=== PATIENT | male | born 1960 | race Caucasian/White ===

== ENCOUNTER 2019-10-23 07:10 | Inpatient (IN) | payer MEDICARE, MEDICAID, SELFPAY ==
[2019-10-23] VITALS (21 sets, daily range): BP systolic 83–129; BP diastolic 46–68; PULSE 69–86; RESP 13–24; TEMP 34.3–36.4; O2SAT 86–100
--- NOTE | 2019-10-23 07:12 | XR_ITS ---
WS: [id number] XR chest 1V portable [id number] REASON FOR EXAM: cp FINDINGS: Hyper aerated lungs are seen bilaterally. The heart mediastinum were normal. Arteriosclerotic changes are seen. The hilum and apices are normal. No osseous abnormalities. XR/XR chest 1V portable [id number] IMPRESSION: Chronic obstructive pulmonary disease Arteriosclerotic changes.
--- NOTE | 2019-10-23 07:13 | ECG_ITS ---
Measurements Intervals [place] Rate: 73 P: 70 RI: 163 QRS: -87 QRSD: 143 T: 68 QT: 421 QTc: 466 SINUS RHYTHM POSSIBLE LEFT ATRIAL ENLARGEMENT [-0.1mV P WAVE IN V1/V2] INTRAVENTRICULAR CONDUCTION DELAY [130+ ms QRS DURATION] Compared to ECG 02/10/2019 17:35:10 Intraventricular conduction delay now present Sinus bradycardia no longer present Left anterior fascicular block no longer present Electronically Signed On 10-23-2019 8:45:50 CDT by Caty Abbasi [id number]
--- NOTE | 2019-10-23 07:13 | W.ED.AMS ---
HPI - Altered Mental Status General: Chief Complaint: Altered Mental Status Stated Complaint: DKA Time Seen by Provider: 10/23/19 07:10 Source: patient and EMS Mode of arrival: EMS Limitations: altered mental status History of Present Illness: HPI narrative: 59-year-old male who is very well-known to the ER and has a long history of hyperglycemia and type I diabetic has been here multiple times in DKA. Patient brought in by EMS today for altered mental status and blood sugar in the 500s. Patient currently will not answer any questions. He is breathing fast and is tachycardic as well. Denies any recent fevers. MD complaint: altered mental status Onset (ago): hour(s) Review of Systems General: Reports: ROS unobtainable due to mental status PFSH ED PFSH: Social History Smoking and tobacco status: never smoked Physical Exam Const: COMMON NORMALS: negative for oriented x3 EXAM LIMITATIONS: altered mental status GENERAL APPEARANCE: disheveled HENMT: COMMON NORMALS: normocephalic and head/scalp atraumatic HEAD & SCALP: normocephalic and atraumatic Eye: COMMON NORMALS: PERRL and EOMs intact bilaterally PUPIL: Yes PERRL Neck/C-Spine: COMMON NORMALS: full ROM and supple Chest: COMMONS NORMALS: inspection of chest normal and palpation of chest normal Resp: COMMON NORMALS: normal respiratory effort, no retractions, no use of accessory muscles and clear to auscultation bilaterally EFFORT & INSPECTION: Yes tachypneic AUSCULTATION: clear to auscultation bilaterally Cardio: COMMON NORMALS: regular rhythm and no murmurs RATE: tachycardic RHYTHM: regular rhythm GI: COMMON NORMALS: normal to inspection, nondistended, normoactive bowel sounds, soft to palpation, non-tender and no masses PALPATION: Yes soft Extremity: COMMON NORMALS: normal to inspection and full ROM Neuro: COMMON NORMALS: moves all extremities and no focal motor deficits; negative for oriented x3 Psych: COMMON NORMALS: mental status grossly normal, thought process normal and cooperative THOUGHT PROCESS: normal thought process Skin: COMMON NORMALS: no rashes or lesions noted and no wounds GENERAL SKIN EXAM: no rashes or lesions noted Course Vital Signs: Vital signs: Vital Signs Pulse Rate 73 10/23/19 07:12 Respiratory Rate 16 10/23/19 07:12 Blood Pressure 83/46 10/23/19 07:12 Pulse Oximetry 91 10/23/19 07:12 MDM - Altered Mental Status MDM Narrative: Medical decision making narrative: Giancarlo presents here with altered mental status likely from DKA. Patient is hyperglycemic and acidotic. Patient started on insulin and given IV fluids here. Patient is also quite dehydrated with acute kidney injury and hypotension. Patient's blood pressure is improving here after IV fluids. I spoke to the hospitalist and will admit to the ICU at this time. Lab Data: Labs: Lab Results 10/23/19 10/23/19 10/23/19 Range/Units 07:13 07:15 07:43 WBC 19.3 H (4.0-10.0) 10^3/ uL RBC 4.23 (4.1-5.3) 10^6/u L Hgb 13.9 (11.7-16.6) g/dL Hct 47.2 (42.0-52.0) % MCV 111.6 H (80-94) fL MCH 32.9 (28.0-34.0) pg MCHC 29.4 L (30.0-36.0) g/dL RDW 13.1 (12.1-15.1) % Plt Count 282 (130-400) 10^3/c mm MPV 12.6 H (7.4-10.4) fL Neut % (Auto) 78.8 % Lymph % (Auto) 5.7 % [place] % (Auto) 13.2 % Eos % (Auto) 0.1 % Baso % (Auto) 0.2 % Neut # (Auto) 15.2 H (1.8-7.7) 10^3/u L Lymph # (Auto) 1.1 (0.8-4.8) 10^3/u L [place] # (Auto) 2.6 H (0.2-0.9) 10^3/u L Eos # (Auto) 0.0 (0.0-0.8) 10^3/u L Baso # (Auto) 0.0 (0.0-0.1) 10^3/u L Nucleated RBC % (a uto) 0 % Nucleated RBCs # 0.0 /100WBC Specimen Type Arterial Sample Site Radial, left ABG pH 7.01 L* (7.35-7.45) ABG pCO2 14.8 L* (35-45) mmHg ABG pO2 144.0 H (80.0-100.0) mmH g ABG HCO3 3.7 L (22-26) mmol/L ABG Base Excess -25.7 L (-2.0-2.0) mmol/ L Saleem Test Pos Hematocrit 43.3 (42-52) % O2 Delivery Device Room air FiO2 21.0 % Fork Assembler ID cak Sodium (136-145) mmol/L Potassium (3.5-5.1) mmol/L Chloride (98-107) mmol/L Carbon Dioxide (22-29) mmol/L Anion Gap (5-19) BUN (8-23) mg/dL Creatinine (0.7-1.2) mg/dL GFR Calculation (90-130) mL/min Glucose (65-115) mg/dL Calculated Osmolal ity (285-295) mOsm/k g Calcium (8.5-10.5) mg/dL Phosphorus (2.5-4.5) mg/dL Total Bilirubin (0.15-1.2) mg/dL AST (0-40) U/L ALT (0-41) U/L Alkaline Phosphata se (40-130) IU/L Total Protein (6.6-8.7) g/dL Albumin (3.5-5.2) g/dL Globulin (1.3-4.6) g/dL Serum Ketones Positive H (Negative) 10/23/19 Range/Units 07:43 WBC (4.0-10.0) 10^3/ uL RBC (4.1-5.3) 10^6/u L Hgb (11.7-16.6) g/dL Hct (42.0-52.0) % MCV (80-94) fL MCH (28.0-34.0) pg MCHC (30.0-36.0) g/dL RDW (12.1-15.1) % Plt Count (130-400) 10^3/c mm MPV (7.4-10.4) fL Neut % (Auto) % Lymph % (Auto) % [place] % (Auto) % Eos % (Auto) % Baso % (Auto) % Neut # (Auto) (1.8-7.7) 10^3/u L Lymph # (Auto) (0.8-4.8) 10^3/u L [place] # (Auto) (0.2-0.9) 10^3/u L Eos # (Auto) (0.0-0.8) 10^3/u L Baso # (Auto) (0.0-0.1) 10^3/u L Nucleated RBC % (a uto) % Nucleated RBCs # /100WBC Specimen Type Sample Site ABG pH (7.35-7.45) ABG pCO2 (35-45) mmHg ABG pO2 (80.0-100.0) mmH g ABG HCO3 (22-26) mmol/L ABG Base Excess (-2.0-2.0) mmol/ L Saleem Test Hematocrit (42-52) % O2 Delivery Device FiO2 % Fork Assembler ID Sodium 138 (136-145) mmol/L Potassium 5.8 H (3.5-5.1) mmol/L Chloride 85 L (98-107) mmol/L Carbon Dioxide 4 L* (22-29) mmol/L Anion Gap 54.8 H (5-19) BUN 86 H* (8-23) mg/dL Creatinine 3.5 H (0.7-1.2) mg/dL GFR Calculation 17.9 L (90-130) mL/min Glucose 1010 H* (65-115) mg/dL Calculated Osmolal ity 337 H (285-295) mOsm/k g Calcium 9.3 (8.5-10.5) mg/dL Phosphorus 11.8 H* (2.5-4.5) mg/dL Total Bilirubin 0.2 (0.15-1.2) mg/dL AST 21 (0-40) U/L ALT 20 (0-41) U/L Alkaline Phosphata se 80 (40-130) IU/L Total Protein 6.6 (6.6-8.7) g/dL Albumin 4.1 (3.5-5.2) g/dL Globulin 2.5 (1.3-4.6) g/dL Serum Ketones (Negative) Imaging Data^: CXR: Attestation: I personally reviewed and interpreted this imaging study as follows: Radiologist's impression: no acute abnormality EKG Data^: EKG 1: Attestation: I personally reviewed and interpreted this EKG as follows: EKG interpretation date: 10/23/19 EKG interpretation time: 08:02 Interpretation: nsr hr [address] or twave abnormalities qrs 143 qtc 447 Critical Care Time Critical Care Time: Critical Care Time: Yes Total Critical Care Time: 36 Attestation: This case had a high probability of a clinically significant, sudden, or life threatening deterioration of this patient's condition which required my full and direct attention, intervention and personal management. Discharge Plan Discharge Patient Disposition: Admitted As Inpatient Admit Provider: Veronica Patel Clinical Impression: Acute kidney injury Diabetic ketoacidosis Qualifiers: Diabetes mellitus type: type 1 Diabetes mellitus complication detail: with coma Qualified Code(s): E10.11 - Type 1 diabetes mellitus with ketoacidosis with coma Condition: Stable Coding Level of Care Code ED Water Chaser for Chg Fwd Exam Comprehensive
[2019-10-23 07:23] LABS: Basophils % 0.2 %; Eosinophils % 0.1 %; Hematocrit 47.2 % (42.0-52.0); Hemoglobin 13.9 g/dL (11.7-16.6); Lymphocytes # 1.1 10^3/uL (0.8-4.8); Lymphocytes % 5.7 %; Mean Corpuscular HGB Conc 29.4 g/dL (30.0-36.0); Mean Corpuscular Hemoglobin 32.9 pg (28.0-34.0); Mean Corpuscular Volume 111.6 fL (80-94); Mean Platelet Volume 12.6 fL (7.4-10.4); Monocytes # 2.6 10^3/uL (0.2-0.9); Monocytes % 13.2 %; Neutrophils # 15.2 10^3/uL (1.8-7.7); Neutrophils % 78.8 %; Nucleated Red Blood Cells % 0 %; Platelet Count 282 10^3/cmm (130-400); Red Blood Count 4.23 10^6/uL (4.1-5.3); Red Cell Distribution Width 13.1 % (12.1-15.1); White Blood Count 19.3 10^3/uL (4.0-10.0)
[2019-10-23 07:24] LABS: Arterial Blood Gas Hematocrit 43.3 % (42-52); Base Excess ABG -25.7 mmol/L (-2.0-2.0); Blood Gas Allen Test Pos; Blood Gas Sample Site Radial, left; Blood Gas Sample Type Arterial; HCO3 ABG 3.7 mmol/L (22-26); Oxygen Device ROOM AIR
[2019-10-23 07:25] LABS: ABG PCO2 14.8 mmHg (35-45); ABG PH Result 7.01 (7.35-7.45)
[2019-10-23 08:03] LABS: Ketone (Acetest) Serum Positive (Negative)
[2019-10-23 08:16] LABS: Alanine Aminotransferase 20 U/L (0-41); Albumin Level 4.1 g/dL (3.5-5.2); Alkaline Phosphatase 80 IU/L (40-130); Calcium 9.3 mg/dL (8.5-10.5); Chloride 85 mmol/L (98-107); Globulin 2.5 g/dL (1.3-4.6); Glomerular Filtration Rate 17.9 mL/min (90-130); Potassium 5.8 mmol/L (3.5-5.1); Sodium 138 mmol/L (136-145); Total Bilirubin 0.2 mg/dL (0.15-1.2); Total Protein 6.6 g/dL (6.6-8.7)
[2019-10-23 08:20] LABS: Osmolality Calculated 337 mOsm/kg (285-295)
[2019-10-23 08:22] LABS: Anion Gap 54.8 (5-19); Aspartate Amino Transferase 21 U/L (0-40); Blood Urea Nitrogen 86 mg/dL (8-23); Carbon Dioxide 4 mmol/L (22-29); Glucose 1010 mg/dL (65-115); Phosphorus 11.8 mg/dL (2.5-4.5)
[2019-10-23] MEDS: sodium chloride 0.9% 1,000 ML 999 ML IV ×2 (08:35→08:36)
[2019-10-23] MEDS: insulin regular-human 250 UNIT in sodium chloride 0.9% 250 ML 7 UNIT IV (09:50)
--- NOTE | 2019-10-23 10:10 | PM.HP ---
Providers/Chief Complaint Admitting Physician: Veronica Patel DO Chief Complaint: DKA History of Present Illness Giancarlo Levi is a 59 year old male that presented to the emergency department today due to concern for altered mental status. Reportedly patient had been evaluated by EMS yesterday noted to have hyperglycemia and denied medical treatment. Patient has had several admissions in the past for DKA due to noncompliance with medication. Patient is somewhat confused but awake in the emergency department and therefore unable to obtain HPI from him. Patient was seen and evaluated in the emergency department noted to be in DKA and started on insulin drip and aggressive IV fluids. Review of Systems General: Reports: ROS unobtainable due to medical condition Medications/Allergies Home Medications Medication Instructions Recorded Confirmed Last Taken Type acetaminophen 1,000 mg PO Q6H PRN 10/23/19 10/23/19 Unknown History diphenhydramine HCl [Allergy] 25 mg PO Q6H PRN 10/23/19 10/23/19 Unknown History divalproex [Depakote ER] 500 mg PO BID 10/23/19 10/23/19 Unknown History dulaglutide [Trulicity] 0.75 mg SUBCUT Q7D 10/23/19 10/23/19 Unknown History empagliflozin [Jardiance] 10 mg PO DAILY 10/23/19 10/23/19 Unknown History furosemide [Lasix] 20 mg PO DAILY 10/23/19 10/23/19 Unknown History insulin NPH isoph U-100 human 10 unit SUBCUT DAILY 10/23/19 10/23/19 Unknown History [Novolin N Flexpen] levothyroxine 75 mcg PO DAILY 10/23/19 10/23/19 Unknown History mirtazapine 15 mg PO DAILY 10/23/19 10/23/19 Unknown History multivitamin 1 tab PO DAILY 10/23/19 10/23/19 Unknown History potassium chloride 20 meq PO BID 10/23/19 10/23/19 Unknown History quetiapine 200 mg PO BID 10/23/19 10/23/19 Unknown History quetiapine [Seroquel] 300 mg PO DAILY 10/23/19 10/23/19 Unknown History sertraline 50 mg PO DAILY 10/23/19 10/23/19 Unknown History Allergies Allergy/AdvReac Type Severity Reaction Status Date / Time No Known Allergies Allergy Unverified 10/23/19 08:51 PFSH Acute PFSH: Medical History (Updated 10/23/19 @ 10:57 by Veronica Patel DO) Diabetes mellitus type 2, insulin dependent Hypothyroidism Polysubstance abuse Schizophrenia Family History (Updated 10/23/19 @ 10:58 by Veronica Patel DO) Mother Dementia Father Dementia Social History Smoking and tobacco status: never smoked Supplemental PFSH Information: Information above obtained from chart review, unable to obtain from patient due to his clinical condition Vitals/I&O/Wt Last Vital Signs Pulse 73 10/23/19 07:12 Resp 16 10/23/19 07:12 BP 83/46 10/23/19 07:12 Pulse Ox 91 10/23/19 07:12 Weight last 48 hrs Weight 26.762 kg Physical Exam Const: COMMON NORMALS: alert GENERAL APPEARANCE: cooperative NUTRITIONAL APPEARANCE: thin and underweight ORIENTATION/CONSCIOUSNESS: Yes awake and Yes confused HENMT: COMMON NORMALS: normocephalic and head/scalp atraumatic HEAD & SCALP: normocephalic and atraumatic Eye: COMMON NORMALS: PERRL PUPIL: Yes PERRL Neck/C-Spine: COMMON NORMALS: supple GENERAL: Yes normal visual inspection Resp: COMMON NORMALS: normal respiratory effort and clear to auscultation bilaterally EFFORT & INSPECTION: Yes able to speak in complete sentences AUSCULTATION: clear to auscultation bilaterally, no rhonchi and no wheezes Cardio: COMMON NORMALS: regular rate, regular rhythm and no murmurs RATE: regular rate RHYTHM: regular rhythm GI: COMMON NORMALS: soft to palpation and non-tender INSPECTION: No abdominal distension AUSCULTATION: Yes normoactive bowel sounds PALPATION: Yes soft Extremity: COMMON NORMALS: no clubbing, cyanosis or edema and no calf tenderness Neuro: COMMON NORMALS: oriented x3, CN's II-XII intact bilaterally, moves all extremities and no focal motor deficits SENSORIUM/ORIENTATION: Yes alert Psych: OTHER: Difficulty following, trying to get out of bed despite redirection Skin: COMMON NORMALS: no rashes or lesions noted GENERAL SKIN EXAM: no rashes or lesions noted Data : 10/23/19 07:15 10/23/19 07:43 A&P Assessment and plan (1) Diabetic ketoacidosis: Admit to ICU Serial BMP Aggressive IV fluids Insulin drip Patient with a history of noncompliance Status: Acute Qualifiers: Diabetes mellitus complication detail: with coma Diabetes mellitus type: type 1 Qualified Code(s): E10.11 - Type 1 diabetes mellitus with ketoacidosis with coma Code(s): E11.10 - Type 2 diabetes mellitus with ketoacidosis without coma (2) Acute kidney injury: Appears to be prerenal due to dehydration and DKA. Continue with aggressive IV fluids and serial BMPs. Continue to monitor urine output closely. Status: Acute Code(s): N17.9 - Acute kidney failure, unspecified (3) Diabetes mellitus type 2, insulin dependent: With a history of noncompliance Status: Acute Code(s): E11.9 - Type 2 diabetes mellitus without complications; Z79.4 - technician terminal and repeater (current) use of insulin (4) Schizophrenia: Patient has history of [facility] admissions in the past, unknown if he is still taking his home Seroquel, sertraline and Depakote Status: Acute Code(s): F20.9 - Schizophrenia, unspecified (5) Hypothyroidism: Check TSH Status: Acute Code(s): E03.9 - Hypothyroidism, unspecified Attestations Medical Necessity Statement*: Patient requires hospitalization due to diabetic ketoacidosis, acute kidney injury. Expected stay greater than 2 midnights Coding Level of Care Code Acute Email Production Consultant for Chg Fwd Exam Comprehensive Diagnoses Diabetic ketoacidosis E10.11 Diabetes mellitus complication detail: with coma Diabetes mellitus type: type 1 Acute kidney injury N17.9 Diabetes mellitus type 2, insulin dependent E11.9; Z79.4 Schizophrenia F20.9 Hypothyroidism E03.9
--- NOTE | 2019-10-23 10:20 | PC.NURSE ---
body temp 91.8 rectal bare hugger applied
--- NOTE | 2019-10-23 10:40 | PC.NURSE ---
1400 mls urine out
[2019-10-23 10:50] LABS: Add Urine Microscopic? NO
[2019-10-23 11:04] LABS: Urine Appearance Clear (CLEAR); Urine Color Straw (Yellow); pH Urine 5 (5-7)
[2019-10-23 11:05] LABS: Bilirubin Urine Neg (NEGATIVE); Blood Urine Neg (Negative); Glucose Urine UA 4+ (Normal); Ketones Urine 1+ (Negative); Leukocyte Esterase Urine Negative (Negative); Nitrate Urine Negative (Negative); Protein Urine Neg (Negative); Urobilinogen Urine Norm (Negative)
[2019-10-23 12:41] LABS: Glucose 680 mg/dL (65-115)
[2019-10-23] MEDS: enoxaparin 30 mg/0.3 mL Syringe SUBCUT (12:49)
[2019-10-23] MEDS: sodium chloride 0.9% 1,000 ML 150 ML IV (12:50)
[2019-10-23 13:07] LABS: Estmated Average Glucose 220; Hemoglobin A1C 9.3 % (4.0-6.0)
[2019-10-23 13:18] LABS: Anion Gap 47.8 (5-19); Calcium 8.6 mg/dL (8.5-10.5); Chloride 97 mmol/L (98-107); Glomerular Filtration Rate 22.2 mL/min (90-130); Osmolality Calculated 334 mOsm/kg (285-295); Potassium 4.8 mmol/L (3.5-5.1); Sodium 146 mmol/L (136-145); Thyroid Stimulating Hormone 1.87 uIU/mL (0.27-4.20)
[2019-10-23 13:22] LABS: Blood Urea Nitrogen 85 mg/dL (8-23); Carbon Dioxide 6 mmol/L (22-29)
[2019-10-23 13:23] LABS: Glucose 680 mg/dL (65-115)
[2019-10-23 13:31] LABS: Glucose Point of Care 450 mg/dL (70-110)
[2019-10-23 14:13] LABS: Glucose Point of Care 476 mg/dL (70-110)
[2019-10-23 15:20] LABS: Glucose Point of Care 295 mg/dL (70-110)
[2019-10-23] MEDS: sodium chlor 0.9% + KCl 20 mEq 20 MEQ/1,000 ML BAG 150 MEQ IV (15:24)
[2019-10-23 16:20] LABS: Glucose Point of Care 273 mg/dL (70-110)
[2019-10-23 17:12] LABS: Glucose Point of Care 224 mg/dL (70-110)
[2019-10-23] MEDS: dextrose 5%-ns + KCl 20 20 MEQ/1,000 ML BAG 125 MEQ IV (17:16)
[2019-10-23 17:59] LABS: Anion Gap 32.8 (5-19); Blood Urea Nitrogen 70 mg/dL (8-23); Calcium 8.6 mg/dL (8.5-10.5); Carbon Dioxide 12 mmol/L (22-29); Chloride 111 mmol/L (98-107); Glomerular Filtration Rate 30.6 mL/min (90-130); Glucose 233 mg/dL (65-115); Osmolality Calculated 321 mOsm/kg (285-295); Potassium 3.8 mmol/L (3.5-5.1); Sodium 152 mmol/L (136-145)
[2019-10-23 18:20] LABS: Glucose Point of Care 196 mg/dL (70-110)
[2019-10-23 19:05] LABS: Glucose Point of Care > 600 mg/dL (70-110)
[2019-10-23 19:09] LABS: Glucose Point of Care 115 mg/dL (70-110)
--- NOTE | 2019-10-23 21:32 | PC.NURSE ---
Pt has been restless since shift change. Pt has become increasingly able to open eyes on command as well as nod yes or shake his head no . Pt has been asked if he is in pain. He has responded 2 separate times in the last hour that he is in pain. He is unable to speak more than a mumble, so I'm not sure what hurts. He nodded yes to medicine. Pt is still NPO.
[2019-10-23] MEDS: morphine 4 mg/mL SDV 1 mL 2 MG IVP (21:37)
[2019-10-23] MEDS: dextrose 50% syringe 50 mL IVP (22:18)
[2019-10-23 23:58] LABS: Anion Gap 18.3 (5-19); Blood Urea Nitrogen 63 mg/dL (8-23); Calcium 8.9 mg/dL (8.5-10.5); Carbon Dioxide 24 mmol/L (22-29); Chloride 120 mmol/L (98-107); Creatinine Clr Calc Pharmacy 17.2729; Glomerular Filtration Rate 41.2 mL/min (90-130); Glucose 146 mg/dL (65-115); Osmolality Calculated 328 mOsm/kg (285-295); Potassium 4.3 mmol/L (3.5-5.1); Sodium 158 mmol/L (136-145)
[2019-10-24] VITALS (15 sets, daily range): BP systolic 77–135; BP diastolic 47–83; PULSE 49–88; RESP 12–26; TEMP 36.6–37.1; O2SAT 96–100; BMI 13.7
[2019-10-24] MEDS: dextrose 5%-ns + KCl 20 20 MEQ/1,000 ML BAG 125 MEQ IV (01:19)
[2019-10-24] MEDS: morphine 4 mg/mL SDV 1 mL 2 MG IVP ×2 (01:21→05:18)
[2019-10-24] MEDS: haloperidol inj 5 mg/mL INJ 1 mL IM ×3 (01:37→20:30)
--- NOTE | 2019-10-24 02:28 | PC.NURSE ---
Pt has become increasingly agitated over the past hour. A second dose of morphine was given with no change in pt's demeanor. Pt was trying to get out of bed, pull out catheter, and was pulling at IVs. Dr consulted and haldol was ordered and given. Haldol calmed the pt for about 5 minutes, then he began kicking at me and yelling. After repeated attempts to get him to stay in bed, was notified again and another dose of IM haldol ordered and given. Precidex was also ordered and started. Pt is now resting.
[2019-10-24] MEDS: dextrose 50% syringe 50 mL IVP (03:21)
[2019-10-24 04:34] LABS: Glucose Point of Care 100 mg/dL (70-110)
[2019-10-24 04:34] LABS: Glucose Point of Care 107 mg/dL (70-110)
[2019-10-24 04:34] LABS: Glucose Point of Care 130 mg/dL (70-110)
[2019-10-24 04:34] LABS: Glucose Point of Care 67 mg/dL (70-110)
[2019-10-24 04:34] LABS: Glucose Point of Care 145 mg/dL (70-110)
[2019-10-24 04:34] LABS: Glucose Point of Care 80 mg/dL (70-110)
[2019-10-24 04:34] LABS: Glucose Point of Care 133 mg/dL (70-110)
[2019-10-24 04:34] LABS: Glucose Point of Care 78 mg/dL (70-110)
[2019-10-24 04:34] LABS: Glucose Point of Care 59 mg/dL (70-110)
[2019-10-24 04:34] LABS: Glucose Point of Care 78 mg/dL (70-110)
[2019-10-24 05:18] LABS: Basophils % 0.1 %; Eosinophils % 0.1 %; Hematocrit 36.8 % (42.0-52.0); Hemoglobin 12.3 g/dL (11.7-16.6); Lymphocytes % 7.8 %; Mean Corpuscular HGB Conc 33.4 g/dL (30.0-36.0); Mean Corpuscular Hemoglobin 32.1 pg (28.0-34.0); Mean Corpuscular Volume 96.1 fL (80-94); Mean Platelet Volume 11.2 fL (7.4-10.4); Monocytes # 1.5 10^3/uL (0.2-0.9); Monocytes % 11.4 %; Neutrophils # 10.4 10^3/uL (1.8-7.7); Nucleated Red Blood Cells % 0 %; Platelet Count 193 10^3/cmm (130-400); Red Blood Count 3.83 10^6/uL (4.1-5.3); White Blood Count 13.1 10^3/uL (4.0-10.0)
--- NOTE | 2019-10-24 05:21 | PC.NURSE ---
Dr. Castano consulted. She was given a review of the evening and all of the changes in lab work as well as insulin administration. Insulin had been turned off d/t hypoglycemia. Pt blood glucose 130, then 120. verbally ordered insulin drip to be back on at 1 mL/hr. Dr also suggested precedex to be set at 0.2 mcg/kg/hr. Morphine can also be given PRN as long as BP, RR, and HR stay WNL.
[2019-10-24 05:26] LABS: Glucose Point of Care 122 mg/dL (70-110)
[2019-10-24 05:46] LABS: Phosphorus 2.9 mg/dL (2.5-4.5)
[2019-10-24 05:47] LABS: Anion Gap 10.2 (5-19); Blood Urea Nitrogen 56 mg/dL (8-23); Calcium 8.3 mg/dL (8.5-10.5); Carbon Dioxide 30 mmol/L (22-29); Chloride 123 mmol/L (98-107); Glomerular Filtration Rate 51.5 mL/min (90-130); Glucose 150 mg/dL (65-115); Osmolality Calculated 329 mOsm/kg (285-295); Potassium 4.2 mmol/L (3.5-5.1); Sodium 159 mmol/L (136-145)
[2019-10-24 05:52] LABS: Glucose Point of Care 156 mg/dL (70-110)
[2019-10-24 07:53] LABS: Glucose Point of Care 147 mg/dL (70-110)
--- NOTE | 2019-10-24 08:21 | PM.PN ---
Subjective Subjective: Interval history: He is asleep, but wakes up, when asked if he knows where he is reports [facility], but otherwise does not answer the year. Does follow some limited commands. Vitals/I&O/Wt Last Vital Signs Temp 97.5 F L 10/23/19 11:30 Pulse 52 L 10/24/19 04:00 Resp 13 10/24/19 04:00 BP 77/47 10/24/19 04:00 Pulse Ox 100 10/24/19 04:00 10/23/19 10/24/19 10/24/19 22:59 06:59 14:59 Intake Total 369.984 / 906.674 1505.634 / 4441.318 0.525 / 0.525 Output Total 1900 / 1900 300 / 2200 Balance -1530.016 / -5472.173 1498.634 / 2241.318 0.525 / 0.525 Weight last 48 hrs Weight 42.184 kg Weight 42.184 kg Weight 26.762 kg Physical Exam Const: COMMON NORMALS: no apparent distress; negative for oriented x3 HENMT: COMMON NORMALS: oropharynx normal Neck/C-Spine: COMMON NORMALS: no JVD Resp: COMMON NORMALS: normal respiratory effort and clear to auscultation bilaterally AUSCULTATION: clear to auscultation bilaterally Cardio: COMMON NORMALS: no JVD, regular rhythm, S1 normal heart sound, S2 normal heart sound and no murmurs RHYTHM: regular rhythm HEART SOUNDS: S1 normal and S2 normal GI: COMMON NORMALS: normal to inspection, nondistended, normoactive bowel sounds, soft to palpation and non-tender PALPATION: Yes soft Extremity: COMMON NORMALS: no joint enlargement and no pedal edema Neuro: COMMON NORMALS: moves all extremities; negative for oriented x3 Skin: COMMON NORMALS: no rashes or lesions noted GENERAL SKIN EXAM: no rashes or lesions noted Data : 10/24/19 05:06 10/24/19 05:06 A&P Assessment and plan (1) Diabetic ketoacidosis: Glucose improved. Anion gap closed. Bicarbonate up to 30. Possibly some contraction alkalosis. With hyponatremia. Switch IV fluid to D5. Recheck sodium. Switch to subcutaneous insulin. With hypoglycemia overnight. For now hold off Lantus. Add sliding scale insulin. Status: Acute Qualifiers: Diabetes mellitus complication detail: with coma Diabetes mellitus type: type 1 Qualified Code(s): E10.11 - Type 1 diabetes mellitus with ketoacidosis with coma Code(s): E11.10 - Type 2 diabetes mellitus with ketoacidosis without coma (2) Acute encephalopathy: Confused on presentation. Unable to provide history. Currently appears to be oriented to place, not year. Does follow some limited commands. Perhaps with some improvement in mental status, although baseline is not known. Reported previously resident of residential, however, lost residence. Suspected secondary to metabolic derangement, DKA, acute medical condition. Urine unremarkable. We will request urine drug screen, add to prior if possible. Hypernatremia likely contributing, will switch IV fluid to D5. Monitor sodium. At this time on Precedex. Attempt to wean as possible as he is borderline bradycardic, soft blood pressure. We will add Ativan pushes as needed for restlessness/agitation. Status: Acute Code(s): G93.40 - Encephalopathy, unspecified (3) Acute kidney injury: Improving. Continue to monitor renal function, urine output. Status: Acute Code(s): N17.9 - Acute kidney failure, unspecified (4) Diabetes mellitus type 2, insulin dependent: With a history of noncompliance Status: Acute Code(s): E11.9 - Type 2 diabetes mellitus without complications; Z79.4 - truck terminal manager (current) use of insulin (5) Schizophrenia: Patient has history of [facility] admissions in the past, unknown if he is still taking his home Seroquel, sertraline and Depakote Status: Acute Code(s): F20.9 - Schizophrenia, unspecified (6) Hypothyroidism: TSH normal. Status: Acute Code(s): E03.9 - Hypothyroidism, unspecified Attestations Medical Necessity Statement*: Continue admission for assessment of management of DKA, acute encephalopathy. Coding Level of Care Code Acute Elementary Supervisor for [facility] Diagnoses Diabetic ketoacidosis E10.11 Diabetes mellitus complication detail: with coma Diabetes mellitus type: type 1 Acute encephalopathy G93.40 Acute kidney injury N17.9 Diabetes mellitus type 2, insulin dependent E11.9; Z79.4 Schizophrenia F20.9 Hypothyroidism E03.9
[2019-10-24] MEDS: dextrose 5% 1,000 ML 100 ML IV ×2 (08:53→18:47)
[2019-10-24] MEDS: LORazepam 2 mg/mL INJ 1 mL 0.5 MG IVP ×3 (08:53→20:49)
[2019-10-24 10:07] LABS: Amphetamines Screen Urine Negative (Negative); Barbiturates Screen Urine Negative (Negative); Benzodiazepines Screen Urine Negative (Negative); Cocaine Screen Urine Negative (Negative); Opiate Screen Urine Positive (Negative); PCP Screen Urine Negative (Negative); THC Screen Urine Negative (Negative)
[2019-10-24 11:05] LABS: Sodium 161 mmol/L (136-145)
[2019-10-24 12:10] LABS: Glucose Point of Care 216 mg/dL (70-110)
[2019-10-24] MEDS: enoxaparin 30 mg/0.3 mL Syringe SUBCUT (12:10)
[2019-10-24 18:33] LABS: Glucose Point of Care 127 mg/dL (70-110)
[2019-10-24 19:39] LABS: Anion Gap 18.2 (5-19); Blood Urea Nitrogen 41 mg/dL (8-23); Calcium 8.5 mg/dL (8.5-10.5); Carbon Dioxide 23 mmol/L (22-29); Chloride 121 mmol/L (98-107); Glomerular Filtration Rate 68.1 mL/min (90-130); Glucose 229 mg/dL (65-115); Osmolality Calculated 331 mOsm/kg (285-295); Potassium 4.2 mmol/L (3.5-5.1); Sodium 158 mmol/L (136-145)
--- NOTE | 2019-10-24 21:20 | PC.NURSE ---
Pt anxious and fighting to get out of bed to go pee pee inspite of reassurance, haldol and precedex. Pulling at gaines cath. Dr notified and order received to removed gaines catheter. Labs reviewed and will repeat bmp to monitor anion gap which is reopening
[2019-10-24 22:28] LABS: Blood Urea Nitrogen 38 mg/dL (8-23); Calcium 8.3 mg/dL (8.5-10.5); Carbon Dioxide 22 mmol/L (22-29); Chloride 119 mmol/L (98-107); Glucose 316 mg/dL (65-115); Osmolality Calculated 334 mOsm/kg (285-295); Sodium 157 mmol/L (136-145)
--- NOTE | 2019-10-24 23:46 | PC.NURSE ---
Spoke with doctor about widening anion gap. Orders received to restart insulin gtt
[2019-10-25] VITALS (13 sets, daily range): BP systolic 80–156; BP diastolic 51–98; PULSE 48–82; RESP 7–20; TEMP 36.4–37.1; O2SAT 96–100; BMI 11.6
[2019-10-25] MEDS: insulin regular-human 250 UNIT in sodium chloride 0.9% 250 ML IV (00:06)
[2019-10-25 00:58] LABS: Anion Gap 10.7 (5-19); Blood Urea Nitrogen 36 mg/dL (8-23); Calcium 8.4 mg/dL (8.5-10.5); Carbon Dioxide 28 mmol/L (22-29); Chloride 120 mmol/L (98-107); Glomerular Filtration Rate 85.8 mL/min (90-130); Glucose 247 mg/dL (65-115); Osmolality Calculated 326 mOsm/kg (285-295); Potassium 3.7 mmol/L (3.5-5.1); Sodium 155 mmol/L (136-145)
[2019-10-25] MEDS: LORazepam 2 mg/mL INJ 1 mL 0.5 MG IVP ×4 (01:36→21:41)
[2019-10-25] MEDS: dextrose 5% 1,000 ML 100 ML IV ×3 (04:26→23:53)
[2019-10-25 05:07] LABS: Basophils % 0.3 %; Eosinophils % 0.1 %; Hematocrit 40.1 % (42.0-52.0); Hemoglobin 12.9 g/dL (11.7-16.6); Lymphocytes # 1.5 10^3/uL (0.8-4.8); Lymphocytes % 19.7 %; Mean Corpuscular HGB Conc 32.2 g/dL (30.0-36.0); Mean Corpuscular Hemoglobin 32.1 pg (28.0-34.0); Mean Corpuscular Volume 99.8 fL (80-94); Mean Platelet Volume 11.3 fL (7.4-10.4); Monocytes # 0.6 10^3/uL (0.2-0.9); Monocytes % 7.3 %; Neutrophils # 5.6 10^3/uL (1.8-7.7); Neutrophils % 72.3 %; Nucleated Red Blood Cells % 0 %; Platelet Count 168 10^3/cmm (130-400); Red Blood Count 4.02 10^6/uL (4.1-5.3); Red Cell Distribution Width 13.7 % (12.1-15.1); White Blood Count 7.7 10^3/uL (4.0-10.0)
[2019-10-25 05:38] LABS: Anion Gap 8.8 (5-19); Blood Urea Nitrogen 33 mg/dL (8-23); Calcium 8.5 mg/dL (8.5-10.5); Carbon Dioxide 32 mmol/L (22-29); Chloride 120 mmol/L (98-107); Glomerular Filtration Rate 85.8 mL/min (90-130); Glucose 100 mg/dL (65-115); Osmolality Calculated 321 mOsm/kg (285-295); Potassium 3.8 mmol/L (3.5-5.1); Sodium 157 mmol/L (136-145)
--- NOTE | 2019-10-25 08:29 | CTR_ITS ---
PROCEDURE INFORMATION: Exam: CT Head Without Contrast Exam date and time: 10/25/2019 11:42 AM Age: 59 years old Clinical indication: Altered mental status/memory loss; Additional info: AMS TECHNIQUE: Imaging protocol: Computed tomography of the head without contrast. Total DLP: 974.82 mGy-cm Radiation optimization: All CT scans at this facility use at least one of these dose optimization techniques: automated exposure control; mA and/or kV adjustment per patient size (includes targeted exams where dose is matched to clinical indication); or iterative reconstruction. COMPARISON: CT head wo con* [id number] 10/11/2018 8:06 PM FINDINGS: Brain: Symmetric prominence of the cortical sulci. Minimal small vessel ischemic change. No acute cortical infarct, mass effect, or intracranial hemorrhage. Basal ganglia calcification. Ventricles: Normal configuration of the ventricles Bones/joints: No acute calvarial pathology. Sinuses: No sinus fluid. Mastoid air cells: No mastoid effusion. Soft tissues: Unremarkable soft tissues. CT/CT head wo con* [id number] IMPRESSION: No acute intracranial pathology. Radiation Dose CTDIVOL = (mGy): DLP = 974.82 (mGy-cm)
--- NOTE | 2019-10-25 08:30 | P.PN_ITS ---
Subjective Subjective: Interval history: He was confused and restless overnight, received haldol and ativan, currently asleep. Not appearing in discomfort. Vitals/I&O/Wt Last Vital Signs Temp 98.3 F 10/25/19 04:00 Pulse 55 L 10/25/19 06:00 Resp 17 10/25/19 06:00 BP 86/52 10/25/19 06:00 Pulse Ox 99 10/25/19 06:00 10/24/19 10/25/19 10/25/19 22:59 06:59 14:59 Intake Total 996.533 / 1005.411 989.32 / 1994.731 0 / 0 Output Total 1200 / 1200 Balance -203.467 / -194.589 989.32 / 794.731 0 / 0 Weight last 48 hrs Weight 35.834 kg Weight 42.184 kg Weight 42.184 kg Physical Exam 2 Const: COMMON NORMALS: no apparent distress; negative for oriented x3 HENMT: COMMON NORMALS: oropharynx normal Neck/C-Spine: COMMON NORMALS: no JVD Resp: COMMON NORMALS: normal respiratory effort and clear to auscultation bilaterally AUSCULTATION: clear to auscultation bilaterally Cardio: COMMON NORMALS: no JVD, regular rhythm, S1 normal heart sound, S2 normal heart sound and no murmurs RHYTHM: regular rhythm HEART SOUNDS: S1 normal and S2 normal GI: COMMON NORMALS: normal to inspection, nondistended, normoactive bowel sounds, soft to palpation and non-tender PALPATION: Yes soft Extremity: COMMON NORMALS: no joint enlargement and no pedal edema Neuro: COMMON NORMALS: moves all extremities; negative for oriented x3 Skin: COMMON NORMALS: no rashes or lesions noted GENERAL SKIN EXAM: no rashes or lesions noted OTHER: tattoos Data : 10/25/19 04:38 10/25/19 04:38 A&P Assessment and plan (1) Diabetic ketoacidosis: Last night anion gap and bicarbonate worsened, and had to be restarted on insulin drip again. This morning weaned off around 5 AM after gap and bic arbonate improved again. Continue subcutaneous insulin sliding scale. With hypoglycemia last night. For now hold off Lantus. Status: Acute Qualifiers: Diabetes mellitus complication detail: with coma Diabetes mellitus type: type 1 Qualified Code(s): E10.11 - Type 1 diabetes mellitus with ketoacidosis with coma Code(s): E11.10 - Type 2 diabetes mellitus with ketoacidosis without coma (2) Acute encephalopathy: Suspected secondary to metabolic derangement, DKA, hypernatremia, versus possible substance withdrawal. He is afebrile, without leukocytosis, acute infection at this time is not suspected. Continue D5W. Monitor sodium. Will assess CT of the head. Continue attempts to wean off, currently on minimal Precedex. Confused on presentation. Unable to provide history. Currently appears to be oriented to place, not year. Does follow some limited commands. Perhaps with some improvement in mental status, although baseline is not known. Reported previously resident of [facility], however, lost residence. Suspected secondary to metabolic derangement, DKA, acute medical condition. Urine unremarkable. TSH was normal. Status: Acute Code(s): G93.40 - Encephalopathy, unspecified (3) Acute kidney injury: Resolved. Continue to monitor renal function, urine output. Status: Acute Code(s): N17.9 - Acute kidney failure, unspecified (4) Diabetes mellitus type 2, insulin dependent: With a history of noncompliance Status: Acute Code(s): E11.9 - Type 2 diabetes mellitus without complications; Z79.4 - oysterman (current) use of insulin (5) Schizophrenia: Patient has history of [facility] admissions in the past, unknown if he is still taking his home Seroquel, sertraline and Depakote Status: Acute Code(s): F20.9 - Schizophrenia, unspecified (6) Hypothyroidism: TSH normal. Status: Acute Code(s): E03.9 - Hypothyroidism, unspecified Attestations Medical Necessity Statement*: Continue admission for assessment and management of DKA, hypernatremia and acute encephalopathy. Coding Level of Care Code Acute Automation Engineering Manager for [facility] Diagnoses Diabetic ketoacidosis E10.11 Diabetes mellitus complication detail: with coma Diabetes mellitus type: type 1 Acute encephalopathy G93.40 Acute kidney injury N17.9 Diabetes mellitus type 2, insulin dependent E11.9; Z79.4 Schizophrenia F20.9 Hypothyroidism E03.9
[2019-10-25 09:27] LABS: Glucose Point of Care 88 mg/dL (70-110)
[2019-10-25 09:27] LABS: Glucose Point of Care 134 mg/dL (70-110)
[2019-10-25 09:27] LABS: Glucose Point of Care 187 mg/dL (70-110)
[2019-10-25 09:27] LABS: Glucose Point of Care 180 mg/dL (70-110)
[2019-10-25 09:27] LABS: Glucose Point of Care 290 mg/dL (70-110)
[2019-10-25 09:27] LABS: Glucose Point of Care 81 mg/dL (70-110)
[2019-10-25 09:27] LABS: Glucose Point of Care 118 mg/dL (70-110)
[2019-10-25 09:27] LABS: Glucose Point of Care 77 mg/dL (70-110)
[2019-10-25] MEDS: enoxaparin 30 mg/0.3 mL Syringe SUBCUT (12:41)
[2019-10-25] MEDS: haloperidol inj 5 mg/mL INJ 1 mL IM ×2 (14:15→21:14)
[2019-10-25 14:24] LABS: Sodium 153 mmol/L (136-145)
[2019-10-25 18:54] LABS: Glucose Point of Care 164 mg/dL (70-110)
[2019-10-25 18:54] LABS: Glucose Point of Care 225 mg/dL (70-110)
--- NOTE | 2019-10-25 21:21 | PC.NURSE ---
IM haldol given at this time for agitation and getting out of bed. Pt not following command, will not open eyes when asked, pt is uncooperative and being a danger to himself.
--- NOTE | 2019-10-25 21:45 | PC.NURSE ---
IV ativan administered at this time due to pt agitation and trying to get out of bed.
[2019-10-26] VITALS (16 sets, daily range): BP systolic 86–160; BP diastolic 48–120; PULSE 46–79; RESP 12–23; TEMP 36.6; O2SAT 87–100
[2019-10-26] MEDS: LORazepam 2 mg/mL INJ 1 mL 0.5 MG IVP ×2 (01:26→09:12)
[2019-10-26 05:40] LABS: Basophils % 0.3 %; Eosinophils % 0.3 %; Hematocrit 41.8 % (42.0-52.0); Lymphocytes # 1.4 10^3/uL (0.8-4.8); Lymphocytes % 19.7 %; Mean Corpuscular HGB Conc 31.1 g/dL (30.0-36.0); Mean Corpuscular Hemoglobin 31.9 pg (28.0-34.0); Mean Corpuscular Volume 102.5 fL (80-94); Mean Platelet Volume 11.4 fL (7.4-10.4); Monocytes # 0.4 10^3/uL (0.2-0.9); Monocytes % 5.9 %; Neutrophils # 5.1 10^3/uL (1.8-7.7); Neutrophils % 73.5 %; Nucleated Red Blood Cells % 0 %; Platelet Count 144 10^3/cmm (130-400); Red Blood Count 4.08 10^6/uL (4.1-5.3); Red Cell Distribution Width 13.1 % (12.1-15.1)
[2019-10-26 06:10] LABS: Alanine Aminotransferase 28 U/L (0-41); Albumin Level 3.7 g/dL (3.5-5.2); Alkaline Phosphatase 78 IU/L (40-130); Anion Gap 22.7 (5-19); Aspartate Amino Transferase 51 U/L (0-40); Blood Urea Nitrogen 19 mg/dL (8-23); Carbon Dioxide 23 mmol/L (22-29); Chloride 103 mmol/L (98-107); Globulin 2.3 g/dL (1.3-4.6); Glomerular Filtration Rate 98.3 mL/min (90-130); Glucose 370 mg/dL (65-115); Osmolality Calculated 310 mOsm/kg (285-295); Potassium 4.7 mmol/L (3.5-5.1); Sodium 144 mmol/L (136-145); Total Bilirubin 0.8 mg/dL (0.15-1.2)
[2019-10-26 06:17] LABS: Glucose Point of Care 166 mg/dL (70-110)
[2019-10-26 07:23] LABS: Glucose Point of Care 334 mg/dL (70-110)
[2019-10-26] MEDS: insulin glargine 100 units/1 mL 10 UNIT SUBCUT (09:30)
[2019-10-26] MEDS: dextrose 5% 1,000 ML 100 ML IV (10:47)
[2019-10-26] MEDS: enoxaparin 30 mg/0.3 mL Syringe SUBCUT (11:37)
[2019-10-26] MEDS: haloperidol inj 5 mg/mL INJ 1 mL IM ×2 (11:51→16:39)
--- NOTE | 2019-10-26 16:23 | PC.NURSE ---
Patient confused and trying to get out of bed. Continues to pull monitors off at this time.
[2019-10-26 17:28] LABS: Glucose Point of Care 148 mg/dL (70-110)
[2019-10-26 18:37] LABS: Glucose Point of Care 251 mg/dL (70-110)
--- NOTE | 2019-10-26 19:05 | PM.PN ---
Subjective Subjective: Interval history: This morning lethargic is again needed to receive a dose of Ativan, Haldol. He is still confused, intermittently trying to crawl out on all fours out of bed, trying to roll out. Not following commands. Not interacting. No seizure-like activity noted. Vitals/I&O/Wt Last Vital Signs Temp 97.8 F 10/26/19 12:55 Pulse 53 L 10/26/19 18:00 Resp 14 10/26/19 18:00 BP 147/93 10/26/19 18:00 Pulse Ox 97 10/26/19 14:55 10/26/19 10/26/19 10/26/19 06:59 14:59 22:59 Intake Total 858.333 / 0808.833 9521 / 1080 Balance 858.333 / 6783.300 8726 / 1080 Weight last 48 hrs Weight 39.417 kg Weight 35.834 kg Physical Exam Const: COMMON NORMALS: no apparent distress; negative for oriented x3 HENMT: COMMON NORMALS: oropharynx normal Neck/C-Spine: COMMON NORMALS: no JVD Resp: COMMON NORMALS: normal respiratory effort and clear to auscultation bilaterally AUSCULTATION: clear to auscultation bilaterally Cardio: COMMON NORMALS: no JVD, regular rhythm, S1 normal heart sound, S2 normal heart sound and no murmurs RHYTHM: regular rhythm HEART SOUNDS: S1 normal and S2 normal GI: COMMON NORMALS: normal to inspection, nondistended, normoactive bowel sounds, soft to palpation and non-tender PALPATION: Yes soft Extremity: COMMON NORMALS: no joint enlargement and no pedal edema Neuro: COMMON NORMALS: moves all extremities; negative for oriented x3 Skin: COMMON NORMALS: no rashes or lesions noted GENERAL SKIN EXAM: no rashes or lesions noted OTHER: tattoos Data : 10/26/19 05:05 10/26/19 05:05 A&P Assessment and plan (1) Acute encephalopathy: He continues with delirium, acute encephalopathy of unidentified etiology. His metabolic condition has improved, resolution of DKA, transition to subcutaneous insulin, with gradual improvement in sodium. We will hold off additional IV hydration. Recheck sodium level. Discussed with his sister. She stated that he lived for about 9 months in assisted living over the past several weeks has become more unruly, not wanting to stay there, and leaving the facility, then on Saturday insisted on being discharged, and was sent out with prescriptions, and stayed essentially homeless, until was brought to the hospital with severe hyperglycemia, DKA. She is not sure what he had been doing in the time preceding the admission. She is not sure whether or not he may have taken some drugs or drink alcohol. It does not appear that he was taking his medications given DKA. Reportedly he did stay some time with the mother of his children (they were previously , however, were also at the same time to different people), and she reportedly stated that he did not have good appetite at that time. Apart from encephalopathy, his exam is otherwise unremarkable, unable to elicit pain anywhere. His blood pressures have improved. He is somewhat bradycardic with heart rate of 50s. He is afebrile, without leukocytosis, saturating well on room air. Discussed with his sister it is not clear whether he may be withdrawing from something, versus having suffered some untoward event, anoxic or other brain injury prior to admission. Discussed we will resume his home medications, including antipsychotics starting at somewhat lower doses. Will recheck UA, chest x-ray, TSH. With macrocytosis we will check B12, folic acid. Start him on thiamine. Continue to monitor and continue supportive care for now. Status: Acute Code(s): G93.40 - Encephalopathy, unspecified (2) Diabetic ketoacidosis: Continue subcutaneous insulin sliding scale. Increase to medium dose. Added Lantus. Support with intermittent D5W until eating. At this time would not tolerate placement of NG tube. Status: Acute Qualifiers: Diabetes mellitus complication detail: with coma Diabetes mellitus type: type 1 Qualified Code(s): E10.11 - Type 1 diabetes mellitus with ketoacidosis with coma Code(s): E11.10 - Type 2 diabetes mellitus with ketoacidosis without coma (3) Acute kidney injury: Resolved. Continue to monitor renal function, urine output. Status: Acute Code(s): N17.9 - Acute kidney failure, unspecified (4) Diabetes mellitus type 2, insulin dependent: With a history of noncompliance Status: Acute Code(s): E11.9 - Type 2 diabetes mellitus without complications; Z79.4 - intermediate (current) use of insulin (5) Schizophrenia: Patient has history of [facility] admissions in the past, unknown if he is still taking his home Seroquel, sertraline and Depakote Status: Acute Code(s): F20.9 - Schizophrenia, unspecified (6) Hypothyroidism: TSH normal. Status: Acute Code(s): E03.9 - Hypothyroidism, unspecified Attestations Medical Necessity Statement*: Continue admission for supportive care, assessment of persistent acute encephalopathy of unidentified etiology. Coding Level of Care Code Acute Enrollment Management Director for [facility] Diagnoses Acute encephalopathy G93.40 Diabetic ketoacidosis E10.11 Diabetes mellitus complication detail: with coma Diabetes mellitus type: type 1 Acute kidney injury N17.9 Diabetes mellitus type 2, insulin dependent E11.9; Z79.4 Schizophrenia F20.9 Hypothyroidism E03.9
--- NOTE | 2019-10-26 19:12 | XRR_ITS ---
PROCEDURE INFORMATION: Exam: XR Chest, 1 View Exam date and time: 10/26/2019 8:10 PM Age: 59 years old Clinical indication: Other: Dka, AMS TECHNIQUE: Imaging protocol: XR of the chest Views: 1 view. COMPARISON: CR XR chest 1V portable [id number] 10/23/2019 7:40 AM FINDINGS: Lungs: Unremarkable. No consolidation. Pleural space: Unremarkable. No pleural effusion. No pneumothorax. Heart/Mediastinum: Unremarkable. No cardiomegaly. Bones/joints: Unremarkable. XR/XR chest 1V portable [id number] IMPRESSION: No acute findings.
[2019-10-26 20:58] LABS: Anion Gap 10.4 (5-19); Blood Urea Nitrogen 16 mg/dL (8-23); Calcium 8.9 mg/dL (8.5-10.5); Carbon Dioxide 31 mmol/L (22-29); Chloride 104 mmol/L (98-107); Glucose 76 mg/dL (65-115); Osmolality Calculated 289 mOsm/kg (285-295); Potassium 3.4 mmol/L (3.5-5.1); Sodium 142 mmol/L (136-145); Thyroid Stimulating Hormone 4.37 uIU/mL (0.27-4.20)
[2019-10-26 22:55] LABS: Folate Level 12.1 ng/mL (4.5-32.2); Vitamin B12 1394 pg/mL (232-1245)
[2019-10-27] VITALS (57 sets, daily range): BP systolic 79–162; BP diastolic 49–87; PULSE 48–103; RESP 12–96; TEMP 37–37.2; O2SAT 55–100
--- NOTE | 2019-10-27 00:36 | XR_ITS ---
WS: [id number] PORTABLE CHEST HISTORY: intubation COMPARISON: 10/26/2019 Nasogastric tube has been placed. Tip is within the stomach but the proximal port is at the GE juncti on. Endotracheal tube in good position ending 3 cm above the danae. Mild pulmonary hyperexpansion. No pneumothorax or pneumonia. No pleural effusion or pneumothorax. Cardiac size: Normal. Mediastinum/Aorta: Mild atherosclerosis aorta. No osseous abnormality seen. XR/XR chest 1V portable [id number] IMPRESSION: 1. Endotracheal tube in good position. 2. Recommend advancing nasogastric tube 10 cm for optimal positioning. 3. No pneumonia.
[2019-10-27] MEDS: dextrose 50% syringe 50 mL 25 ML IVP (00:48)
--- NOTE | 2019-10-27 00:56 | P.PNCC_ITS ---
Critical Care Event Note Critical Care Event The high probability of a clinically significant, sudden or life threatening deterioration of the patient's respiratory system(s) required my full and direct attention, intervention and personal management. The critical care time is as shown. This time is in addition to time spent performing any reported procedures but includes the following: [x] Data and vital sign review and interpretation [x] Patient assessment, examination and intervention [x] Documentation [x] Medication orders and management Called with patient being unresponsive and having some agonal breathing. Came immediately. His blood sugar at the time was 30. He received an amp of D50. He was monitored for a while without any clinical improvement. He remained unresponsive to painful stimuli. He was not as clammy as he had been when I first arrived. Repeat blood sugar was greater than 200. Pupils were equally reactive as were other reflexes. He had a bradycardic but regular rhythm. Breath sounds were equal and coarse with progressively worsening retractions and agonal pattern noted. Decision was made to go on and proceed with intubation emergently. During intubation, patient was noted to have significantly dry oral mucosa, visualization of the vocal cords revealed a significant amount of curdy yellow- white material exuding from the trachea. There was a foul odor as well. I have written an order for Diflucan IV and respiratory got a culture. Post procedure chest x-ray showed ET tube below the clavicles. I requested it be pushed down 1 to 2 cm. I also requested NG tube to be pushed in about an inch. Patient has been on Precedex previously. Will resume this and adjust sedation as needed. He had been bradycardic so will need to be careful. Blood pressure dropped during intubation so he got a fluid bolus. ABG ordered. Adjusted insulin. Critical Care Time Critical Care Time: Code activated: No Critical Care Time (min): 35 Procedures Intubation Time out performed: Yes Sedative: etomidate Mg given: 10 Paralytic: succinylcholine Mg given: 200 Laryngoscope: Chevy ET tube size: 8 Tube secured depth (cm): 24 Tube secured location: lips Tube placement confirmation: visualized tube passing through cords, equal breath sounds bilaterally and color change noted Patient tolerated procedure: well Intubation complications: none Additional comments: also got 2.5 of versed Coding Level of Care Code Acute Flat Breakdown Processor for [facility]
[2019-10-27] MEDS: lactated ringers 1,000 ML 999 ML IV (01:00)
[2019-10-27] MEDS: midazolam 1 mg/mL INJ 2 mL 6 MG (01:07)
[2019-10-27] MEDS: succinylcholine 20 mg/mL SDV 10mL 200 MG (01:10)
[2019-10-27] MEDS: etomidate 10 ML 10 MG (01:11)
--- NOTE | 2019-10-27 01:17 | ECG_ITS ---
Measurements Intervals [place] Rate: 69 P: TX: 0 QRS: -63 QRSD: 110 T: 67 QT: 409 QTc: 440 SINUS RHYTHM WITH HIGH GRADE AV BLOCK MARKED LEFT AXIS DEVIATION [QRS AXIS < -30] Compared to ECG 10/23/2019 07:31:11 Left-axis deviation now present Intraventricular conduction delay no longer present Electronically Signed On 10-27-2019 20:18:58 CDT by Mouna Abbasi M.D. [email or web address]
[2019-10-27 01:34] LABS: Urine Appearance Hazy (CLEAR); Urine Color Yellow (Yellow)
[2019-10-27] MEDS: fentaNYL 50 mcg/mL INJ 2mL 25 MCG IVP (01:34)
[2019-10-27] MEDS: famotidine 20 mg/2 mL INJ IVP ×2 (01:34→12:21)
[2019-10-27 01:35] LABS: Specific Gravity, Urine 1.015 (1.005-1.030); pH Urine 7 (5-7)
[2019-10-27 01:36] LABS: Add Urine Microscopic? YES; Bilirubin Urine Neg (NEGATIVE); Blood Urine 2+ (Negative); Glucose Urine UA 4+ (Normal); Ketones Urine 1+ (Negative); Leukocyte Esterase Urine Negative (Negative); Nitrate Urine Negative (Negative); Protein Urine Neg (Negative); Urobilinogen Urine 1 mg/dL (Negative)
[2019-10-27 01:38] LABS: Hyaline Casts Urine 55-80
[2019-10-27 01:39] LABS: Squamous Epithelial Cell Urine 0-4 (0-5)
[2019-10-27 01:40] LABS: Add Urine Culture? No; Bacteria Urine TRACE; Transitional Epi Cells Urine 0-4 /hpf
[2019-10-27 02:00] LABS: ABG PCO2 46.5 mmHg (35-45); ABG PH Result 7.39 (7.35-7.45); Arterial Blood Gas Hematocrit 40.3 % (42-52); Base Excess ABG 2.4 mmol/L (-2.0-2.0); Blood Gas Sample Site Brachial, right; Blood Gas Sample Type Arterial; Blood Gas Tidal Volume 0.45; Oxygen Device VENT
[2019-10-27] MEDS: sodium chloride 0.9% 1,000 ML 75 ML IV ×2 (02:14→17:04)
[2019-10-27] MEDS: fluconazole premix 200 MG/100 ML PREMIX 100 MG IV (02:15)
[2019-10-27 03:04] LABS: Troponin(5th) Baseline 12 ng/mL (0-15)
--- NOTE | 2019-10-27 03:38 | ECG_ITS ---
Measurements Intervals [place] Rate: 89 P: 74 MO: 135 QRS: -84 QRSD: 109 T: 72 QT: 401 QTc: 489 SINUS RHYTHM MARKED LEFT AXIS DEVIATION [QRS AXIS < -30] NONSPECIFIC ST ELEVATION [0.05+ mV ST ELEVATION] INTERPRETATION BASED ON A DEFAULT AGE OF 40 YEARS Compared to ECG 10/23/2019 07:31:11 Left-axis deviation now present ST (T wave) deviation now present Intraventricular conduction delay no longer present Electronically Signed On 10-27-2019 20:19:01 CDT by Mouna Abbasi M.D. [id number]
[2019-10-27 04:43] LABS: Basophils % 0.3 %; Eosinophils # 0.1 10^3/uL (0.0-0.8); Eosinophils % 0.8 %; Hematocrit 42.7 % (42.0-52.0); Hemoglobin 13.7 g/dL (11.7-16.6); Lymphocytes # 1.4 10^3/uL (0.8-4.8); Lymphocytes % 21.2 %; Mean Corpuscular HGB Conc 32.1 g/dL (30.0-36.0); Mean Corpuscular Hemoglobin 31.6 pg (28.0-34.0); Mean Corpuscular Volume 98.6 fL (80-94); Mean Platelet Volume 11.2 fL (7.4-10.4); Monocytes # 0.4 10^3/uL (0.2-0.9); Monocytes % 6.3 %; Neutrophils # 4.6 10^3/uL (1.8-7.7); Neutrophils % 71.1 %; Nucleated Red Blood Cells % 0 %; Platelet Count 132 10^3/cmm (130-400); Red Blood Count 4.33 10^6/uL (4.1-5.3); Red Cell Distribution Width 12.4 % (12.1-15.1); White Blood Count 6.5 10^3/uL (4.0-10.0)
[2019-10-27 04:59] LABS: Troponin 5 2HR 12.86 ng/mL (0-15); Troponin 5 2HR Delta 0.86 ABS# (0-10)
[2019-10-27 05:13] LABS: ABG PCO2 43.1 mmHg (35-45); ABG PH Result 7.41 (7.35-7.45); Arterial Blood Gas Hematocrit 41.5 % (42-52); Base Excess ABG 2.2 mmol/L (-2.0-2.0); Blood Gas Sample Site Radial, right; Blood Gas Sample Type Arterial; Blood Gas Tidal Volume 0.45; HCO3 ABG 27.3 mmol/L (22-26); Oxygen Device VENT; PO2 ABG 90.4 mmHg (80.0-100.0)
[2019-10-27 05:14] LABS: Alanine Aminotransferase 31 U/L (0-41); Albumin Level 3.4 g/dL (3.5-5.2); Alkaline Phosphatase 77 IU/L (40-130); Anion Gap 17.8 (5-19); Aspartate Amino Transferase 52 U/L (0-40); Blood Urea Nitrogen 18 mg/dL (8-23); Carbon Dioxide 23 mmol/L (22-29); Chloride 103 mmol/L (98-107); Globulin 2.3 g/dL (1.3-4.6); Glucose 133 mg/dL (65-115); Osmolality Calculated 288 mOsm/kg (285-295); Potassium 3.8 mmol/L (3.5-5.1); Sodium 140 mmol/L (136-145); Total Bilirubin 0.7 mg/dL (0.15-1.2); Total Protein 5.7 g/dL (6.6-8.7)
[2019-10-27 05:26] LABS: Magnesium 2.5 mg/dL (1.7-2.3); Phosphorus 2.8 mg/dL (2.5-4.5)
[2019-10-27 07:27] LABS: Glucose Point of Care 166 mg/dL (70-110)
[2019-10-27 07:36] LABS: Glucose Point of Care 32 mg/dL (70-110)
[2019-10-27 07:36] LABS: Glucose Point of Care 130 mg/dL (70-110)
[2019-10-27 08:18] LABS: Free T4 Free Thyroxine 1.21 ng/dL (0.82-1.77)
[2019-10-27 08:20] LABS: HIV 1 & 2 Antibody Non-Reactive (Non-Reactiv); HIV 1 & 2 Antigen Non-Reactive (Non-Reactiv)
[2019-10-27] MEDS: quetiapine 100 mg Tablet PO ×2 (08:37→17:04)
[2019-10-27] MEDS: levothyroxine 150 mcg Tablet 75 MCG PO (08:37)
[2019-10-27] MEDS: sertraline 50 mg Tablet 25 MG PO (08:37)
--- NOTE | 2019-10-27 08:38 | CTR_ITS ---
PROCEDURE INFORMATION: Exam: CT Chest Without Contrast Exam date and time: 10/27/2019 11:03 PM Age: 59 years old Clinical indication: Condition or disease; Abscess; Abscess location: Back; Other: AMS TECHNIQUE: Imaging protocol: Computed tomography of the chest without contrast. Total DLP: 1264.75 mGy-cm Radiation optimization: All CT scans at this facility use at least one of these dose optimization techniques: automated exposure control; mA and/or kV adjustment per patient size (includes targeted exams where dose is matched to clinical indication); or iterative reconstruction. Other contrast: Oral, ROLA 300, 25; COMPARISON: CT abdomen pelvis w con* [id number] 10/11/2018 8:15 PM FINDINGS: Tubes, catheters and devices: Tip of the ET tube about 2.4 cm above the danae. Tip of the enteric tube in the gastric antrum; interval appearance of this tube. Lungs: Patchy densities in the right lower lobe partially due to atelectasis; small focus of soft tissue density suggesting consolidation in the superior segment of this lobe. Extensive patchy airspace densities and some atelectasis in the left lower lobe, with a focus of probable consolidation in the left posterior sulcus. Posterior displacement of the left major fissure related to the left lower lobe volume loss. Interval appearance of the disease in both lung bases. Pleural space: Tiny pleural effusions. Heart: Mild displacement of the heart to the left since before. Still no cardiomegaly or pericardial effusion. Aorta: No aortic aneurysm. Lymph nodes: No suggestion of enlarged nodes. Bones/joints: Thoracic spine findings detailed in a separate report. No acute fracture in the other bones. Soft tissues: Unremarkable. IMPRESSION: 1. Bilateral lung disease suggesting pneumonia in addition to atelectasis. Tiny pleural effusions. Interval appearance of the bibasilar disease. 2. Life-supporting tubes in good position. Other findings detailed above. PROCEDURE INFORMATION: Exam: CT Abdomen And Pelvis Without Contrast Exam date and time: 10/27/2019 11:03 PM Age: 59 years old Clinical indication: Condition or disease; Abscess; Abscess location: Back; Other: AMS TECHNIQUE: Imaging protocol: Computed tomography of the abdomen and pelvis without contrast. Total DLP: 1264.75 mGy-cm Radiation optimization: All CT scans at this facility use at least one of these dose optimization techniques: automated exposure control; mA and/or kV adjustment per patient size (includes targeted exams where dose is matched to clinical indication); or iterative reconstruction. Other contrast: Oral, ROLA 300, 25; COMPARISON: CT abdomen pelvis w con* [id number] 10/11/2018 8:15 PM FINDINGS: Limitations: Streak artifacts. Liver: No suggestion of interval liver disease. Gallbladder and bile ducts: Interval gallbladder distension. Still no calcified gallstones or biliary ductal dilatation. Pancreas: No interval gross pancreatic disease. Spleen: Still no splenomegaly. Adrenals: Still no adrenal mass. Kidneys and ureters: Excreted contrast in the kidneys as before. No interval hydronephrosis. Stomach and bowel: Sigmoid diverticulosis still likely. Continued oblong focus of fatty density within the sigmoid colon measuring about 1.9 cm in greatest diameter possibly representing a polyp, especially considering the suggestion of a stalk associated with this mass on the prior study. Appendix: No suggestion of appendicitis. Intraperitoneal space: No free air. Vasculature: Still no aortic aneurysm. Lymph nodes: No suggestion of enlarged nodes. Bladder: Interval appearance of the Mustafa catheter and mild gas in the nondistended bladder. Reproductive: Prostatic enlargement again evident. Bones/joints: S1 transitional vertebra. No pars defect or acute fracture. Alignment intact. Soft tissues: Unremarkable. CT/CT chest abd pel wo con IMPRESSION: 1. No acute abdominal findings. 2. Fatty polyp in the sigmoid colon still conceivable. 3. Prostatic enlargement again evident. Interval appearance of the Mustafa catheter and mild gas in the bladder. Other findings detailed above. Radiation Dose CTDIVOL = (mGy): DLP = 1264.75~1264.75 (mGy-cm)
[2019-10-27 08:39] LABS: Glucose Point of Care 230 mg/dL (70-110)
[2019-10-27 08:39] LABS: Glucose Point of Care 115 mg/dL (70-110)
[2019-10-27 08:39] LABS: Glucose Point of Care 242 mg/dL (70-110)
[2019-10-27 08:39] LABS: Glucose Point of Care 128 mg/dL (70-110)
--- NOTE | 2019-10-27 08:50 | PM.PN ---
Subjective Subjective: Interval history: Patient was more confused overnight, obtunded, with weak breathing, required intubation. Appears comfortable this morning. Vitals/I&O/Wt Last Vital Signs Temp 97.8 F 10/26/19 12:55 Pulse 63 10/27/19 08:00 Resp 12 10/27/19 05:00 BP 105/67 10/27/19 08:00 Pulse Ox 99 10/27/19 08:00 10/26/19 10/27/19 10/27/19 22:59 06:59 14:59 Intake Total 0 / 1080 1111.25 / 2191.25 Output Total 450 / 450 Balance 0 / 1080 661.25 / 1741.25 Weight last 48 hrs Weight 40.687 kg Weight 39.417 kg Physical Exam Const: COMMON NORMALS: no apparent distress; negative for oriented x3 OTHER: Intubated, sedated. HENMT: COMMON NORMALS: oropharynx normal Neck/C-Spine: COMMON NORMALS: no JVD Resp: COMMON NORMALS: normal respiratory effort and clear to auscultation bilaterally AUSCULTATION: clear to auscultation bilaterally Cardio: COMMON NORMALS: no JVD, regular rhythm, S1 normal heart sound, S2 normal heart sound and no murmurs RHYTHM: regular rhythm HEART SOUNDS: S1 normal and S2 normal GI: COMMON NORMALS: normal to inspection, nondistended, normoactive bowel sounds, soft to palpation and non-tender PALPATION: Yes soft Extremity: COMMON NORMALS: no joint enlargement and no pedal edema OTHER: No rigidity. Neuro: COMMON NORMALS: moves all extremities; negative for oriented x3 Skin: COMMON NORMALS: no rashes or lesions noted GENERAL SKIN EXAM: no rashes or lesions noted Urinary Catheter Management^: Mustafa: Cath Placed During This Visit: yes Reason for Continuing Indwelling Catheter: Accurate Measurement of Urinary Output in Critically Ill Patients Urinary Catheter Date of Insertion: 10/27/19 Urinary Catheter Time of Insertion: 02:00 Data : 10/27/19 04:15 10/27/19 04:15 Micro: Microbiology 10/27/19 00:50 Gram Stain - Final Sputum - Endotracheal Tube Aspirate 10/26/19 20:02 Blood Culture - Preliminary Blood SPECIMEN COLLECTED 10/26/19 19:58 Blood Culture - Preliminary Blood SPECIMEN COLLECTED A&P Assessment and plan (1) Acute encephalopathy: Without improvement, worsening overnight. Still afebrile. No leukocytosis. Bradycardia overnight, concern for not protecting airway, inefficient/agonal breathing. Intubated. With currently white substance noted on vocal cords. Started on fluconazole. Follow sputum culture. Discussed with his sister. Sister reports that person he was staying with for some time before admission had a generator running indoors. We will try to see if we can track down full ABG from admission. With history of alcohol abuse, still concern for severe withdrawal. Continue supportive care for episodes of agitation. Will request for EEG. Additional work-up with CT chest, abdomen, pelvis. Consider CT paraspinal muscles. Will check HIV. Was negative when checked a year ago in October. Did not progress enough to be will tolerate oral intake. Hypoglycemic overnight. Lantus discontinued. Continue sliding scale insulin as needed. Will start on tube feeds now that has NGT. Yesterday restarted some of his psychiatric medications at lower doses. He continues with delirium, acute encephalopathy of unidentified etiology. Sodium level with gradual improvement. Appreciate any additional black off worker suggestions. Apart from encephalopathy, his exam is otherwise unremarkable, unable to elicit pain anywhere. His blood pressures have improved. He is somewhat bradycardic with heart rate of 50s. He is afebrile, without leukocytosis, saturating well on room air. Discussed with his sister it is not clear whether he may be withdrawing from something, versus having suffered some untoward event, anoxic or other brain injury prior to admission. Discussed we will resume his home medications, including antipsychotics starting at somewhat lower doses. Recheck UA not suggestive of UTI, chest x-ray unremarkable, TSH mildly elevated at 4.37, although free T4 is normal, and also if missed levothyroxine was only unlikely since Saturday last week when was discharged from assisted living, and so myxedema, would not be likely. Levothyroxine resumed. With macrocytosis, B12, folic acid normal. Started him on thiamine. Continue to monitor and continue supportive care for now. Status: Acute Code(s): G93.40 - Encephalopathy, unspecified (2) Diabetic ketoacidosis: Continue subcutaneous insulin sliding scale. Lantus discontinued. Started on tube feeds. Monitor glucose. Status: Acute Qualifiers: Diabetes mellitus complication detail: with coma Diabetes mellitus type: type 1 Qualified Code(s): E10.11 - Type 1 diabetes mellitus with ketoacidosis with coma Code(s): E11.10 - Type 2 diabetes mellitus with ketoacidosis without coma (3) Acute kidney injury: Resolved. Continue to monitor renal function, urine output. Status: Acute Code(s): N17.9 - Acute kidney failure, unspecified (4) Diabetes mellitus type 2, insulin dependent: With a history of noncompliance Status: Acute Code(s): E11.9 - Type 2 diabetes mellitus without complications; Z79.4 - FDC (current) use of insulin (5) Schizophrenia: Patient has history of [facility] admissions in the past, unknown if he is still taking his home Seroquel, sertraline and Depakote Status: Acute Code(s): F20.9 - Schizophrenia, unspecified (6) Hypothyroidism: As above Status: Acute Code(s): E03.9 - Hypothyroidism, unspecified Attestations Medical Necessity Statement*: Continue admission for management of acute encephalopathy with decline, requiring respiratory support. Coding Level of Care Code Acute Distribution A Class Lineman for [facility] Fwd Exam Comprehensive Diagnoses Acute encephalopathy G93.40 Diabetic ketoacidosis E10.11 Diabetes mellitus complication detail: with coma Diabetes mellitus type: type 1 Acute kidney injury N17.9 Diabetes mellitus type 2, insulin dependent E11.9; Z79.4 Schizophrenia F20.9 Hypothyroidism E03.9
[2019-10-27 09:23] LABS: Glucose Point of Care 207 mg/dL (70-110)
[2019-10-27 09:37] LABS: Troponin 5 6HR 12.23 ng/mL (0-15); Troponin 5 6HR Delta 0.23 ng/L (0-12)
--- NOTE | 2019-10-27 09:51 | CTR_ITS ---
PROCEDURE INFORMATION: Exam: CT Thoracic Spine With Contrast Exam date and time: 10/27/2019 11:03 PM Age: 59 years old Clinical indication: Other: Abscess; Patient HX: PT intubated; Additional info: Assess for abscess TECHNIQUE: Imaging protocol: Computed tomography images of the thoracic spine with intravenous contrast. Total DLP: 1300.34 mGy-cm Radiation optimization: All CT scans at this facility use at least one of these dose optimization techniques: automated exposure control; mA and/or kV adjustment per patient size (includes targeted exams where dose is matched to clinical indication); or iterative reconstruction. Contrast material: OMNI 300; Contrast volume: 75 ml; Contrast route: 20G; COMPARISON: No relevant prior studies available. FINDINGS: Tubes, catheters and devices: Tip of the ET tube about 2.4 cm above the danae. Tip of the enteric tube in the area of the gastric body on the frontal promotional model image. Vertebrae: Minimal or mild anterior wedging of T5 through T12. No acute fracture. Moderately increased kyphosis. No malalignment. Minimal right convex scoliosis. Discs/Spinal canal/Neural foramina: No apparent disc degeneration. No canal stenosis. Soft tissues: No paraspinal soft tissue prominence. Lungs: Bilateral lung disease detailed in the chest CT report. CT/CT thoracic spine w con [id number] IMPRESSION: 1. No acute fracture. Multiple old compression fractures and kyphoscoliosis detailed above. 2. No canal stenosis or apparent degenerative disc disease. 3. ET tube and enteric tube in adequate positions. Radiation Dose CTDIVOL = (mGy): DLP = 1300.34 (mGy-cm)
[2019-10-27 12:18] LABS: Glucose Point of Care 135 mg/dL (70-110)
[2019-10-27] MEDS: enoxaparin 40 mg/0.4 mL Syringe SUBCUT (12:21)
[2019-10-27 15:20] LABS: Glucose Point of Care 105 mg/dL (70-110)
[2019-10-27 16:57] LABS: Glucose Point of Care 142 mg/dL (70-110)
[2019-10-27 21:23] LABS: Glucose Point of Care 204 mg/dL (70-110)
[2019-10-27] MEDS: mirtazapine 15 mg Tablet 7.5 MG PO (21:24)
[2019-10-28] VITALS (31 sets, daily range): BP systolic 97–149; BP diastolic 53–91; PULSE 58–89; RESP 12–16; TEMP 37.1–38; O2SAT 90–100; BMI 13.2
[2019-10-28] MEDS: iohexol 300 mg/mL 100 mL Btl IV (00:50)
[2019-10-28] MEDS: iohexol 300 mg/mL 50 mL Btl IV (00:51)
[2019-10-28] MEDS: famotidine 20 mg/2 mL INJ IVP ×2 (01:29→12:31)
[2019-10-28] MEDS: fluconazole premix 200 MG/100 ML PREMIX 100 MG IV (01:30)
[2019-10-28 04:08] LABS: ABG PCO2 38.3 mmHg (35-45); ABG PH Result 7.42 (7.35-7.45); Base Excess ABG 0.6 mmol/L (-2.0-2.0); Blood Gas Sample Site Brachial, left; Blood Gas Sample Type Arterial; Blood Gas Tidal Volume 0.45; Oxygen Device VENT
[2019-10-28 04:46] LABS: Basophils % 0.3 %; Eosinophils # 0.1 10^3/uL (0.0-0.8); Eosinophils % 1.5 %; Hematocrit 36.4 % (42.0-52.0); Hemoglobin 11.8 g/dL (11.7-16.6); Lymphocytes # 1.3 10^3/uL (0.8-4.8); Lymphocytes % 13.4 %; Mean Corpuscular HGB Conc 32.4 g/dL (30.0-36.0); Mean Corpuscular Hemoglobin 31.4 pg (28.0-34.0); Mean Corpuscular Volume 96.8 fL (80-94); Mean Platelet Volume 11.6 fL (7.4-10.4); Monocytes # 0.6 10^3/uL (0.2-0.9); Neutrophils # 7.5 10^3/uL (1.8-7.7); Neutrophils % 77.9 %; Nucleated Red Blood Cells % 0 %; Platelet Count 104 10^3/cmm (130-400); Red Blood Count 3.76 10^6/uL (4.1-5.3); Red Cell Distribution Width 12.5 % (12.1-15.1); White Blood Count 9.6 10^3/uL (4.0-10.0)
[2019-10-28 05:15] LABS: Alanine Aminotransferase 24 U/L (0-41); Albumin Level 2.8 g/dL (3.5-5.2); Alkaline Phosphatase 87 IU/L (40-130); Anion Gap 15.4 (5-19); Aspartate Amino Transferase 36 U/L (0-40); Blood Urea Nitrogen 20 mg/dL (8-23); Calcium 8.2 mg/dL (8.5-10.5); Carbon Dioxide 23 mmol/L (22-29); Chloride 105 mmol/L (98-107); Globulin 2.2 g/dL (1.3-4.6); Glomerular Filtration Rate 114.6 mL/min (90-130); Glucose 175 mg/dL (65-115); Osmolality Calculated 291 mOsm/kg (285-295); Potassium 3.4 mmol/L (3.5-5.1); Sodium 140 mmol/L (136-145); Total Bilirubin 0.5 mg/dL (0.15-1.2)
--- NOTE | 2019-10-28 06:00 | XR_ITS ---
WS: [id number] Portable AP supine chest, 10/28/2019 Clinical Data: Hypoxia Comparison: Portable chest, 10/27/2019 Findings: The endotracheal tube and nasogastric tube remain in the same position. No nodules, masses or effusions are seen. The heart is normal. The pulmonary vascularity is not increased. No pneumonia or pneumothorax is seen. Monitor leads are on the chest wall XR/XR chest 1V portable [id number] Impression: Satisfactory position of endotracheal and nasogastric tubes.
--- NOTE | 2019-10-28 08:05 | PC.NURSE ---
staph aureus report given to phys.
[2019-10-28 08:24] LABS: Glucose Point of Care 257 mg/dL (70-110)
--- NOTE | 2019-10-28 08:38 | PC.NURSE ---
versed decreased to 1 mg. was decreased to 2mg at 0800
[2019-10-28] MEDS: sodium chloride 0.9% 1,000 ML 75 ML IV ×2 (08:45→19:30)
[2019-10-28] MEDS: levothyroxine 150 mcg Tablet 75 MCG PO (08:50)
--- NOTE | 2019-10-28 08:51 | P.PN_ITS ---
Subjective Subjective: Interval history: Intubated, sedated. Not in discomfort. Vitals/I&O/Wt Last Vital Signs Temp 98.7 F 10/28/19 05:00 Pulse 68 10/28/19 05:00 Resp 12 10/28/19 08:07 BP 132/78 10/28/19 05:00 Pulse Ox 93 10/28/19 05:00 10/27/19 10/28/19 10/28/19 22:59 06:59 14:59 Intake Total 1182.983 / 7166.046 4803 / 2182.983 Output Total 400 / 400 300 / 700 Balance 782.983 / 782.983 700 / 1482.983 Weight last 48 hrs Weight 40.687 kg Weight 40.687 kg Physical Exam Const: COMMON NORMALS: no apparent distress; negative for oriented x3 OTHER: Intubated, sedated. HENMT: COMMON NORMALS: oropharynx normal Neck/C-Spine: COMMON NORMALS: no JVD Resp: COMMON NORMALS: normal respiratory effort and clear to auscultation bilaterally AUSCULTATION: clear to auscultation bilaterally Cardio: COMMON NORMALS: no JVD, regular rhythm, S1 normal heart sound, S2 normal heart sound and no murmurs RHYTHM: regular rhythm HEART SOUNDS: S1 normal and S2 normal GI: COMMON NORMALS: normal to inspection, nondistended, normoactive bowel sounds, soft to palpation and non-tender PALPATION: Yes soft Extremity: COMMON NORMALS: no joint enlargement and no pedal edema OTHER: No rigidity. Neuro: COMMON NORMALS: moves all extremities; negative for oriented x3 Skin: COMMON NORMALS: no rashes or lesions noted GENERAL SKIN EXAM: no rashes or lesions noted OTHER: tattoos Urinary Catheter Management^: Mustafa: Cath Placed During This Visit: yes Reason for Continuing Indwelling Catheter: Accurate Measurement of Urinary Output in Critically Ill Patients Urinary Catheter Date of Insertion: 10/27/19 Urinary Catheter Time of Insertion: 02:00 Data : 10/28/19 04:16 10/28/19 04:16 Micro: Microbiology 10/27/19 00:50 Gram Stain - Final Sputum - Endotracheal Tube Aspirate Sputum Culture - Preliminary Staphylococcus aureus 10/26/19 19:58 Blood Culture - Preliminary Blood NEGATIVE TO DATE 10/26/19 20:02 Blood Culture - Preliminary Blood NEGATIVE TO DATE A&P Assessment and plan (1) Acute encephalopathy: Without improvement, required intubation 10/26. Still afebrile. No leukocytosis. Intubated. With currently white substance noted on vocal cords. Started on fluconazole. Follow sputum culture. So far with Staphylococcus aureus, few budding yeast. He has had no respiratory symptoms. CT of the chest was finally obtained last night, showing some bibasilar airspace disease. Atelectasis. He has been afebrile. Has no leukocytosis. These appear to have appeared after intubation, although are not entirely visible on chest x-ray. Will discuss with pulmonology. Consideration needs to be given whether this could be COVID, although suspicion would be low, with the nonspecific appearance we will go ahead and test him for the virus. Sister reports that person he was staying with for some time before admission had a generator running indoors, but COOX on admit was only 0.4%. We will try to see if we can track down full ABG from admission. With history of alcohol abuse, still concern for severe withdrawal. Continue supportive care for episodes of agitation. Awaiting EEG. HIV nonreactive. Tube feeds now that has NGT. Restarted some of his psychiatric medications at lower doses. He continues with delirium, acute encephalopathy of unidentified etiology. Sodium level with gradual improvement. Appreciate any additional side sawyer suggestions. Apart from encephalopathy, his exam is otherwise unremarkable, unable to elicit pain anywhere. CT AP with colonic polyp. His blood pressures have improved. He is somewhat bradycardic. Discussed with his sister it is not clear whether he may be withdrawing from something, versus having suffered some untoward event, anoxic or other brain injury prior to admission. Discussed we will resume his home medications, including antipsychotics starting at somewhat lower doses. Recheck UA not suggestive of UTI, chest x-ray unremarkable, TSH mildly elevated at 4.37, although free T4 is normal, and also if missed levothyroxine was only unlikely since Saturday last week when was discharged from assisted living, and so myxedema, would not be likely. Levothyroxine resumed. With macrocytosis, B12, folic acid normal. Started him on thiamine. Continue to monitor and continue supportive care for now. Status: Acute Code(s): G93.40 - Encephalopathy, unspecified (2) Diabetic ketoacidosis: Continue subcutaneous insulin sliding scale. Lantus discontinued. Started on tube feeds. Monitor glucose. Status: Acute Qualifiers: Diabetes mellitus complication detail: with coma Diabetes mellitus type: type 1 Qualified Code(s): E10.11 - Type 1 diabetes mellitus with ketoacidosis with coma Code(s): E11.10 - Type 2 diabetes mellitus with ketoacidosis without coma (3) Acute kidney injury: Resolved. Continue to monitor renal function, urine output. Status: Acute Code(s): N17.9 - Acute kidney failure, unspecified (4) Diabetes mellitus type 2, insulin dependent: With a history of noncompliance Status: Acute Code(s): E11.9 - Type 2 diabetes mellitus without complications; Z79.4 - reinforced steel placing supervisor (current) use of insulin (5) Schizophrenia: Patient has history of [facility] admissions in the past, unknown if he is still taking his home Seroquel, sertraline and Depakote Status: Acute Code(s): F20.9 - Schizophrenia, unspecified (6) Hypothyroidism: As above Status: Acute Code(s): E03.9 - Hypothyroidism, unspecified Attestations Medical Necessity Statement*: Continue admission for assessment and management of persistent encephalopathy, of unclear etiology, suspected withdrawal syndrome. Coding Level of Care Code Acute Computer Systems Consultant for [facility] Diagnoses Acute encephalopathy G93.40 Diabetic ketoacidosis E10.11 Diabetes mellitus complication detail: with coma Diabetes mellitus type: type 1 Acute kidney injury N17.9 Diabetes mellitus type 2, insulin dependent E11.9; Z79.4 Schizophrenia F20.9 Hypothyroidism E03.9
[2019-10-28] MEDS: sertraline 50 mg Tablet 25 MG PO (08:52)
[2019-10-28] MEDS: quetiapine 100 mg Tablet PO ×2 (08:52→18:29)
[2019-10-28] MEDS: divalproex Sprinkles 125 mg Capsule 250 MG PO (10:01)
[2019-10-28] MEDS: piperacillin-tazobactam 3.375 GM in sodium chloride 0.9% (plus) 50 ML IV ×2 (10:43→19:29)
[2019-10-28] MEDS: enoxaparin 40 mg/0.4 mL Syringe SUBCUT (10:57)
--- NOTE | 2019-10-28 16:38 | PC.NURSE ---
[address] Rodrigeuz, confirmed he wants patient tested for covid 19. Says order is in.
[2019-10-28 17:25] LABS: Ammonia 44 umol/L (16-60)
[2019-10-28 17:53] LABS: LAB Peripheral Smear Sent for Review
[2019-10-28] MEDS: midazolam 1 mg/mL INJ 2 mL 2 MG IVP (18:05)
--- NOTE | 2019-10-28 18:17 | XRR_ITS ---
PROCEDURE INFORMATION: Exam: XR Chest, 1 View Exam date and time: 10/28/2019 6:21 PM Age: 59 years old Clinical indication: Device placement; Other: Central line placement TECHNIQUE: Imaging protocol: XR of the chest Views: 1 view. COMPARISON: CR XR chest 1V portable [id number] 10/28/2019 4:20 AM FINDINGS: Tubes, catheters and devices: There is a left subclavian catheter whose tip is at the cavoatrial junction. There is a nasogastric tube whose tip is in the stomach. There is an endotracheal tube. Lungs: Unremarkable. No consolidation. Pleural space: Unremarkable. No pleural effusion. No pneumothorax. Heart/Mediastinum: Unremarkable. No cardiomegaly. Bones/joints: Unremarkable. XR/XR chest 1V portable [id number] IMPRESSION: There is a left subclavian catheter whose tip is at the cavoatrial junction.
--- NOTE | 2019-10-28 18:24 | PC.NURSE ---
[address] Dr[address] Dr Griggs to insert central line, in left subclavian. Dr. Mcleod ordered Versed 2mg given iv push, given. 181 Dr. Mcleod ordered Fentanyl 50mcg bolus, which I bolused on pump with present Fentanyl drip hanging. CXR ordered after procedure finished. Pt agustin well.
[2019-10-28] MEDS: midazolam 1 mg/mL INJ 2 mL 2 MG (18:29)
[2019-10-28] MEDS: mirtazapine 15 mg Tablet 7.5 MG PO (21:50)
--- NOTE | 2019-10-28 23:12 | PM.ACPR ---
Procedure/Consent Time out: Time Out Performed: Yes Consent: Consent for Procedure: Risks & Benefits reviewed Procedure Narrative: Name of the Procedure: Left subclavian Central venous catheter placement. Indication: Frequent blood work and possible need for vasopressor Anesthesiia: Lidocaine 1%, 5 ml Description of the procedure: The site was prepared using sterile technique. The skin and subcuteneous tissue was anesthetized using lidocaine. The introducer needle was advanced under the clavicle using landmark technique till flash back was noted. Dark, non pulsatile blood noted. Using seldinger technique the CVC was put in.Blood return was noted in all ports. Catheter was secured with suture and covered with transparent dressing. Complications: None X-ray: No pneumothorax, the tip of the catheter is at the junction of the superior vena cava and the right atrium. Acute Procedures Epistaxis Control: Time out performed: Yes
[2019-10-29] VITALS (29 sets, daily range): BP systolic 99–152; BP diastolic 58–82; PULSE 62–87; RESP 12–16; TEMP 36.6–38.6; O2SAT 74–100; BMI 13.4
[2019-10-29] MEDS: fluconazole premix 200 MG/100 ML PREMIX 100 MG IV (02:26)
[2019-10-29] MEDS: famotidine 20 mg/2 mL INJ IVP ×2 (02:26→12:17)
[2019-10-29] MEDS: LORazepam 2 mg/mL INJ 1 mL 0.5 MG IVP (02:33)
[2019-10-29] MEDS: piperacillin-tazobactam 3.375 GM in sodium chloride 0.9% (plus) 50 ML IV ×3 (02:34→18:38)
[2019-10-29 04:40] LABS: Basophils % 0.4 %; Eosinophils # 0.1 10^3/uL (0.0-0.8); Eosinophils % 1.1 %; Hematocrit 29.7 % (42.0-52.0); Hemoglobin 9.4 g/dL (11.7-16.6); Lymphocytes # 0.3 10^3/uL (0.8-4.8); Lymphocytes % 4.8 %; Mean Corpuscular HGB Conc 31.6 g/dL (30.0-36.0); Mean Corpuscular Hemoglobin 31.6 pg (28.0-34.0); Mean Platelet Volume 11.9 fL (7.4-10.4); Monocytes # 0.6 10^3/uL (0.2-0.9); Monocytes % 11.7 %; Neutrophils # 4.4 10^3/uL (1.8-7.7); Neutrophils % 81.3 %; Nucleated Red Blood Cells % 0 %; Platelet Count 96 10^3/cmm (130-400); Red Blood Count 2.97 10^6/uL (4.1-5.3); Red Cell Distribution Width 12.7 % (12.1-15.1); White Blood Count 5.5 10^3/uL (4.0-10.0)
[2019-10-29 05:13] LABS: Alanine Aminotransferase 19 U/L (0-41); Albumin Level 2.2 g/dL (3.5-5.2); Alkaline Phosphatase 77 IU/L (40-130); Anion Gap 16.5 (5-19); Aspartate Amino Transferase 30 U/L (0-40); Blood Urea Nitrogen 19 mg/dL (8-23); Calcium 7.5 mg/dL (8.5-10.5); Carbon Dioxide 22 mmol/L (22-29); Chloride 106 mmol/L (98-107); Globulin 2.2 g/dL (1.3-4.6); Glomerular Filtration Rate 98.3 mL/min (90-130); Glucose 256 mg/dL (65-115); Osmolality Calculated 297 mOsm/kg (285-295); Potassium 3.5 mmol/L (3.5-5.1); Sodium 141 mmol/L (136-145); Total Bilirubin 0.3 mg/dL (0.15-1.2); Total Protein 4.4 g/dL (6.6-8.7)
[2019-10-29 05:28] LABS: ABG PCO2 39.6 mmHg (35-45); ABG PH Result 7.35 (7.35-7.45); Arterial Blood Gas Hematocrit 34.1 % (42-52); Base Excess ABG -3.3 mmol/L (-2.0-2.0); Blood Gas Sample Site Brachial, left; Blood Gas Sample Type Arterial; Blood Gas Tidal Volume 0.45; Oxygen Device VENT
[2019-10-29 05:50] LABS: Slide Review Slide Review Perform
--- NOTE | 2019-10-29 06:00 | XR_ITS ---
WS: [id number] Portable AP supine chest, 10/29/2019 Clinical Data: Hypoxia Comparison: Portable chest, 10/28/2019 Findings: The endotracheal tube, nasogastric tube and left subclavian catheter remain in same positio n. No nodules, masses or effusions are seen. The heart is normal. The pulmonary vascularity is not in creased. Monitor leads are on the chest wall. No pneumonia or pneumothorax is seen. XR/XR chest 1V portable [id number] Impression: No change from yesterday's portable chest.
[2019-10-29 08:10] LABS: Glucose Point of Care 197 mg/dL (70-110)
[2019-10-29 08:10] LABS: Glucose Point of Care 185 mg/dL (70-110)
[2019-10-29 08:10] LABS: Glucose Point of Care 180 mg/dL (70-110)
[2019-10-29 08:10] LABS: Glucose Point of Care 152 mg/dL (70-110)
--- NOTE | 2019-10-29 08:21 | P.PN_ITS ---
Subjective Subjective: Interval history: Inutbated, sedated. Vitals/I&O/Wt Last Vital Signs Temp 99.4 F 10/28/19 16:00 Pulse 62 10/29/19 06:00 Resp 12 10/29/19 04:00 BP 140/79 10/29/19 06:00 Pulse Ox 100 10/29/19 06:00 10/28/19 10/29/19 10/29/19 22:59 06:59 14:59 Intake Total 934.00 / 1124.75 139.167 / 1263.917 Output Total 600 / 600 400 / 1000 Balance 334.00 / 524.75 -260.833 / 263.917 Weight last 48 hrs Weight 41.277 kg Weight 40.687 kg Physical Exam Const: COMMON NORMALS: no apparent distress OTHER: Intubated, sedated. HENMT: COMMON NORMALS: oropharynx normal Neck/C-Spine: COMMON NORMALS: no JVD Chest: OTHER: L subclavian CVC Resp: COMMON NORMALS: normal respiratory effort and clear to auscultation bilaterally AUSCULTATION: clear to auscultation bilaterally Cardio: COMMON NORMALS: no JVD, regular rhythm, S1 normal heart sound, S2 normal heart sound and no murmurs RHYTHM: regular rhythm HEART SOUNDS: S1 normal and S2 normal GI: COMMON NORMALS: normal to inspection, nondistended, normoactive bowel sounds, soft to palpation and non-tender PALPATION: Yes soft Extremity: COMMON NORMALS: no joint enlargement and no pedal edema OTHER: No rigidity. Neuro: COMMON NORMALS: moves all extremities OTHER: Appears to have perhaps some gaze preference to the right Skin: COMMON NORMALS: no rashes or lesions noted GENERAL SKIN EXAM: no rashes or lesions noted Urinary Catheter Management^: Mustafa: Cath Placed During This Visit: yes Reason for Continuing Indwelling Catheter: Accurate Measurement of Urinary Output in Critically Ill Patients Urinary Catheter Date of Insertion: 10/27/19 Urinary Catheter Time of Insertion: 02:00 Data : 10/29/19 04:00 10/29/19 04:00 Micro: Microbiology 10/28/19 10:54 Blood Culture - Preliminary Blood SPECIMEN COLLECTED 10/28/19 10:50 Blood Culture - Preliminary Blood SPECIMEN COLLECTED 10/27/19 00:50 Gram Stain - Final Sputum - Endotracheal Tube Aspirate Sputum Culture - Preliminary Staphylococcus aureus A&P Assessment and plan (1) Acute encephalopathy: Without improvement, required intubation 10/26. Still afebrile. No leukocytosis. Perhaps some right side gaze preference today. Will start aspirin. Will recheck head CT. Does have bilateral infiltrates with PNA currently, possibly staphylococcal, sensitivities pending. This is most likely related to intubation. No infiltrates were present on any of the prior x-rays, and rest of status was stable on room air, although cannot exclude some aspiration in the intervening time due to his encephalopathy. Intubated. With curdly white substance noted on vocal cords. On fluconazole. Few budding yeast noted on sputum culture, but so far without growth. Pending testing for COVID-19. Sister reports that person he was staying with for some time before admission had a generator running indoors, but COOX on admit was only 0.4%. Should be out of the window for alcohol withdrawal. Cannot exclude withdrawal from other substances, although was out from assisted living continue supportive care for episodes of agitation. EEG could not be performed due to being tested for COVID. I anticipate this should be back sometime today. Tube feeds. Restarted some of his psychiatric medications at lower doses. HIV nonreactive. Sodium gradually improved. CTAP with colonic polyp. His blood pressures have improved. He is somewhat bradycardic. Recheck UA not suggestive of UTI, chest x-ray unremarkable, TSH mildly elevated at 4.37, although free T4 is normal, and also if missed levothyroxine was only unlikely since Saturday last week when was discharged from assisted living, and so myxedema, would not be likely. Levothyroxine resumed. With macrocytosis, B12, folic acid normal. Started him on thiamine. Appreciate industrial maintenance repairer helper and neurology suggestions. Has been non-focal until perhaps this morning with some right side gaze preference, although is on sedation. Discussed with his sister it is not clear whether he may be withdrawing from something, versus having suffered some untoward event, anoxic or other brain injury prior to admission. Continue to monitor and continue supportive care for now. Status: Acute Code(s): G93.40 - Encephalopathy, unspecified (2) Diabetic ketoacidosis: Glucose values have been variable, but mostly below 200. Continue subcutaneous insulin sliding scale. Status: Acute Qualifiers: Diabetes mellitus complication detail: with coma Diabetes mellitus ty pe: type 1 Qualified Code(s): E10.11 - Type 1 diabetes mellitus with ketoacidosis with coma Code(s): E11.10 - Type 2 diabetes mellitus with ketoacidosis without coma (3) Acute kidney injury: Resolved. Continue to monitor renal function, urine output. Status: Acute Code(s): N17.9 - Acute kidney failure, unspecified (4) Diabetes mellitus type 2, insulin dependent: With a history of noncompliance Status: Acute Code(s): E11.9 - Type 2 diabetes mellitus without complications; Z79.4 - manager terminal (current) use of insulin (5) Schizophrenia: Patient has history of [facility] admissions in the past, unknown if he is still taking his home Seroquel, sertraline and Depakote Status: Acute Code(s): F20.9 - Schizophrenia, unspecified (6) Hypothyroidism: As above Status: Acute Code(s): E03.9 - Hypothyroidism, unspecified (7) Pneumonia: Suspected hospital-acquired pneumonia, likely sometime during his encephalopathy with possible aspiration, versus during intubation. Staphylococcus growing on culture. Pending sensitivities. Zosyn, vancomycin at this time. Status: Acute Code(s): J18.9 - Pneumonia, unspecified organism Attestations Medical Necessity Statement*: Continue admission for assessment and management of acute encephalopathy, PNA. Coding Level of Care Code Acute Amusement Or Recreation Card Checker for [facility] Diagnoses Acute encephalopathy G93.40 Diabetic ketoacidosis E10.11 Diabetes mellitus complication detail: with coma Diabetes mellitus type: type 1 Acute kidney injury N17.9 Diabetes mellitus type 2, insulin dependent E11.9; Z79.4 Schizophrenia F20.9 Hypothyroidism E03.9 Pneumonia J18.9
--- NOTE | 2019-10-29 08:58 | DCPLANNER ---
Pg 2 not discussed with pt as he is on the vent.
[2019-10-29] MEDS: sertraline 50 mg Tablet 25 MG PO (09:52)
[2019-10-29] MEDS: aspirin 325 mg Tablet NG-TUBE (09:52)
[2019-10-29] MEDS: sodium chloride 0.9% 1,000 ML 75 ML IV (09:52)
[2019-10-29] MEDS: quetiapine 100 mg Tablet PO ×2 (09:52→18:37)
[2019-10-29] MEDS: levothyroxine 150 mcg Tablet 75 MCG PO (09:53)
[2019-10-29] MEDS: enoxaparin 40 mg/0.4 mL Syringe SUBCUT (09:54)
[2019-10-29] MEDS: valproic acid 250 mg/5 mL UDC PO (11:05)
[2019-10-29] MEDS: vancomycin 750 MG in sodium chloride 0.9% 250 ML 250 MG IV (11:05)
[2019-10-29 16:13] LABS: Coronavirus Lab Test PTC NOT DETECTED
--- NOTE | 2019-10-29 16:37 | CTR_ITS ---
PROCEDURE INFORMATION: Exam: CT Head Without Contrast Exam date and time: 10/29/2019 4:46 PM Age: 59 years old Clinical indication: Altered mental status/memory loss; Additional info: AMS TECHNIQUE: Imaging protocol: Computed tomography of the head without contrast. Total DLP: 738.87 mGy-cm Radiation optimization: All CT scans at this facility use at least one of these dose optimization techniques: automated exposure control; mA and/or kV adjustment per patient size (includes targeted exams where dose is matched to clinical indication); or iterative reconstruction. COMPARISON: CT head wo con* [id number] 10/25/2019 11:55 AM FINDINGS: Brain: No hemorrhage. No edema, mass effect or midline shift. Periventricular and deep white matter hypodensities compatible with chronic microvascular ischemic changes. Umana-white matter differentiation is preserved. Ventricles: No ventriculomegaly. Bones/joints: No acute fracture. Sinuses: No acute sinusitis. Mastoid air cells: No mastoid effusion. Soft tissues: Unremarkable. CT/CT head wo con* [id number] IMPRESSION: No acute intracranial abnormality. Radiation Dose CTDIVOL = (mGy): DLP = 738.87 (mGy-cm)
[2019-10-29 18:01] LABS: Glucose Point of Care 279 mg/dL (70-110)
[2019-10-29 18:01] LABS: Glucose Point of Care 311 mg/dL (70-110)
[2019-10-29 18:01] LABS: Glucose Point of Care 207 mg/dL (70-110)
--- NOTE | 2019-10-29 18:14 | P.CONIM_ITS ---
Providers/Reason For Consult Consulting Physican/Specialty*: Dr. Sky Hill, hospitalist Reason for Consult*: Altered mental status Attending Physician: Duane Rodriguez History of Present Illness History of Present Illness Giancarlo Levi is a 59 year old male who is well-known to [facility] as he has had many hospitalizations here dating back more than 10 years. I reviewed the history and physical from 2009 in which the patient presented with altered mental status. He presented here on 10/22/2018 with lethargy alternating with agitation. He was severely acidotic with a pH of around 7.1 from diabetic ketoacidosis. He has been sedated and intubated and Dr. Rodriguez was concerned because he has not been able to get him extubated. Reportedly, he becomes extremely agitated anytime his sedatives are tapered. He is currently on fentanyl although I asked that it be stopped on my arrival. He has not had any benzodiazepines since yesterday. He is supposed to have a CAT scan this evening. An EEG was planned but his Covid19 test did not arrive until this evening. (-). He has a history of medical noncompliance. He is a type I diabetic, ketosis- prone. He suffers from schizophrenia and has required 96-hour hold is recently is March because he stopped taking his medication and was psychotic and unable to sleep. He was aggressive, violent and agitated at that time. Review of Systems Narrative: He has not been febrile. The nurse taking care of him today says that he has been somewhat agitated. He has spontaneously been crossing his legs. Dr. Rodriguez was concerned that he seemed to have a gaze preference earlier today. He has not had any seizure activity since he arrived. Meds/Allergies Home Medications and Allergies Home Medications Medication Instructions Recorded Confirmed Type acetaminophen 1,000 mg PO Q6H PRN 10/23/19 10/23/19 History diphenhydramine HCl [Allergy] 25 mg PO Q6H PRN 10/23/19 10/23/19 History divalproex [Depakote ER] 500 mg PO BID 10/23/19 10/23/19 History dulaglutide [Trulicity] 0.75 mg SUBCUT Q7D 10/23/19 10/23/19 History empagliflozin [Jardiance] 10 mg PO DAILY 10/23/19 10/23/19 History furosemide [Lasix] 20 mg PO DAILY 10/23/19 10/23/19 History insulin NPH isoph U-100 human 10 unit SUBCUT DAILY 10/23/19 10/23/19 History [Novolin N Flexpen] levothyroxine 75 mcg PO DAILY 10/23/19 10/23/19 History mirtazapine 15 mg PO DAILY 10/23/19 10/23/19 History multivitamin 1 tab PO DAILY 10/23/19 10/23/19 History potassium chloride 20 meq PO BID 10/23/19 10/23/19 History quetiapine 200 mg PO BID 10/23/19 10/23/19 History quetiapine [Seroquel] 300 mg PO DAILY 10/23/19 10/23/19 History sertraline 50 mg PO DAILY 10/23/19 10/23/19 History Allergies Allergy/AdvReac Type Severity Reaction Status Date / Time No Known Allergies Allergy Unverified 10/23/19 08:51 Current Medications Current Medications Generic Name Dose Route Start Last Admin Trade Name Freq PRN Reason Stop Dose Admin Aspirin 325 mg 10/29/19 09:05 10/29/19 09:52 Aspirin NG-TUBE 325 mg DAILY MELIA Administration Dextrose 25 ml 10/23/19 11:09 10/27/19 00:48 D50w IVP 25 ml ONCE PRN Administration hypoglycemia protocol Protocol Enoxaparin Sodium 40 mg 10/27/19 11:30 10/29/19 09:54 Lovenox SUBCUT 40 mg Q24H MELIA Administration Famotidine 20 mg 10/27/19 01:15 10/29/19 12:17 Pepcid Inj IVP 20 mg Q12H MELIA Administration Fentanyl 25 mcg 10/27/19 01:06 10/27/19 01:34 Sublimaze IVP 25 mcg Q2H PRN Administration SEVERE PAIN Haloperidol Lactate 0.5 mg 10/24/19 02:04 10/26/19 16:39 Haldol Inj IM 0.5 mg Q2H PRN Administration AGITATION Dexmedetomidine HCl 400 mcg/ 104 mls @ 0 mls/hr 10/24/19 02:15 10/25/19 06:00 Sodium Chloride IV 0.1 mcg/kg/hr .Q0M MELIA 0.7 mls/hr Titration Protocol Per Protocol Dextrose 1,000 mls @ 100 mls/hr 10/24/19 08:30 10/26/19 10:47 D5w IV 100 mls/hr .Q10H MELIA Administration Midazolam HCl 100 mg/ Sodium 100 mls @ 0 mls/hr 10/27/19 01:30 10/28/19 16:45 Chloride IV 0 mg/hr .Q0M MELIA 0 mls/hr Titration Protocol Per Protocol Fentanyl 1,000 mcg/ Sodium 100 mls @ 0 mls/hr 10/27/19 01:30 10/29/19 09:09 Chloride IV 75 mcg/hr .Q0M MELIA 7.5 mls/hr Administration Protocol Per Protocol Fluconazole 200 mg in 100 mls @ 100 mls/hr 10/27/19 02:00 10/29/19 02:26 Diflucan Premix IV 100 mls/hr Q24H MELIA Administration Sodium Chloride 1,000 mls @ 75 mls/hr 10/27/19 02:00 10/29/19 09:52 Sodium Chloride 0.9% IV 75 mls/hr .[id number] MELIA Administration Piperacillin Sod/Tazobactam 50 mls @ 12.5 mls/hr 10/28/19 11:00 10/29/19 10:06 Sod 3.375 gm/ Sodium Chloride IV 12.5 mls/hr Q8H MELIA Administration Protocol Vancomycin HCl 750 mg/ Sodium 250 mls @ 250 mls/hr 10/29/19 09:00 10/29/19 11:05 Chloride IV 250 mls/hr Q18H MELIA Administration Protocol Insulin Aspart 0 unit 10/27/19 08:00 10/29/19 12:18 Novolog SUBCUT 8 unit TIDWM MELIA Administration Protocol Insulin Aspart 0 unit 10/27/19 21:00 10/28/19 22:04 Novolog SUBCUT 2 unit BEDTIME MELIA Administration Protocol Levothyroxine Sodium 75 mcg 10/26/19 19:15 10/29/19 09:53 Synthroid PO 75 mcg DAILY MELIA Administration Lorazepam 0.5 mg 10/24/19 08:32 10/29/19 02:33 Ativan IVP 0.5 mg Q4H PRN Administration ANXIETY Mirtazapine 7.5 mg 10/26/19 21:00 10/28/19 21:50 Remeron PO 7.5 mg BEDTIME MELIA Administration Quetiapine Fumarate 100 mg 10/27/19 09:00 10/29/19 09:52 Seroquel PO 100 mg BID MELIA Administration Sertraline HCl 25 mg 10/27/19 09:00 10/29/19 09:52 Zoloft PO 25 mg DAILY MELIA Administration Thiamine HCl 100 mg 10/27/19 09:00 10/29/19 09:55 Vitamin B-1 IV 100 mg DAILY MELIA Administration Valproic Acid 250 mg 10/29/19 09:00 10/29/19 11:05 Depakene Oral Liq PO 250 mg DAILY MELIA Administration PFSH Acute PFSH: Medical History Diabetes mellitus type 2, insulin dependent Hypothyroidism Polysubstance abuse Schizophrenia Family History Mother Dementia Father Dementia Social History Smoking and tobacco status: never smoked Vitals/I&O/Wt Last Vital Signs Temp 98.7 F 10/29/19 17:00 Pulse 69 10/29/19 17:00 Resp 16 10/29/19 17:47 BP 120/69 10/29/19 17:00 Pulse Ox 94 10/29/19 17:00 10/29/19 10/29/19 10/29/19 06:59 14:59 22:59 Intake Total 189.167 / 0332.533 9914.833 / 1010.833 564 / 1574.833 Output Total 400 / 1000 850 / 850 Balance -210.833 / 255.243 4234.833 / 1010.833 -286 / 724.833 Weight last 48 hrs Weight 91 lb Weight 89 lb 11.2 oz Physical Exam Narrative: EXAM NARRATIVE: The patient was in the ICU under endotracheal intubation. He did not respond to voice. Mental status exam: He responded easily to pain. He closes eyes tightly and did not allow them to be opened. He pulled away easily in all 4 extremities from any stimulus. He was not aggressive. He did not follow commands. Cranial nerves: Facial grimace symmetric. Eyes midline and spontaneously moving to the left and right. PERRLA. Tongue midline in the mouth. Endotracheal tube in place. Motor/sensory: He responds to pain in all 4 extremities with brisk withdrawal. Deep tendon reflexes 1+ throughout. Plantar responses flexor on both sides. HEENT: He is foul-smelling and even though he has been washed, his hygiene is poor. He has multiple tattoos. Neck: Supple. Pressure chest: Clear to auscultation Cardiovascular: S1 and S2 are normal without murmur gallop Abdomen soft. Extremities: No rash. No edema. Urinary Catheter Management^: Mustafa: Cath Placed During This Visit: yes Reason for Continuing Indwelling Catheter: Accurate Measurement of Urinary Outp ut in Critically Ill Patients Urinary Catheter Date of Insertion: 10/27/19 Urinary Catheter Time of Insertion: 02:00 Data Micro: Micro: Microbiology 10/27/19 00:50 Gram Stain - Final Sputum - Endotrac heal Tube Aspirate Sputum Culture - P reliminary Staphylococcus aureus 10/28/19 10:54 Blood Culture - Pr eliminary Blood NEGATIVE TO SARAHI E 10/28/19 10:50 Blood Culture - Pr eliminary Blood NEGATIVE TO SARAHI E A&P Assessment and plan (1) Acute encephalopathy: 59-year-old man with chronic personality disorder, type 1 diabetes with DKA who presented with severe acidosis from DKA. He now has pneumonia. He was intubated and the problem is trying to keep him sedated enough that he can be intubated but each time sedation is lightened, he threatens to pull the endotracheal tube. He is a significant management problem. I am happy to say that he has no focal findings on exam and I do not think there is anything going on neurologically beyond his medical delirium from medications and his underlying schizophrenia. Zyprexa might allow better control over his behavior and could be administered as Zydis once he is extubated. Until then I would recommend Haldol IV and low doses. His Depakote could be resumed intravenously to help with his behavior as Depacon 500 mg twice daily. 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 Rodriguez on several occasions and came to the unit several times to see the patient before he was cleared from the virus
[2019-10-29 21:12] LABS: Glucose Point of Care 206 mg/dL (70-110)
[2019-10-29] MEDS: valproic acid inj 500 MG in sodium chloride 0.9% 50 ML 55 MG IV (21:17)
[2019-10-29] MEDS: mirtazapine 15 mg Tablet 7.5 MG PO (21:18)
[2019-10-29] MEDS: acetaminophen 325 mg Tablet 650 MG PO (22:58)
[2019-10-30] VITALS (21 sets, daily range): BP systolic 111–165; BP diastolic 56–80; PULSE 54–73; RESP 12–31; TEMP 37.2–37.7; O2SAT 89–98
[2019-10-30] MEDS: famotidine 20 mg/2 mL INJ IVP ×2 (01:47→12:24)
[2019-10-30] MEDS: vancomycin 750 MG in sodium chloride 0.9% 250 ML 250 MG IV ×2 (01:47→21:10)
[2019-10-30] MEDS: piperacillin-tazobactam 3.375 GM in sodium chloride 0.9% (plus) 50 ML IV ×3 (01:47→19:17)
[2019-10-30] MEDS: fluconazole premix 200 MG/100 ML PREMIX 100 MG IV (01:47)
[2019-10-30 05:21] LABS: Basophils % 0.5 %; Eosinophils # 0.2 10^3/uL (0.0-0.8); Eosinophils % 2.2 %; Hematocrit 29.8 % (42.0-52.0); Hemoglobin 9.5 g/dL (11.7-16.6); Lymphocytes # 0.7 10^3/uL (0.8-4.8); Lymphocytes % 9.6 %; Mean Corpuscular HGB Conc 31.9 g/dL (30.0-36.0); Mean Corpuscular Hemoglobin 31.9 pg (28.0-34.0); Monocytes # 0.9 10^3/uL (0.2-0.9); Neutrophils # 5.5 10^3/uL (1.8-7.7); Neutrophils % 75.4 %; Nucleated Red Blood Cells % 0 %; Platelet Count 159 10^3/cmm (130-400); Red Blood Count 2.98 10^6/uL (4.1-5.3); Red Cell Distribution Width 12.7 % (12.1-15.1); White Blood Count 7.3 10^3/uL (4.0-10.0)
[2019-10-30 05:39] LABS: Alanine Aminotransferase 41 U/L (0-41); Alkaline Phosphatase 182 IU/L (40-130); Anion Gap 16.9 (5-19); Aspartate Amino Transferase 91 U/L (0-40); Blood Urea Nitrogen 21 mg/dL (8-23); Calcium 7.9 mg/dL (8.5-10.5); Carbon Dioxide 22 mmol/L (22-29); Chloride 107 mmol/L (98-107); Globulin 2.9 g/dL (1.3-4.6); Glomerular Filtration Rate 114.6 mL/min (90-130); Glucose 215 mg/dL (65-115); Osmolality Calculated 297 mOsm/kg (285-295); Potassium 3.9 mmol/L (3.5-5.1); Sodium 142 mmol/L (136-145); Total Bilirubin 0.3 mg/dL (0.15-1.2); Total Protein 4.9 g/dL (6.6-8.7)
[2019-10-30 06:07] LABS: Slide Review Slide Review Perform
--- NOTE | 2019-10-30 06:28 | PC.NURSE ---
SHIFT SUMMARY PT REMAINS SEDATED. PT HAS LILLI TURNED PERIODICALLY.. PT HAS SHEER TO BOTTOM, OPTIFOAM HAS BEEN APPLIED. PT WAS GIVEN A BATH, ORAL CARE NEEDED. PT REMAINS ON FENTANYL. NO EVENTS HAVE OCCURED THUS FAR IN SHIFT. PT HAS HAD ADEQUATE URINE OUTPUT.
[2019-10-30 06:36] LABS: Glucose Point of Care 238 mg/dL (70-110)
--- NOTE | 2019-10-30 08:23 | P.PN_ITS ---
Subjective Subjective: Interval history: He is sedated with fentanyl, however, today he does wake up with stimulation, opens his eyes, after several requested us squeeze either hand. When asked if he has any pain, weekly shakes head no. Vitals/I&O/Wt Last Vital Signs Temp 99.7 F H 10/30/19 05:03 Pulse 56 L 10/30/19 07:26 Resp 12 10/30/19 08:12 BP 117/61 10/30/19 07:26 Pulse Ox 98 10/30/19 07:26 10/29/19 10/30/19 10/30/19 22:59 06:59 14:59 Intake Total 714 / 2024.833 Output Total 850 / 850 425 / 1275 Balance -136 / 1174.833 -425 / 749.833 Weight last 48 hrs Weight 35.788 kg Weight 41.277 kg Physical Exam Const: COMMON NORMALS: no apparent distress OTHER: Intubated, sedated. HENMT: COMMON NORMALS: oropharynx normal Neck/C-Spine: COMMON NORMALS: no JVD Chest: OTHER: L subclavian CVC Resp: COMMON NORMALS: normal respiratory effort and clear to auscultation bilaterally AUSCULTATION: clear to auscultation bilaterally Cardio: COMMON NORMALS: no JVD, regular rhythm, S1 normal heart sound, S2 normal heart sound and no murmurs RHYTHM: regular rhythm HEART SOUNDS: S1 normal and S2 normal GI: COMMON NORMALS: normal to inspection, nondistended, normoactive bowel sounds, soft to palpation and non-tender PALPATION: Yes soft Extremity: COMMON NORMALS: no joint enlargement and no pedal edema OTHER: No rigidity. Bilateral hand swelling Neuro: COMMON NORMALS: moves all extremities Skin: COMMON NORMALS: no rashes or lesions noted GENERAL SKIN EXAM: no rashes or lesions noted Urinary Catheter Management^: Mustafa: Cath Placed During This Visit: yes Reason for Continuing Indwelling Catheter: Accurate Measurement of Urinary Output in Critically Ill Patients Urinary Catheter Date of Insertion: 10/27/19 Urinary Catheter Time of Insertion: 02:00 Data : 10/30/19 04:23 10/30/19 04:23 Micro: Microbiology 10/27/19 00:50 Gram Stain - Final Sputum - Endotracheal Tube Aspirate Sputum Culture - Preliminary Staphylococcus aureus 10/28/19 10:54 Blood Culture - Preliminary Blood NEGATIVE TO DATE 10/28/19 10:50 Blood Culture - Preliminary Blood NEGATIVE TO DATE A&P Assessment and plan (1) Acute encephalopathy: This morning opens eyes when spoken to, weakly answers a few questions, squeezes either hand. No gaze preference. Repeat head CT without acute abnormality. Appreciate neurology recommendations. Without improvement, required intubation 10/26. Still afebrile. No leukocytosis. COVID-19 negative. Sodium gradually improved. CTAP with colonic polyp. His blood pressures have improved. He is somewhat bradycardic. Recheck UA not suggestive of UTI, chest x-ray unremarkable, TSH mildly elevated at 4.37, although free T4 is normal, and also if missed levothyroxine was only unlikely since Saturday last week when was discharged from assisted living, and so myxedema, would not be likely. Levothyroxine resumed. With macrocytosis, B12, folic acid normal. Thiamine. Appreciate radar operator and neurology suggestions. Continue attempts to wean off sedation and extubate. Status: Acute Code(s): G93.40 - Encephalopathy, unspecified (2) Diabetic ketoacidosis: Glucose values have been variable. Continue subcutaneous insulin sliding scale. For now hold off on Lantus due to prior low blood glucose episode, until establishes oral intake. Status: Acute Qualifiers: Diabetes mellitus complication detail: with coma Diabetes mellitus type: type 1 Qualified Code(s): E10.11 - Type 1 diabetes mellitus with ketoacidosis with coma Code(s): E11.10 - Type 2 diabetes mellitus with ketoacidosis without coma (3) Acute kidney injury: Resolved. Continue to monitor renal function, urine output. Status: Acute Code(s): N17.9 - Acute kidney failure, unspecified (4) Diabetes mellitus type 2, insulin dependent: With a history of noncompliance Status: Acute Code(s): E11.9 - Type 2 diabetes mellitus without complications; Z79.4 - jail (current) use of insulin (5) Schizophrenia: Patient has history of [facility] admissions in the past, unknown if he is still taking his home Seroquel, sertraline and Depakote Status: Acute Code(s): F20.9 - Schizophrenia, unspecified (6) Hypothyroidism: As above Status: Acute Code(s): E03.9 - Hypothyroidism, unspecified (7) Pneumonia: Suspected hospital-acquired pneumonia, likely sometime during his encephalopathy with possible aspiration, versus during intubation. Staphylococcus growing on culture. Continue Zosyn, vancomycin at this time. Per micro may not be SA. Pending additional ID. Status: Acute Code(s): J18.9 - Pneumonia, unspecified organism Attestations Medical Necessity Statement*: Continue admission for assessment of management of severe acute encephalopathy, PNA. 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
[2019-10-30] MEDS: aspirin 325 mg Tablet NG-TUBE (09:11)
[2019-10-30] MEDS: sertraline 50 mg Tablet 25 MG PO (09:11)
[2019-10-30] MEDS: quetiapine 100 mg Tablet PO ×2 (09:14→17:36)
[2019-10-30] MEDS: levothyroxine 150 mcg Tablet 75 MCG PO (09:15)
--- NOTE | 2019-10-30 10:29 | PC.NURSE ---
plan is to extubate
[2019-10-30] MEDS: sodium chloride 0.9% 1,000 ML 75 ML IV ×2 (11:01→21:10)
[2019-10-30] MEDS: enoxaparin 40 mg/0.4 mL Syringe SUBCUT (11:31)
[2019-10-30 11:45] LABS: Glucose Point of Care 156 mg/dL (70-110)
[2019-10-30] MEDS: haloperidol inj 5 mg/mL INJ 1 mL 1 MG IM (12:04)
--- NOTE | 2019-10-30 12:13 | PC.NURSE ---
attempting to wean vent to extubate, very restless.
[2019-10-30] MEDS: midazolam 1 mg/mL INJ 2 mL 2 MG IVP (12:48)
--- NOTE | 2019-10-30 12:50 | PC.NURSE ---
one time versed given d/t severe restlessness and thrashing around in bed, until haldol takes effect.
--- NOTE | 2019-10-30 14:27 | PC.NURSE ---
weaning fentanyl again.
[2019-10-30 17:33] LABS: Glucose Point of Care 161 mg/dL (70-110)
[2019-10-30] MEDS: valproic acid inj 500 MG in sodium chloride 0.9% 50 ML 55 MG IV (19:18)
[2019-10-30 19:27] LABS: Methylmalonic Acid 87 nmol/L (87-318)
[2019-10-30 20:40] LABS: Glucose Point of Care 112 mg/dL (70-110)
[2019-10-30] MEDS: mirtazapine 15 mg Tablet 7.5 MG PO (21:10)
[2019-10-31] VITALS (23 sets, daily range): BP systolic 94–160; BP diastolic 56–88; PULSE 43–76; RESP 10–24; TEMP 37.5–38.8; O2SAT 95–100
[2019-10-31] MEDS: famotidine 20 mg/2 mL INJ IVP ×2 (00:56→14:58)
[2019-10-31] MEDS: acetaminophen 325 mg Tablet 650 MG PO ×2 (02:20→10:10)
[2019-10-31] MEDS: fluconazole premix 200 MG/100 ML PREMIX 100 MG IV (02:21)
[2019-10-31] MEDS: piperacillin-tazobactam 3.375 GM in sodium chloride 0.9% (plus) 50 ML IV ×3 (03:49→19:07)
[2019-10-31 04:54] LABS: Basophils % 0.4 %; Eosinophils # 0.1 10^3/uL (0.0-0.8); Eosinophils % 1.6 %; Hematocrit 28.9 % (42.0-52.0); Hemoglobin 9.1 g/dL (11.7-16.6); Lymphocytes # 0.5 10^3/uL (0.8-4.8); Lymphocytes % 6.1 %; Mean Corpuscular HGB Conc 31.5 g/dL (30.0-36.0); Mean Corpuscular Hemoglobin 31.5 pg (28.0-34.0); Mean Platelet Volume 11.3 fL (7.4-10.4); Monocytes # 0.9 10^3/uL (0.2-0.9); Neutrophils # 6.9 10^3/uL (1.8-7.7); Neutrophils % 81.1 %; Nucleated Red Blood Cells % 0 %; Platelet Count 202 10^3/cmm (130-400); Red Blood Count 2.89 10^6/uL (4.1-5.3); Red Cell Distribution Width 12.6 % (12.1-15.1); White Blood Count 8.5 10^3/uL (4.0-10.0)
[2019-10-31 05:14] LABS: Alanine Aminotransferase 32 U/L (0-41); Albumin Level 1.7 g/dL (3.5-5.2); Alkaline Phosphatase 173 IU/L (40-130); Anion Gap 19.5 (5-19); Aspartate Amino Transferase 44 U/L (0-40); Blood Urea Nitrogen 18 mg/dL (8-23); Calcium 7.8 mg/dL (8.5-10.5); Carbon Dioxide 19 mmol/L (22-29); Chloride 107 mmol/L (98-107); Glomerular Filtration Rate 85.8 mL/min (90-130); Glucose 291 mg/dL (65-115); Osmolality Calculated 301 mOsm/kg (285-295); Potassium 3.5 mmol/L (3.5-5.1); Sodium 142 mmol/L (136-145); Total Bilirubin 0.2 mg/dL (0.15-1.2); Total Protein 4.7 g/dL (6.6-8.7)
[2019-10-31 09:06] LABS: Glucose Point of Care 288 mg/dL (70-110)
--- NOTE | 2019-10-31 09:34 | CTR_ITS ---
PROCEDURE INFORMATION: Exam: CT Chest Without Contrast Exam date and time: 10/31/2019 9:51 AM Age: 59 years old Clinical indication: Condition or disease; Lung condition and disease; Other: ? ; Patient HX: Pneumonia et/og and central line in place; Additional info: Copd/pna TECHNIQUE: Imaging protocol: Computed tomography of the chest without contrast. Total DLP: 376.65 mGy-cm Radiation optimization: All CT scans at this facility use at least one of these dose optimization techniques: automated exposure control; mA and/or kV adjustment per patient size (includes targeted exams where dose is matched to clinical indication); or iterative reconstruction. COMPARISON: CR XR chest 1V portable [id number] 10/29/2019 4:43 AM FINDINGS: Tubes, catheters and devices: There is a left subclavian port present with the catheter tip at/near the cavoatrial junction. An enteric tube extends down into the stomach. There is an endotracheal tube present with the tip between the clavicles and the danae. Lungs: There is bilateral dependent airspace disease, primarily in the lower lobes. This could be due to pneumonia or aspiration pneumonitis, though atelectasis is probably also contributing to this. There is bilateral central bronchial wall thickening which can be due to inflammation or edema. Pleural space: There is a small left pleural effusion, and a trace right pleural effusion. No pneumothorax. Heart: The heart is not enlarged. No pericardial effusion. Aorta: No aortic aneurysm. Lymph nodes: No pathologically enlarged lymph nodes. Bones/joints: There is mild multilevel disc degeneration. No acute fracture or dislocation. Soft tissues: No acute soft tissue abnormality. CT/CT chest [facility] [id number] IMPRESSION: 1. Bilateral, primarily dependent airspace disease. Considerations include pneumonia, aspiration pneumonitis, as well as atelectasis. 2. Asymmetric pleural effusions. Radiation Dose CTDIVOL = (mGy): DLP = 376.65 (mGy-cm)
--- NOTE | 2019-10-31 09:35 | USR_ITS ---
PROCEDURE INFORMATION: Exam: US Duplex Lower Extremity Veins Exam date and time: 10/31/2019 9:38 AM Age: 59 years old Clinical indication: Other: Difficulty breathing (intubated); Additional info: R/O dvt TECHNIQUE: Imaging protocol: Real-time duplex ultrasound of the Lower Extremities with 2-D huynh scale, color Doppler flow and spectral waveform analysis with image documentation. Complete exam focused on the bilateral lower extremity veins. COMPARISON: No relevant prior studies available. FINDINGS: Right deep veins: Unremarkable. The common femoral, femoral, proximal profunda femoral and popliteal veins are patent without thrombus. Normal Doppler waveforms. Normal compressibility and/or augmentation response. Right superficial veins: Saphenofemoral junction is patent without thrombus. Left deep veins: Unremarkable. The common femoral, femoral, proximal profunda femoral and popliteal veins are patent without thrombus. Normal Doppler waveforms. Normal compressibility and/or augmentation response. Left superficial veins: Saphenofemoral junction is patent without thrombus. Soft tissues: Unremarkable. US/CV venous duplex [facility] [id number] IMPRESSION: No acute findings. No evidence of deep vein thrombosis bilaterally.
[2019-10-31] MEDS: sertraline 50 mg Tablet 25 MG PO (09:55)
[2019-10-31] MEDS: levothyroxine 150 mcg Tablet 75 MCG PO (09:56)
[2019-10-31] MEDS: aspirin 325 mg Tablet NG-TUBE (09:56)
[2019-10-31] MEDS: valproic acid inj 500 MG in sodium chloride 0.9% 50 ML 55 MG IV ×2 (09:56→18:30)
[2019-10-31] MEDS: enoxaparin 40 mg/0.4 mL Syringe SUBCUT (10:07)
[2019-10-31 10:37] LABS: Procalcitonin 1.69 ng/mL (0-0.5)
[2019-10-31 12:32] LABS: Creatine Phosphokinase 936 U/L (39-308)
[2019-10-31] MEDS: sodium chloride 0.9% 1,000 ML 75 ML IV (14:48)
[2019-10-31] MEDS: quetiapine 100 mg Tablet 200 MG PO ×2 (14:58→20:17)
[2019-10-31 15:02] LABS: Glucose Point of Care 257 mg/dL (70-110)
[2019-10-31] MEDS: vancomycin 750 MG in sodium chloride 0.9% 250 ML 250 MG IV (15:12)
[2019-10-31] MEDS: haloperidol inj 5 mg/mL INJ 1 mL 1 MG IVP (17:20)
[2019-10-31 18:27] LABS: Glucose Point of Care 209 mg/dL (70-110)
[2019-10-31] MEDS: propofol 1,000 MG/100 ML INJ 1.4 MG IV (18:31)
--- NOTE | 2019-10-31 18:47 | PC.NURSE ---
1645- PT FULLY AWAKE & KICKING LEGS AROUND, SITTING UP IN BED, ATTEMPTING TO GET AHOLD OF ET TUBE WHILE RESTRAINED. UNABLE TO FOLLOW SIMPLE COMMANDS. NEW ORDER TO RESTART FENTANYL DRIP. MED RESTARTED. NO CHANGE IN BEHAVIOR/TITRATED UP TO 100MCG. DR MAHMOOD NOTIFIED, HALDOL ORDER RECEIVED 1MG GIVEN IV. WILL REST FOR A FEW MINUTES THEN WAKE UP PULLING AT RESTRAINTS WITH A WILD LOOK IN HIS EYES. NOT FOLLOWING COMMANDS. PROPOFOL ORDERED/STARTED PER PROTOCOL. SPOKE WITH DR MAHMOOD REGARDING BRADYCARDIA & PT STATUS. USE PROPOFOL/FENTANYL FOR SEDATION. AVOID HALDOL. CAN USE MIDAZOLAM 1MG X1 IF NEEDED.
--- NOTE | 2019-10-31 19:24 | PC.NURSE ---
GLUCERNA TUBE FEEDING UP TO 30ML/HR WITH 200ML H20 FLUSH
--- NOTE | 2019-10-31 19:36 | PM.PN ---
Subjective Subjective: Interval history: No acute events overnight. Patient continues to remain sedated with fentanyl though is arousable on slight touch and winces. Yesterday patient got agitated during sedation vacation. Patient having fevers overnight. T-max overnight 101 Fahrenheit. As per the nurse patient having thick ET tube secretions. Labs, vital signs noted. Vitals/I&O/Wt Last Vital Signs Temp 100.3 F H 10/31/19 14:00 Pulse 43 L 10/31/19 19:00 Resp 11 L 10/31/19 16:58 BP 114/75 10/31/19 19:00 Pulse Ox 99 10/31/19 19:00 10/31/19 10/31/19 10/31/19 06:59 14:59 22:59 Intake Total 519.255 / 7167.499 7393.758 / 1621.758 300 / 1921.758 Output Total 350 / 750 800 / 800 Balance 169.255 / 1140.505 821.758 / 821.758 300 / 1121.758 Weight last 48 hrs Weight 45.813 kg Weight 38.3 kg Weight 35.788 kg Physical Exam Narrative: EXAM NARRATIVE: General: Sedated but arousable, not following simple commands. HEENT: PERRLA, pupils bilaterally equal and reactive Chest: Normal vesicular breath sounds, bilateral lower zone coarse crackles, good air entry. CVS: S1-S2 regular, no murmurs, no tachycardia, no gallops, no rubs Abdomen: Soft, nontender, no organomegaly, bowel sounds present Neuro: Bilateral upper limb rigidity present, pupils bilaterally equal and reactive, sedated but arousable. Urinary Catheter Management^: Mustafa: Cath Placed During This Visit: yes Reason for Continuing Indwelling Catheter: Accurate Measurement of Urinary Output in Critically Ill Patients Urinary Catheter Date of Insertion: 10/27/19 Urinary Catheter Time of Insertion: 02:00 Data : 10/31/19 04:18 10/31/19 04:18 Micro: Microbiology 10/31/19 13:02 Gram Stain - Final Sputum - Endotracheal Tube Aspirate 10/31/19 10:35 Blood Culture - Preliminary Blood SPECIMEN COLLECTED 10/31/19 10:30 Blood Culture - Preliminary Blood SPECIMEN COLLECTED A&P Assessment and plan (1) Acute encephalopathy: Status: Acute Code(s): G93.40 - Encephalopathy, unspecified (2) Diabetic ketoacidosis: Glucose values have been variable. Continue subcutaneous insulin sliding scale. For now hold off on Lantus due to prior low blood glucose episode, until establishes oral intake. Status: Acute Qualifiers: Diabetes mellitus complication detail: with coma Diabetes mellitus type: type 1 Qualified Code(s): E10.11 - Type 1 diabetes mellitus with ketoacidosis with coma Code(s): E11.10 - Type 2 diabetes mellitus with ketoacidosis without coma (3) Acute kidney injury: Resolved. Continue to monitor renal function, urine output. Status: Acute Code(s): N17.9 - Acute kidney failure, unspecified (4) Diabetes mellitus type 2, insulin dependent: With a history of noncompliance Status: Acute Code(s): E11.9 - Type 2 diabetes mellitus without complications; Z79.4 - [facility] (current) use of insulin (5) Schizophrenia: Patient has history of [facility] admissions in the past, unknown if he is still taking his home Seroquel, sertraline and Depakote Status: Acute Code(s): F20.9 - Schizophrenia, unspecified (6) Hypothyroidism: As above Status: Acute Code(s): E03.9 - Hypothyroidism, unspecified (7) Pneumonia: Suspected hospital-acquired pneumonia, likely sometime during his encephalopathy with possible aspiration, versus during intubation. Staphylococcus growing on culture. Continue Zosyn, vancomycin at this time. Per micro may not be SA. Pending additional ID. Status: Acute Code(s): J18.9 - Pneumonia, unspecified organism Additional A&P Information Acute encephalopathy: Requiring intubation on October 26. Patient had remained afebrile till yesterday afternoon. Hypernatremia has resolved. CT head was checked. Recheck UA not suggestive of UTI, chest x-ray unremarkable, TSH mildly elevated at 4.37, although free T4 is normal, and also if missed levothyroxine was only unlikely since Saturday last week when was discharged from assisted living, and so myxedema, would not be likely. Levothyroxine resumed. With macrocytosis, B12, folic acid normal. On review of his home medication patient is on very high doses of Seroquel needing 200 mg twice daily, 300 mg nightly which was started to him by psychiatry in March 2019 along with Depakote and mirtazapine. Till now patient has been getting Seroquel 100 mg twice daily. We will increase the Seroquel again to 200 mg 3 times daily along with Depakote and mirtazapine. Appreciate neurology recommendations. Appreciate quality specialist appreciate recommendations. Continue with fentanyl. We will try on Precedex for better sedation while monitoring heart rate. Thiamine. Continue attempts to wean off sedation and extubate. Pneumonia: Ventilator associated pneumonia: Sputum culture growing staph but not aureus. Continue with vancomycin, day 3 of treatment today. Continue with Zosyn, day 4 of treatment today. Stop fluconazole as he did not growing any fungus. COVID 19 negative. Due to continuous fever since yesterday we will check blood culture, CT chest. We will also rule out other causes of fever with lower limb Dopplers to rule out DVT. Fevers per patient started after he got a dose of Haldol yesterday given mild rigidity, agitation, fevers cannot rule out neuroleptic malignant syndrome. Stop Haldol given possible NMS due to interactions with Seroquel. DKA: Resolved. Patient started on tube feeds but still running at 20 cc/h. We will try to increase 10 cc every 4 hours with goal rate of 50 cc with 120 cc fluids/every 6 hours. Insulin protocol every 6 hours as patient is on tube feeds. Hypernatremia: Resolved. Continue with normal saline at 75 cc/h. Hypothyroidism: Continue with home dose of levothyroxine. TSH at start of admission was normal but then was elevated though T4 is normal most likely euthyroid Attestations Medical Necessity Statement*: VAP, altered mental status, agitation Critical Care Time: Critical Care Time (min): 80 Coding Level of Care Code Acute Nursing Manager for [facility] Fwd Diagnoses Acute encephalopathy G93.40 Diabetic ketoacidosis E10.11 Diabetes mellitus complication detail: with coma Diabetes mellitus type: type 1 Acute kidney injury N17.9 Diabetes mellitus type 2, insulin dependent E11.9; Z79.4 Schizophrenia F20.9 Hypothyroidism E03.9 Pneumonia J18.9
[2019-10-31] MEDS: mirtazapine 15 mg Tablet PO (20:17)
[2019-10-31 21:48] LABS: Glucose Point of Care 113 mg/dL (70-110)
[2019-11-01] VITALS (34 sets, daily range): BP systolic 97–139; BP diastolic 54–94; PULSE 45–93; RESP 10–50; TEMP 36.7–37.2; O2SAT 76–99; BMI 15.9
[2019-11-01] MEDS: vancomycin 750 MG in sodium chloride 0.9% 250 ML 250 MG IV (01:59)
[2019-11-01] MEDS: famotidine 20 mg/2 mL INJ IVP ×2 (01:59→14:09)
[2019-11-01 03:39] LABS: ABG PCO2 34.1 mmHg (35-45); ABG PH Result 7.49 (7.35-7.45); Alveolar-Arterial Oxygen Gradi 93.5 mmHg (5-10); Arterial Blood Gas Hematocrit 28.2 % (42-52); Base Excess ABG 2.4 mmol/L (-2.0-2.0); Blood Gas Allen Test Pos; Blood Gas Sample Site Radial, right; Blood Gas Sample Type Arterial; Carboxyhemoglobin 0.1 %THgb (0.4-20.1); HCO3 ABG 25.8 mmol/L (22-26); Ionized Calcium Level - ABG 1.1 mmol/L (1.1-1.4); Methemoglobin 1.3 % (0.4-1.5); Oxygen Device VENT; Oxygen Saturation ABG 99.4; Potassium Level - ABG 3.1 mmol/L (3.5-5.0); Total Hemoglobin 9.2 g/dL (14-18)
[2019-11-01 04:57] LABS: Basophils % 0.1 %; Eosinophils # 0.3 10^3/uL (0.0-0.8); Eosinophils % 3.3 %; Hematocrit 30.5 % (42.0-52.0); Hemoglobin 9.9 g/dL (11.7-16.6); Lymphocytes # 0.6 10^3/uL (0.8-4.8); Lymphocytes % 8.1 %; Mean Corpuscular HGB Conc 32.5 g/dL (30.0-36.0); Mean Corpuscular Volume 98.7 fL (80-94); Mean Platelet Volume 10.8 fL (7.4-10.4); Monocytes # 0.7 10^3/uL (0.2-0.9); Monocytes % 8.5 %; Neutrophils # 6.2 10^3/uL (1.8-7.7); Neutrophils % 79.2 %; Nucleated Red Blood Cells % 0 %; Platelet Count 241 10^3/cmm (130-400); Red Blood Count 3.09 10^6/uL (4.1-5.3); Red Cell Distribution Width 12.8 % (12.1-15.1); White Blood Count 7.9 10^3/uL (4.0-10.0)
[2019-11-01 05:08] LABS: Alanine Aminotransferase 39 U/L (0-41); Alkaline Phosphatase 141 IU/L (40-130); Anion Gap 14.5 (5-19); Aspartate Amino Transferase 57 U/L (0-40); Blood Urea Nitrogen 21 mg/dL (8-23); Calcium 8.5 mg/dL (8.5-10.5); Carbon Dioxide 25 mmol/L (22-29); Chloride 112 mmol/L (98-107); Globulin 3.1 g/dL (1.3-4.6); Glucose 181 mg/dL (65-115); Osmolality Calculated 307 mOsm/kg (285-295); Potassium 3.5 mmol/L (3.5-5.1); Sodium 148 mmol/L (136-145); Total Bilirubin 0.2 mg/dL (0.15-1.2); Total Protein 5.1 g/dL (6.6-8.7)
[2019-11-01] MEDS: sodium chloride 0.9% 1,000 ML 75 ML IV ×2 (05:45→21:04)
[2019-11-01] MEDS: piperacillin-tazobactam 3.375 GM in sodium chloride 0.9% (plus) 50 ML IV ×3 (05:46→20:57)
[2019-11-01] MEDS: midazolam 1 mg/mL INJ 2 mL IVP (06:02)
[2019-11-01] MEDS: quetiapine 100 mg Tablet 200 MG PO ×3 (06:19→20:58)
--- NOTE | 2019-11-01 06:46 | PC.SOCIAL ---
IM follow up not given. Patient is not near close to being discharged will continue to follow and give when closer to time.
--- NOTE | 2019-11-01 07:50 | USR_ITS ---
PROCEDURE INFORMATION: Exam: US Duplex Upper Extremity Veins Exam date and time: 11/01/2019 8:00 AM Age: 59 years old Clinical indication: Edema, localized; Upper extremity, bilateral; Patient HX: PT on vent with fever and resp failure. Bilateral arm swelling; Additional info: Swelling, fever, resp failure TECHNIQUE: Imaging protocol: Real-time Duplex ultrasound of the Upper Extremities with 2-D huynh scale, color Doppler flow and spectral waveform analysis with image documentation. Complete exam focused on the bilateral upper extremity veins. COMPARISON: No relevant prior studies available. FINDINGS: Right deep veins: Axillary and brachial veins are patent throughout without thrombus. Normal Doppler waveforms. Normal compressibility and/or augmentation response. Visualized internal jugular and subclavian veins are patent. Right superficial veins: Visualized cephalic and basilic veins are patent without thrombus. Left deep veins: The axillary vein is mostly filled with echogenic material, is noncompressible, and demonstrates only mild eccentric blood flow on Doppler evaluation. Similarly, one of the paired brachial veins contains echogenic material, is noncompressible, and demonstrates no flow on Doppler evaluation. The other of the paired brachial veins is patent. Visualized internal jugular and subclavian veins are patent. Left superficial veins: Visualized cephalic and basilic veins are patent without thrombus. There is a superficial vein which is filled with echogenic material, is noncompressible, and demonstrates no flow on Doppler evaluation. Soft tissues: There is subcutaneous edema. US/[place] [id number] IMPRESSION: 1. Acute left arm deep and superficial thrombophlebitis. 2. No right arm deep venous thrombosis.
--- NOTE | 2019-11-01 07:51 | PM.PN ---
Subjective Subjective: Interval history: The patient has continued to have thick secretions from the ET tube. The patient has been having periods of rapid respiration with 60/min followed by periods of riding the vent. The patient is currently requiring 40% FiO2 on the ventilator. He has seemed agitated. Labs shows staph aureus growing from the ET tube. Vitals/I&O/Wt Last Vital Signs Temp 99.0 F 11/01/19 02:00 Pulse 93 11/01/19 06:00 Resp 10 L 11/01/19 04:51 BP 125/74 11/01/19 06:00 Pulse Ox 76 L 11/01/19 06:00 10/31/19 11/01/19 11/01/19 22:59 06:59 14:59 Intake Total 355 / 2241.359 9977 / 4069.758 Output Total 650 / 1450 Balance 355 / 1454.202 6282 / 2619.758 Weight last 48 hrs Weight 108 lb Weight 101 lb Weight 84 lb 7 oz Physical Exam Narrative: EXAM NARRATIVE: General: Sedated on ventilator with periods of agitation. Eyes: Pupils are pinpoint but reactive to light and accommodation. Mouth: Swelling of the mucosa noted. No obvious thrush. White discharge noted. Cardiac: Regular rate and rhythm without murmurs Lungs: Rhonchi present bilaterally without wheezes. Abdomen: Soft, nontender without hepatosplenomegaly Extremities: Bilateral lower extremities without edema. Right upper extremity with swelling noted. Urinary Catheter Management^: Mustafa: Cath Placed During This Visit: yes Reason for Continuing Indwelling Catheter: Accurate Measurement of Urinary Output in Critically Ill Patients Urinary Catheter Date of Insertion: 10/27/19 Urinary Catheter Time of Insertion: 02:00 Data : 11/01/19 04:16 11/01/19 04:16 Micro: Microbiology 10/26/19 19:58 Blood Culture - Final Blood NO GROWTH AFTER 5 DAYS 10/26/19 20:02 Blood Culture - Final Blood NO GROWTH AFTER 5 DAYS 10/31/19 13:02 Gram Stain - Final Sputum - Endotracheal Tube Aspirate 10/31/19 10:35 Blood Culture - Preliminary Blood SPECIMEN COLLECTED 10/31/19 10:30 Blood Culture - Preliminary Blood SPECIMEN COLLECTED A&P Additional A&P Information 1. DKA -this is resolved at this time. Continue with management of diabetes with sliding scale and Accu-Cheks. 2. Encephalopathy -the patient's not been responding appropriately and an EEG is scheduled. I would like to wait for this prior to planning for extubation. The underlying causes in question right now as it could be secondary to schizophrenia, versus another underlying medical issue. Continue to treat pneumonia and we will see if this improves. 3. Pneumonia with respiratory failure -staph aureus is growing on the patient's sputum culture. Vancomycin was added yesterday and the patient is currently afebrile. As long as he stays afebrile, we will continue with Zosyn and vancomycin. If he becomes febrile again, we will consider adding another medication like imipenem in case of resistance to Zosyn. Continue with ventilation and wait for extubation until his vent settings are improving and his EEG has been done. 4. Hypothyroidism -continue with levothyroxine. 5. Swelling in the right upper extremity -the patient does not have any DVT in the bilateral lower extremities. I will get an ultrasound of the bilateral upper extremities as his right upper extremity is quite swollen. 6. Anemia -stable at this point. 7. Nutritional support -continue with tube feedings at current rate. 8. Prophylaxis -continue with Lovenox. Attestations Medical Necessity Statement*: The patient continues to need inpatient care in the ICU secondary to respiratory failure. His stay will cross 2 midnights. Time Spent in Patient Care: Greater than 35 minutes Coding Level of Care Code Acute Law Office Assistant for [facility] Oneil
[2019-11-01 08:52] LABS: Glucose Point of Care 268 mg/dL (70-110)
[2019-11-01] MEDS: levothyroxine 150 mcg Tablet 75 MCG PO (09:08)
[2019-11-01] MEDS: aspirin 325 mg Tablet NG-TUBE (09:08)
[2019-11-01] MEDS: valproic acid inj 500 MG in sodium chloride 0.9% 50 ML 55 MG IV ×2 (09:08→17:19)
[2019-11-01] MEDS: enoxaparin 60 mg/0.6 mL Syringe 50 MG SUBCUT ×2 (10:21→17:19)
[2019-11-01 11:00] LABS: Glucose Point of Care 117 mg/dL (70-110)
[2019-11-01 11:00] LABS: Glucose Point of Care 163 mg/dL (70-110)
[2019-11-01] MEDS: propofol 1,000 MG/100 ML INJ 4.1 MG IV (11:20)
[2019-11-01 13:47] LABS: Glucose Point of Care 220 mg/dL (70-110)
[2019-11-01 14:09] LABS: Vancomycin Trough 7.5 ug/mL (10-15)
[2019-11-01] MEDS: vancomycin 1,000 MG in sodium chloride 0.9% 250 ML 250 MG IV (15:09)
[2019-11-01 16:58] LABS: Glucose Point of Care 188 mg/dL (70-110)
--- NOTE | 2019-11-01 17:21 | CTR_ITS ---
PROCEDURE INFORMATION: Exam: CT Angiography Chest With Contrast Exam date and time: 11/01/2019 5:36 PM Age: 59 years old Clinical indication: Patient HX: Hypoxia w lue dvt, central line, et and og in place; Additional info: Hypoxia, lue dvt TECHNIQUE: Imaging protocol: Computed tomographic angiography of the chest with intravenous contrast. 3D rendering: MIP and/or 3D reconstructed images were created by the technologist. Total DLP: 486.34 mGy-cm Radiation optimization: All CT scans at this facility use at least one of these dose optimization techniques: automated exposure control; mA and/or kV adjustment per patient size (includes targeted exams where dose is matched to clinical indication); or iterative reconstruction. Contrast material: OMNI 350; Contrast volume: 95 ml; Contrast route: 20G; COMPARISON: CT chest wo con [id number] 10/31/2019 1:42 PM FINDINGS: Tubes, catheters and devices: A nasogastric tube is present with its tip in the stomach. An ETT is present terminating above the danae. Pulmonary arteries: Pulmonary emboli are seen in the inferior segment of the lingula and left lower lobe lobar artery the left lower lobe lobar artery pulmonary embolus extends into the anterior medial and lateral basilar segmental pulmonary artery branches. Aorta: Unremarkable. No aortic aneurysm. No aortic dissection. Lungs: Small patchy airspace opacities are seen in the lingula, right middle lobe and both lower lobes. Atelectasis is also present in the lower lobes. Pleural space: Small bilateral pleural effusions are appreciated. Heart: The heart is normal in size. No CT evidence of right heart strain. Intraperitoneal space: A small amount of ascites is present. Lymph nodes: Unremarkable. No enlarged lymph nodes. Bones/joints: Unremarkable. No acute fracture. Soft tissues: Mild anasarca is appreciated. CT/CT angio chest PE protcl [id number] IMPRESSION: 1. Pulmonary emboli in the lingula and left lower lobe. 2. Right middle lobe, lingula and bilateral lower lobe opacities may represent pneumonia or possibly edema changes. Bibasilar atelectasis is also noted. 3. Small bilateral pleural effusions and small volume ascites. Radiation Dose CTDIVOL = (mGy): DLP = 486.34 (mGy-cm)
[2019-11-01] MEDS: mirtazapine 15 mg Tablet PO (20:58)
[2019-11-01] MEDS: iohexol 350 mg/mL 100 mL Btl IV (23:14)
--- NOTE | 2019-11-01 23:26 | PC.NURSE ---
[id number] with respiratory at bedside
[2019-11-02] VITALS (21 sets, daily range): BP systolic 97–140; BP diastolic 61–90; PULSE 51–74; RESP 10–37; TEMP 37.3; O2SAT 91–99; BMI 18.6
[2019-11-02] MEDS: famotidine 20 mg/2 mL INJ IVP ×2 (00:25→13:18)
[2019-11-02] MEDS: propofol 1,000 MG/100 ML INJ 4.1 MG IV (01:25)
[2019-11-02] MEDS: vancomycin 1,000 MG in sodium chloride 0.9% 250 ML 250 MG IV ×2 (03:01→14:33)
[2019-11-02 05:25] LABS: Basophils % 0.1 %; Eosinophils # 0.5 10^3/uL (0.0-0.8); Eosinophils % 7.4 %; Hematocrit 27.9 % (42.0-52.0); Hemoglobin 8.9 g/dL (11.7-16.6); Lymphocytes # 0.5 10^3/uL (0.8-4.8); Lymphocytes % 6.9 %; Mean Corpuscular HGB Conc 31.9 g/dL (30.0-36.0); Mean Corpuscular Hemoglobin 32.2 pg (28.0-34.0); Mean Corpuscular Volume 101.1 fL (80-94); Mean Platelet Volume 10.5 fL (7.4-10.4); Monocytes # 0.5 10^3/uL (0.2-0.9); Monocytes % 7.7 %; Neutrophils # 5.2 10^3/uL (1.8-7.7); Neutrophils % 77.2 %; Nucleated Red Blood Cells % 0 %; Platelet Count 246 10^3/cmm (130-400); Red Blood Count 2.76 10^6/uL (4.1-5.3); Red Cell Distribution Width 13.2 % (12.1-15.1); White Blood Count 6.8 10^3/uL (4.0-10.0)
[2019-11-02 05:56] LABS: Alanine Aminotransferase 33 U/L (0-41); Albumin Level 1.8 g/dL (3.5-5.2); Alkaline Phosphatase 174 IU/L (40-130); Anion Gap 11.4 (5-19); Aspartate Amino Transferase 46 U/L (0-40); Blood Urea Nitrogen 16 mg/dL (8-23); Calcium 8.1 mg/dL (8.5-10.5); Carbon Dioxide 28 mmol/L (22-29); Chloride 111 mmol/L (98-107); Globulin 2.6 g/dL (1.3-4.6); Glucose 152 mg/dL (65-115); Osmolality Calculated 303 mOsm/kg (285-295); Potassium 3.4 mmol/L (3.5-5.1); Sodium 147 mmol/L (136-145); Total Bilirubin 0.2 mg/dL (0.15-1.2); Total Protein 4.4 g/dL (6.6-8.7)
[2019-11-02 05:57] LABS: Magnesium 2.3 mg/dL (1.7-2.3); Phosphorus 2.8 mg/dL (2.5-4.5)
[2019-11-02] MEDS: quetiapine 100 mg Tablet 200 MG PO ×2 (05:57→11:14)
[2019-11-02] MEDS: piperacillin-tazobactam 3.375 GM in sodium chloride 0.9% (plus) 50 ML IV (06:01)
[2019-11-02 07:06] LABS: Glucose Point of Care 169 mg/dL (70-110)
[2019-11-02 07:06] LABS: Glucose Point of Care 149 mg/dL (70-110)
[2019-11-02 07:06] LABS: Glucose Point of Care 130 mg/dL (70-110)
[2019-11-02 07:38] LABS: Glucose Point of Care 185 mg/dL (70-110)
[2019-11-02] MEDS: enoxaparin 60 mg/0.6 mL Syringe 50 MG SUBCUT (08:30)
[2019-11-02] MEDS: aspirin 325 mg Tablet NG-TUBE (08:30)
[2019-11-02] MEDS: levothyroxine 150 mcg Tablet 75 MCG PO (08:30)
[2019-11-02] MEDS: valproic acid inj 500 MG in sodium chloride 0.9% 50 ML 55 MG IV (08:31)
[2019-11-02] MEDS: sodium chloride 0.9% 1,000 ML 75 ML IV (11:14)
--- NOTE | 2019-11-02 13:11 | PM.TDS ---
Transfer Summary Providers Date of Admission: 10/23/19 08:26 Date of Discharge: 11/02/19 Attending Provider at Admission: Veronica Patel DO Attending Provider at Transfer: Yanick Stone MD Consults: Neurology: Dr. Francisco Language Therapist: Dr. Mcleod Anticipated Date of Transfer: Anticipated date of transfer: 11/02/19 Receiving Facility & Provider: Receiving Provider: [] Receiving facility: [facility] Diagnoses at Discharge Discharge Diagnosis (1) Acute encephalopathy: Status: Acute (2) Diabetic ketoacidosis: Status: Acute Qualifiers: Diabetes mellitus complication detail: with coma Diabetes mellitus type: type 1 Qualified Code(s): E10.11 - Type 1 diabetes mellitus with ketoacidosis with coma (3) Acute kidney injury: Status: Acute (4) Diabetes mellitus type 2, insulin dependent: Status: Acute (5) Schizophrenia: Status: Acute (6) Hypothyroidism: Status: Acute (7) Pneumonia: Status: Acute Reason for Visit Reason for Visit: Reason For Visit: DKA Hospital Course Discharge Summary: Giancarlo Levi is a 59 year old male with past medical history of type 2 diabetes mellitus, hypothyroidism, polysubstance abuse, schizophrenia who presented to the hospital on October 30 noted mental status and was found to be in DKA. Patient was admitted to the hospital in the ICU and was started on insulin drip as per the DKA protocol. Patient was also in severe metabolic acidosis and severe hypernatremia which were treated with IV fluids and insulin and responded appropriately. During hospitalization patient continued to remain confused, agitated in between which at first were thought to be because of metabolic disturbances but even after correction of metabolic disturbances patient continued to remain agitated was not able to protect his airway so was intubated on October 26. He was put back on his high dose of schizophrenic medications with Seroquel of 200 mg twice daily with 300 mg nightly, mirtazapine 15 mg along with Depakote. As patient continued to threaten extubation whenever the sedation would lighten up because he would get agitated and was threatening to pull out the ET tube neurology consult was done to rule out CVA. Despite multiple attempts on sedation vacation patient could not tolerate it well that is why would probably need slow gradual sedation vacation needing to extubation. Further care was discussed with the family and he is been discharged in hemodynamically stable condition to LTAC. During hospitalization patient developed fever on October 27 which was thought to be because of neuroleptic malignant syndrome because of interaction between his schizophrenic medications and Haldol which was given to sedation. Other symptoms which went for an MS was agitation, deranged liver functions, mild leukocytosis and upper limb rigidity. Once Haldol was stopped patient remained afebrile and rigidity improved gradually. Sputum cultures are growing staph which was not aureus so he was started on vancomycin. Patient is due to finish his Zosyn treatment today and vancomycin next 3 days to finish a 4-hour 7-day course. He is being discharged to LTAC for further management of ventilation for gradual slow extubation in hemodynamically stable condition. Physical Exam Narrative: EXAM NARRATIVE: General: Sedated but arousable, not following simple commands. HEENT: PERRLA, pupils bilaterally equal and reactive Chest: Normal vesicular breath sounds, bilateral lower zone coarse crackles, good air entry. CVS: S1-S2 regular, no murmurs, no tachycardia, no gallops, no rubs Abdomen: Soft, nontender, no organomegaly, bowel sounds present Neuro: Bilateral upper limb rigidity present, pupils bilaterally equal and reactive, sedated but arousable. Urinary Catheter Management^: Mustafa: Cath Placed During This Visit: yes Reason for Continuing Indwelling Catheter: Accurate Measurement of Urinary Output in Critically Ill Patients Urinary Catheter Date of Insertion: 10/27/19 Urinary Catheter Time of Insertion: 02:00 TS Data Data Completed and Pending: Completed Studies During Hospitalization Category Date Time Status CT angio chest PE protcl [id number] Rout ine Cat Scan 11/01/19 17:[address] chest abd pel wo con Routine Cat Scan 10/27/19 08:[address] chest wo con 7 1250 Urgent Cat Scan 10/31/19 09:[address] head wo con* 7 0450 Routine Cat Scan 10/25/19 08:[address] head wo con* 7 0450 Stat Cat Scan 10/29/19 16:[address] thoracic spine w con [id number] Routi ne Cat Scan 10/27/19 09:51 Completed CXRP [XR chest 1V portable [id number]] S tat Exams 10/28/19 18:17 Completed XR chest 1V anne marie ble [id number] Routine Exams 10/26/19 19:12 Completed XR chest 1V anne marie ble [id number] Routine Exams 10/28/19 06:00 Completed XR chest 1V anne marie ble [id number] Routine Exams 10/29/19 06:00 Completed XR chest 1V anne marie ble [id number] Stat Exams 10/27/19 00:36 Completed XR chest 1V anne marie ble [id number] Urgent Exams 10/23/19 07:12 [place] [id number] Urgent Ultrasound 10/31/19 09:35 [place] [id number] Routin e Ultrasound 11/01/19 07:50 Completed Pending at discharge Category Date Time Status EEG electroenceph alogram Routine Exams 10/27/19 09:12 Ordered Blood Culture Sta t Lab 10/31/19 10:35 Results Complete Blood Co unt w/Auto AM LABS Lab 11/03/19 04:00 Ordered Comprehensive Met abolic Panel AM LA BS Lab 11/03/19 04:00 Ordered Vancomycin Trough Routine Lab 11/02/19 14:00 Ordered Labs from last 24 hours 11/02/19 11/02/19 11/02/19 07:29 05:49 04:35 WBC RBC Hgb Hct MCV MCH MCHC RDW Plt Count MPV Neut % (Auto) Lymph % (Auto) Labette % (Auto) Eos % (Auto) Baso % (Auto) Neut # (Auto) Lymph # (Auto) [place] # (Auto) Eos # (Auto) Baso # (Auto) Nucleated RBC % (a uto) Nucleated RBCs # Sodium Potassium Chloride Carbon Dioxide Anion Gap BUN Creatinine GFR Calculation Glucose POC Glucose 185 130 Calculated Osmolal ity Calcium Phosphorus 2.8 Magnesium 2.3 Total Bilirubin AST ALT Alkaline Phosphata se C-React Prot High Sens > 31.930 H Total Protein Albumin Globulin Vancomycin Trough 11/02/19 11/02/19 11/02/19 04:35 04:35 00:29 WBC 6.8 RBC 2.76 L Hgb 8.9 L Hct 27.9 L MCV 101.1 H MCH 32.2 MCHC 31.9 RDW 13.2 Plt Count 246 MPV 10.5 H Neut % (Auto) 77.2 Lymph % (Auto) 6.9 Labette % (Auto) 7.7 Eos % (Auto) 7.4 Baso % (Auto) 0.1 Neut # (Auto) 5.2 Lymph # (Auto) 0.5 L Lab[place] # (Auto) 0.5 Eos # (Auto) 0.5 Baso # (Auto) 0.0 Nucleated RBC % (a uto) 0 Nucleated RBCs # 0.0 Sodium 147 H Potassium 3.4 L Chloride 111 H Carbon Dioxide 28 Anion Gap 11.4 BUN 16 Creatinine 0.5 L GFR Calculation 169.0 H Glucose 152 H POC Glucose 169 Calculated Osmolal ity 303 H Calcium 8.1 L Phosphorus Magnesium Total Bilirubin 0.2 AST 46 H ALT 33 Alkaline Phosphata se 174 H C-React Prot High Sens Total Protein 4.4 L Albumin 1.8 L Globulin 2.6 Vancomycin Trough 11/01/19 11/01/19 11/01/19 20:47 16:51 13:45 WBC RBC Hgb Hct MCV MCH MCHC RDW Plt Count MPV Neut % (Auto) Lymph % (Auto) [place] % (Auto) Eos % (Auto) Baso % (Auto) Neut # (Auto) Lymph # (Auto) Labette # (Auto) Eos # (Auto) Baso # (Auto) Nucleated RBC % (a uto) Nucleated RBCs # Sodium Potassium Chloride Carbon Dioxide Anion Gap BUN Creatinine GFR Calculation Glucose POC Glucose 149 188 Calculated Osmolal ity Calcium Phosphorus Magnesium Total Bilirubin AST ALT Alkaline Phosphata se C-React Prot High Sens Total Protein Albumin Globulin Vancomycin Trough 7.5 L 11/01/19 13:43 WBC RBC Hgb Hct MCV MCH MCHC RDW Plt Count MPV Neut % (Auto) Lymph % (Auto) [place] % (Auto) Eos % (Auto) Baso % (Auto) Neut # (Auto) Lymph # (Auto) Labette # (Auto) Eos # (Auto) Baso # (Auto) Nucleated RBC % (a uto) Nucleated RBCs # Sodium Potassium Chloride Carbon Dioxide Anion Gap BUN Creatinine GFR Calculation Glucose POC Glucose 220 Calculated Osmolal ity Calcium Phosphorus Magnesium Total Bilirubin AST ALT Alkaline Phosphata se C-React Prot High Sens Total Protein Albumin Globulin Vancomycin Trough Vitals: Last Vital Signs Temp 99.2 F 11/02/19 01:00 Pulse 54 L 11/02/19 12:00 Resp 12 11/02/19 12:12 BP 97/62 11/02/19 12:00 Pulse Ox 98 11/02/19 12:00 TS Medications Medications Home Medications acetaminophen 1,000 mg PO Q6H PRN 10/23/19 [History Confirmed 10/23/19] diphenhydramine HCl [Allergy] 25 mg PO Q6H PRN 10/23/19 [History Confirmed 10/23/19] divalproex [Depakote ER] 500 mg PO BID 10/23/19 [History Confirmed 10/23/19] dulaglutide [Trulicity] 0.75 mg SUBCUT Q7D 10/23/19 [History Confirmed 10/23/19] empagliflozin [Jardiance] 10 mg PO DAILY 10/23/19 [History Confirmed 10/23/19] furosemide [Lasix] 20 mg PO DAILY 10/23/19 [History Confirmed 10/23/19] insulin NPH isoph U-100 human [Novolin N Flexpen] 10 unit SUBCUT DAILY 10/23/19 [History Confirmed 10/23/19] levothyroxine 75 mcg PO DAILY 10/23/19 [History Confirmed 10/23/19] mirtazapine 15 mg PO DAILY 10/23/19 [History Confirmed 10/23/19] multivitamin 1 tab PO DAILY 10/23/19 [History Confirmed 10/23/19] potassium chloride 20 meq PO BID 10/23/19 [History Confirmed 10/23/19] quetiapine 200 mg PO BID 10/23/19 [History Confirmed 10/23/19] quetiapine [Seroquel] 300 mg PO DAILY 10/23/19 [History Confirmed 10/23/19] sertraline 50 mg PO DAILY 10/23/19 [History Confirmed 10/23/19] Active Medications Acetaminophen (Tylenol) 650 mg PO Q6H PRN PRN Reason: Mild/Mod Pain Or Temp >/= 101 Last Admin: 10/31/19 10:10 Dose: 650 mg Documented by: Aspirin (Aspirin) 325 mg NG-TUBE DAILY [facility] Last Admin: 11/02/19 08:30 Dose: 325 mg Documented by: Bisacodyl (Dulcolax) 10 mg PO DAILY PRN PRN Reason: CONSTIPATION Dextrose (D50w) 25 ml IVP ONCE PRN; Protocol PRN Reason: hypoglycemia protocol Last Admin: 10/27/19 00:48 Dose: 25 ml Documented by: Enoxaparin Sodium (Lovenox) 50 mg SUBCUT BID [facility] Last Admin: 11/02/19 08:30 Dose: 50 mg Documented by: Famotidine (Pepcid Inj) 20 mg IVP Q12H [facility] Last Admin: 11/02/19 00:25 Dose: 20 mg Documented by: Glucagon (Glucagen) 1 mg IM ONCE PRN; Protocol PRN Reason: Adult Acute Hypoglycemia Prot Haloperidol Lactate (Haldol Inj) 1 mg IM Q4H PRN PRN Reason: AGITATION Last Admin: 10/30/19 12:04 Dose: 1 mg Documented by: Dextrose (D5w) 1,000 mls @ 100 mls/hr IV .Q10H MELIA Last Admin: 10/26/19 10:47 Dose: 100 mls/hr Documented by: Dextrose (D5w) 500 mls @ 100 mls/hr IV ONCE PRN; Protocol PRN Reason: Adult Acute Hypoglycemia Prot Fentanyl 1,000 mcg/ Sodium (Chloride) 100 mls @ 0 mls/hr IV .Q0M MELIA; Protocol Last Admin: 11/02/19 08:30 Dose: 50 mcg/hr, 5 mls/hr Documented by: Piperacillin Sod/Tazobactam (Sod 3.375 gm/ Sodium Chloride) 50 mls @ 12.5 mls/hr IV Q8H MELIA; Protocol Last Admin: 11/02/19 06:01 Dose: 12.5 mls/hr Documented by: Valproic Acid 500 mg/ Sodium (Chloride) 55 mls @ 55 mls/hr IV BID MELIA Last Admin: 11/02/19 08:31 Dose: 55 mls/hr Documented by: Propofol (Diprivan) 1,000 mg in 100 mls @ 0 mls/hr IV .Q0M MELIA; Protocol Last Admin: 11/02/19 01:25 Dose: 15 mcg/kg/min, 4.1 mls/hr Documented by: Vancomycin HCl 1,000 mg/ (Sodium Chloride) 250 mls @ 250 mls/hr IV Q12H MELIA; Protocol Last Admin: 11/02/19 03:01 Dose: 250 mls/hr Documented by: Sodium Chloride (Sodium Chloride 0.9%) 1,000 mls @ 75 mls/hr IV .[id number] MELIA Last Admin: 11/02/19 11:14 Dose: 75 mls/hr Documented by: Insulin Aspart (Novolog) 0 unit SUBCUT Q4H MELIA; Protocol Last Admin: 11/02/19 08:32 Dose: 4 unit Documented by: Levothyroxine Sodium (Synthroid) 75 mcg PO DAILY MELIA Last Admin: 11/02/19 08:30 Dose: 75 mcg Documented by: Midazolam HCl (Versed) 1 mg IVP ONCE PRN PRN Reason: BEHAVIOR Last Admin: 11/01/19 06:02 Dose: 1 mg Documented by: Mirtazapine (Remeron) 15 mg PO BEDTIME [facility] Last Admin: 11/01/19 20:58 Dose: 15 mg Documented by: Naloxone HCl (Narcan) 0.1 mg IVP Q2M PRN PRN Reason: OPIATERV Ondansetron HCl (Zofran) 4 mg IVP Q8H PRN PRN Reason: vomiting, or N/V if npo Quetiapine Fumarate (Seroquel) 200 mg PO 0600,1200,2100 [facility] Last Admin: 11/02/19 11:14 Dose: 200 mg Documented by: Thiamine HCl (Vitamin B-1) 100 mg IV DAILY [facility] Last Admin: 11/02/19 08:30 Dose: 100 mg Documented by: Discharge Plan Discharge Patient Disposition: Home, Self-Care Condition: Stable Prescriptions: No Action multivitamin Tablet 1 tab PO DAILY RF: 0 Seroquel 300 mg Tablet 300 mg PO DAILY RF: 0 quetiapine 200 mg Tablet 200 mg PO BID RF: 0 acetaminophen 500 mg Tablet 1,000 mg PO Q6H PRN (Reason: Pain) RF: 0 levothyroxine 75 mcg Tablet 75 mcg PO DAILY RF: 0 Allergy 25 mg Tablet 25 mg PO Q6H PRN (Reason: Allergy Symptoms) RF: 0 Lasix 20 mg Tablet 20 mg PO DAILY RF: 0 mirtazapine 15 mg Tablet 15 mg PO DAILY RF: 0 Novolin N Flexpen 100 unit/mL (3 mL) Insulin Pen 10 unit SUBCUT DAILY RF: 0 potassium chloride 20 mEq Tablet Extended Release 20 meq PO BID RF: 0 Jardiance 10 mg Tablet 10 mg PO DAILY RF: 0 Depakote ER 500 mg Tablet Extended Release 24 Hr 500 mg PO BID RF: 0 sertraline 50 mg Tablet 50 mg PO DAILY RF: 0 Trulicity 0.75 mg/0.5 mL Pen Injector 0.75 mg SUBCUT Q7D RF: 0 Transfer Attestations Time Spent in Transfer Care*: greater than 30 min Specific Discharge Activities: Specific discharge activities: educating and/or supporting family/caregiver, discussing with geriatric case manager/social workers/dc planners, documenting/other paperwork and evaluating patient/reviewing data Status at Transfer: Cognitive status at transfer: severely impaired cognition, Behavioral status at transfer: other, Functional status at transfer: bed bound Overall status at transfer: other Quality Metrics Clinical Quality Measures: During this hospital stay, did patient experience: None Coding Level of Care Code Acute 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
[2019-11-02] MEDS: propofol 1,000 MG/100 ML INJ 5.5 MG IV (14:56)
--- NOTE | 2019-11-02 15:47 | PC.NURSE ---
TRANSFER OUT OF FACILITY Patient transferred via EMS to [facility] in [place], [place]. Family members notified. Report called to VIRGILIO Banuelos. All belongings sent with patient.
[2019-11-02 20:49] LABS: Glucose Point of Care 193 mg/dL (70-110)
== END 2019-11-02 17:00 | disposition other institution, planned readmission (95) | DRG 637 ==
LOC: ER 08:39 → ICU 08:51
PROVIDERS: Family Medicine; Hospitalist; Internal Medicine; Admitting Provider Family Medicine; Emergency Provider Emergency Medicine; Visit Provider Student in an Organized Health Care Education/Training Program
DX: E11.11 Type 2 diabetes mellitus with ketoacidosis with coma (principal); G93.41 Metabolic encephalopathy; J18.9 Pneumonia, unspecified organism; E87.0 Hyperosmolality and hypernatremia; N17.9 Acute kidney failure, unspecified; E87.2 Acidosis; F20.9 Schizophrenia, unspecified; E03.9 Hypothyroidism, unspecified; B95.62 Methicillin resistant Staphylococcus aureus infection as the cause of diseases classified elsewhere; E86.0 Dehydration; I95.9 Hypotension, unspecified
CPT/HCPCS: 12345; 36415; 36416; 36592; 36600; 51702; 70450; 71045; 71250; 71275; 72129; 74176; 80048; 80051; 80053; 80202; 80306; 80500; 81001; 81003; 82009; 82140; 82550; 82607; 82746; 82803; 82810; 82947; 82962; 83036; 83735; 83921; 83986; 84100; 84145; 84295; 84439; 84443; 84484; 85025; 86141; 87040; 87070; 87077; 87186; 87205; 87635; 87806; 93005; 93010; 93970; 94002; 94003; 94664; 94799; 96372; 96375; 99283; A4570; A9270; J0330; J1450; J1630; J1650; J1815; J2060; J2250; J2270; J2543; J2704; J3010; J3370; J3411; J3480; J3490; J7030; J7050; Q9967

== ENCOUNTER 2019-12-02 14:36 | Inpatient (IN) | payer MEDICARE, MEDICAID, SELFPAY ==
[2019-12-02] VITALS (38 sets, daily range): BP systolic 86–123; BP diastolic 54–72; PULSE 78–104; RESP 14–28; TEMP 36.2–36.7; O2SAT 88–100; BMI 20.3
--- NOTE | 2019-12-02 14:47 | ECG_ITS ---
Measurements Intervals Rayle Rate: 83 P: 58 ND: 191 QRS: -76 QRSD: 118 T: 66 QT: 375 QTc: 441 SINUS RHYTHM WITH MARKED SINUS ARRHYTHMIA LEFT ATRIAL ENLARGEMENT [-0.15mV P WAVE IN V1/V2] LEFT ANTERIOR FASCICULAR BLOCK [QRS AXIS <= -45, QR IN I, RS IN II] Compared to ECG 10/27/2019 05:58:31 Atrial abnormality now present Left anterior fascicular block now present Left-axis deviation no longer present ST (T wave) deviation no longer present Electronically Signed On 12-02-2019 19:28:14 CDT by Bhakti Phillips M.D. [email or web address]
--- NOTE | 2019-12-02 14:49 | ED_ITS ---
HPI - Altered Mental Status General: Chief Complaint: General Medical Stated Complaint: AMS/HYPERGLYCEMIA Time Seen by Provider: 12/02/19 14:37 History of Present Illness: HPI narrative: 59-year-old male is a known diabetic with extremely poor compliance. He was in a intermediate up until about 3 days ago he escaped from [place] and noticed after a few hours they did realize he was gone he was found that same day by his family at his home. He is not had any of his medications since then called for a health and welfare check EMS found him in his home amidst a pile of candy and partially eaten cupcakes. He was poorly responsive they could get him to realize where he was at but not really answer any other questions or have any other complaints. On arrival here he has Kussmaul breathing is an altered mental status and is not answering any questions whatsoever. He will not even follow simple commands such as to close his mouth around the thermometer so that we can take his temperature. He has had DKA multiple times in the past. He is extremely noncompliant diabetic. MD complaint: altered mental status Onset (ago): unknown Severity: severe Consistency of symptoms: Getting Worse Context: history of similar presentation and diabetes Associated symptoms: Reports no associated symptoms Treatments prior to arrival: IV fluid Review of Systems General: Reports: ROS unobtainable due to mental status [facility] ED PFSH: Medical History (Updated 12/03/19 @ 07:53 by Keegan Quiles DO) Acute encephalopathy Diabetes mellitus type 2, insulin dependent Hypothyroidism Polysubstance abuse Pulmonary embolism Schizophrenia Family History Mother Dementia Father Dementia Social History Smoking and tobacco status: never smoked Physical Exam Const: GENERAL APPEARANCE: disheveled, lethargic, ill appearing and frail appearing NUTRITIONAL APPEARANCE: cachectic ORIENTATION/CONSCIOUSNESS: Yes lethargic HENMT: COMMON NORMALS: normocephalic, head/scalp atraumatic and hearing grossly normal bilaterally HEAD & SCALP: normocephalic and atraumatic Eye: COMMON NORMALS: PERRL, EOMs intact bilaterally, conjunctivae normal and no scleral icterus CONJUNCTIVA: Yes conjunctivae normal PUPIL: Yes PERRL Neck/C-Spine: COMMON NORMALS: full ROM, no lymphadenopathy, supple and no JVD Lymph: LYMPHATIC: no lymphadenopathy noted and no lymphedema noted Resp: COMMON NORMALS: normal respiratory effort, no retractions, no use of accessory muscles and clear to auscultation bilaterally AUSCULTATION: clear to auscultation bilaterally Cardio: COMMON NORMALS: no JVD, regular rate, regular rhythm and no murmurs RATE: regular rate RHYTHM: regular rhythm GI: COMMON NORMALS: soft to palpation and no hepatosplenomegaly AUSCULTATION: Yes normoactive bowel sounds PALPATION: Yes soft, No tender, No guarding and Yes no hepatosplenomegaly Extremity: COMMON NORMALS: normal to inspection, normal capillary refill, no clubbing, cyanosis or edema, no calf tenderness and no pedal edema Neuro: SENSORIUM/ORIENTATION: Yes lethargic Skin: COMMON NORMALS: no rashes or lesions noted GENERAL SKIN EXAM: no rashes or lesions noted Course Vital Signs: Vital signs: Vital Signs Temperature 97.6 F 12/03/19 06:00 Pulse Rate 79 12/03/19 07:26 Respiratory Rate 20 H 12/03/19 06:00 Blood Pressure 97/64 12/03/19 06:00 Pulse Oximetry 97 12/03/19 07:26 MDM - Altered Mental Status MDM Narrative: Medical decision making narrative: Patient in acute DKA. Initially resuscitation was started in the emergency room patient was given fluids insulin and sodium bicarb care turned over to Dr. Giordano. Lab Data: Labs: Lab Results 12/02/19 12/02/19 12/02/19 Range/Units 04:32 14:47 14:51 WBC (4.0-10.0) 10^3/ uL RBC (4.1-5.3) 10^6/u L Hgb (11.7-16.6) g/dL Hct (42.0-52.0) % MCV (80-94) fL MCH (28.0-34.0) pg MCHC (30.0-36.0) g/dL RDW (12.1-15.1) % Plt Count (130-400) 10^3/c mm MPV (7.4-10.4) fL Neut % (Auto) % Lymph % (Auto) % Harmon % (Auto) % Eos % (Auto) % Baso % (Auto) % Neut # (Auto) (1.8-7.7) 10^3/u L Lymph # (Auto) (0.8-4.8) 10^3/u L Harmon # (Auto) (0.2-0.9) 10^3/u L Eos # (Auto) (0.0-0.8) 10^3/u L Baso # (Auto) (0.0-0.1) 10^3/u L Nucleated RBC % (a uto) % Nucleated RBCs # /100WBC Specimen Type Arterial Sample Site Radial, left ABG pH 6.91 L* (7.35-7.45) ABG pCO2 10.6 L* (35-45) mmHg ABG pO2 132.0 H (80.0-100.0) mmH g ABG HCO3 2.1 L (22-26) mmol/L ABG O2 Saturation 97.2 ABG Base Excess -29.1 L (-2.0-2.0) mmol/ L Saleem Test Pos Hematocrit 38.9 L (42-52) % Hgb O2 Saturation 94.9 L (95-100) % Carboxyhemoglobin 0.8 (0.4-20.1) %THgb Methemoglobin 1.5 (0.4-1.5) % Total Hemoglobin 12.7 L (14-18) g/dL Sodium 130.0 L (131-143) mmol/L Potassium 5.9 H (3.5-5.0) mmol/L Glucose 989.0 H (70-115) mg/dL Ionized Calcium 1.3 (1.1-1.4) mmol/L O2 Delivery Device Room air FiO2 21.0 % Label Printer ID cak Chloride (98-107) mmol/L Carbon Dioxide (22-29) mmol/L Anion Gap (5-19) BUN (8-23) mg/dL Creatinine (0.7-1.2) mg/dL GFR Calculation (90-130) mL/min POC Glucose > 600 (70-110) mg/dL Calculated Osmolal ity (285-295) mOsm/k g Calcium (8.5-10.5) mg/dL Magnesium (1.7-2.3) mg/dL Total Bilirubin (0.15-1.2) mg/dL AST (0-40) U/L ALT (0-41) U/L Alkaline Phosphata se (40-130) IU/L Total Protein (6.6-8.7) g/dL Albumin (3.5-5.2) g/dL Globulin (1.3-4.6) g/dL Lipase (13-60) U/L Vitamin B12 1732 H (232-1245) pg/mL TSH 2.12 (0.27-4.20) uIU/ mL Urine Color (Yellow) Urine Appearance (CLEAR) Urine pH (5-7) Ur Specific Gravit y (1.005-1.030) Urine Protein (Negative) Urine Glucose (UA) (Normal) Urine Ketones (Negative) Urine Blood (Negative) Urine Nitrate (Negative) Urine Bilirubin (NEGATIVE) Urine Urobilinogen (Negative) mg/dL Ur Leukocyte Vee ase (Negative) Salicylates (3-10) mg/dL Urine Opiates Scre en (Negative) ng/mL Acetaminophen (10-30) ug/mL Ur Barbiturates Sc reen (Negative) ng/mL Ur Phencyclidine S crn (Negative) ng/mL Ur Amphetamines Sc reen (Negative) ng/mL U Benzodiazepines Scrn (Negative) ng/mL Urine Cocaine Scre en (Negative) ng/mL U Marijuana (THC) Screen (Negative) ng/mL Ethyl Alcohol (0-10) mg/dL Serum Ketones (Negative) 12/02/19 12/02/19 12/02/19 Range/Units 15:30 15:30 15:30 WBC 17.3 H (4.0-10.0) 10^3/ uL RBC 3.62 L (4.1-5.3) 10^6/u L Hgb 12.0 (11.7-16.6) g/dL Hct 42.6 (42.0-52.0) % MCV 117.7 H (80-94) fL MCH 33.1 (28.0-34.0) pg MCHC 28.2 L (30.0-36.0) g/dL RDW 13.6 (12.1-15.1) % Plt Count 244 (130-400) 10^3/c mm MPV 12.2 H (7.4-10.4) fL Neut % (Auto) 78.6 % Lymph % (Auto) 8.9 % Harmon % (Auto) 11.0 % Eos % (Auto) 0.1 % Baso % (Auto) 0.2 % Neut # (Auto) 13.6 H (1.8-7.7) 10^3/u L Lymph # (Auto) 1.5 (0.8-4.8) 10^3/u L Harmon # (Auto) 1.9 H (0.2-0.9) 10^3/u L Eos # (Auto) 0.0 (0.0-0.8) 10^3/u L Baso # (Auto) 0.0 (0.0-0.1) 10^3/u L Nucleated RBC % (a uto) 0 % Nucleated RBCs # 0.0 /100WBC Specimen Type Sample Site ABG pH (7.35-7.45) ABG pCO2 (35-45) mmHg ABG pO2 (80.0-100.0) mmH g ABG HCO3 (22-26) mmol/L ABG O2 Saturation ABG Base Excess (-2.0-2.0) mmol/ L Saleem Test Hematocrit (42-52) % Hgb O2 Saturation (95-100) % Carboxyhemoglobin (0.4-20.1) %THgb Methemoglobin (0.4-1.5) % Total Hemoglobin (14-18) g/dL Sodium 130 L (131-143) mmol/L Potassium 6.8 H* (3.5-5.0) mmol/L Glucose 1120 H* (70-115) mg/dL Ionized Calcium (1.1-1.4) mmol/L O2 Delivery Device FiO2 % Label Printer ID Chloride 79 L (98-107) mmol/L Carbon Dioxide 5 L* (22-29) mmol/L Anion Gap 52.8 H (5-19) BUN 47 H (8-23) mg/dL Creatinine 2.1 H (0.7-1.2) mg/dL GFR Calculation 32.3 L (90-130) mL/min POC Glucose (70-110) mg/dL Calculated Osmolal ity 325 H (285-295) mOsm/k g Calcium 9.6 (8.5-10.5) mg/dL Magnesium (1.7-2.3) mg/dL Total Bilirubin 0.2 (0.15-1.2) mg/dL AST 20 (0-40) U/L ALT 18 (0-41) U/L Alkaline Phosphata se 129 (40-130) IU/L Total Protein 6.1 L (6.6-8.7) g/dL Albumin 3.8 (3.5-5.2) g/dL Globulin 2.3 (1.3-4.6) g/dL Lipase 32 (13-60) U/L Vitamin B12 (232-1245) pg/mL TSH (0.27-4.20) uIU/ mL Urine Color (Yellow) Urine Appearance (CLEAR) Urine pH (5-7) Ur Specific Gravit y (1.005-1.030) Urine Protein (Negative) Urine Glucose (UA) (Normal) Urine Ketones (Negative) Urine Blood (Negative) Urine Nitrate (Negative) Urine Bilirubin (NEGATIVE) Urine Urobilinogen (Negative) mg/dL Ur Leukocyte Vee ase (Negative) Salicylates < 0.3 L (3-10) mg/dL Urine Opiates Scre en (Negative) ng/mL Acetaminophen < 5.0 L (10-30) ug/mL Ur Barbiturates Sc reen (Negative) ng/mL Ur Phencyclidine S crn (Negative) ng/mL Ur Amphetamines Sc reen (Negative) ng/mL U Benzodiazepines Scrn (Negative) ng/mL Urine Cocaine Scre en (Negative) ng/mL U Marijuana (THC) Screen (Negative) ng/mL Ethyl Alcohol < 10 (0-10) mg/dL Serum Ketones Positive H (Negative) 12/02/19 12/02/19 12/02/19 Range/Units 15:50 15:50 16:56 WBC (4.0-10.0) 10^3/ uL RBC (4.1-5.3) 10^6/u L Hgb (11.7-16.6) g/dL Hct (42.0-52.0) % MCV (80-94) fL MCH (28.0-34.0) pg MCHC (30.0-36.0) g/dL RDW (12.1-15.1) % Plt Count (130-400) 10^3/c mm MPV (7.4-10.4) fL Neut % (Auto) % Lymph % (Auto) % Harmon % (Auto) % Eos % (Auto) % Baso % (Auto) % Neut # (Auto) (1.8-7.7) 10^3/u L Lymph # (Auto) (0.8-4.8) 10^3/u L Harmon # (Auto) (0.2-0.9) 10^3/u L Eos # (Auto) (0.0-0.8) 10^3/u L Baso # (Auto) (0.0-0.1) 10^3/u L Nucleated RBC % (a uto) % Nucleated RBCs # /100WBC Specimen Type Sample Site ABG pH (7.35-7.45) ABG pCO2 (35-45) mmHg ABG pO2 (80.0-100.0) mmH g ABG HCO3 (22-26) mmol/L ABG O2 Saturation ABG Base Excess (-2.0-2.0) mmol/ L Saleem Test Hematocrit (42-52) % Hgb O2 Saturation (95-100) % Carboxyhemoglobin (0.4-20.1) %THgb Methemoglobin (0.4-1.5) % Total Hemoglobin (14-18) g/dL Sodium 135 L (131-143) mmol/L Potassium 5.1 (3.5-5.0) mmol/L Glucose 905 H* (70-115) mg/dL Ionized Calcium (1.1-1.4) mmol/L O2 Delivery Device FiO2 % Label Printer ID Chloride 90 L (98-107) mmol/L Carbon Dioxide 5 L* (22-29) mmol/L Anion Gap 45.1 H (5-19) BUN 43 H (8-23) mg/dL Creatinine 2.0 H (0.7-1.2) mg/dL GFR Calculation 34.1 L (90-130) mL/min POC Glucose (70-110) mg/dL Calculated Osmolal ity 323 H (285-295) mOsm/k g Calcium 8.1 L (8.5-10.5) mg/dL Magnesium (1.7-2.3) mg/dL Total Bilirubin (0.15-1.2) mg/dL AST (0-40) U/L ALT (0-41) U/L Alkaline Phosphata se (40-130) IU/L Total Protein (6.6-8.7) g/dL Albumin (3.5-5.2) g/dL Globulin (1.3-4.6) g/dL Lipase (13-60) U/L Vitamin B12 (232-1245) pg/mL TSH (0.27-4.20) uIU/ mL Urine Color Yellow (Yellow) Urine Appearance Clear (CLEAR) Urine pH 5 (5-7) Ur Specific Gravit y 1.020 (1.005-1.030) Urine Protein Neg (Negative) Urine Glucose (UA) 4+ H (Normal) Urine Ketones 2+ H (Negative) Urine Blood Neg (Negative) Urine Nitrate Negative (Negative) Urine Bilirubin Neg (NEGATIVE) Urine Urobilinogen Norm (Negative) mg/dL Ur Leukocyte Vee ase Negative (Negative) Salicylates (3-10) mg/dL Urine Opiates Scre en Negative (Negative) ng/mL Acetaminophen (10-30) ug/mL Ur Barbiturates Sc reen Negative (Negative) ng/mL Ur Phencyclidine S crn Negative (Negative) ng/mL Ur Amphetamines Sc reen Negative (Negative) ng/mL U Benzodiazepines Scrn Negative (Negative) ng/mL Urine Cocaine Scre en Negative (Negative) ng/mL U Marijuana (THC) Screen Negative (Negative) ng/mL Ethyl Alcohol (0-10) mg/dL Serum Ketones (Negative) 12/02/19 12/02/19 Range/Units 16:56 17:00 WBC (4.0-10.0) 10^3/ uL RBC (4.1-5.3) 10^6/u L Hgb (11.7-16.6) g/dL Hct (42.0-52.0) % MCV (80-94) fL MCH (28.0-34.0) pg MCHC (30.0-36.0) g/dL RDW (12.1-15.1) % Plt Count (130-400) 10^3/c mm MPV (7.4-10.4) fL Neut % (Auto) % Lymph % (Auto) % Harmon % (Auto) % Eos % (Auto) % Baso % (Auto) % Neut # (Auto) (1.8-7.7) 10^3/u L Lymph # (Auto) (0.8-4.8) 10^3/u L Harmon # (Auto) (0.2-0.9) 10^3/u L Eos # (Auto) (0.0-0.8) 10^3/u L Baso # (Auto) (0.0-0.1) 10^3/u L Nucleated RBC % (a uto) % Nucleated RBCs # /100WBC Specimen Type Sample Site ABG pH (7.35-7.45) ABG pCO2 (35-45) mmHg ABG pO2 (80.0-100.0) mmH g ABG HCO3 (22-26) mmol/L ABG O2 Saturation ABG Base Excess (-2.0-2.0) mmol/ L Saleem Test Hematocrit (42-52) % Hgb O2 Saturation (95-100) % Carboxyhemoglobin (0.4-20.1) %THgb Methemoglobin (0.4-1.5) % Total Hemoglobin (14-18) g/dL Sodium (131-143) mmol/L Potassium (3.5-5.0) mmol/L Glucose (70-115) mg/dL Ionized Calcium (1.1-1.4) mmol/L O2 Delivery Device FiO2 % Label Printer ID Chloride (98-107) mmol/L Carbon Dioxide (22-29) mmol/L Anion Gap (5-19) BUN (8-23) mg/dL Creatinine (0.7-1.2) mg/dL GFR Calculation (90-130) mL/min POC Glucose > 600 (70-110) mg/dL Calculated Osmolal ity (285-295) mOsm/k g Calcium (8.5-10.5) mg/dL Magnesium 2.6 H (1.7-2.3) mg/dL Total Bilirubin (0.15-1.2) mg/dL AST (0-40) U/L ALT (0-41) U/L Alkaline Phosphata se (40-130) IU/L Total Protein (6.6-8.7) g/dL Albumin (3.5-5.2) g/dL Globulin (1.3-4.6) g/dL Lipase (13-60) U/L Vitamin B12 (232-1245) pg/mL TSH (0.27-4.20) uIU/ mL Urine Color (Yellow) Urine Appearance (CLEAR) Urine pH (5-7) Ur Specific Gravit y (1.005-1.030) Urine Protein (Negative) Urine Glucose (UA) (Normal) Urine Ketones (Negative) Urine Blood (Negative) Urine Nitrate (Negative) Urine Bilirubin (NEGATIVE) Urine Urobilinogen (Negative) mg/dL Ur Leukocyte Vee ase (Negative) Salicylates (3-10) mg/dL Urine Opiates Scre en (Negative) ng/mL Acetaminophen (10-30) ug/mL Ur Barbiturates Sc reen (Negative) ng/mL Ur Phencyclidine S crn (Negative) ng/mL Ur Amphetamines Sc reen (Negative) ng/mL U Benzodiazepines Scrn (Negative) ng/mL Urine Cocaine Scre en (Negative) ng/mL U Marijuana (THC) Screen (Negative) ng/mL Ethyl Alcohol (0-10) mg/dL Serum Ketones (Negative) Critical Care Time Critical Care Time: Critical Care Time: Yes Total Critical Care Time: 60 Attestation: This case had a high probability of a clinically significant, sudden, or life threatening deterioration of this patient's condition which required my full and direct attention, intervention and personal management. Discharge Plan Discharge Patient Disposition: Admitted As Inpatient Admit Provider: Phillip Giordano Clinical Impression: Diabetic ketoacidosis, Diabetes mellitus type 2, insulin dependent, Schizophrenia, Polysubstance abuse Condition: Stable Interventions: ED Discharge Assessment Last Done: 12/02/19 17:59 ED Charges Last Done: 12/02/19 18:01 Discharge Date/Time: 12/02/19 19:37 Coding Level of Care Code ED Account General Manager for Chg Fwd Exam Comprehensive
[2019-12-02 14:55] LABS: Glucose Point of Care > 600 mg/dL (70-110)
[2019-12-02 14:58] LABS: Arterial Blood Gas Hematocrit 38.9 % (42-52); Base Excess ABG -29.1 mmol/L (-2.0-2.0); Blood Gas Allen Test Pos; Blood Gas Sample Site Radial, left; Blood Gas Sample Type Arterial; Carboxyhemoglobin 0.8 %THgb (0.4-20.1); HCO3 ABG 2.1 mmol/L (22-26); HGB O2 Sat 94.9 % (95-100); Ionized Calcium Level - ABG 1.3 mmol/L (1.1-1.4); Methemoglobin 1.5 % (0.4-1.5); Oxygen Device ROOM AIR; Oxygen Saturation ABG 97.2; Potassium Level - ABG 5.9 mmol/L (3.5-5.0); Total Hemoglobin 12.7 g/dL (14-18)
[2019-12-02 14:59] LABS: ABG PCO2 10.6 mmHg (35-45); ABG PH Result 6.91 (7.35-7.45)
[2019-12-02 15:43] LABS: Basophils % 0.2 %; Eosinophils % 0.1 %; Hematocrit 42.6 % (42.0-52.0); Lymphocytes # 1.5 10^3/uL (0.8-4.8); Lymphocytes % 8.9 %; Mean Corpuscular HGB Conc 28.2 g/dL (30.0-36.0); Mean Corpuscular Hemoglobin 33.1 pg (28.0-34.0); Mean Corpuscular Volume 117.7 fL (80-94); Mean Platelet Volume 12.2 fL (7.4-10.4); Monocytes # 1.9 10^3/uL (0.2-0.9); Neutrophils # 13.6 10^3/uL (1.8-7.7); Neutrophils % 78.6 %; Nucleated Red Blood Cells % 0 %; Platelet Count 244 10^3/cmm (130-400); Red Blood Count 3.62 10^6/uL (4.1-5.3); Red Cell Distribution Width 13.6 % (12.1-15.1); White Blood Count 17.3 10^3/uL (4.0-10.0)
[2019-12-02 16:10] LABS: Alanine Aminotransferase 18 U/L (0-41); Albumin Level 3.8 g/dL (3.5-5.2); Alkaline Phosphatase 129 IU/L (40-130); Blood Urea Nitrogen 47 mg/dL (8-23); Calcium 9.6 mg/dL (8.5-10.5); Chloride 79 mmol/L (98-107); Globulin 2.3 g/dL (1.3-4.6); Glomerular Filtration Rate 32.3 mL/min (90-130); Lipase 32 U/L (13-60); Sodium 130 mmol/L (136-145); Total Bilirubin 0.2 mg/dL (0.15-1.2); Total Protein 6.1 g/dL (6.6-8.7)
[2019-12-02] MEDS: sodium chloride 0.9% 1,000 ML 999 ML IV (16:15)
[2019-12-02] MEDS: insulin regular-human 100 units/1 mL 10 UNIT IVP (16:16)
[2019-12-02] MEDS: LORazepam 2 mg/mL INJ 1 mL 0.5 MG IVP (16:17)
[2019-12-02 16:18] LABS: Osmolality Calculated 325 mOsm/kg (285-295)
[2019-12-02] MEDS: insulin regular-human 250 UNIT in sodium chloride 0.9% 250 ML IV (16:19)
[2019-12-02 16:24] LABS: Add Urine Microscopic? NO
[2019-12-02 16:28] LABS: Acetaminophen < 5.0 ug/mL (10-30); Alcohol Level < 10 mg/dL (0-10); Anion Gap 52.8 (5-19); Salicylate < 0.3 mg/dL (3-10)
[2019-12-02 16:30] LABS: Aspartate Amino Transferase 20 U/L (0-40)
[2019-12-02 16:33] LABS: Carbon Dioxide 5 mmol/L (22-29)
[2019-12-02 16:34] LABS: Glucose 1120 mg/dL (65-115)
[2019-12-02 16:35] LABS: Ketone (Acetest) Serum Positive (Negative); Potassium 6.8 mmol/L (3.5-5.1)
[2019-12-02 16:36] LABS: Bilirubin Urine Neg (NEGATIVE); Blood Urine Neg (Negative); Glucose Urine UA 4+ (Normal); Ketones Urine 2+ (Negative); Leukocyte Esterase Urine Negative (Negative); Nitrate Urine Negative (Negative); Protein Urine Neg (Negative); Urine Appearance Clear (CLEAR); Urine Color Yellow (Yellow); Urobilinogen Urine Norm (Negative); pH Urine 5 (5-7)
[2019-12-02 16:45] LABS: Amphetamines Screen Urine Negative (Negative); Barbiturates Screen Urine Negative (Negative); Benzodiazepines Screen Urine Negative (Negative); Cocaine Screen Urine Negative (Negative); Opiate Screen Urine Negative (Negative); PCP Screen Urine Negative (Negative); THC Screen Urine Negative (Negative)
--- NOTE | 2019-12-02 16:57 | XR_ITS ---
WS: [id number] PORTABLE CHEST HISTORY: dyspnea/cough COMPARISON: 10/29/2019 Hyperinflated lungs. Significant increase in the coarsened interstitial reticulations since the prior study. Greatest increase in the interstitial thickening in the RIGHT lung. No areas of very dense co nsolidation or lobar collapse. No pleural effusion or pneumothorax. Cardiac size: Normal. Mediastinum/Aorta: Normal mediastinum. No osseous abnormality seen. XR/XR chest 1V portable [id number] IMPRESSION: 1. Significant increase in interstitial thickening since the prior study. Find ings are most consistent with increasing pulmonary edema or diffuse pneumonitis . 2. Mild atherosclerosis aorta.
[2019-12-02 17:20] LABS: ABG PCO2 19.9 mmHg (35-45); Alveolar-Arterial Oxygen Gradi 19.7 mmHg (5-10); Arterial Blood Gas Hematocrit 35.8 % (42-52); Base Excess ABG -25.1 mmol/L (-2.0-2.0); Blood Gas Allen Test Pos; Blood Gas Sample Site Brachial, left; Blood Gas Sample Type Arterial; Carboxyhemoglobin 0.8 %THgb (0.4-20.1); HCO3 ABG 4.8 mmol/L (22-26); HGB O2 Sat 94.4 % (95-100); Ionized Calcium Level - ABG 1.2 mmol/L (1.1-1.4); Methemoglobin 1.3 % (0.4-1.5); Oxygen Device ROOM AIR; Oxygen Saturation ABG 96.4; Potassium Level - ABG 4.9 mmol/L (3.5-5.0); Total Hemoglobin 11.7 g/dL (14-18)
[2019-12-02 17:24] LABS: ABG PH Result 6.99 (7.35-7.45)
[2019-12-02 17:26] LABS: Anion Gap 45.1 (5-19); Blood Urea Nitrogen 43 mg/dL (8-23); Calcium 8.1 mg/dL (8.5-10.5); Chloride 90 mmol/L (98-107); Glomerular Filtration Rate 34.1 mL/min (90-130); Potassium 5.1 mmol/L (3.5-5.1); Sodium 135 mmol/L (136-145)
[2019-12-02 17:37] LABS: Osmolality Calculated 323 mOsm/kg (285-295)
--- NOTE | 2019-12-02 17:41 | PM.HP ---
Providers/Chief Complaint Admitting Physician: Phillip Giordano MD Chief Complaint: AMS/HYPERGLYCEMIA History of Present Illness Giancarlo Levi is a 59 year old male that presented to the emergency department confused, with markedly elevated blood sugar. He is not able to give a history and physical. By talking to his sister, the emergency department physician, and skilled nursing personnel I have come together with these historical items. Last admission, when Giancarlo was at the hospital with DKA he was ultimately transferred to long-term care at [facility] on November 01. He stayed there until he was discharged to assisted facility where he stayed at most 3 days, leaving AGAINST MEDICAL ADVICE on November 28. At that time his family was not aware where he was living. They found him today in a house where he used to occupy. He was confused, licking ice enough cupcakes. Family comments that his memory is not been very good since his last admission. There is no particular history of fever, cough, etc. Last admission he was tested for Covid 19 and it was negative. Review of Systems General: Reports: ROS unobtainable due to mental status Medications/Allergies Home Medications Medication Instructions Recorded Confirmed Last Taken Type acetaminophen 1,000 mg PO Q6H PRN 10/23/19 12/02/19 Unknown History diphenhydramine HCl [Allergy] 25 mg PO Q6H PRN 10/23/19 12/02/19 Unknown History divalproex [Depakote ER] 500 mg PO BID 10/23/19 12/02/19 Unknown History dulaglutide [Trulicity] 0.75 mg SUBCUT Q7D 10/23/19 12/02/19 Unknown History empagliflozin [Jardiance] 10 mg PO DAILY 10/23/19 12/02/19 Unknown History furosemide [Lasix] 20 mg PO DAILY 10/23/19 12/02/19 Unknown History insulin NPH isoph U-100 human 10 unit SUBCUT DAILY 10/23/19 12/02/19 Unknown History [Novolin N Flexpen] levothyroxine 75 mcg PO DAILY 10/23/19 12/02/19 Unknown History mirtazapine 15 mg PO DAILY 10/23/19 12/02/19 Unknown History multivitamin 1 tab PO DAILY 10/23/19 12/02/19 Unknown History potassium chloride 20 meq PO BID 10/23/19 12/02/19 Unknown History quetiapine 200 mg PO BID 10/23/19 12/02/19 Unknown History quetiapine [Seroquel] 300 mg PO DAILY 10/23/19 12/02/19 Unknown History sertraline 50 mg PO DAILY 10/23/19 12/02/19 Unknown History insulin detemir U-100 [Levemir 100 unit SUBCUT DAILY 12/02/19 12/02/19 Unknown History U-100 Insulin] Allergies Allergy/AdvReac Type Severity Reaction Status Date / Time No Known Allergies Allergy Unverified 10/23/19 08:51 PFSH Acute PFSH: Medical History (Updated 12/02/19 @ 17:53 by Phillip Giordano MD) Acute encephalopathy Diabetes mellitus type 2, insulin dependent Hypothyroidism Polysubstance abuse Pulmonary embolism Schizophrenia Family History Mother Dementia Father Dementia Social History Smoking and tobacco status: never smoked Vitals/I&O/Wt Last Vital Signs Pulse 102 H 12/02/19 14:38 Resp 24 H 12/02/19 14:38 BP 104/66 12/02/19 14:38 Pulse Ox 88 L 12/02/19 14:38 Weight last 48 hrs Weight 58.967 kg Physical Exam Narrative: EXAM NARRATIVE: General exam is a white male, lethargic, who will come awake and report no complaints when he is stimulated greatly. HEENT: Pupils equally round. Oropharynx dry. Neck is supple no lymphadenopathy or thyromegaly Cardiovascular tachycardic, no murmur Lungs clear bilaterally. No wheezing or crackles Abdomen is soft, positive bowel sounds, no obvious organomegaly was deferred Extremities no cyanosis clubbing or edema Neuro no obvious focal deficits but lethargic and exam difficult. Data : 12/02/19 15:30 12/02/19 16:56 Micro: Microbiology 12/02/19 16:07 Blood Culture - Preliminary Blood SPECIMEN COLLECTED 12/02/19 15:30 Blood Culture - Preliminary Blood SPECIMEN COLLECTED Other data: Chest x-ray demonstrates right lung infiltrate. This was noted on CTA before and could represent aspiration. White blood cell count elevated at 17.3, MCV 117, platelet count 244 pH 6.99, PCO2 19.9, PO2 102 Liver function tests normal. Salicylate, acetaminophen level not detectable. Urine drug screen negative. Serum ketones positive. Urinalysis with no evidence of obvious infection. A&P Assessment and plan (1) Diabetic ketoacidosis: Received bicarb in the ER. Has received 4 L, starting 5 L of fluid. Insulin drip has been started. Hyperkalemia noted has resolved. Blood sugar slowly improving. Continue insulin drip, saline. When blood sugar less than 170, initiate D5. Serial BMP, magnesium, phosphorus Status: Acute (2) Acute kidney injury: Hydration, close follow-up. Status: Acute (3) Leukocytosis: May be secondary to stress, versus aspiration Status: Acute (4) Aspiration pneumonitis: Initiate Zosyn. N.p.o. for now Status: Acute (5) Macrocytosis: Check B12, TSH. Restart thyroid hormone when able to take p.o. Status: Acute (6) Pulmonary embolism: Lovenox full dose secondary to recent history of pulmonary malaise and diagnosed last month Status: Acute Additional A&P Information Lethargy, likely secondary to DKA. However, as history not obtainable and patient with confusion check CT head noncontrast as he will be fully anticoagulated History of schizophrenia, impairing his judgment and healthcare. Will consult psychiatry. May need inpatient psychiatric care as well. Ativan as needed for now if agitated. History of hypothyroidism, check TSH History of polysubstance abuse. Urine drug screen negative this encounter. Attestations Medical Necessity Statement*: Will need greater than 2 midnight stay for evaluation and treatment of DKA Critical Care Time: 44 minutes spent in critical care time reviewing this patient with severe acidosis secondary to DKA requiring insulin drip. Coding Level of Care Code Acute Admitting Office Escort for [facility] Fwd Diagnoses Diabetic ketoacidosis E11.10 Acute kidney injury N17.9 Leukocytosis D72.829 Aspiration pneumonitis J69.0 Macrocytosis D75.89 Pulmonary embolism I26.99
[2019-12-02 17:49] LABS: Carbon Dioxide 5 mmol/L (22-29); Glucose 905 mg/dL (65-115)
--- NOTE | 2019-12-02 17:50 | PC.NURSE ---
Glucose 905 and CO2 5
[2019-12-02 18:06] LABS: Magnesium 2.6 mg/dL (1.7-2.3)
[2019-12-02] MEDS: sodium chlor 0.9% + KCl 20 mEq 20 MEQ/1,000 ML BAG 175 MEQ IV (18:07)
--- NOTE | 2019-12-02 18:08 | CTR_ITS ---
PROCEDURE INFORMATION: Exam: CT Head Without Contrast Exam date and time: 12/02/2019 6:27 PM Age: 59 years old Clinical indication: Altered mental status/memory loss; Additional info: Confusion TECHNIQUE: Imaging protocol: Computed tomography of the head without contrast. Radiation optimization: All CT scans at this facility use at least one of these dose optimization techniques: automated exposure control; mA and/or kV adjustment per patient size (includes targeted exams where dose is matched to clinical indication); or iterative reconstruction. COMPARISON: CT head wo con* [id number] 10/29/2019 6:27 PM RADIATION DOSE METRICS: Total DLP: 1997.2 mGy-cm FINDINGS: Brain: There is mild cortical atrophy. No hemorrhage. Unremarkable white matter. No mass effect. Ventricles: Normal. No ventriculomegaly. Bones/joints: Unremarkable. No acute fracture. Sinuses: Visualized sinuses are unremarkable. No fluid levels. Mastoid air cells: Visualized mastoid air cells are well aerated. Soft tissues: Unremarkable. CT/CT head wo con* [id number] IMPRESSION: No acute intracranial abnormality. Findings not significantly changed from 10/29/2019 Radiation Dose CTDIVOL = (mGy): DLP = 1997.2 (mGy-cm)
[2019-12-02 18:20] LABS: Glucose Point of Care > 600 mg/dL (70-110)
[2019-12-02] MEDS: sodium bicarbonate 8.4% 1 mEq/mL 50mL Syr 100 MEQ IVP (19:56)
[2019-12-02] MEDS: sodium chloride 0.9% 1,000 ML 175 ML IV (20:10)
[2019-12-02] MEDS: famotidine 20 mg/2 mL INJ IVP (20:11)
[2019-12-02] MEDS: piperacillin-tazobactam 3.375 GM in sodium chloride 0.9% (plus) 50 ML IV (20:11)
[2019-12-02] MEDS: enoxaparin 60 mg/0.6 mL Syringe SUBCUT (20:22)
--- NOTE | 2019-12-02 21:27 | PC.NURSE ---
Addendum entered by Mara Schultz RN 12/02/19 22:12: Right AC IV dislodged, R hand difficult to flush. R hand remains in place after dressing change and repositioning of J-loop, flushes without difficulty. Original Note: Upon arrival from ER, patient has Right AC 20 g, R hand 20g, and L wrist 22 g. Both R extermity IVs are dislodged and unable to flush. No blood return. IVs removed and new IV placed by IV ultrasound in Right AC
--- NOTE | 2019-12-02 22:39 | PC.NURSE ---
Physician updated on condition, orders received to start D5 1/2NS with 20 mEq potassium phosphate at 150 ml/hour and stop NS infusion
[2019-12-02 23:04] LABS: Anion Gap 34.3 (5-19); Blood Urea Nitrogen 39 mg/dL (8-23); Calcium 8.4 mg/dL (8.5-10.5); Carbon Dioxide 12 mmol/L (22-29); Chloride 100 mmol/L (98-107); Glomerular Filtration Rate 44.2 mL/min (90-130); Glucose 411 mg/dL (65-115); Magnesium 2.3 mg/dL (1.7-2.3); Osmolality Calculated 309 mOsm/kg (285-295); Phosphorus 3.8 mg/dL (2.5-4.5); Potassium 4.3 mmol/L (3.5-5.1); Sodium 142 mmol/L (136-145)
[2019-12-03] VITALS (125 sets, daily range): BP systolic 87–125; BP diastolic 55–85; PULSE 55–88; RESP 8–28; TEMP 36.3–37.3; O2SAT 90–100
[2019-12-03] MEDS: LORazepam 2 mg/mL INJ 1 mL 0.5 MG IVP ×3 (00:59→21:05)
--- NOTE | 2019-12-03 01:34 | PC.NURSE ---
Physician updated on urinary urgency, burning, and blood-tinged urine. Physician to enter new orders electronically.
--- NOTE | 2019-12-03 02:03 | PC.NURSE ---
Physician aware of blood-tinged urine and burning. Urine leaking around catheter occasionally, physician aware.
[2019-12-03] MEDS: piperacillin-tazobactam 3.375 GM in sodium chloride 0.9% (plus) 50 ML IV ×3 (02:51→16:56)
--- NOTE | 2019-12-03 03:00 | PC.NURSE ---
Physician updated on patient's continued complaints of need to void. Patient is becoming restless and attempting to get out of bed. Physician to enter new orders electronically.
[2019-12-03] MEDS: OLANZapine 10 mg VIAL IM (03:20)
[2019-12-03 04:44] LABS: Basophils % 0.2 %; Eosinophils % 0.2 %; Hematocrit 34.3 % (42.0-52.0); Hemoglobin 11.3 g/dL (11.7-16.6); Lymphocytes # 0.7 10^3/uL (0.8-4.8); Lymphocytes % 10.2 %; Mean Corpuscular HGB Conc 32.9 g/dL (30.0-36.0); Mean Corpuscular Hemoglobin 32.2 pg (28.0-34.0); Mean Corpuscular Volume 97.7 fL (80-94); Mean Platelet Volume 11.2 fL (7.4-10.4); Monocytes # 0.7 10^3/uL (0.2-0.9); Monocytes % 10.4 %; Neutrophils # 5.2 10^3/uL (1.8-7.7); Neutrophils % 78.4 %; Nucleated Red Blood Cells % 0 %; Platelet Count 163 10^3/cmm (130-400); Red Blood Count 3.51 10^6/uL (4.1-5.3); White Blood Count 6.7 10^3/uL (4.0-10.0)
[2019-12-03 05:03] LABS: Alanine Aminotransferase 14 U/L (0-41); Albumin Level 3.4 g/dL (3.5-5.2); Alkaline Phosphatase 89 IU/L (40-130); Anion Gap 15.7 (5-19); Aspartate Amino Transferase 16 U/L (0-40); Blood Urea Nitrogen 34 mg/dL (8-23); Carbon Dioxide 25 mmol/L (22-29); Chloride 111 mmol/L (98-107); Globulin 1.8 g/dL (1.3-4.6); Glomerular Filtration Rate 61.6 mL/min (90-130); Glucose 67 mg/dL (65-115); Osmolality Calculated 302 mOsm/kg (285-295); Phosphorus 3.4 mg/dL (2.5-4.5); Potassium 3.7 mmol/L (3.5-5.1); Sodium 148 mmol/L (136-145); Total Bilirubin 0.2 mg/dL (0.15-1.2); Total Protein 5.2 g/dL (6.6-8.7)
[2019-12-03] MEDS: dextrose 50% syringe 50 mL 25 ML IVP ×2 (05:04→11:51)
[2019-12-03 05:22] LABS: Thyroid Stimulating Hormone 2.12 uIU/mL (0.27-4.20); Vitamin B12 1732 pg/mL (232-1245)
[2019-12-03 05:55] LABS: Glucose Point of Care 259 mg/dL (70-110)
[2019-12-03 05:55] LABS: Glucose Point of Care 419 mg/dL (70-110)
[2019-12-03 05:55] LABS: Glucose Point of Care 197 mg/dL (70-110)
[2019-12-03 05:55] LABS: Glucose Point of Care 68 mg/dL (70-110)
[2019-12-03 05:55] LABS: Glucose Point of Care 71 mg/dL (70-110)
[2019-12-03 05:55] LABS: Glucose Point of Care 202 mg/dL (70-110)
[2019-12-03 05:55] LABS: Glucose Point of Care 122 mg/dL (70-110)
[2019-12-03 05:55] LABS: Glucose Point of Care 117 mg/dL (70-110)
[2019-12-03 05:55] LABS: Glucose Point of Care 584 mg/dL (70-110)
[2019-12-03 05:55] LABS: Glucose Point of Care 94 mg/dL (70-110)
[2019-12-03 05:55] LABS: Glucose Point of Care 536 mg/dL (70-110)
[2019-12-03 05:55] LABS: Glucose Point of Care 127 mg/dL (70-110)
[2019-12-03 05:55] LABS: Glucose Point of Care 116 mg/dL (70-110)
--- NOTE | 2019-12-03 06:01 | PC.NURSE ---
Dr Yin paged with lab results, physician to enter new orders electronically. Patient okay to advance diet as tolerated per physician.
[2019-12-03] MEDS: insulin glargine 100 units/1 mL 70 UNIT SUBCUT (06:25)
[2019-12-03] MEDS: famotidine 20 mg/2 mL INJ IVP (06:25)
--- NOTE | 2019-12-03 06:34 | PC.NURSE ---
Lantus given per physician order. Physician states that IV insulin drip should be discontinued 2 hours after giving Lantus and IV fluids should be stopped when patient is taking adequate PO intake.
[2019-12-03] MEDS: apixaban 5 mg Tablet 2.5 MG PO ×2 (08:32→16:41)
[2019-12-03] MEDS: thiamine 100 mg Tablet PO (08:32)
[2019-12-03] MEDS: tamsulosin 0.4 mg Capsule PO (08:32)
[2019-12-03] MEDS: famotidine 20 mg Tablet PO ×2 (08:32→16:41)
[2019-12-03] MEDS: phenazopyridine 100 mg Tablet PO ×2 (08:32→16:40)
[2019-12-03] MEDS: sertraline 50 mg Tablet PO (08:32)
[2019-12-03] MEDS: quetiapine 100 mg Tablet 200 MG PO ×2 (08:32→16:42)
[2019-12-03] MEDS: sodium chloride 0.9% 1,000 ML 75 ML IV (08:41)
[2019-12-03 08:47] LABS: Glucose Point of Care 115 mg/dL (70-110)
[2019-12-03 08:47] LABS: Glucose Point of Care 84 mg/dL (70-110)
[2019-12-03 09:22] LABS: Glucose Point of Care 100 mg/dL (70-110)
[2019-12-03] MEDS: sodium chlor 0.45% +KCl 20 mEq 20 MEQ/1,000 ML BAG 75 MEQ IV ×2 (10:01→23:34)
--- NOTE | 2019-12-03 11:31 | PM.PN ---
Subjective Subjective: Interval history: Giancarlo reports he is doing okay. He was sleepy but able to talk with me. He seemed irritated at having the catheter in his bladder. Medications: Reviewed: Yes Vitals/I&O/Wt Last Vital Signs Temp 97.6 F 12/03/19 06:00 Pulse 85 12/03/19 10:22 Resp 20 H 12/03/19 06:00 BP 97/64 12/03/19 06:00 Pulse Ox 95 12/03/19 10:22 12/02/19 12/03/19 12/03/19 22:59 06:59 14:59 Intake Total 933.059 / 630.050 6462.159 / 2021.218 52.918 / 52.918 Output Total 900 / 900 225 / 1125 Balance 33.059 / 33.059 863.159 / 896.218 52.918 / 52.918 Weight last 48 hrs Weight 52.435 kg Weight 58.967 kg Physical Exam Narrative: EXAM NARRATIVE: General exam no apparent distress Cardiovascular regular rate and rhythm without murmur Lungs clear Abdomen is soft with positive bowel sounds Extremities no cyanosis clubbing or edema Data : 12/03/19 04:32 12/03/19 04:32 Micro: Microbiology 12/02/19 16:07 Blood Culture - Preliminary Blood SPECIMEN COLLECTED 12/02/19 15:30 Blood Culture - Preliminary Blood SPECIMEN COLLECTED A&P Assessment and plan (1) Diabetic ketoacidosis: Received bicarb in the ER. He received adequate hydration He received insulin drip overnight and serial electrolytes. Anion gap is closed This morning Lantus was initiated, sliding scale, and diet Status: Acute (2) Acute kidney injury: Hydration performed Resolved Status: Acute (3) Leukocytosis: May be secondary to stress, versus aspiration White blood cell count vastly improved Status: Acute (4) Aspiration pneumonitis: Continue Zosyn Diet initiated and no evidence currently of aspiration symptoms. Likely occurred during multiple episodes of vomiting with decreased mental status and DKA Status: Acute (5) Macrocytosis: B12, TSH levels normal Status: Acute (6) Pulmonary embolism: Lovenox discontinued. Initiate Eliquis 2.5 mg twice daily secondary to some hematuria. If hematuria resolves discontinue Mustafa catheter, and will increase Eliquis to 5 mg twice daily. Note that he had a pulmonary embolism approximately 1 month ago. Status: Acute Additional A&P Information Lethargy, likely secondary to DKA. CT head no acute findings History of schizophrenia, impairing his judgment and healthcare. Await psychiatry evaluation. May need inpatient psychiatric care as well. Ativan as needed for now if agitated. History of hypothyroidism, TSH normal History of polysubstance abuse. Urine drug screen negative this encounter. Attestations Medical Necessity Statement*: Needs continued hospital stay for continued close follow-up of recent DKA, schizophrenia, and concern of his ability to manage his affairs. 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
[2019-12-03] MEDS: levothyroxine 150 mcg Tablet 75 MCG PO (11:53)
[2019-12-03] MEDS: dextrose 50% syringe 50 mL IVP ×3 (15:01→23:26)
[2019-12-03 15:07] LABS: Glucose Point of Care 55 mg/dL (70-110)
[2019-12-03 15:07] LABS: Glucose Point of Care 62 mg/dL (70-110)
--- NOTE | 2019-12-03 15:16 | PM.MISC ---
Miscellaneous Note Purpose of Documentation: Record of attempt to see for psychiatric consult. Note: This is a note to identify that I did go by the ICU and attempt to interact with the patient. However he was fairly obtunded and my attempts to arouse the patient along with the assistance of his ICU nurse Gale were without impact. I will come by and see him tomorrow.
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
[2019-12-03 18:24] LABS: Glucose Point of Care 132 mg/dL (70-110)
[2019-12-03 20:12] LABS: Glucose Point of Care 93 mg/dL (70-110)
--- NOTE | 2019-12-03 23:04 | PC.NURSE ---
Patient asleep, awakens to verbal stimuli.
[2019-12-03 23:30] LABS: Glucose Point of Care 53 mg/dL (70-110)
--- NOTE | 2019-12-03 23:32 | PC.NURSE ---
Dr Yin updated on BG readings, orders received to treat hypoglycemia per protocol with D50. states that no infusion of D5W should be started right now.
[2019-12-04] VITALS (64 sets, daily range): BP systolic 96–153; BP diastolic 63–104; PULSE 56–82; RESP 10–26; TEMP 36.3–36.8; O2SAT 89–99
[2019-12-04 00:03] LABS: Glucose Point of Care 161 mg/dL (70-110)
[2019-12-04 00:13] LABS: Glucose Point of Care 144 mg/dL (70-110)
[2019-12-04 01:26] LABS: Glucose Point of Care 81 mg/dL (70-110)
[2019-12-04] MEDS: dextrose 50% syringe 50 mL IVP (01:42)
[2019-12-04] MEDS: piperacillin-tazobactam 3.375 GM in sodium chloride 0.9% (plus) 50 ML IV ×2 (02:13→15:27)
[2019-12-04 02:17] LABS: Glucose Point of Care 68 mg/dL (70-110)
[2019-12-04 02:17] LABS: Glucose Point of Care 172 mg/dL (70-110)
[2019-12-04] MEDS: dextrose 5%-sod chloride 0.45% 1,000 ML 75 ML IV (02:21)
--- NOTE | 2019-12-04 02:22 | PC.NURSE ---
Dr Yin updated on BG readings, orders received to switch IV fluids to D5 1/2NS at 75 ml/hour
[2019-12-04 03:30] LABS: Glucose Point of Care 121 mg/dL (70-110)
[2019-12-04 05:05] LABS: Basophils % 0.2 %; Eosinophils # 0.1 10^3/uL (0.0-0.8); Eosinophils % 1.9 %; Hematocrit 30.6 % (42.0-52.0); Hemoglobin 9.7 g/dL (11.7-16.6); Lymphocytes # 1.1 10^3/uL (0.8-4.8); Lymphocytes % 20.2 %; Mean Corpuscular HGB Conc 31.7 g/dL (30.0-36.0); Mean Corpuscular Hemoglobin 31.9 pg (28.0-34.0); Mean Corpuscular Volume 100.7 fL (80-94); Mean Platelet Volume 11.7 fL (7.4-10.4); Monocytes # 0.3 10^3/uL (0.2-0.9); Monocytes % 5.9 %; Neutrophils # 3.8 10^3/uL (1.8-7.7); Neutrophils % 71.6 %; Nucleated Red Blood Cells % 0 %; Platelet Count 124 10^3/cmm (130-400); Red Blood Count 3.04 10^6/uL (4.1-5.3); Red Cell Distribution Width 15.2 % (12.1-15.1); White Blood Count 5.2 10^3/uL (4.0-10.0)
[2019-12-04 05:20] LABS: Anion Gap 13.4 (5-19); Blood Urea Nitrogen 22 mg/dL (8-23); Calcium 7.7 mg/dL (8.5-10.5); Carbon Dioxide 26 mmol/L (22-29); Chloride 107 mmol/L (98-107); Glomerular Filtration Rate 114.6 mL/min (90-130); Glucose 91 mg/dL (65-115); Osmolality Calculated 292 mOsm/kg (285-295); Potassium 3.4 mmol/L (3.5-5.1); Sodium 143 mmol/L (136-145)
[2019-12-04 06:06] LABS: Glucose Point of Care 74 mg/dL (70-110)
[2019-12-04 06:06] LABS: Glucose Point of Care 74 mg/dL (70-110)
[2019-12-04 06:07] LABS: Glucose Point of Care 69 mg/dL (70-110)
[2019-12-04 07:54] LABS: Glucose Point of Care 149 mg/dL (70-110)
--- NOTE | 2019-12-04 09:01 | XR_ITS ---
WS: [id number] PORTABLE CHEST HISTORY: Follow-up pneumonia COMPARISON: 12/02/2019 Increasing consolidation in the RIGHT lower lung field and in the lingula since the prior study. Less pulmonary venous congestion and interstitial thickening. Small LEFT pleural effusion has increased. Cardiac size: Normal. Mediastinum/Aorta: Normal mediastinum. No osseous abnormality seen. XR/XR chest 1V portable [id number] IMPRESSION: 1. Increasing consolidation consistent with pneumonia at the RIGHT lung base. 2. Pneumonitis at the lingula. 3. Small LEFT pleural effusion. 4. Improved interstitial edema.
[2019-12-04] MEDS: thiamine 100 mg Tablet PO (09:44)
[2019-12-04] MEDS: tamsulosin 0.4 mg Capsule PO (09:44)
[2019-12-04] MEDS: famotidine 20 mg Tablet PO ×2 (09:44→19:25)
[2019-12-04] MEDS: sertraline 50 mg Tablet PO (09:44)
[2019-12-04] MEDS: levothyroxine 150 mcg Tablet 75 MCG PO (09:44)
--- NOTE | 2019-12-04 10:10 | PC.NURSE ---
Pt very lethargic this am. Dificult to rouse and to keep awake to eat or to take medications
[2019-12-04 11:27] LABS: Glucose Point of Care 118 mg/dL (70-110)
--- NOTE | 2019-12-04 13:00 | PM.PN ---
Subjective Subjective: Interval history: Giancarlo is more alert today. He is eaten 2 meals. He is conversant, and talking about God. No particular complaints. Wants to visit his family. Medications: Reviewed: Yes Vitals/I&O/Wt Last Vital Signs Temp 97.9 F 12/04/19 06:00 Pulse 73 12/04/19 08:00 Resp 18 12/04/19 08:00 BP 137/98 12/04/19 08:00 Pulse Ox 96 12/04/19 06:00 12/03/19 12/04/19 12/04/19 22:59 06:59 14:59 Intake Total 350 / 1192.318 7007 / 2573.143 520 / 520 Output Total 100 / 600 Balance 250 / 258.347 5452 / 1973.143 520 / 520 Weight last 48 hrs Weight 54.25 kg Weight 52.435 kg Weight 58.967 kg Physical Exam Narrative: EXAM NARRATIVE: General exam no apparent distress. Much more conversant Cardiovascular regular rate and rhythm without murmur Lungs clear Abdomen is soft with positive bowel sounds Extremities no cyanosis clubbing or edema Urinary Catheter Management^: Mustafa: Cath Placed During This Visit: yes, but has since been removed by the nurse Reason for Continuing Indwelling Catheter: Accurate Measurement of Urinary Output in Critically Ill Patients Urinary Catheter Date of Insertion: 12/02/19 Urinary Catheter Time of Insertion: 17:00 Date Urinary Catheter Removed: 12/03/19 Time Urinary Catheter Discontinued: 12:40 Data : 12/04/19 04:07 12/04/19 04:07 Micro: Microbiology 12/02/19 16:07 Blood Culture - Preliminary Blood NEGATIVE TO DATE 12/02/19 15:30 Blood Culture - Preliminary Blood NEGATIVE TO DATE A&P Assessment and plan (1) Diabetic ketoacidosis: Anion gap is closed Insulin dose he received yesterday caused some hypoglycemia and had to be started on D5. Lantus dose will be 10 units tonight, continue subcutaneous sliding scale. Status: Acute (2) Acute kidney injury: Resolved Status: Acute (3) Leukocytosis: Resolved Status: Acute (4) Aspiration pneumonitis: No fever, no hypoxia. Continue Zosyn currently. If transfers down to psychiatry, can transition to Levaquin plus Flagyl by mouth Diet initiated and no evidence currently of aspiration symptoms. Likely occurred during multiple episodes of vomiting with decreased mental status and DKA Status: Acute (5) Macrocytosis: B12, TSH levels normal Status: Acute (6) Pulmonary embolism: Lovenox discontinued. Eliquis 5 mg twice daily with no bleeding complications. Status: Acute Additional A&P Information Hypokalemia, supplement lethargy, likely secondary to DKA. CT head no acute findings. Resolving. Seroquel dose decreased. Ativan discontinued History of schizophrenia, impairing his judgment and healthcare. Await psychiatry evaluation. May need inpatient psychiatric care as well. History of hypothyroidism, TSH normal History of polysubstance abuse. Urine drug screen negative this encounter. Attestations Medical Necessity Statement*: Needs continued hospital stay for close monitoring secondary to DKA, schizophrenia, aspiration pneumonitis Coding Level of Care Code Acute Cell Operator for [facility] Diagnoses Diabetic ketoacidosis E11.10 Acute kidney injury N17.9 Leukocytosis D72.829 Aspiration pneumonitis J69.0 Macrocytosis D75.89 Pulmonary embolism I26.99
--- NOTE | 2019-12-04 14:03 | PM.MISC ---
Miscellaneous Note Purpose of Documentation: Note of attempt to interview patient Note: Will return tomorrow and see if Giancarlo is alert enough to be evaluated.
--- NOTE | 2019-12-04 15:16 | PC.NURSE ---
Pt up and ambulated in victor 200 ft. tolerated well.
[2019-12-04 16:45] LABS: Glucose Point of Care 46 mg/dL (70-110)
[2019-12-04 17:12] LABS: Glucose Point of Care 86 mg/dL (70-110)
[2019-12-04 19:17] LABS: Glucose Point of Care 217 mg/dL (70-110)
[2019-12-04] MEDS: quetiapine 25 mg Tablet 50 MG PO (19:26)
[2019-12-04] MEDS: apixaban 5 mg Tablet PO (19:26)
--- NOTE | 2019-12-04 20:00 | PC.NURSE ---
Dr Giordano at bedside, updated on condition. Orders received to decrease IV fluids by 25 ml/hour throughout night as long as blood glucose remains greater than 70.
[2019-12-04] MEDS: dextrose 5%-sod chloride 0.45% 1,000 ML 50 ML IV (20:50)
[2019-12-05] VITALS (10 sets, daily range): BP systolic 120–142; BP diastolic 84–96; PULSE 51–60; RESP 13–22; TEMP 36.5–37; O2SAT 93–99; BMI 20.7
[2019-12-05 01:07] LABS: Glucose Point of Care 148 mg/dL (70-110)
[2019-12-05 03:15] LABS: Glucose Point of Care 82 mg/dL (70-110)
[2019-12-05] MEDS: piperacillin-tazobactam 3.375 GM in sodium chloride 0.9% (plus) 50 ML IV (04:15)
[2019-12-05 04:58] LABS: Anion Gap 11.9 (5-19); Blood Urea Nitrogen 12 mg/dL (8-23); Calcium 8.5 mg/dL (8.5-10.5); Carbon Dioxide 26 mmol/L (22-29); Chloride 104 mmol/L (98-107); Glucose 65 mg/dL (65-115); Osmolality Calculated 280 mOsm/kg (285-295); Potassium 3.9 mmol/L (3.5-5.1); Sodium 138 mmol/L (136-145)
[2019-12-05] MEDS: ondansetron 2 mg/ML SDV 2 mL 4 MG IVP (05:13)
[2019-12-05 06:25] LABS: Glucose Point of Care 48 mg/dL (70-110)
[2019-12-05 06:25] LABS: Glucose Point of Care 79 mg/dL (70-110)
--- NOTE | 2019-12-05 06:39 | PC.NURSE ---
BG at 0541 reads 48, patient alert and oriented. Given 8 oz apple juice, recheck BG 79. Given ensure to drink as patient continues to complain of hunger and thirst.
[2019-12-05 07:26] LABS: Glucose Point of Care 96 mg/dL (70-110)
[2019-12-05 07:47] LABS: Glucose Point of Care 198 mg/dL (70-110)
--- NOTE | 2019-12-05 07:56 | PM.PN ---
Subjective Subjective: Interval history: Giancarlo reports he is feeling okay. I discussed the plan for him to go to the psychiatric unit if possible when his sugar is stabilized. He is agreeable at this point. We reviewed his hospital course. He again had hypoglycemia last night but had 4 units prior to bed of insulin. Medications: Reviewed: Yes Vitals/I&O/Wt Last Vital Signs Temp 97.9 F 12/05/19 04:00 Pulse 57 L 12/05/19 06:00 Resp 22 H 12/05/19 06:00 BP 141/90 12/05/19 06:00 Pulse Ox 96 12/05/19 06:00 12/04/19 12/05/19 12/05/19 22:59 06:59 14:59 Intake Total 1970 / 2610 534.167 / 534.167 Output Total 450 / 450 400 / 850 Balance 1520 / 2160 -400 / 1760 534.167 / 534.167 Weight last 48 hrs Weight 60.146 kg Weight 54.25 kg Physical Exam Narrative: EXAM NARRATIVE: General exam no apparent distress Cardiovascular regular rate and rhythm without murmur Lungs clear Abdomen is soft with positive bowel sounds Extremities no cyanosis clubbing or edema Urinary Catheter Management^: Mustafa: Cath Placed During This Visit: yes, but has since been removed by the nurse Reason for Continuing Indwelling Catheter: Accurate Measurement of Urinary Output in Critically Ill Patients Urinary Catheter Date of Insertion: 12/02/19 Urinary Catheter Time of Insertion: 17:00 Date Urinary Catheter Removed: 12/03/19 Time Urinary Catheter Discontinued: 12:40 Data : 12/04/19 04:07 12/05/19 04:27 Micro: Microbiology 12/04/19 18:30 C.difficile Toxin B Gene (PCR) - Final Stool A&P Assessment and plan (1) Diabetic ketoacidosis: Anion gap is closed Lantus was discontinued secondary to hypoglycemia associated with this approximately 48 hours ago. He is received only minimal sliding scale with no worsening of his anion gap. He did have persistent hypoglycemia last night. I suspect the high doses of Seroquel he was on increased his need for multiple diabetic medications as well as Lantus of which she was on 100 units prior to coming in. Certainly with the reduction in Seroquel I think you will require much less insulin. Reviewing previous insulin dosing over a year ago it looks like he was on about 20 units a day. Records at that time indicated type 2 diabetes. At this point I am discontinuing his bedtime insulin. Continue mild sliding scale insulin. If no hypoglycemia possible transfer to neuropsychiatric unit today Status: Acute (2) Acute kidney injury: Resolved Status: Acute (3) Leukocytosis: Resolved Status: Acute (4) Aspiration pneumonitis: No fever, no hypoxia. Discontinue Zosyn. Changed to Levaquin and Flagyl Diet initiated and no evidence currently of aspiration symptoms. Likely occurred during multiple episodes of vomiting with decreased mental status and DKA Status: Acute (5) Macrocytosis: B12, TSH levels normal Status: Acute (6) Pulmonary embolism: Lovenox discontinued. Eliquis 5 mg twice daily with no bleeding complications. Status: Acute Additional A&P Information Hypokalemia, resolved lethargy, likely secondary to DKA. CT head no acute findings. Resolving. Seroquel dose decreased. Ativan discontinued History of schizophrenia, impairing his judgment and healthcare. Await psychiatry evaluation. May need inpatient psychiatric care as well. History of hypothyroidism, TSH normal History of polysubstance abuse. Urine drug screen negative this encounter. 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
[2019-12-05] MEDS: famotidine 20 mg Tablet PO ×2 (08:11→17:49)
[2019-12-05] MEDS: tamsulosin 0.4 mg Capsule PO (08:11)
[2019-12-05] MEDS: levothyroxine 150 mcg Tablet 75 MCG PO (08:11)
[2019-12-05] MEDS: thiamine 100 mg Tablet PO (08:12)
[2019-12-05] MEDS: quetiapine 25 mg Tablet 50 MG PO ×2 (08:12→17:49)
[2019-12-05] MEDS: metroNIDAZOLE 500 MG Tablet PO ×3 (08:12→21:03)
[2019-12-05] MEDS: apixaban 5 mg Tablet PO ×2 (08:12→17:49)
[2019-12-05] MEDS: sertraline 50 mg Tablet PO (08:12)
--- NOTE | 2019-12-05 10:53 | PC.SOCIAL ---
Pg 2 IMM Explained to pt's sister, Tonia Pg 2 IMM. She verbally understands. No questions voiced. A copy was provided & left on pt's bedside table. Signed, dated, & timed a copy & placed in pt's chart.
[2019-12-05 11:11] LABS: Glucose Point of Care 210 mg/dL (70-110)
[2019-12-05 11:28] LABS: Glucose Point of Care 200 mg/dL (70-110)
[2019-12-05] MEDS: acetaminophen 325 mg Tablet 650 MG PO (13:44)
--- NOTE | 2019-12-05 13:49 | PC.NURSE ---
Pt sitting up in chair. Called [facility] to givd report, they will call us back.
--- NOTE | 2019-12-05 16:04 | PM.PSYCN ---
Providers/Reason for Consult Consulting Physican/Specialty*: Jamaal Borjas MD. Psychiatry. 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 He presents today awake, alert, conversant and had been in conversation with Dr. Giordano to consider coming to the neuro-psych unit so that we can figure out where things are with his medication, make sure that he is of sound mind to be able to confront the challenges that have been difficult for him. Per their report, he had gone to a senior living, but only stayed for a week before he left without notice and was found in a building where he used to live which is abandoned and he was there licking cupcakes. His blood sugars were uncontrolled and there is some belief that the difficulty that they had with managing his blood sugars had to do with the Seroquel he was taking possibly, because he was needing very high units, maybe like 70 to maintain himself while he was on the medication, and recently doses as low as 15 were sending his blood sugars too low, so there is significant concerns about how he is going to manage his blood sugars when he leaves and where he will go to, and whether or not he will stay. Additionally, there are concerns about him taking or not taking his psychiatric medications, which him not doing that has been made to known to cause significant issues for him. He was in the [facility] twice in a couple of months in 2019. He really could not answer the specific questions I had and did not have a plan for how he was going to make sure that what just happened, did not occur again or worse. We discussed the risks, benefits and alternatives of him being admitted to the neuro-psych unit and us diligently looking at how to manage his mental health issues, as well as the logistical issues of where he goes next and he understood and agreed to proceed with the plan as identified. We discussed his psychosocial circumstances which outside of the fact that he had been in the senior living and left that are without substantive change he reports. Information from that past history was included to assist with his limited interest in providing some of his psychosocial background information. Per his last [facility] eval: History of Present Illness Date of Service: Mar 20, 2019 Chief Complaint: I know I was wrong with my sister. HPI: Giancarlo presented [place] [facility] [place] with the following presentation on 02/11/2019: History of Present Illness Date of Service: Feb 11, 2019 Chief Complaint: I need to start taking my meds every day HPI: Patient presented today reporting that his sister had wanted him to come into the hospital. He reports that he has been on medication for some time and that he needs to get them going again. He Alluding to the fact that the reason why he had stopped taking his medication was that he cannot read. And that now he has been practicing reading and so this will not happen again. He reported that he knows he needs to take his medication daily but that is reading deficiency made and so that he could not read the bottle and know what he was supposed to do so instead he did not take the medication at all. He was unable to articulate what medications he is on or has been on. We discussed the fact that his reluctance to take the medication or difficulty in taking the medication secondary to C indicates that he might benefit from a long-acting injectable. He was unclear whether the current symptoms look like he has historical presentation when he is off of medication or whether there were concerns for delirium or dementia. He denied any significant symptoms at this time but again endorses an openness to get back on medication so that he can be discharged hopefully to his previous living arrangement. Per ED eval: HISTORY OF PRESENT ILLNESS Chief Complaint: BEHAVIOR CHANGE. This started today. (58 yo male presents with 96 hr hold. Pt was sent here from [facility] [place]. Family states that pt has come off of his psychiatric medications. Family states that pt has been starving himself. Pt has been causing issues at [facility]. Pt tried to poke out his room mates eyes.). The patient has exhibited a behavior change. Has exhibited unusual behavior but been eating or sleeping or not been depressed. No anxiety, anger, paranoia, delusions or suicidal thoughts. No self-injury inflicted or hallucinations. The symptoms are described as moderate. No injury is present. Similar symptoms previously. None. Recent medical care: The patient was seen recently by a health care provider. Interim history: Giancarlo presented to the hospital this time after a significant outbursts according to the staff that his living facility. He reports that there was a troublesome interaction that was related to the fact that he tried to lie and get his check directly instead of paying the facility first. He reports that he knows that it was wrong but at the time he wanted to fix his vehicle so that he had transportation. He reports that he was upset at the time but that he's had some time to reflect a knows that the choice was wrong. He reports he feels his current medications are working and that he just had a lapse in self-control. There are some concerns that have been reported for Giancarlo having many of his dysfunctional mom as being related to issues surrounding his sister. But he denies that that is the issue from a larger scale. He reports that he will be cooperative and open to trying anything that we decide. He reports a desire to return to the facility. HISTORY OF PRESENT ILLNESS Chief Complaint: ANXIOUS and DEPRESSED and AGITATED, ANGRY, AGGRESSIVE and VIOLENT BEHAVIOR. This started yesterday. (58 yo male presents with being agitated. pt states this started yesterday. per staff and family the pt has been confused, calling a lot , having violent outbursts and stealing stuff that does not belong to him. pt denies SI or HI and denies everything they are saying. pt states he wants to stay here and not be sent away and he will not act out or talk about god any more if they leave him here. pt has been recently seen in the ED for blood sugar problems. pt denies any other symptoms. per pt sister she wants him sent away to a lock down unit and medications changed. per sister the pt is having hallucinations like before.). The patient has experienced situational problems but not exhibited a behavior change and was not found wandering and is compliant with medication. No recent drug use or alcohol consumption. Has been depressed and angry but eating or sleeping. He has had anxiety. No unusual behavior, paranoia, delusions or self-injury inflicted. The symptoms are described as moderate. No injury is present. Similar symptoms previously. Recent medical care: The patient was seen recently by a health care provider. Meds Current Medications: Current Medications Generic Name Dose Route Start Last Admin Trade Name Freq PRN Reason Stop Dose Admin Acetaminophen 650 mg 12/02/19 18:08 12/05/19 13:44 Tylenol PO 650 mg Q6H PRN Administration MILD PAIN Apixaban 5 mg 12/04/19 18:00 12/05/19 08:12 Eliquis PO 5 mg BID MELIA Administration Famotidine 20 mg 12/03/19 09:00 12/05/19 08:11 Pepcid Tab PO 20 mg BID MELIA Administration Insulin Aspart 0 unit 12/04/19 18:00 12/05/19 11:33 Novolog SUBCUT 4 unit TIDWM MELIA Administration Protocol Levothyroxine Sodi um 75 mcg 12/03/19 11:45 12/05/19 08:11 Synthroid PO 75 mcg DAILY MELIA Administration Metronidazole 500 mg 12/05/19 09:00 12/05/19 15:58 Flagyl Tab PO 500 mg TID MELIA Administration Quetiapine Fumarat e 50 mg 12/04/19 18:00 12/05/19 08:12 Seroquel PO 50 mg BID MELIA Administration Sertraline HCl 50 mg 12/03/19 09:00 12/05/19 08:12 Zoloft PO 50 mg DAILY MELIA Administration Tamsulosin HCl 0.4 mg 12/03/19 09:00 12/05/19 08:11 Flomax PO 0.4 mg DAILY MELIA Administration Thiamine Mononitra te 100 mg 12/03/19 09:00 12/05/19 08:12 Vitamin B-1 PO 100 mg DAILY MELIA Administration PFSH NPU PFSH: Medical History (Updated 12/03/19 @ 07:53 by Keegan Quiles DO) Acute encephalopathy Diabetes mellitus type 2, insulin dependent Hypothyroidism Polysubstance abuse Pulmonary embolism Schizophrenia Family History Mother Dementia Father Dementia Social History Smoking and tobacco status: never smoked Mental Status Exam MSE Comments: This is an underweight, older, white male, in a hospital gown with limited grooming and improved eye contact. No abnormal movements except for psychomotor retardation. Semi-cooperative with exam in no acute distress. Speech was decreased rate and volume. Mood described as okay; affect congruent. Thought process, more organized today. Thought content: patient denied any suicidal or homicidal ideation, there were no delusions reported or noted, patient denied any auditory or visual hallucinations. Attention and concentration were improving, and memory was unreliable, but none were formally tested. He is alert and oriented times three. Insight and judgment are limited. Vitals/I&O/Wt Last Vital Signs Temp 98.0 F 12/05/19 14:17 Pulse 58 L 12/05/19 14:17 Resp 18 12/05/19 14:17 BP 142/94 12/05/19 14:17 Pulse Ox 99 12/05/19 14:17 12/05/19 12/05/19 12/05/19 06:59 14:59 22:59 Intake Total 774.167 / 774.167 Output Total 400 / 850 Balance -400 / 1760 774.167 / 774.167 Weight last 48 hrs Weight 60.146 kg Weight 60.146 kg Weight 54.25 kg Physical Exam Urinary Catheter Management^: Mustafa: Cath Placed During This Visit: yes, but has since been removed by the nurse Reason for Continuing Indwelling Catheter: Accurate Measurement of Urinary Output in Critically Ill Patients Urinary Catheter Date of Insertion: 12/02/19 Urinary Catheter Time of Insertion: 17:00 Date Urinary Catheter Removed: 12/03/19 Time Urinary Catheter Discontinued: 12:40 Data NPU Micro: Micro: Microbiology 12/04/19 18:30 C.difficile Toxin B Gene (PCR) - Fin al Stool Microbiology 12/04/19 18:30 Stool C.difficile Toxin B Gene (PCR) - Final A&P Assessment and plan (1) Schizophrenia: This is a 59 year old, white male, with a long history of diabetes and mental health challenges including psychosis, bipolar versus schizophrenia/schizoaffective disorder, who presents after an ICU stay after leaving a senior living and being gone and not having medication, not eating appropriately, is making overall poor choices, who presents reporting an openness to come to the neuro-psychiatric unit for definitive care. Continue current medications. Will try to get a sense of what he is taking historically and what we might be able to give him to create improvement, but not create difficulty with his blood sugars. Encourage individual, group, and milieu therapy. Continue q 15-minute checks for safety. On Saturday we will work with the treatment team to figure out what resources are available for him and begin to explore his capacity for making safe decisions for himself. Primary reason for admission is that it does not appear secondary to his mental illness to take appropriate care for himself and if he were not admitted the likelihood of significant morbidity and possible mortality would exist. However, he is not specifically on a 96-hour hold yet, but the criteria for such appears to be present. Status: Acute (2) Diabetic ketoacidosis: Status: Acute (3) Polysubstance abuse: Status: Acute (4) Acute encephalopathy: Status: Acute Involuntary Hold Information 96 Hour Hold: 96 Hour Involuntary Admission: No Attestations [facility] Medical Necessity Statement*: Inpatient hospitalization is medically necessary and the clinically appropriate intervention at this time. We will monitor medications and make adjustments as indicated. He will be inpatient for over two midnights. Likely length of stay three to five days. Coding Level of Care Code Acute Card Runner for Fernando Oneil Diagnoses Schizophrenia F20.9 Diabetic ketoacidosis E11.10 Polysubstance abuse F19.10 Acute encephalopathy G93.40
[2019-12-05 16:39] LABS: Glucose Point of Care 173 mg/dL (70-110)
[2019-12-05 20:59] LABS: Glucose Point of Care 271 mg/dL (70-110)
[2019-12-05] MEDS: insulin glargine 100 units/1 mL 5 UNIT SUBCUT (21:01)
[2019-12-06 01:52] LABS: Glucose Point of Care 314 mg/dL (70-110)
[2019-12-06] MEDS: OLANZapine ODT 5 MG TABLET PO (05:06)
[2019-12-06] MEDS: ondansetron 4 MG Tablet PO ×2 (05:06→09:04)
--- NOTE | 2019-12-06 05:09 | PC.NURSE ---
Pt c/o nausea, racing thoughts, Zofran and Zydis given PRN
[2019-12-06 06:00] VITALS: BP 135/86; PULSE 58; RESP 17; TEMP 36.7; O2SAT 97
[2019-12-06 06:48] LABS: Glucose Point of Care 269 mg/dL (70-110)
[2019-12-06] MEDS: levoFLOXacin 750 mg Tablet PO (07:37)
[2019-12-06] MEDS: acetaminophen 325 mg Tablet 650 MG PO ×2 (07:38→14:27)
--- NOTE | 2019-12-06 09:15 | PM.NHP ---
Providers/Chief Complaint Admitting Physician: Phillip Giordano MD Chief Complaint: AMS/HYPERGLYCEMIA HPI NPU History of Present Illness Giancarlo Levi is a 59 year old male who presented today very focused on the possibility of discharge tomorrow. He was being triggered by another patient and so spent some part of his conversation focused on black people. He endorsed, as he has previously to this scientific writer, that he dated a ?colored girl? for some time in his life. He focused on being connected to them and having genetic connections to them, during our conversation. We discussed, to some degree, his medication and wanting to get some history on what anti-psychotics he has been on, because Dr. Swanson had some concerns that some of his difficulties were related to him having significant issues with insulin resistance when on higher doses of Seroquel. He said he was open to considering some changes. Although, currently, he was endorsing doing well, he could not give a coherent story about what really happened and what got him off track. The last time we had seen him his sister had provided some sensibilities about how he could be managed and to talk sense into him, so it is not really clear how he ended up leaving the [facility] and getting in the situation he was in. We agreed to work with the treatment team, when they return tomorrow, to look at what resources exist. He, of course, would like a chance to go home, but it is not really clear what home is and what pitfalls that would have. We reviewed his recent visits here, for psycho-social verification, and he denies any significant change; his excerpts have been included below. Per last [facility] [place] [place]: History of Present Illness Date of Service: Mar 20, 2019 Chief Complaint: I know I was wrong with my sister. HPI: Giancarlo presented to the [facility] with the following presentation on 02/11/2019: History of Present Illness Date of Service: Feb 11, 2019 Chief Complaint: I need to start taking my meds every day HPI: Patient presented today reporting that his sister had wanted him to come into the hospital. He reports that he has been on medication for some time and that he needs to get them going again. He Alluding to the fact that the reason why he had stopped taking his medication was that he cannot read. And that now he has been practicing reading and so this will not happen again. He reported that he knows he needs to take his medication daily but that is reading deficiency made and so that he could not read the bottle and know what he was supposed to do so instead he did not take the medication at all. He was unable to articulate what medications he is on or has been on. We discussed the fact that his reluctance to take the medication or difficulty in taking the medication secondary to C indicates that he might benefit from a long-acting injectable. He was unclear whether the current symptoms look like he has historical presentation when he is off of medication or whether there were concerns for delirium or dementia. He denied any significant symptoms at this time but again endorses an openness to get back on medication so that he can be discharged hopefully to his previous living arrangement. Per ED eval: HISTORY OF PRESENT ILLNESS Chief Complaint: BEHAVIOR CHANGE. This started today. (58 yo male presents with 96 hr hold. Pt was sent here from [facility]. Family states that pt has come off of his psychiatric medications. Family states that pt has been starving himself. Pt has been causing issues at [facility]. Pt tried to poke out his room mates eyes.). The patient has exhibited a behavior change. Has exhibited unusual behavior but been eating or sleeping or not been depressed. No anxiety, anger, paranoia, delusions or suicidal thoughts. No self-injury inflicted or hallucinations. The symptoms are described as moderate. No injury is present. Similar symptoms previously. None. Recent medical care: The patient was seen recently by a health care provider. Interim history: Giancarlo presented to the hospital this time after a significant outbursts according to the staff that his living facility. He reports that there was a troublesome interaction that was related to the fact that he tried to lie and get his check directly instead of paying the facility first. He reports that he knows that it was wrong but at the time he wanted to fix his vehicle so that he had transportation. He reports that he was upset at the time but that he's had some time to reflect a knows that the choice was wrong. He reports he feels his current medications are working and that he just had a lapse in self-control. There are some concerns that have been reported for Giancarlo having many of his dysfunctional mom as being related to issues surrounding his sister. But he denies that that is the issue from a larger scale. He reports that he will be cooperative and open to trying anything that we decide. He reports a desire to return to the facility. HISTORY OF PRESENT ILLNESS Chief Complaint: ANXIOUS and DEPRESSED and AGITATED, ANGRY, AGGRESSIVE and VIOLENT BEHAVIOR. This started yesterday. (58 yo male presents with being agitated. pt states this started yesterday. per staff and family the pt has been confused, calling a lot , having violent outbursts and stealing stuff that does not belong to him. pt denies SI or HI and denies everything they are saying. pt states he wants to stay here and not be sent away and he will not act out or talk about god any more if they leave him here. pt has been recently seen in the ED for blood sugar problems. pt denies any other symptoms. per pt sister she wants him sent away to a lock down unit and medications changed. per sister the pt is having hallucinations like before.). The patient has experienced situational problems but not exhibited a behavior change and was not found wandering and is compliant with medication. No recent drug use or alcohol consumption. Has been depressed and angry but eating or sleeping. He has had anxiety. No unusual behavior, paranoia, delusions or self-injury inflicted. The symptoms are described as moderate. No injury is present. Similar symptoms previously. Recent medical care: The patient was seen recently by a health care provider. Allergies: Coded Allergies: No Known Allergies (Verified Allergy, Unknown, 10/03/18) Active Meds: Current Hospital Medications: Medications (Trade) Dose Ordered Sig/Apollo Route PRN Reason Start Time Stop Time Status Last Admin Dose Admin Lorazepam (Ativan Tab) 0.5 mg Q4H PRN PO FOR MILD ANXIETY 03/19/19 13:00 Lorazepam (Ativan Tab) 1 mg Q4H PRN PO FOR MODERATE ANXIETY 03/19/19 13:00 Lorazepam (Ativan Tab) 2 mg Q4H PRN PO FOR SEVERE ANXIETY 03/19/19 13:00 Lorazepam (Ativan Inj) 2 mg Q4H PRN IM For Severe Aggression 03/19/19 13:00 Haloperidol Lactate (Haldol Inj) 5 mg Q4H PRN IM Severe Aggression 03/19/19 13:00 Diphenhydramine HCl (Benadryl Inj) 50 mg ONCE PRN IV Severe Extrapyramidal Symptoms 03/19/19 13:00 Benztropine Mesylate (Cogentin Tab) 1 mg BID PRN PO Mild Extrapyramidal symptoms 03/19/19 13:00 Benztropine Mesylate (Cogentin Inj) 1 mg ONCE PRN IM Severe Extrapyramidal Symptom 03/19/19 13:00 Acetaminophen (Tylenol Tab) 650 mg Q4H PRN PO FOR MILD PAIN 03/19/19 13:00 Trazodone HCl (Trazodone) 50 mg BEDTIME PRN PO FOR SLEEP 03/19/19 13:00 Nicotine (Nicoderm Patch) 21 mg DAILY PRN TD FOR WITHDRAWAL 03/19/19 13:00 Nicotine Polacrilex (Nicotine Gum) 2 mg Q2H PRN PO Withdrawal 03/19/19 13:00 Haloperidol (Haldol Tab) 5 mg Q4H PRN PO For agitation 03/19/19 13:00 Lorazepam (Ativan Tab) 2 mg Q4H PRN PO FOR AGITATION 03/19/19 13:00 Divalproex Sodium (Depakote Tab) 250 mg BID PO 03/19/19 22:00 03/20/19 10:05 Furosemide (Lasix Tab) 20 mg DAILY PO 03/20/19 10:00 03/20/19 10:06 Mirtazapine (Remeron) 15 mg HS PO 03/19/19 22:00 03/19/19 21:18 Quetiapine Fumarate (Seroquel) 200 mg 0700,1200 PO 03/20/19 07:00 03/20/19 12:20 Quetiapine Fumarate (Seroquel) 300 mg HS PO 03/19/19 22:00 03/19/19 21:19 Non-Formulary Medication (Empagliflozin (Jardiance)) 10 mg DAILY PO 03/20/19 10:00 Levothyroxine Sodium (Synthroid Tab) 75 mcg DAILY PO 03/20/19 10:00 03/20/19 10:06 Multivitamins Therapeutic (Therapeutic Multivitamin) 1 ea DAILY PO 03/20/19 10:00 03/20/19 10:05 Non-Formulary Medication ([Allergy Relief Eye] ) 1 drop PRN PRN EACH EYE FOR ALLERGIES 03/19/19 16:15 Non-Formulary Medication ([Gold German Diabetic] ) 1 applic DIRECTED PRN TOP DRY SKIN 03/19/19 16:15 Insulin Human NPH 10 unit/N/A 0.1 ml @ 0 mls/hr DAILY@0700 SUBCUT 03/20/19 07:00 03/20/19 08:02 Insulin Human NPH 8 unit/N/A 0.08 ml @ 0 mls/hr DAILY@2000 SUBCUT 03/19/19 20:00 03/19/19 21:20 Insulin Aspart (Novolog) AGGRESSIVE SLIDING SCALE [facility] SUBCUT 03/20/19 08:00 03/20/19 18:32 Past Medical History Past Medical History: PAST HISTORY ( PCP-Paulette). Hypertension. Diabetes mellitus. Hyperglycemia. Hypoglycemia. Hypokalemia. Hyponatremia. Anxiety. Depression. Schizophrenia. (Tetanus Status, Suicidal Ideation). ( Immunizations). ( Leukocytosis). ( Acidosis). ( Medication Refill). ( Sinus bradycardia). Other Past Social History: Developmental history he denies any issues or abnormalities with his mom's . He does endorse some developmental delay. He reports being in special education classes during his school years. Psychosocial history. He reports that his mother and father were together when he was born and that there are 6 girls and 1 boy. Between his parents he later on said that he might have some other half siblings from conversations that he understands. He reports that he got through ninth grade in high school. But he denies graduating. He endorses being heterosexual with his longest relationship between 24 years. Legal history reports countless incarcerations. But the longest likely is about 90 days. He denies any significant medical issues at this time. Review of Systems Review of Systems: REVIEW OF SYSTEMS No headache, dizziness, weakness, chest pain or palpitations. No abdominal pain, vomiting, diarrhea, numbness or fever. No sore throat, cough, difficulty breathing, urinary frequency or skin rash. No enlarged lymph nodes, joint pain, weight loss or laceration. All other systems reviewed and are negative. Other Review of Systems: He reports having about 4 hospitalizations at least. He has been to one rehabilitation [facility] NPU Home Medications Medication Instructions Recorded Confirmed Last Taken Type acetaminophen 1,000 mg PO Q6H PRN 10/23/19 12/02/19 Unknown History diphenhydramine HCl [Allergy] 25 mg PO Q6H PRN 10/23/19 12/02/19 Unknown History divalproex [Depakote ER] 500 mg PO BID 10/23/19 12/02/19 Unknown History dulaglutide [Trulicity] 0.75 mg SUBCUT Q7D 10/23/19 12/02/19 Unknown History empagliflozin [Jardiance] 10 mg PO DAILY 10/23/19 12/02/19 Unknown History furosemide [Lasix] 20 mg PO DAILY 10/23/19 12/02/19 Unknown History insulin NPH isoph U-100 human 10 unit SUBCUT DAILY 10/23/19 12/02/19 Unknown History [Novolin N Flexpen] levothyroxine 75 mcg PO DAILY 10/23/19 12/02/19 Unknown History mirtazapine 15 mg PO DAILY 10/23/19 12/02/19 Unknown History multivitamin 1 tab PO DAILY 10/23/19 12/02/19 Unknown History potassium chloride 20 meq PO BID 10/23/19 12/02/19 Unknown History quetiapine 200 mg PO BID 10/23/19 12/02/19 Unknown History quetiapine [Seroquel] 300 mg PO DAILY 10/23/19 12/02/19 Unknown History sertraline 50 mg PO DAILY 10/23/19 12/02/19 Unknown History insulin detemir U-100 [Levemir 100 unit SUBCUT DAILY 12/02/19 12/02/19 Unknown History U-100 Insulin] Allergies Allergy/AdvReac Type Severity Reaction Status Date / Time No Known Allergies Allergy Unverified 10/23/19 08:51 PFSH NPU PFSH: Medical History (Updated 12/03/19 @ 07:53 by Keegan Quiles DO) Acute encephalopathy Diabetes mellitus type 2, insulin dependent Hypothyroidism Polysubstance abuse Pulmonary embolism Schizophrenia Family History Mother Dementia Father Dementia Social History Smoking and tobacco status: never smoked Mental Status Exam MSE Comments: This is an underweight, white male, with adequate dress, grooming, and eye contact. No abnormal movements, except for psychomotor retardation. Cooperative with exam in no acute distress. Speech was decreased rate and volume, with a very slow southern drawl. Mood described as okay; affect congruent. Thought process, mostly organized. Thought content: patient denied any suicidal or homicidal ideation, there were no delusions reported or noted, he denied any auditory or visual hallucinations. Attention and concentration were distractible, and memory was unreliable, but none were formally tested. He is alert and oriented to person and place. Insight and judgment are impaired. Vitals/I&O/Wt Last Vital Signs Temp 97.9 F 12/06/19 20:40 Pulse 74 12/06/19 20:40 Resp 21 H 12/06/19 20:40 BP 105/75 12/06/19 20:40 Pulse Ox 98 12/06/19 20:40 Weight last 48 hrs Weight 52.163 kg Weight 60.146 kg Weight 60.146 kg Physical Exam Urinary Catheter Management^: Mustafa: Cath Placed During This Visit: yes, but has since been removed by the nurse Reason for Continuing Indwelling Catheter: Accurate Measurement of Urinary Output in Critically Ill Patients Urinary Catheter Date of Insertion: 12/02/19 Urinary Catheter Time of Insertion: 17:00 Date Urinary Catheter Removed: 12/03/19 Time Urinary Catheter Discontinued: 12:40 Data NPU : 12/04/19 04:07 12/05/19 04:27 A&P Assessment and plan (1) Polysubstance abuse: This is a 59 year old, white male, with a long history of schizophrenia with recent decompensation, leaving a mcc, being off of his medication, and currently significant concerns that if he were to discharge he would pose a great risk to his ongoing health, given his inability to care for himself in relation to managing his medications, both psychiatrically and otherwise. Continue current medication. Will try to get some collateral history to allow us to make a decision about the anti-psychotic direction we want to go in. Likely considering Invega or Abilify for the long acting injectable component. Encourage individual, group, and milieu therapy. Continue q-15 minute checks for safety. Will work with social work team to find a suitable discharge location from a standpoint of a place that might give him assistance such that he might have success in managing medications and in his overall functioning. Status: Acute (2) Schizophrenia: Status: Acute Involuntary Hold Information 96 Hour Hold: 96 Hour Involuntary Admission: No Attestations NPU Medical Necessity Statement*: Inpatient hospitalization is medically necessary and the clinically appropriate intervention at this time. We will monitor medications and make changes as indicated. He will be in the hospital for over two midnights. Likely length of stay is two to four days. Coding Level of Care Code Acute Services Mgr for [facility] Diagnoses Polysubstance abuse F19.10 Schizophrenia F20.9
--- NOTE | 2019-12-06 09:48 | P.PN_ITS ---
Subjective Subjective: Interval history: Giancarlo reports he would like to go home today. No other specific complaints. Medications: Reviewed: Yes Vitals/I&O/Wt Last Vital Signs Temp 98.1 F 12/06/19 06:00 Pulse 58 L 12/06/19 06:00 Resp 17 12/06/19 06:00 BP 135/86 12/06/19 06:00 Pulse Ox 97 12/06/19 06:00 Weight last 48 hrs Weight 52.163 kg Weight 60.146 kg Weight 60.146 kg Physical Exam Narrative: EXAM NARRATIVE: General exam no apparent distress. Conversant. Slightly tangential today. Cardiovascular regular rate and rhythm without murmur Lungs clear Abdomen is soft with positive bowel sounds Extremities no cyanosis clubbing or edema Urinary Catheter Management^: Mustafa: Cath Placed During This Visit: yes, but has since been removed by the nurse Reason for Continuing Indwelling Catheter: Accurate Measurement of Urinary Output in Critically Ill Patients Urinary Catheter Date of Insertion: 12/02/19 Urinary Catheter Time of Insertion: 17:00 Date Urinary Catheter Removed: 12/03/19 Time Urinary Catheter Discontinued: 12:40 Data : 12/04/19 04:07 12/05/19 04:27 A&P Assessment and plan (1) Diabetic ketoacidosis: Anion gap is closed on lab work yesterday. Hypoglycemia occurred during this hospital stay. I suspect the high doses of Seroquel he was on increased his need for multiple diabetic medications as well as Lantus of which she was on 100 units prior to coming in. Certainly with the reduction in Seroquel I think you will require much less insulin. Blood sugar is creeping up. Increase Lantus to 10 units twice daily. Continue sliding scale Status: Acute (2) Acute kidney injury: Resolved Status: Acute (3) Leukocytosis: Resolved Status: Acute (4) Aspiration pneumonitis: No fever, no hypoxia. Oral Levaquin and Flagyl currently. Diet initiated and no evidence currently of aspiration symptoms. Likely occurred during multiple episodes of vomiting with decreased mental status and DKA Status: Acute (5) Macrocytosis: B12, TSH levels normal Status: Acute (6) Pulmonary embolism: Lovenox discontinued. Eliquis 5 mg twice daily with no bleeding complications. Status: Acute Additional A&P Information Hypokalemia, resolved lethargy, likely secondary to DKA. CT head no acute findings. Resolving. Seroquel dose decreased. Ativan discontinued History of schizophrenia, impairing his judgment and healthcare. Await psychiatry evaluation. May need inpatient psychiatric care as well. History of hypothyroidism, TSH normal History of polysubstance abuse. Urine drug screen negative this encounter. Attestations Medical Necessity Statement*: As per psychiatry. Medical condition has stabilized but mental health issues have led to frequent hospitalizations, life- threatening DKA. Coding Level of Care Code Acute Rfp Writer for [facility] Diagnoses Diabetic ketoacidosis E11.10 Acute kidney injury N17.9 Leukocytosis D72.829 Aspiration pneumonitis J69.0 Macrocytosis D75.89 Pulmonary embolism I26.99
[2019-12-06] MEDS: insulin glargine 100 units/1 mL 10 UNIT SUBCUT ×2 (09:52→16:34)
[2019-12-06] MEDS: quetiapine 25 mg Tablet 50 MG PO ×2 (09:54→17:22)
[2019-12-06 10:53] LABS: Glucose Point of Care 191 mg/dL (70-110)
[2019-12-06 14:00] VITALS: BP 117/77; PULSE 17; TEMP 36.4
[2019-12-06] MEDS: metroNIDAZOLE 500 MG Tablet PO ×2 (14:28→20:40)
[2019-12-06 14:40] LABS: Glucose Point of Care 140 mg/dL (70-110)
[2019-12-06 17:11] LABS: Glucose Point of Care 233 mg/dL (70-110)
[2019-12-06] MEDS: famotidine 20 mg Tablet PO (17:22)
[2019-12-06] MEDS: apixaban 5 mg Tablet PO (17:22)
[2019-12-06 19:45] LABS: Glucose Point of Care 108 mg/dL (70-110)
[2019-12-06 20:40] VITALS: BP 105/75; PULSE 74; RESP 21; TEMP 36.6; O2SAT 98
[2019-12-06] MEDS: trazodone 50 mg Tablet PO (20:40)
[2019-12-07] MEDS: levoFLOXacin 750 mg Tablet PO (05:24)
[2019-12-07 06:00] VITALS: BP 138/94; PULSE 72; RESP 22; TEMP 36.8; O2SAT 94
[2019-12-07 06:21] LABS: Glucose Point of Care 219 mg/dL (70-110)
[2019-12-07] MEDS: metroNIDAZOLE 500 MG Tablet PO ×3 (10:05→21:12)
[2019-12-07] MEDS: famotidine 20 mg Tablet PO ×2 (10:05→17:18)
[2019-12-07] MEDS: levothyroxine 150 mcg Tablet 75 MCG PO (10:05)
[2019-12-07] MEDS: thiamine 100 mg Tablet PO (10:06)
[2019-12-07] MEDS: sertraline 50 mg Tablet PO (10:06)
[2019-12-07] MEDS: apixaban 5 mg Tablet PO ×2 (10:06→17:18)
[2019-12-07] MEDS: tamsulosin 0.4 mg Capsule PO (10:06)
[2019-12-07] MEDS: quetiapine 25 mg Tablet 50 MG PO ×2 (10:06→17:18)
[2019-12-07] MEDS: insulin glargine 100 units/1 mL 10 UNIT SUBCUT ×2 (10:07→17:18)
--- NOTE | 2019-12-07 10:17 | PM.NPN ---
Subjective NPU Subjective: Interval history: Giancarlo presents today continuing to be frustrated that he is not being discharged, but really has nowhere to go that makes sense. He continues to speak to just going home, like there is a home that he can go to that has the essentials needed for him to manage his diabetes as well as his other issues. We discussed the treatment team working diligently with his family, the people that have been in decision making capacity with him, in the past, to make sure that wherever he goes that it makes sense. He is fairly frustrated with the situation, feeling that he is fine and not having issues. He is currently not reporting any significant issues and reports that he is eating and sleeping fine. Mental Status Exam MSE Comments: This is an underweight, older, white male, with adequate dress, grooming, and eye contact. No abnormal movements. Cooperative with exam in no acute distress. Speech was increased rate and normal volume but pressured, once he begins to speak it just keeps coming and he does not generally deviate enough for someone else to have the normal give and take of conversation. Mood described as good; affect slightly subdued. Thought process, mostly organized. Thought content: patient denied any suicidal or homicidal ideation, there were no delusions reported but paranoia and guarded thinking persist, he denied any auditory or visual hallucinations. Attention and concentration were mostly intact, and memory was unreliable, but none were formally tested. He is alert and oriented to person and place. Insight and judgment are impaired. Vitals/I&O/Wt Last Vital Signs Temp 98.4 F 12/07/19 22:00 Pulse 72 12/07/19 22:00 Resp 15 12/07/19 22:00 BP 132/61 12/07/19 22:00 Pulse Ox 95 12/07/19 22:00 12/07/19 12/07/19 12/08/19 14:59 22:59 06:59 Intake Total 240 / 240 Output Total 400 / 400 Balance -160 / -160 Weight last 48 hrs Weight 52.163 kg Physical Exam Urinary Catheter Management^: Mustafa: Cath Placed During This Visit: yes, but has since been removed by the nurse Reason for Continuing Indwelling Catheter: Accurate Measurement of Urinary Output in Critically Ill Patients Urinary Catheter Date of Insertion: 12/02/19 Urinary Catheter Time of Insertion: 17:00 Date Urinary Catheter Removed: 12/03/19 Time Urinary Catheter Discontinued: 12:40 Data NPU : 12/04/19 04:07 12/05/19 04:27 Micro: Microbiology 12/02/19 16:07 Blood Culture - Final Blood NO GROWTH AFTER 5 DAYS 12/02/19 15:30 Blood Culture - Final Blood NO GROWTH AFTER 5 DAYS Microbiology 12/02/19 16:07 Blood Blood Culture - Final NO GROWTH AFTER 5 DAYS 12/02/19 15:30 Blood Blood Culture - Final NO GROWTH AFTER 5 DAYS A&P Additional A&P Information (1) Polysubstance abuse: This is a 59 year old, white male, with a long history of schizophrenia with recent decompensation, leaving a correction, being off of his medication, and currently significant concerns that if he were to discharge he would pose a great risk to his ongoing health, given his inability to care for himself in relation to managing his medications, both psychiatrically and otherwise. Continue current medication. Will try to get some collateral history to allow us to make a decision about the anti-psychotic direction we want to go in. Encourage individual, group, and milieu therapy. Continue q-15 minute checks for safety. Will work with social work team to find a suitable discharge location from a standpoint of a place that might give him assistance such that he might have success in managing medications and in his overall functioning. (2) Schizophrenia: Involuntary Hold Information 96 Hour Hold: 96 Hour Involuntary Admission: No Attestations NPU Medical Necessity Statement*: Inpatient hospitalization is medically necessary and the clinically appropriate intervention at this time. We will monitor medications and make changes as indicated. Likely length of stay is two to four days. Coding Level of Care Code Acute Factory Superintendent for [facility]
[2019-12-07 10:26] LABS: Glucose Point of Care 154 mg/dL (70-110)
[2019-12-07] MEDS: acetaminophen 325 mg Tablet 650 MG PO ×3 (11:09→23:42)
[2019-12-07 13:06] LABS: Glucose Point of Care 358 mg/dL (70-110)
[2019-12-07 14:00] VITALS: BP 126/77; PULSE 84; RESP 18; TEMP 36.6; O2SAT 99
[2019-12-07] MEDS: ondansetron 4 MG Tablet PO (14:55)
[2019-12-07 17:18] LABS: Glucose Point of Care 261 mg/dL (70-110)
[2019-12-07 20:27] LABS: Glucose Point of Care 29 mg/dL (70-110)
[2019-12-07 20:44] LABS: Glucose Point of Care 135 mg/dL (70-110)
[2019-12-07 20:51] VITALS: BP 132/61; PULSE 72; RESP 15; TEMP 36.6; O2SAT 95
--- NOTE | 2019-12-07 21:05 | PC.NURSE ---
AT 2014 PAT WAS GETTING VS TAKEN PER AIDE AND RN ASSESSING FOR Q 15 MIN ROUNDS, PATIENT HAD PALE SKIN, COOL TO TOUCH, TWITCHING UNCONTROLLABLY, WOULD RESPOND VERBALLY OCC. VS TAKEN98,HR 72, RESP 16,02 SAT 95% RA, AND 132/61 BP. BLOOD SUGAR 29 TIMES 2. RAPID RESPONSE CALLED. WAS GIVEN ONE AMP D 50 IV AND PATIENT DRANK 2 CARTONS OF ORANJE JUICE. DOING BETTER, BLOOD SUGAR 135. TALKING AND APPOLIGIZING FOR EVERYTHING. REASSURED THAT STAFF WOULD CHECK BLOOD SUGAR AND CHECK ON HIM OFTEN. ATE 1/2 SANDWICH AND DRANK SOME MILK. AT 2114 WAS TAKING PO MEDS FOR HS MEDS.
[2019-12-07] MEDS: hyDROXYzine 25 mg Capsule 50 MG PO (21:11)
[2019-12-07] MEDS: trazodone 50 mg Tablet PO (21:12)
--- NOTE | 2019-12-07 21:36 | PM.EVENT ---
Event Note Event Note: Rapid response was called for altered mental status. Patient was experiencing coarse tremors, immediate blood glucose was checked which was 35. IV access was obtained, 1 amp of D50 was given which improved his coarse tremors and improved his blood sugar 135, patient was alert oriented x3, he was very conversive throughout this event. His sandwich was found at the bedside, he probably did not eat his sandwich and received Lantus and sliding scale which dropped his blood sugar. Since we cannot have IV access in NPU, advised nurses to check blood sugar every hour and if blood sugar is low we will try intramuscular glucagon. His blood sugar has been very labile since his admission. I am not sure if he had any diagnosis of hemoglobinopathy. Currently he is awake alert oriented x3, GCS 15 no neurological deficit, no need of ICU.
[2019-12-07 22:00] VITALS: BP 132/61; PULSE 72; RESP 15; TEMP 36.9; O2SAT 95
[2019-12-07 22:03] LABS: Glucose Point of Care 294 mg/dL (70-110)
[2019-12-07 22:03] LABS: Glucose Point of Care 275 mg/dL (70-110)
[2019-12-07] MEDS: dextrose 50% syringe 50 mL IVP (22:40)
--- NOTE | 2019-12-07 22:47 | PC.NURSE ---
12/07/19 at 2052 found patient unresponsive to verbal or touch ,tonic/clonic movements of bilateral upper and lower extremities noted, urinated on self, and when aroused the patient was confused and lethargic. Notified the RN Rachelle Marquez who initiated emergency rapid response team. Blood glucose registered at 29 first check and second check 28. 12/07/19 rechecked glucose, now 254. Patient is out of bed, requested a shower, mood is good and is in the dayroom.
[2019-12-07] MEDS: OLANZapine ODT 5 MG TABLET PO (23:43)
[2019-12-08 06:00] VITALS: BP 144/82; PULSE 62; RESP 16; TEMP 37.2; O2SAT 92
[2019-12-08] MEDS: levoFLOXacin 750 mg Tablet PO (06:19)
[2019-12-08 06:30] LABS: Glucose Point of Care 239 mg/dL (70-110)
[2019-12-08] MEDS: ondansetron 4 MG Tablet PO (06:40)
[2019-12-08] MEDS: acetaminophen 325 mg Tablet 650 MG PO ×2 (06:41→09:40)
[2019-12-08 07:32] LABS: Glucose Point of Care 286 mg/dL (70-110)
[2019-12-08] MEDS: tamsulosin 0.4 mg Capsule PO (08:10)
[2019-12-08] MEDS: sertraline 50 mg Tablet PO (08:10)
[2019-12-08] MEDS: quetiapine 25 mg Tablet 50 MG PO ×2 (08:10→16:31)
[2019-12-08] MEDS: famotidine 20 mg Tablet PO ×2 (08:10→16:30)
[2019-12-08] MEDS: apixaban 5 mg Tablet PO ×2 (08:10→16:31)
[2019-12-08] MEDS: levothyroxine 150 mcg Tablet 75 MCG PO (08:11)
[2019-12-08] MEDS: thiamine 100 mg Tablet PO (08:11)
[2019-12-08] MEDS: metroNIDAZOLE 500 MG Tablet PO ×3 (08:12→20:40)
--- NOTE | 2019-12-08 10:31 | P.PN_ITS ---
Subjective NPU Subjective: Interval history: Sharri presents today continuing to in essence downplay the events leading up to her hospitalization and even somewhat resists the idea that she knows what happened, when it appears, she does know what happened. We again discussed the possibility of initiating a medication given that she is off of her medication. She again refused however she did agree that once her CPK count was down and she was medically cleared, that she would come down to the neuro-psych unit so that we could explore things further. Once again, I reached out to her mother and left a message on my personal phone, and I am awaiting a response because there are some things that mother wants to share with this consumer loan underwriter. Mental Status Exam MSE Comments: This is an obese, white female, with adequate dress, grooming, and eye contact. No abnormal movements except for psychomotor retardation. Semi- cooperative with exam in no acute distress. Speech was decreased rate and volume. Mood described as okay; affect subdued. Thought process, linear. Thought content: patient denied any suicidal or homicidal ideation, there were no delusions reported or noted, patient denied any auditory or visual hallucinations. Attention and concentration limited, and memory unreliable, but none were formally tested. Alert and oriented times person and place. Insight and judgment are limited. Vitals/I&O/Wt Last Vital Signs Temperature 98.9, pulse 62, respirations 16, pulse ox 92%, blood pressure 144/8 2. Physical Exam Urinary Catheter Management^: Mustafa: Cath Placed During This Visit: yes, but has since been removed by the nurse Reason for Continuing Indwelling Catheter: Accurate Measurement of Urinary Output in Critically Ill Patients Urinary Catheter Date of Insertion: 12/02/19 Urinary Catheter Time of Insertion: 17:00 Date Urinary Catheter Removed: 12/03/19 Time Urinary Catheter Discontinued: 12:40 Data NPU : 12/04/19 04:07 12/05/19 04:27 A&P Additional A&P Information (1) Polysubstance abuse: This is a 59 year old, white male, with a long history of schizophrenia with recent decompensation, leaving a fpc, being off of his medication, and currently significant concerns that if he were to discharge he would pose a great risk to his ongoing health, given his inability to care for himself in relation to managing his medications, both psychiatrically and otherwise. Continue current medication. Encourage individual, group, and milieu therapy. Continue q-15 minute checks for safety. Will work with social work team to find a suitable discharge location from a standpoint of a place that might give him assistance such that he might have success in managing medications and in his overall functioning. (2) Schizophrenia: Involuntary Hold Information 96 Hour Hold: 96 Hour Involuntary Admission: No Attestations NPU Medical Necessity Statement*: Inpatient hospitalization is medically necessary and the clinically appropriate intervention at this time. We will monitor m edications and make changes as indicated. Likely length of stay is two to four days. Coding Level of Care Code Acute Padding Machine Operator for Fernando Oneil
[2019-12-08 11:20] LABS: Glucose Point of Care 314 mg/dL (70-110)
--- NOTE | 2019-12-08 13:35 | P.PN_ITS ---
Subjective NPU Subjective: Interval history: Giancarlo presents today reporting that he is feeling somewhat unhappy about not being able to leave, but says he understands what we are trying to do. He had a precipitous drop in his blood sugar and needed some assistance last night. We will look to the medical cross cover for direction on how to manage that and discussed with him how that is part of our concern, that he is not in a place where there is some oversight, that a situation like that could lead to a very bad outcome. Mental Status Exam MSE Comments: This is an underweight, older, white male, with adequate dress, grooming, and eye contact. No abnormal movements except for mild psychomotor retardation. Cooperative with exam in no acute distress. Speech was decreased rate and volume with a slow southern drawl. Mood described as fine; affect slightly subdued. Thought process, linear and mostly organized. Thought content: patient denied any suicidal or homicidal ideation, there were no delusions reported or noted, patient denied any auditory or visual hallucinations. Attention and concentration appeared limited, and memory is unreliable, but none were formally tested. Alert and oriented times three. Insight and judgment are limited. Vitals/I&O/Wt Last Vital Signs Temperature 98.9, pulse 62, respirations 16, pulse ox 92%, blood pressure 144/82. Physical Exam Urinary Catheter Management^: Mustafa: Cath Placed During This Visit: yes, but has since been removed by the nurse Reason for Continuing Indwelling Catheter: Accurate Measurement of Urinary Outp ut in Critically Ill Patients Urinary Catheter Date of Insertion: 12/02/19 Urinary Catheter Time of Insertion: 17:00 Date Urinary Catheter Removed: 12/03/19 Time Urinary Catheter Discontinued: 12:40 Data NPU : 12/04/19 04:07 12/10/19 16:25 A&P Additional A&P Information (1) Polysubstance abuse: This is a 59 year old, white male, with a long history of schizophrenia with recent decompensation, leaving a mcc, being off of his medication, and currently significant concerns that if he were to discharge he would pose a great risk to his ongoing health, given his inability to care for himself in relation to managing his medications, both psychiatrically and otherwise. Continue current medication. Encourage individual, group, and milieu therapy. Continue q-15 minute checks for safety. Will work with social work team to find a suitable discharge location from a standpoint of a place that might give him assistance such that he might have success in managing medications and in his overall functioning. (2) Schizophrenia: Involuntary Hold Information 96 Hour Hold: 96 Hour Involuntary Admission: No Attestations NPU Medical Necessity Statement*: Inpatient hospitalization is medically necessary and the clinically appropriate intervention at this time. We will monitor medications and make changes as indicated. Likely length of stay is two to four days. Coding Level of Care Code Acute Machine Precision Engraver for Fernando Oneil
[2019-12-08 14:00] VITALS: BP 113/73; PULSE 77; RESP 20; TEMP 36.8; O2SAT 99
[2019-12-08 15:38] LABS: Glucose Point of Care 178 mg/dL (70-110)
[2019-12-08 16:22] LABS: Glucose Point of Care 151 mg/dL (70-110)
[2019-12-08] MEDS: insulin glargine 100 units/1 mL 5 UNIT SUBCUT (20:44)
[2019-12-08 21:58] LABS: Glucose Point of Care 351 mg/dL (70-110)
[2019-12-08 22:00] VITALS: BP 187/111; PULSE 76; RESP 18; TEMP 36.9; O2SAT 96
[2019-12-08] MEDS: OLANZapine ODT 5 MG TABLET PO (22:25)
--- NOTE | 2019-12-08 23:42 | PC.NURSE ---
Patient ate peanut butter and had 2 cartons of milk. The glucose test was delayed for a more accurate reading.
[2019-12-09 01:02] LABS: Glucose Point of Care 42 mg/dL (70-110)
[2019-12-09 01:15] LABS: Glucose Point of Care 115 mg/dL (70-110)
[2019-12-09 02:31] LABS: Glucose Point of Care 243 mg/dL (70-110)
--- NOTE | 2019-12-09 04:22 | PC.NURSE ---
Patient given 12 units of insulin at 2220 after accucheck of 351. Patient given insulin in the left upper arm.
[2019-12-09 05:57] LABS: Glucose Point of Care 130 mg/dL (70-110)
[2019-12-09 06:00] VITALS: BP 129/71; PULSE 64; RESP 16; TEMP 36.9; O2SAT 97
[2019-12-09] MEDS: sertraline 50 mg Tablet PO (07:59)
[2019-12-09] MEDS: thiamine 100 mg Tablet PO (07:59)
[2019-12-09] MEDS: famotidine 20 mg Tablet PO ×2 (07:59→17:04)
[2019-12-09] MEDS: levoFLOXacin 750 mg Tablet PO (07:59)
[2019-12-09] MEDS: metroNIDAZOLE 500 MG Tablet PO ×3 (07:59→21:04)
[2019-12-09] MEDS: tamsulosin 0.4 mg Capsule PO (07:59)
[2019-12-09] MEDS: quetiapine 25 mg Tablet 50 MG PO ×2 (08:00→17:05)
[2019-12-09] MEDS: apixaban 5 mg Tablet PO ×2 (08:00→17:04)
[2019-12-09] MEDS: levothyroxine 150 mcg Tablet 75 MCG PO (08:00)
[2019-12-09] MEDS: acetaminophen 325 mg Tablet 650 MG PO (10:54)
[2019-12-09 11:26] LABS: Glucose Point of Care 423 mg/dL (70-110)
[2019-12-09 13:03] VITALS: BP 112/69; PULSE 80; RESP 18; TEMP 36.9; O2SAT 100
--- NOTE | 2019-12-09 15:18 | P.PN_ITS ---
Subjective NPU Subjective: Interval history: Giancarlo presents today continuing with his general mantra of wanting to be able to leave, and finding an appropriate place, but there not being a lot of footing for a safe place to go, his second night of a precipitous drop in his blood sugar making things fairly unsafe at this point. We will continue to follow advice of med management team from a standpoint of what to do with his insulin to avoid these drops. Otherwise he reports he is eating and sleeping okay. Mental Status Exam MSE Comments: This is an underweight, older, white male, with adequate dress, grooming, and eye contact. No abnormal movements except for mild psychomotor retardation. Cooperative with exam in no acute distress. Speech was decreased rate and volume with significant southern drawl. Mood described as pretty good; affect subdued. Thought process, more organized. Thought content: patient denied any suicidal or homicidal ideation, there were no delusions reported or noted, patient denied any auditory or visual hallucinations. Memory unreliable. Alert and oriented to person and place. Insight and judgment are limited. Vitals/I&O/Wt Last Vital Signs Temp 98.4 F 12/09/19 06:00 Pulse 64 12/09/19 06:00 Resp 16 12/09/19 06:00 BP 129/71 12/09/19 06:00 Pulse Ox 97 12/09/19 06:00 Physical Exam Urinary Catheter Management^: Mustafa: Cath Placed During This Visit: yes, but has since been removed by the nurse Reason for Continuing Indwelling Catheter: Accurate Measurement of Urinary Output in Critically Ill Patients Urinary Catheter Date of Insertion: 12/02/19 Urinary Catheter Time of Insertion: 17:00 Date Urinary Catheter Removed: 12/03/19 Time Urinary Catheter Discontinued: 12:40 Data NPU : 12/04/19 04:07 12/10/19 16:25 A&P Additional A&P Information (1) Polysubstance abuse: This is a 59 year old, white male, with a long history of schizophrenia with recent decompensation, leaving a long-term, being off of his medication, and currently significant concerns that if he were to discharge he would pose a great risk to his ongoing health, given his inability to care for himself in relation to managing his medications, both psychiatrically and otherwise. Continue current medication. Encourage individual, group, and milieu therapy. Continue q-15 minute checks for safety. Will work with social work team to find a suitable discharge location from a [place] of a place that might give him assistance such that he might have success in managing medications and in his overall functioning. Giancarlo presents a clear dilemma because his inability to truly grasp his situation and is near delusional belief system about this man in the home that he continues to return to identifying and has his own place this presents a significant challenge in making sure that he is safe and not a great risk for danger within weeks or less if he were discharged without some oversight. (2) Schizophrenia: Involuntary Hold Information 96 Hour Hold: 96 Hour Involuntary Admission: No Attestations NPU Medical Necessity Statement*: Inpatient hospitalization is medically necessary and the clinically appropriate intervention at this time. We will monitor medications and make changes as indicated. Likely length of stay is two to four days.The COVID 19 virus pandemic continues to make it very difficult to find placement for people like Giancarlo. But discharging home without any oversight would prove quite dangerous for him. Coding Level of Care Code Acute Financial Retirement Plan Specialist for Fernando Oneil
[2019-12-09 16:25] LABS: Glucose Point of Care 174 mg/dL (70-110)
--- NOTE | 2019-12-09 16:47 | PC.NURSE ---
PT NOTE: INFORMED PHYSICIAN VIA TELEPHONE OF PATIENT FLUCTUATING BLOOD GLUCOSE RESULTS.
[2019-12-09 20:39] LABS: Glucose Point of Care 372 mg/dL (70-110)
[2019-12-09] MEDS: insulin glargine 100 units/1 mL 5 UNIT SUBCUT (21:18)
[2019-12-09 22:00] VITALS: BP 118/71; PULSE 80; RESP 18; TEMP 37.3; O2SAT 99
[2019-12-10] MEDS: acetaminophen 325 mg Tablet 650 MG PO ×2 (03:07→07:29)
[2019-12-10 06:00] VITALS: BP 151/84; PULSE 59; RESP 18; TEMP 36.7; O2SAT 99
[2019-12-10] MEDS: levoFLOXacin 750 mg Tablet PO (06:28)
[2019-12-10 07:04] LABS: Glucose Point of Care 161 mg/dL (70-110)
[2019-12-10] MEDS: levothyroxine 150 mcg Tablet 75 MCG PO (07:27)
[2019-12-10] MEDS: famotidine 20 mg Tablet PO ×2 (07:27→17:21)
[2019-12-10] MEDS: metroNIDAZOLE 500 MG Tablet PO ×3 (07:27→20:49)
[2019-12-10] MEDS: quetiapine 25 mg Tablet 50 MG PO ×2 (07:27→17:21)
[2019-12-10] MEDS: tamsulosin 0.4 mg Capsule PO (07:27)
[2019-12-10] MEDS: apixaban 5 mg Tablet PO ×2 (07:28→17:21)
[2019-12-10] MEDS: thiamine 100 mg Tablet PO (07:28)
[2019-12-10] MEDS: sertraline 50 mg Tablet PO (07:28)
[2019-12-10 11:48] LABS: Glucose Point of Care 514 mg/dL (70-110)
[2019-12-10 11:48] LABS: Glucose Point of Care 575 mg/dL (70-110)
[2019-12-10 14:00] VITALS: BP 133/83; PULSE 68; RESP 18; TEMP 36.8; O2SAT 98
--- NOTE | 2019-12-10 15:14 | P.PN_ITS ---
Subjective Subjective: Interval history: called this afternoon to report blood sugar increasing to 575 and then 514 on repeat testing. patient received 14 units of aspart after the last result. recenly his insulin has been adjusted, with sliding scale removed at bedtime and lantus reduced from 10mg BID to 5mg HS for episodes of hypoglycemia. Medications: Reviewed: Yes Vitals/I&O/Wt Last Vital Signs Temp 98.2 F 12/10/19 14:00 Pulse 68 12/10/19 14:00 Resp 18 12/10/19 14:00 BP 133/83 12/10/19 14:00 Pulse Ox 98 12/10/19 14:00 Physical Exam Urinary Catheter Management^: Mustafa: Cath Placed During This Visit: yes, but has since been removed by the nurse Reason for Continuing Indwelling Catheter: Accurate Measurement of Urinary Output in Critically Ill Patients Urinary Catheter Date of Insertion: 12/02/19 Urinary Catheter Time of Insertion: 17:00 Date Urinary Catheter Removed: 12/03/19 Time Urinary Catheter Discontinued: 12:40 Data : 12/04/19 04:07 12/05/19 04:27 A&P Assessment and plan (1) Diabetes mellitus type 2, insulin dependent: review of patient chart shows he is a brittle diabetic and has had an ext ended course of admission here for DKA with hard to control blood sugars. His insulin doses have recently been reduced due to episodic hypoglycemia. today patient's blood sugar ranges in the 500s. Obtain CMP and serum ketones stat to look at anion gap and evidence of DKA. Resume 10 U of morning lantus. Continue to hold sliding scale at night. night lantus to continue to 5 u for now, will reassess with fingerstick trend Status: Acute Attestations Medical Necessity Statement*: evalutaion for hyperglycemia Coding Level of Care Code Acute Retail Administrative Assistant for [facility] Diagnoses Diabetes mellitus type 2, insulin dependent E11.9; Z79.4
[2019-12-10 16:43] LABS: Glucose Point of Care 192 mg/dL (70-110)
[2019-12-10 17:10] LABS: Ketone (Acetest) Serum Negative (Negative)
--- NOTE | 2019-12-10 17:18 | PM.NPN ---
Subjective NPU Subjective: Interval history: Giancarlo presented today essentially unchanged and continuing to be quite cooperative given his voluntary status. However his ability to care for himself continues to be demonstrated by the broad swings and is blood sugars. We discussed our concerns that absent some clear oversight his blood sugar would easily decompensate in ways that could be fatal. He continues to request to be able to just go for a few hours and come back. Mental Status Exam MSE Comments: This is an underweight, older, white male, with adequate dress, grooming, and eye contact. No abnormal movements except for mild psychomotor retardation. Cooperative with exam in no acute distress. Speech was decreased rate and volume with significant southern drawl. Mood described as fine; affect subdued. Thought process, more organized. Thought content: patient denied any suicidal or homicidal ideation, there were no delusions reported or noted, patient denied any auditory or visual hallucinations. Memory unreliable. Alert and oriented to person and place. Insight and judgment are limited. Vitals/I&O/Wt Last Vital Signs Temp 98.6 F 12/10/19 22:00 Pulse 75 12/10/19 22:00 Resp 18 12/10/19 22:00 BP 123/83 12/10/19 22:00 Pulse Ox 98 12/10/19 22:00 Physical Exam Urinary Catheter Management^: Mustafa: Cath Placed During This Visit: yes, but has since been removed by the nurse Reason for Continuing Indwelling Catheter: Accurate Measurement of Urinary Output in Critically Ill Patients Urinary Catheter Date of Insertion: 12/02/19 Urinary Catheter Time of Insertion: 17:00 Date Urinary Catheter Removed: 12/03/19 Time Urinary Catheter Discontinued: 12:40 Data NPU : 12/04/19 04:07 12/10/19 16:25 A&P Additional A&P Information (1) Polysubstance abuse: This is a 59 year old, white male, with a long history of schizophrenia with recent decompensation, leaving a half-way, being off of his medication, and currently significant concerns that if he were to discharge he would pose a great risk to his ongoing health, given his inability to care for himself in relation to managing his medications, both psychiatrically and otherwise. Continue current medication. Encourage individual, group, and milieu therapy. Continue q-15 minute checks for safety. Will work with social work team to find a suitable discharge location from a standpoint of a place that might give him assistance such that he might have success in managing medications and in his overall functioning. Giancarlo presents a clear dilemma because his inability to truly grasp his situation and is near delusional belief system about this man in the home that he continues to return to identifying and has his own place this presents a significant challenge in making sure that he is safe and not a great risk for danger within weeks or less if he were discharged without some oversight. (2) Schizophrenia: Involuntary Hold Information 96 Hour Hold: 96 Hour Involuntary Admission: No Attestations NPU Medical Necessity Statement*: Inpatient hospitalization is medically necessary and the clinically appropriate intervention at this time. We will monitor medications and make changes as indicated. Likely length of stay is 3-5 days.The COVID 19 virus pandemic continues to make it very difficult to find placement for people like Giancarlo. But discharging home without any oversight would prove quite dangerous for him. Coding Level of Care Code Acute Neuroradiologist for Fernando Oneil
[2019-12-10 17:51] LABS: Alanine Aminotransferase 20 U/L (0-41); Albumin Level 3.9 g/dL (3.5-5.2); Alkaline Phosphatase 93 IU/L (40-130); Anion Gap 17.2 (5-19); Aspartate Amino Transferase 21 U/L (0-40); Blood Urea Nitrogen 24 mg/dL (8-23); Carbon Dioxide 23 mmol/L (22-29); Chloride 97 mmol/L (98-107); Globulin 3.2 g/dL (1.3-4.6); Glomerular Filtration Rate 114.6 mL/min (90-130); Glucose 230 mg/dL (65-115); Osmolality Calculated 280 mOsm/kg (285-295); Potassium 4.2 mmol/L (3.5-5.1); Sodium 133 mmol/L (136-145); Total Bilirubin 0.2 mg/dL (0.15-1.2); Total Protein 7.1 g/dL (6.6-8.7)
[2019-12-10 20:15] LABS: Glucose Point of Care 122 mg/dL (70-110)
[2019-12-10] MEDS: insulin glargine 100 units/1 mL 5 UNIT SUBCUT (20:50)
[2019-12-10 22:00] VITALS: BP 123/83; PULSE 75; RESP 18; TEMP 37; O2SAT 98
[2019-12-11 03:59] LABS: Glucose Point of Care 190 mg/dL (70-110)
[2019-12-11] MEDS: acetaminophen 325 mg Tablet 650 MG PO (04:06)
[2019-12-11 06:00] VITALS: BP 153/90; PULSE 64; RESP 17; TEMP 36.6; O2SAT 97
[2019-12-11 06:29] LABS: Glucose Point of Care 276 mg/dL (70-110)
[2019-12-11] MEDS: insulin glargine 100 units/1 mL 10 UNIT SUBCUT ×2 (06:54→21:26)
[2019-12-11] MEDS: thiamine 100 mg Tablet PO (08:52)
[2019-12-11] MEDS: famotidine 20 mg Tablet PO ×2 (08:52→17:44)
[2019-12-11] MEDS: apixaban 5 mg Tablet PO ×2 (08:52→17:44)
[2019-12-11] MEDS: quetiapine 25 mg Tablet 50 MG PO ×2 (08:52→17:44)
[2019-12-11] MEDS: sertraline 50 mg Tablet PO (08:52)
[2019-12-11] MEDS: tamsulosin 0.4 mg Capsule PO (08:52)
[2019-12-11] MEDS: levothyroxine 150 mcg Tablet 75 MCG PO (08:52)
[2019-12-11 11:37] LABS: Glucose Point of Care 145 mg/dL (70-110)
[2019-12-11 14:00] VITALS: BP 77/52; PULSE 72; RESP 18; TEMP 36.4; O2SAT 97
--- NOTE | 2019-12-11 15:42 | PC.SOCIAL ---
Important Medicare Message Updated copy of page 2 Important Medicare Message given today. Copy was also given on 12/07/19 at 14:37
[2019-12-11 16:44] LABS: Glucose Point of Care 130 mg/dL (70-110)
--- NOTE | 2019-12-11 17:34 | P.PN_ITS ---
Subjective NPU Subjective: Interval history: Giancarlo presents today reporting that things are going okay. He continues to be focused on eating. Today he asked that he can go to a AA meeting and then he would come back. This continues a regular pattern of asking to leave briefly and promising to return. We continue to review to him and with him what our plans are and why were doing it. He con tinues to not quite grasp his circumstance. Mental Status Exam MSE Comments: This is an underweight, older, white male, with adequate dress, grooming, and eye contact. No abnormal movements except for mild psychomotor retardation. Cooperative with exam in no acute distress. Speech was decreased rate and volume with significant southern drawl. Mood described as OK; affect subdued. Thought process, more organized. Thought content: patient denied any suicidal or homicidal ideation, there were no delusions reported or noted, patient denied any auditory or visual hallucinations. Memory unreliable. Alert and oriented to person and place. Insight and judgment are limited.intellectual ability appears limited. Vitals/I&O/Wt Last Vital Signs Temp 98.1 F 12/11/19 06:00 Pulse 59 L 12/11/19 06:00 Resp 18 12/11/19 06:00 BP 151/84 12/11/19 06:00 Pulse Ox 99 12/11/19 06:00 Physical Exam Urinary Catheter Management^: Mustafa: Cath Placed During This Visit: yes, but has since been removed by the nurse Reason for Continuing Indwelling Catheter: Accurate Measurement of Urinary Outpu t in Critically Ill Patients Urinary Catheter Date of Insertion: 12/02/19 Urinary Catheter Time of Insertion: 17:00 Date Urinary Catheter Removed: 12/03/19 Time Urinary Catheter Discontinued: 12:40 Data NPU : 12/04/19 04:07 12/10/19 16:25 A&P Additional A&P Information (1) Polysubstance abuse: This is a 59 year old, white male, with a long history of schizophrenia with recent decompensation, leaving a senior living, being off of his medication, and currently significant concerns that if he were to discharge he would pose a great risk to his ongoing health, given his inability to care for himself in relation to managing his medications, both psychiatrically and otherwise. Continue current medication. Encourage individual, group, and milieu therapy. Continue q-15 minute checks for safety. Continue to work with hospitalist on his blood sugar regulation. Will work with social work team to find a suitable discharge location from a standpoint of a place that might give him assistance such that he might have success in managing medications and in his overall functioning. Giancarlo presents a clear dilemma because his inability to truly grasp his situation and is near delusional belief system about this man in the home that he continues to return to identifying and has his own place this presents a significant challenge in making sure that he is safe and not a great risk for danger within weeks or less if he were discharged without some oversight. (2) Schizophrenia: Involuntary Hold Information 96 Hour Hold: 96 Hour Involuntary Admission: No Attestations NPU Medical Necessity Statement*: Inpatient hospitalization is medically necessary and the clinically appropriate intervention at this time. We will monitor medications and make changes as indicated. Likely length of stay is 3-5 days.The COVID 19 virus pandemic continues to make it very difficult to find placement for people like Giancarlo. But discharging home without any oversight would prove quite dangerous for him. Coding Level of Care Code Acute Day Haul Or Farm Charter Bus Driver for Fernando Oneil
[2019-12-11 21:00] LABS: Glucose Point of Care 408 mg/dL (70-110)
[2019-12-11 22:00] VITALS: BP 114/62; PULSE 63; RESP 17; TEMP 36.5; O2SAT 99
[2019-12-12 01:12] LABS: Glucose Point of Care 37 mg/dL (70-110)
[2019-12-12 02:11] LABS: Glucose Point of Care 291 mg/dL (70-110)
[2019-12-12 03:25] LABS: Glucose Point of Care 352 mg/dL (70-110)
[2019-12-12 04:38] LABS: Glucose Point of Care 241 mg/dL (70-110)
[2019-12-12 06:00] VITALS: BP 125/75; PULSE 65; RESP 17; TEMP 36.7; O2SAT 98
[2019-12-12] MEDS: insulin glargine 100 units/1 mL 10 UNIT SUBCUT ×2 (06:35→21:19)
[2019-12-12 06:36] LABS: Glucose Point of Care 219 mg/dL (70-110)
[2019-12-12 07:36] LABS: Glucose Point of Care 219 mg/dL (70-110)
[2019-12-12] MEDS: quetiapine 25 mg Tablet 50 MG PO ×2 (08:54→18:12)
[2019-12-12] MEDS: tamsulosin 0.4 mg Capsule PO (08:55)
[2019-12-12] MEDS: levothyroxine 150 mcg Tablet 75 MCG PO (08:55)
[2019-12-12] MEDS: famotidine 20 mg Tablet PO ×2 (08:55→18:11)
[2019-12-12] MEDS: apixaban 5 mg Tablet PO ×2 (08:55→18:12)
[2019-12-12] MEDS: sertraline 50 mg Tablet PO (08:55)
[2019-12-12] MEDS: thiamine 100 mg Tablet PO (08:55)
[2019-12-12 11:17] LABS: Glucose Point of Care 314 mg/dL (70-110)
[2019-12-12] MEDS: acetaminophen 325 mg Tablet 650 MG PO (13:41)
[2019-12-12 14:00] VITALS: BP 105/67; PULSE 75; RESP 17; TEMP 36.9; O2SAT 94
--- NOTE | 2019-12-12 15:49 | P.PN_ITS ---
Subjective NPU Subjective: Interval history: Giancarlo presents today reporting that he still not really understanding why he cannot leave but he is trusting the treatment team to help him make the best decision for his circumstance. He continues to take his medication and be without incident in that regard and be follow-up by the hospitalist will continue to correct his blood sugar to keep it in a reasonable range. As he has had some spikes up into the 500s recently. He reports that he is eating and sleeping fine. Mental Status Exam MSE Comments: This is an underweight, older, white male, with adequate dress, grooming, and eye contact. No abnormal movements except for mild psychomotor retardation. Cooperative with exam in no acute distress. Speech was decreased rate and volume with significant southern drawl. Mood described as i'm pretty good; affect subdued. Thought process, more organized. Thought content: patient denied any suicidal or homicidal ideation, there were no delusions reported or noted, patient denied any auditory or visual hallucinations. Memory unreliable. Alert and oriented to person and place. Insight and judgment are limited.intellectual ability appears limited. Vitals/I&O/Wt Last Vital Signs Temp 98.0 F 12/12/19 06:00 Pulse 65 12/12/19 06:00 Resp 17 12/12/19 06:00 BP 125/75 12/12/19 06:00 Pulse Ox 98 12/12/19 06:00 Weight last 48 hrs Weight 52.163 kg Physical Exam Urinary Catheter Management^: Mustafa: Cath Placed During This Visit: yes, but has since been removed by the nurse Reason for Continuing Indwelling Catheter: Accurate Measurement of Urinary Output in Critically Ill Patients Urinary Catheter Date of Insertion: 12/02/19 Urinary Catheter Time of Insertion: 17:00 Date Urinary Catheter Removed: 12/03/19 Time Urinary Catheter Discontinued: 12:40 Data NPU : 12/04/19 04:07 12/10/19 16:25 A&P Additional A&P Information (1) Polysubstance abuse: This is a 59 year old, white male, with a long history of schizophrenia with recent decompensation, leaving a fpc, being off of his medication, and currently significant concerns that if he were to discharge he would pose a great risk to his ongoing health, given his inability to care for himself in relation to managing his medications, both psychiatrically and otherwise. Continue current medication. Encourage individual, group, and milieu therapy. Continue q-15 minute checks for safety. Continue to work with hospitalist on his blood sugar regulation. Will work with social work team to find a suitable discharge location from a standpoint of a place that might give him assistance such that he might have success in managing medications and in his overall functioning. Giancarlo presents a clear dilemma because his inability to truly grasp his situation and is near delusional belief system about this man in the home that he continues to return to identifying and has his own place this presents a significant challenge in making sure that he is safe and not a great risk for danger within weeks or less if he were discharged without some oversight. (2) Schizophrenia: Involuntary Hold Information 96 Hour Hold: 96 Hour Involuntary Admission: No Attestations NPU Medical Necessity Statement*: Inpatient hospitalization is medically necessary and the clinically appropriate intervention at this time. We will monitor medications and make changes as indicated. Likely length of stay is 3-5 days.The COVID 19 virus pandemic continues to make it very difficult to find placement for people like Giancarlo. But discharging home without any oversight would prove quite dangerous for him. Coding Level of Care Code Acute Ethylene Compressor Operator for Fernando Oneil
[2019-12-12 16:35] LABS: Glucose Point of Care 105 mg/dL (70-110)
[2019-12-12 20:33] LABS: Glucose Point of Care 304 mg/dL (70-110)
[2019-12-12 22:00] VITALS: BP 102/62; PULSE 65; RESP 17; TEMP 36.8; O2SAT 98
[2019-12-13 00:37] LABS: Glucose Point of Care 128 mg/dL (70-110)
[2019-12-13 06:00] VITALS: BP 124/69; PULSE 83; RESP 17; TEMP 36.6; O2SAT 97
[2019-12-13 06:25] LABS: Glucose Point of Care 45 mg/dL (70-110)
--- NOTE | 2019-12-13 06:31 | PC.NURSE ---
LANTUS PER VERBAL ORDER FROM DR. MORRISON, DO NOT GIVE MORNING DOSE OF LANTUS DUE TO BS 45.
[2019-12-13 07:28] LABS: Glucose Point of Care 106 mg/dL (70-110)
[2019-12-13] MEDS: quetiapine 25 mg Tablet 50 MG PO ×2 (08:24→16:35)
[2019-12-13] MEDS: famotidine 20 mg Tablet PO ×2 (08:24→16:35)
[2019-12-13] MEDS: tamsulosin 0.4 mg Capsule PO (08:24)
[2019-12-13] MEDS: acetaminophen 325 mg Tablet 650 MG PO ×3 (08:41→21:03)
[2019-12-13] MEDS: levothyroxine 150 mcg Tablet 75 MCG PO (09:20)
[2019-12-13] MEDS: apixaban 5 mg Tablet PO ×2 (09:20→16:35)
[2019-12-13] MEDS: thiamine 100 mg Tablet PO (09:20)
[2019-12-13] MEDS: sertraline 50 mg Tablet PO (09:20)
[2019-12-13 11:45] LABS: Glucose Point of Care 553 mg/dL (70-110)
--- NOTE | 2019-12-13 13:57 | P.PN_ITS ---
Subjective NPU Subjective: Interval history: Giancarlo presented today reporting that things are going okay. He continues to be focused on discharge. We continue to explain him that we are wanting him to be discharged but we just need to make sure that there is a safe place for him to go. He continued on his long diatribes about how he would be okay to leave and come back in promising that he would come back. We continue to explain that we do not let people come and go that when he discharges it will be for good. He is eating fine and sleeping okay. Mental Status Exam MSE Comments: This is an underweight, older, white male, with adequate dress, grooming, and eye contact. No abnormal movements except for mild psychomotor retardation. Cooperative with exam in no acute distress. Speech was decreased rate and volume with significant southern drawl. Mood described as i'm alright; affect subdued. Thought process, more organized. Thought content: patient denied any suicidal or homicidal ideation, there were no delusions reported or noted, patient denied any auditory or visual hallucinations. Memory unreliable. Alert and oriented to person and place. Insight and judgment are limited.intellectual ability appears limited. Vitals/I&O/Wt Last Vital Signs Temp 98.3 F 12/13/19 22:00 Pulse 76 12/13/19 22:00 Resp 17 12/13/19 22:00 BP 91/62 12/13/19 22:00 Pulse Ox 97 12/13/19 22:00 Weight last 48 hrs Weight 56.472 kg Physical Exam Urinary Catheter Management^: Mustafa: Cath Placed During This Visit: yes, but has since been removed by the nurse Reason for Continuing Indwelling Catheter: Accurate Measurement of Urinary Output in Critically Ill Patients Urinary Catheter Date of Insertion: 12/02/19 Urinary Catheter Time of Insertion: 17:00 Date Urinary Catheter Removed: 12/03/19 Time Urinary Catheter Discontinued: 12:40 Data NPU : 12/04/19 04:07 12/10/19 16:25 A&P Additional A&P Information (1) Polysubstance abuse: This is a 59 year old, white male, with a long history of schizophrenia with recent decompensation, leaving a care home, being off of his medication, and currently significant concerns that if he were to discharge he would pose a great risk to his ongoing health, given his inability to care for himself in relation to managing his medications, both psychiatrically and otherwise. Continue current medication. Considering Invega or Abilify for the long acting injectable component. Encourage individual, group, and milieu therapy. Continue q-15 minute checks for safety. Will work with social work team to find a suitable discharge location from a standpoint of a place that might give him assistance such that he might have success in managing medications and in his overall functioning. (2) Schizophrenia: Involuntary Hold Information 96 Hour Hold: 96 Hour Involuntary Admission: No Attestations NPU Medical Necessity Statement*: Inpatient hospitalization is medically necessary and the clinically appropriate intervention at this time. We will monitor medications and make changes as indicated. Likely length of stay is 3-5 days.The COVID 19 virus pandemic continues to make it very difficult to find placement for people like Giancarlo. But discharging home without any oversight would prove quite dangerous for him. 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
[2019-12-13 14:00] VITALS: BP 107/69; PULSE 77; RESP 17
[2019-12-13 16:32] LABS: Glucose Point of Care 159 mg/dL (70-110)
[2019-12-13 19:56] LABS: Glucose Point of Care 234 mg/dL (70-110)
[2019-12-13] MEDS: hyDROXYzine 25 mg Capsule 50 MG PO (20:58)
[2019-12-13] MEDS: insulin glargine 100 units/1 mL 5 UNIT SUBCUT (20:59)
--- NOTE | 2019-12-13 21:45 | PC.NURSE ---
pt given scheduled lantus 5 units for accu check of 234. pt also given tylenol for leg aches and hydralazine for anixety.
[2019-12-13 22:00] VITALS: BP 91/62; PULSE 76; RESP 17; TEMP 36.8; O2SAT 97
[2019-12-14 01:01] LABS: Glucose Point of Care 500 mg/dL (70-110)
--- NOTE | 2019-12-14 01:09 | PC.NURSE ---
At 0046, random check of pt's accu check resulted in result of 500. Dr Yin notified. Orders obtained to give 15 units novolog now and recheck accu check in 1 hour. Will closely monitor pt and recheck accu check every 2-3 hours after 1 hour check the rest of this shift.
[2019-12-14 01:55] LABS: Glucose Point of Care 471 mg/dL (70-110)
[2019-12-14 04:04] LABS: Glucose Point of Care 199 mg/dL (70-110)
[2019-12-14] MEDS: acetaminophen 325 mg Tablet 650 MG PO ×3 (05:13→20:31)
[2019-12-14 06:00] VITALS: BP 103/65; PULSE 73; RESP 17; TEMP 36.7; O2SAT 97
[2019-12-14 07:00] LABS: Glucose Point of Care 356 mg/dL (70-110)
[2019-12-14 09:24] LABS: Glucose Point of Care 287 mg/dL (70-110)
[2019-12-14] MEDS: apixaban 5 mg Tablet PO ×2 (09:34→16:54)
[2019-12-14] MEDS: famotidine 20 mg Tablet PO ×2 (09:34→16:53)
[2019-12-14] MEDS: quetiapine 25 mg Tablet 50 MG PO ×2 (09:34→16:53)
[2019-12-14] MEDS: sertraline 50 mg Tablet PO (09:56)
[2019-12-14] MEDS: levothyroxine 150 mcg Tablet 75 MCG PO (09:56)
[2019-12-14] MEDS: thiamine 100 mg Tablet PO (09:57)
[2019-12-14] MEDS: tamsulosin 0.4 mg Capsule PO (09:57)
--- NOTE | 2019-12-14 10:17 | PM.PN ---
Subjective Subjective: Interval history: Patient was examined this morning, in his bedroom, has no significant complaints, states he is taking his medications, denies lightheadedness, dizziness, diaphoresis, Vitals/I&O/Wt Last Vital Signs Temp 98.1 F 12/14/19 06:00 Pulse 73 12/14/19 06:00 Resp 17 12/14/19 06:00 BP 103/65 12/14/19 06:00 Pulse Ox 97 12/14/19 06:00 Weight last 48 hrs Weight 56.472 kg Physical Exam Const: COMMON NORMALS: no apparent distress HENMT: COMMON NORMALS: normocephalic HEAD & SCALP: normocephalic Neck/C-Spine: COMMON NORMALS: no JVD Resp: COMMON NORMALS: normal respiratory effort, no retractions, no use of accessory muscles and clear to auscultation bilaterally AUSCULTATION: clear to auscultation bilaterally Cardio: COMMON NORMALS: no JVD, regular rate, regular rhythm, S1 normal heart sound and S2 normal heart sound RATE: regular rate RHYTHM: regular rhythm HEART SOUNDS: S1 normal and S2 normal GI: COMMON NORMALS: normal to inspection, nondistended, normoactive bowel sounds, soft to palpation, non-tender, no hepatosplenomegaly, no masses and no bruits PALPATION: Yes soft and Yes no hepatosplenomegaly Psych: COMMON NORMALS: mental status grossly normal Urinary Catheter Management^: Mustafa: Cath Placed During This Visit: yes, but has since been removed by the nurse Reason for Continuing Indwelling Catheter: Accurate Measurement of Urinary Output in Critically Ill Patients Urinary Catheter Date of Insertion: 12/02/19 Urinary Catheter Time of Insertion: 17:00 Date Urinary Catheter Removed: 12/03/19 Time Urinary Catheter Discontinued: 12:40 Data : 12/04/19 04:07 12/10/19 16:25 A&P Assessment and plan (1) Diabetes mellitus type 2, insulin dependent: -Patient's blood sugars have fluctuated between 100-500 Plan: -Start Levemir 10 units twice daily -Moderate dose sliding scale, nurses will call me with the next few blood sugars to titrate as needed Status: Acute Attestations Medical Necessity Statement*: She requires continued hospitalization for polysubstance abuse, placement, monitoring blood sugars Coding Level of Care 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
[2019-12-14 11:38] LABS: Glucose Point of Care 177 mg/dL (70-110)
[2019-12-14 14:00] VITALS: BP 93/62; PULSE 76; RESP 20; TEMP 37.2; O2SAT 97
--- NOTE | 2019-12-14 16:00 | PM.NPN ---
Subjective NPU Subjective: Interval history: Patient was examined this morning, in his bedroom. He complains that he believes his sister is receiving money that should be his and is keeping it herself. He is looking forward to being discharged but trusts staff to find a good place for him. He states he is taking his medications, denies lightheadedness, dizziness, diaphoresis, Mental Status Exam MSE Comments: This is an underweight, older, white male, with adequate dress, grooming, and eye contact. No abnormal movements except for mild psychomotor retardation. Cooperative with exam in no acute distress. Speech was decreased rate and volume with significant southern drawl. Mood described as i'm pretty good; affect subdued. Thought process, more organized. Thought content: patient denied any suicidal or homicidal ideation, there were no delusions reported or noted, patient denied any auditory or visual hallucinations. Memory unreliable. Alert and oriented to person and place. Insight and judgment are limited.intellectual ability appears limited. Cognition: Patient Appearance: Disheveled/Poor Hygiene Level of Consciousness: Obtunded Patient Cognition Impaired: Yes Ability to Follow Directions: Poor Patient Orientation (long list): Person, Place, Name, Age and Birthday Comprehension Ability: Unable to Comprehend Hallucination Type: None Delusion Description: Not Present Thought Process: Appropriate Affect: Affect Description: Appropriate and Calm Behavior: Patient Behavior: Appropriate and Cooperative Speech Pattern: Appropriate and Clear Vitals/I&O/Wt Last Vital Signs Temp 98.9 F 12/14/19 14:00 Pulse 76 12/14/19 14:00 Resp 20 H 12/14/19 14:00 BP 93/62 12/14/19 14:00 Pulse Ox 97 12/14/19 14:00 Weight last 48 hrs Weight 56.472 kg Physical Exam Urinary Catheter Management^: Mustafa: Cath Placed During This Visit: yes, but has since been removed by the nurse Reason for Continuing Indwelling Catheter: Accurate Measurement of Urinary Output in Critically Ill Patients Urinary Catheter Date of Insertion: 12/02/19 Urinary Catheter Time of Insertion: 17:00 Date Urinary Catheter Removed: 12/03/19 Time Urinary Catheter Discontinued: 12:40 Data NPU : 12/04/19 04:07 12/10/19 16:25 A&P Assessment and plan (1) Polysubstance abuse: This is a 59 year old, white male, with a long history of schizophrenia with recent decompensation, leaving a senior living, being off of his medication, and currently significant concerns that if he were to discharge he would pose a great risk to his ongoing health, given his inability to care for himself in relation to managing his medications, both psychiatrically and otherwise. Continue current medication. Will try to get some collateral history to allow us to make a decision about the anti-psychotic direction we want to go in. Likely considering Invega or Abilify for the long acting injectable component. Encourage individual, group, and milieu therapy. Continue q-15 minute checks for safety. Will work with social work team to find a suitable discharge location from a standpoint of a place that might give him assistance such that he might have success in managing medications and in his overall functioning. Status: Acute (2) Schizophrenia: Status: Acute Additional A&P Information (1) Polysubstance abuse: This is a 59 year old, white male, with a long history of schizophrenia with recent decompensation, leaving a senior living, being off of his medication, and currently significant concerns that if he were to discharge he would pose a great risk to his ongoing health, given his inability to care for himself in relation to managing his medications, both psychiatrically and otherwise. Continue current medication. Encourage individual, group, and milieu therapy. Continue q-15 minute checks for safety. Continue to work with hospitalist on his blood sugar regulation. Will work with social work team to find a suitable discharge location from a standpoint of a place that might give him assistance such that he might have success in managing medications and in his overall functioning. Giancarlo presents a clear dilemma because his inability to truly grasp his situation and is near delusional belief system about this man in the home that he continues to return to identifying and has his own place this presents a significant challenge in making sure that he is safe and not a great risk for danger within weeks or less if he were discharged without some oversight. (2) Schizophrenia: Involuntary Hold Information 96 Hour Hold: 96 Hour Involuntary Admission: No Attestations NPU Medical Necessity Statement*: Patient will remain in the hospital another 1-2 nights until placement can be found. Coding Level of Care Code Acute Registered Midwife for Fernando Oneil Diagnoses Polysubstance abuse F19.10 Schizophrenia F20.9
[2019-12-14 16:46] LABS: Glucose Point of Care 195 mg/dL (70-110)
[2019-12-14 20:16] LABS: Glucose Point of Care 148 mg/dL (70-110)
[2019-12-14] MEDS: hyDROXYzine 25 mg Capsule 50 MG PO (20:31)
--- NOTE | 2019-12-14 20:54 | PC.NURSE ---
pt given tylenol for bilateral leg ache and visteril for anixety per pt request.
[2019-12-14 21:59] VITALS: BP 133/84; PULSE 81; RESP 16; TEMP 36.7; O2SAT 95
[2019-12-14 22:59] LABS: Glucose Point of Care 132 mg/dL (70-110)
[2019-12-15 00:43] LABS: Glucose Point of Care 172 mg/dL (70-110)
[2019-12-15 05:26] LABS: Glucose Point of Care 274 mg/dL (70-110)
[2019-12-15 06:00] VITALS: BP 138/87; PULSE 63; RESP 17; TEMP 36.8; O2SAT 95
[2019-12-15] MEDS: levothyroxine 150 mcg Tablet 75 MCG PO (08:46)
[2019-12-15] MEDS: sertraline 50 mg Tablet PO (08:46)
[2019-12-15] MEDS: quetiapine 25 mg Tablet 50 MG PO ×2 (08:46→17:25)
[2019-12-15] MEDS: apixaban 5 mg Tablet PO ×2 (08:46→17:25)
[2019-12-15] MEDS: thiamine 100 mg Tablet PO (08:46)
[2019-12-15] MEDS: tamsulosin 0.4 mg Capsule PO (08:47)
[2019-12-15] MEDS: famotidine 20 mg Tablet PO ×2 (08:49→17:25)
[2019-12-15 11:15] LABS: Glucose Point of Care 179 mg/dL (70-110)
--- NOTE | 2019-12-15 13:30 | PM.NPN ---
Subjective NPU Subjective: Interval history: Giancarlo presented today reporting that things are going quite well with his medications. He is naturally fixated on finding a place to go and live. He has several options but is frustrated that the process is out of his control. Mental Status Exam MSE Comments: This is an underweight, older, white male, with adequate dress, grooming, and eye contact. No abnormal movements except for mild psychomotor retardation. Cooperative with exam in no acute distress. Speech was decreased rate and volume with significant southern drawl. Mood described as i'm alright; affect subdued. Thought process, more organized. Thought content: patient denied any suicidal or homicidal ideation, there were no delusions reported or noted, patient denied any auditory or visual hallucinations. Memory unreliable. Alert and oriented to person and place. Insight and judgment are limited.intellectual ability appears limited. Cognition: Patient Appearance: Appears Older than Age Level of Consciousness: Obtunded Patient Cognition Impaired: Yes Ability to Follow Directions: Poor Patient Orientation (long list): Person, Place, Name, Age and Birthday Comprehension Ability: Unable to Comprehend Hallucination Type: None Delusion Description: Not Present Thought Process: Confused and Indecisive Affect: Affect Description: Calm Behavior: Patient Behavior: Appropriate and Cooperative Speech Pattern: Appropriate and Clear Vitals/I&O/Wt Last Vital Signs Temp 98.2 F 12/15/19 06:00 Pulse 63 12/15/19 06:00 Resp 17 12/15/19 06:00 BP 138/87 12/15/19 06:00 Pulse Ox 95 12/15/19 06:00 Physical Exam Urinary Catheter Management^: Mustafa: Cath Placed During This Visit: yes, but has since been removed by the nurse Reason for Continuing Indwelling Catheter: Accurate Measurement of Urinary Output in Critically Ill Patients Urinary Catheter Date of Insertion: 12/02/19 Urinary Catheter Time of Insertion: 17:00 Date Urinary Catheter Removed: 12/03/19 Time Urinary Catheter Discontinued: 12:40 Data NPU : 12/04/19 04:07 12/10/19 16:25 A&P Assessment and plan (1) Polysubstance abuse: This is a 59 year old, white male, with a long history of schizophrenia with recent decompensation, leaving a longterm, being off of his medication, and currently significant concerns that if he were to discharge he would pose a great risk to his ongoing health, given his inability to care for himself in relation to managing his medications, both psychiatrically and otherwise. Continue current medication. Will try to get some collateral history to allow us to make a decision about the anti-psychotic direction we want to go in. Likely considering Invega or Abilify for the long acting injectable component. Encourage individual, group, and milieu therapy. Continue q-15 minute checks for safety. Will work with social work team to find a suitable discharge location from a standpoint of a place that might give him assistance such that he might have success in managing medications and in his overall functioning. Status: Acute (2) Schizophrenia: Status: Acute Additional A&P Information (1) Polysubstance abuse: This is a 59 year old, white male, with a long history of schizophrenia with recent decompensation, leaving a longterm, being off of his medication, and currently significant concerns that if he were to discharge he would pose a great risk to his ongoing health, given his inability to care for himself in relation to managing his medications, both psychiatrically and otherwise. Continue current medication. Considering Invega or Abilify for the long acting injectable component. Encourage individual, group, and milieu therapy. Continue q-15 minute checks for safety. Will work with social work team to find a suitable discharge location from a standpoint of a place that might give him assistance such that he might have success in managing medications and in his overall functioning. (2) Schizophrenia: Involuntary Hold Information 96 Hour Hold: 96 Hour Involuntary Admission: No Attestations NPU Medical Necessity Statement*: Patient will remain in the hospital another 2-4 nights for assessment of medication efficacy and tolerability. Coding Level of Care Code Acute Load Out Supervisor for Fernando Oneil Diagnoses Polysubstance abuse F19.10 Schizophrenia F20.9
[2019-12-15 14:00] VITALS: BP 120/79; PULSE 73; RESP 18; TEMP 36.7; O2SAT 96
[2019-12-15 15:17] LABS: Glucose Point of Care 61 mg/dL (70-110)
[2019-12-15 16:54] LABS: Glucose Point of Care 184 mg/dL (70-110)
[2019-12-15] MEDS: hyDROXYzine 25 mg Capsule 50 MG PO (21:15)
[2019-12-15] MEDS: acetaminophen 325 mg Tablet 650 MG PO (21:15)
[2019-12-15 21:50] VITALS: BP 139/87; PULSE 73; RESP 16; TEMP 36.6; O2SAT 98
[2019-12-16 04:06] LABS: Glucose Point of Care 77 mg/dL (70-110)
[2019-12-16 05:53] LABS: Glucose Point of Care 184 mg/dL (70-110)
[2019-12-16 05:54] VITALS: BP 146/82; PULSE 67; RESP 16; TEMP 36.6; O2SAT 99
[2019-12-16] MEDS: famotidine 20 mg Tablet PO ×2 (08:40→16:38)
[2019-12-16] MEDS: thiamine 100 mg Tablet PO (08:40)
[2019-12-16] MEDS: tamsulosin 0.4 mg Capsule PO (08:40)
[2019-12-16] MEDS: sertraline 50 mg Tablet PO (08:40)
[2019-12-16] MEDS: apixaban 5 mg Tablet PO ×2 (08:40→16:38)
[2019-12-16] MEDS: levothyroxine 150 mcg Tablet 75 MCG PO (08:41)
[2019-12-16] MEDS: quetiapine 25 mg Tablet 50 MG PO ×2 (08:41→16:38)
--- NOTE | 2019-12-16 10:23 | P.PN_ITS ---
Subjective NPU Subjective: Interval history: Patient continues to be anxious and awaiting placement so that he can leave the hospital. Mental Status Exam MSE Comments: This is an underweight, older, white male, with adequate dress, grooming, and eye contact. No abnormal movements except for mild psychomotor retardation. Cooperative with exam in no acute distress. Speech was decreased rate and volume with significant southern drawl. Mood described as i'm alright; affect subdued. Thought process, more organized. Thought content: patient denied any suicidal or homicidal ideation, there were no delusions reported or noted, patient denied any auditory or visual hallucinations. Memory unreliable. Alert and oriented to person and place. Insight and judgment are limited.intellectual ability appears limited. Cognition: Patient Appearance: Appears Older than Age Level of Consciousness: Obtunded Patient Cognition Impaired: Yes Ability to Follow Directions: Poor Patient Orientation (long list): Person, Place, Name, Age and Birthday Comprehension Ability: Unable to Comprehend Hallucination Type: None Delusion Description: Not Present Thought Process: Confused and Indecisive Affect: Affect Description: Flat and Guarded Behavior: Patient Behavior: Irritable Speech Pattern: Clear Vitals/I&O/Wt Last Vital Signs Temp 97.8 F 12/16/19 05:54 Pulse 67 12/16/19 05:54 Resp 16 12/16/19 05:54 BP 146/82 12/16/19 05:54 Pulse Ox 99 12/16/19 05:54 Physical Exam Urinary Catheter Management^: Mustafa: Cath Placed During This Visit: yes, but has since been removed by the nurse Reason for Continuing Indwelling Catheter: Accurate Measurement of Urinary Output in Critically Ill Patients Urinary Catheter Date of Insertion: 12/02/19 Urinary Catheter Time of Insertion: 17:00 Date Urinary Catheter Removed: 12/03/19 Time Urinary Catheter Discontinued: 12:40 Data NPU : 12/04/19 04:07 12/10/19 16:25 A&P Assessment and plan (1) Polysubstance abuse: This is a 59 year old, white male, with a long history of schizophrenia with recent decompensation, leaving a retirement, being off of his medication, and currently significant concerns that if he were to discharge he would pose a great risk to his ongoing health, given his inability to care for himself in relation to managing his medications, both psychiatrically and otherwise. Continue current medication. Will try to get some collateral history to allow us to make a decision about the anti-psychotic direction we want to go in. Likely considering Invega or Abilify for the long acting injectable component. Encourage individual, group, and milieu therapy. Continue q-15 minute checks for safety. Will work with social work team to find a suitable discharge location from a standpoint of a place that might give him assistance such that he might have success in managing medications and in his overall functioning. Status: Acute (2) Schizophrenia: Status: Acute Additional A&P Information (1) Polysubstance abuse: This is a 59 year old, white male, with a long history of schizophrenia with recent decompensation, leaving a retirement, being off of his medication, and currently significant concerns that if he were to discharge he would pose a great risk to his ongoing health, given his inability to care for himself in relation to managing his medications, both psychiatrically and otherwise. Continue current medication. Considering Invega or Abilify for the long acting injectable component. Encourage individual, group, and milieu therapy. Continue q-15 minute checks for safety. Will work with social work team to find a suitable discharge location from a s [place] of a place that might give him assistance such that he might have success in managing medications and in his overall functioning. (2) Schizophrenia: Involuntary Hold Information 96 Hour Hold: 96 Hour Involuntary Admission: No Attestations NPU Medical Necessity Statement*: Patient will remain in the hospital another 2-4 nights for assessment of medication efficacy and tolerability. 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
[2019-12-16 11:16] LABS: Glucose Point of Care 298 mg/dL (70-110)
[2019-12-16] MEDS: acetaminophen 325 mg Tablet 650 MG PO (11:18)
[2019-12-16 14:00] VITALS: BP 122/76; PULSE 73; RESP 20; TEMP 36.8; O2SAT 99
[2019-12-16 14:11] LABS: Glucose Point of Care 56 mg/dL (70-110)
[2019-12-16 16:25] LABS: Glucose Point of Care 218 mg/dL (70-110)
[2019-12-16 20:31] LABS: Glucose Point of Care 200 mg/dL (70-110)
[2019-12-16 21:53] LABS: Glucose Point of Care 167 mg/dL (70-110)
[2019-12-16 22:00] VITALS: BP 138/86; PULSE 71; RESP 18; TEMP 37.1; O2SAT 96
[2019-12-16] MEDS: hyDROXYzine 25 mg Capsule 50 MG PO (22:04)
--- NOTE | 2019-12-16 22:40 | PC.NURSE ---
VISTARIL VISTARIL 50 MG ADMINISTERED FOR PT C/O OF ANXIETY. WILL MONITOR FOR MEDICATION EFFECTIVENESS.
[2019-12-17 03:41] LABS: Glucose Point of Care 47 mg/dL (70-110)
[2019-12-17 04:24] LABS: Glucose Point of Care 110 mg/dL (70-110)
[2019-12-17 06:00] VITALS: BP 139/81; PULSE 71; RESP 18; TEMP 36.6; O2SAT 96
[2019-12-17 07:18] LABS: Glucose Point of Care 312 mg/dL (70-110)
[2019-12-17] MEDS: quetiapine 25 mg Tablet 50 MG PO ×2 (07:55→16:55)
[2019-12-17] MEDS: sertraline 50 mg Tablet PO (07:56)
[2019-12-17] MEDS: apixaban 5 mg Tablet PO ×2 (07:56→16:55)
[2019-12-17] MEDS: levothyroxine 150 mcg Tablet 75 MCG PO (07:56)
[2019-12-17] MEDS: thiamine 100 mg Tablet PO (07:56)
[2019-12-17] MEDS: famotidine 20 mg Tablet PO ×2 (07:56→16:55)
[2019-12-17] MEDS: tamsulosin 0.4 mg Capsule PO (07:56)
--- NOTE | 2019-12-17 10:03 | P.PN_ITS ---
Subjective NPU Subjective: Interval history: Patient continues to be anxious and awaiting placement so that he can leave the hospital. Laboratory Tests 12/15/19 12/16/19 12/17/19 16:51 21:49 07:04 POC Glucose 184 167 312 Mental Status Exam MSE Comments: This is an underweight, older, white male, with adequate dress, grooming, and eye contact. No abnormal movements except for mild psychomotor retardation. Cooperative with exam in no acute distress. Speech was normal rate and volume . Mood described euthymic; affect subdued. Thought process organized. Thought content: patient denied any suicidal or homicidal ideation, pt continues to insist that his sister is stealing his money but this is a fixed prison delusion, patient denied any auditory or visual hallucinations. Memory unreliable. Alert and oriented to person and place. Insight and judgment are li mited.intellectual ability appears limited. Vitals/I&O/Wt Last Vital Signs Temp 97.8 F 12/17/19 06:00 Pulse 71 12/17/19 06:00 Resp 18 12/17/19 06:00 BP 139/81 12/17/19 06:00 Pulse Ox 96 12/17/19 06:00 Physical Exam Urinary Catheter Management^: Mustafa: Cath Placed During This Visit: yes, but has since been removed by the nurse Reason for Continuing Indwelling Catheter: Accurate Measurement of Urinary Output in Critically Ill Patients Urinary Catheter Date of Insertion: 12/02/19 Urinary Catheter Time of Insertion: 17:00 Date Urinary Catheter Removed: 12/03/19 Time Urinary Catheter Discontinued: 12:40 Data NPU : 12/04/19 04:07 12/10/19 16:25 A&P Assessment and plan (1) Polysubstance abuse: This is a 59 year old, white male, with a long history of schizophrenia with recent decompensation, leaving a long-term, being off of his medication, and currently significant concerns that if he were to discharge he would pose a great risk to his ongoing health, given his inability to care for himself in relation to managing his medications, both psychiatrically and otherwise. Continue current medication. Elevated POC BG noted today and will continue to monitor to assess; his usual am glucoses run high but not that high Will try to get some collateral history to allow us to make a decision about the anti-psychotic direction we want to go in. Likely considering Invega or Abilify for the long acting injectable component. Encourage individual, group, and milieu therapy. Continue q-15 minute checks for safety. Will work with social work team to find a suitable discharge location from a standpoint of a place that might give him assistance such that he might have success in managing medications and in his overall functioning. Status: Acute (2) Schizophrenia: Status: Acute Additional A&P Information (1) Polysubstance abuse: This is a 59 year old, white male, with a long history of schizophrenia with recent decompensation, leaving a long-term, being off of his medication, and currently significant concerns that if he were to discharge he would pose a great risk to his ongoing health, given his inability to care for himself in relation to managing his medications, both psychiatrically and otherwise. Continue current medication. Elevated POC BG noted today and will continue to monitor to assess; his usual am glucoses run high but not that high Encourage individual, group, and milieu therapy. Continue q-15 minute checks for safety. Will work with social work team to find a suitable discharge location from a standpoint of a place that might give him assistance such that he might have success in managing medications and in his overall functioning. (2) Schizophrenia: Involuntary Hold Information 96 Hour Hold: 96 Hour Involuntary Admission: No Attestations NPU Medical Necessity Statement*: Patient will remain in the hospital another 4-5 nights until placement can be found. Coding Level of Care Code Acute Racebook Writer for Fernando Oneil Diagnoses Polysubstance abuse F19.10 Schizophrenia F20.9
[2019-12-17 11:16] LABS: Glucose Point of Care 181 mg/dL (70-110)
[2019-12-17] MEDS: acetaminophen 325 mg Tablet 650 MG PO ×2 (13:07→20:21)
[2019-12-17 13:10] VITALS: BP 105/65; PULSE 77; RESP 18; TEMP 36.8; O2SAT 98
[2019-12-17 16:41] LABS: Glucose Point of Care 127 mg/dL (70-110)
[2019-12-17 19:30] LABS: Glucose Point of Care 237 mg/dL (70-110)
[2019-12-17 20:13] VITALS: BP 115/71; PULSE 65; RESP 16; TEMP 36.8; O2SAT 98
[2019-12-17] MEDS: hyDROXYzine 25 mg Capsule 50 MG PO (20:21)
--- NOTE | 2019-12-17 20:25 | PC.NURSE ---
VISTARIL VISTARIL 50 MG ADMINISTERED FOR PT C/O OF ANXIETY. WILL MONITOR FOR MEDICATION EFFECTIVENESS.
[2019-12-18 03:39] LABS: Glucose Point of Care 121 mg/dL (70-110)
[2019-12-18 06:00] VITALS: BP 144/81; PULSE 55; RESP 18; TEMP 36.8; O2SAT 94
[2019-12-18 06:55] LABS: Glucose Point of Care 279 mg/dL (70-110)
[2019-12-18] MEDS: tamsulosin 0.4 mg Capsule PO (08:16)
[2019-12-18] MEDS: apixaban 5 mg Tablet PO ×2 (08:16→17:23)
[2019-12-18] MEDS: quetiapine 25 mg Tablet 50 MG PO ×2 (08:17→17:23)
[2019-12-18] MEDS: levothyroxine 150 mcg Tablet 75 MCG PO (08:17)
[2019-12-18] MEDS: thiamine 100 mg Tablet PO (08:17)
[2019-12-18] MEDS: famotidine 20 mg Tablet PO ×2 (08:17→17:23)
[2019-12-18] MEDS: sertraline 50 mg Tablet PO (08:17)
--- NOTE | 2019-12-18 09:41 | P.PN_ITS ---
Subjective NPU Subjective: Interval history: Patient is pleased that he has been doing well since about hospital day #3. He is looking forward to leaving severe back and start attending AA. Mental Status Exam MSE Comments: This is an underweight, older, white male, with adequate dress, grooming, and eye contact. No abnormal movements except for mild psychomotor retardation. Cooperative with exam in no acute distress. Speech was normal rate and volume . Mood described euthymic; affect subdued. Thought process organized. Thought content: patient denied any suicidal or homicidal ideation, pt continues to insist that his sister is stealing his money but this is a fixed fdc delusion, patient denied any auditory or visual hallucinations. Memory unreliable. Alert and oriented to person and place. Insight and judgment are limited.intellectual ability appears limited. Vitals/I&O/Wt Last Vital Signs Temp 98.3 F 12/18/19 06:00 Pulse 55 L 12/18/19 06:00 Resp 18 12/18/19 06:00 BP 144/81 12/18/19 06:00 Pulse Ox 94 12/18/19 06:00 Physical Exam Urinary Catheter Management^: Mustafa: Cath Placed During This Visit: yes, but has since been removed by the nurse Reason for Continuing Indwelling Catheter: Accurate Measurement of Urinary Output in Critically Ill Patients Urinary Catheter Date of Insertion: 12/02/19 Urinary Catheter Time of Insertion: 17:00 Date Urinary Catheter Removed: 12/03/19 Time Urinary Catheter Discontinued: 12:40 Data NPU : 12/04/19 04:07 12/10/19 16:25 A&P Assessment and plan (1) Polysubstance abuse: This is a 59 year old, white male, with a long history of schizophrenia with recent decompensation, leaving a skilled nursing, being off of his medication, and currently significant concerns that if he were to discharge he would pose a great risk to his ongoing health, given his inability to care for himself in relation to managing his medications, both psychiatrically and otherwise. Continue current medication. Encourage individual, group, and milieu therapy. Continue q-15 minute checks for safety. Will work with social work team to find a suitable discharge location from a standpoint of a place that might give him assistance such that he might have success in managing medications and in his overall functioning. Status: Acute (2) Schizophrenia: Status: Acute Additional A&P Information (1) Polysubstance abuse: This is a 59 year old, white male, with a long history of schizophrenia with recent decompensation, leaving a skilled nursing, being off of his medication, and currently significant concerns that if he were to discharge he would pose a great risk to his ongoing health, given his inability to care for himself in relation to managing his medications, both psychiatrically and otherwise. Continue current medication. Elevated POC BG noted today and will continue to monitor to assess; his usual am glucoses run high but not that high Encourage individual, group, and milieu therapy. Continue q-15 minute checks for safety. Will work with social work team to find a suitable discharge location from a standpoint of a place that might give him assistance such that he might have success in managing medications and in his overall functioning. (2) Schizophrenia: Involuntary Hold Information 96 Hour Hold: 96 Hour Involuntary Admission: No Attestations NPU Medical Necessity Statement*: Patient will remain in the hospital another 3 to 4 days until placement can be found. Coding Level of Care Code Acute Construction Helper for Fernando Oneil Diagnoses Polysubstance abuse F19.10 Schizophrenia F20.9
[2019-12-18] MEDS: acetaminophen 325 mg Tablet 650 MG PO ×2 (10:53→20:08)
[2019-12-18 11:56] LABS: Glucose Point of Care 265 mg/dL (70-110)
[2019-12-18 13:07] VITALS: BP 119/74; PULSE 86; RESP 17; TEMP 36.7; O2SAT 97
[2019-12-18 16:26] LABS: Glucose Point of Care 79 mg/dL (70-110)
[2019-12-18 19:26] LABS: Glucose Point of Care 304 mg/dL (70-110)
[2019-12-18 19:34] VITALS: BP 129/83; PULSE 58; RESP 21; TEMP 36.8; O2SAT 98
[2019-12-18] MEDS: hyDROXYzine 25 mg Capsule 50 MG PO (20:08)
[2019-12-19 06:00] VITALS: BP 125/78; PULSE 57; RESP 21; TEMP 36.8; O2SAT 97
[2019-12-19 06:56] LABS: Glucose Point of Care 164 mg/dL (70-110)
[2019-12-19] MEDS: apixaban 5 mg Tablet PO ×2 (08:12→17:21)
[2019-12-19] MEDS: famotidine 20 mg Tablet PO ×2 (08:12→17:21)
[2019-12-19] MEDS: levothyroxine 150 mcg Tablet 75 MCG PO (08:12)
[2019-12-19] MEDS: tamsulosin 0.4 mg Capsule PO (08:12)
[2019-12-19] MEDS: sertraline 50 mg Tablet PO (08:12)
[2019-12-19] MEDS: quetiapine 25 mg Tablet 50 MG PO ×2 (08:13→17:21)
[2019-12-19] MEDS: thiamine 100 mg Tablet PO (08:13)
--- NOTE | 2019-12-19 09:49 | P.PN_ITS ---
Subjective NPU Subjective: Interval history: Patient is pleased that he has been doing well. HE has no requests. Laboratory Tests 12/19/19 06:53 POC Glucose 164 Mental Status Exam MSE Comments: This is an underweight, older, white male, with adequate dress, grooming, and eye contact. No abnormal movements except for mild psychomotor retardation. Cooperative with exam in no acute distress. Speech was normal rate and volume . Mood described euthymic; affect subdued. Thought process organized. Thought content: patient denied any suicidal or homicidal ideation, pt continues to insist that his sister is stealing his money but this is a fixed prison delusion, patient denied any auditory or visual hallucinations. Memory unreliable. Alert and oriented to person and place. Insight and judgment are limited.intellectual ability appears limited. Vitals/I&O/Wt Last Vital Signs Temp 98.2 F 12/19/19 06:00 Pulse 57 L 12/19/19 06:00 Resp 21 H 12/19/19 06:00 BP 125/78 12/19/19 06:00 Pulse Ox 97 12/19/19 06:00 12/18/19 12/19/19 12/19/19 22:59 06:59 14:59 Intake Total 240 / 240 Output Total 400 / 400 Balance -160 / -160 Physical Exam Urinary Catheter Management^: Mustafa: Cath Placed During This Visit: yes, but has since been removed by the nurse Reason for Continuing Indwelling Catheter: Accurate Measurement of Urinary Output in Critically Ill Patients Urinary Catheter Date of Insertion: 12/02/19 Urinary Catheter Time of Insertion: 17:00 Date Urinary Catheter Removed: 12/03/19 Time Urinary Catheter Discontinued: 12:40 Data NPU : 12/04/19 04:07 12/10/19 16:25 A&P Assessment and plan (1) Polysubstance abuse: This is a 59 year old, white male, with a long history of schizophrenia with recent decompensation, leaving a longterm, being off of his medication, and currently significant concerns that if he were to discharge he would pose a great risk to his ongoing health, given his inability to care for himself in relation to managing his medications, both psychiatrically and otherwise. Continue current medication. Encourage individual, group, and milieu therapy. Continue q-15 minute checks for safety. Will work with social work team to find a suitable discharge location from a standpoint of a place that might give him assistance such that he might have success in managing medications and in his overall functioning. Status: Acute (2) Schizophrenia: Status: Acute Additional A&P Information (1) Polysubstance abuse: This is a 59 year old, white male, with a long history of schizophrenia with recent decompensation, leaving a longterm, being off of his medication, and currently significant concerns that if he were to discharge he would pose a great risk to his ongoing health, given his inability to care for himself in relation to managing his medications, both psychiatrically and otherwise. Continue current medication. Elevated POC BG noted today and will continue to monitor to assess; his usual am glucoses run high but not that high Encourage individual, group, and milieu therapy. Continue q-15 minute checks for safety. Will work with social work team to find a suitable discharge location from a standpoint of a place that might give him assistance such that he might have success in managing medications and in his overall functioning. (2) Schizophrenia: Involuntary Hold Information 96 Hour Hold: 96 Hour Involuntary Admission: No Attestations NPU Medical Necessity Statement*: Patient to remain in the hospital 2-3 more nights until placement can be found and guardianship established. Coding Level of Care Code Acute Dependency Counselor for Fernando Oneil Diagnoses Polysubstance abuse F19.10 Schizophrenia F20.9
[2019-12-19 11:05] LABS: Glucose Point of Care 213 mg/dL (70-110)
[2019-12-19 14:00] VITALS: BP 113/77; PULSE 69; RESP 18; TEMP 36.8
[2019-12-19 16:24] LABS: Glucose Point of Care 240 mg/dL (70-110)
[2019-12-19 17:11] LABS: Glucose Point of Care 276 mg/dL (70-110)
[2019-12-19 19:39] LABS: Glucose Point of Care 189 mg/dL (70-110)
[2019-12-19] MEDS: hyDROXYzine 25 mg Capsule 50 MG PO (20:44)
[2019-12-19 21:42] VITALS: BP 113/76; PULSE 62; RESP 20; TEMP 36.6; O2SAT 98
[2019-12-20 06:00] VITALS: BP 130/88; PULSE 64; RESP 20; TEMP 36.7; O2SAT 96
[2019-12-20 06:20] LABS: Glucose Point of Care 245 mg/dL (70-110)
[2019-12-20] MEDS: acetaminophen 325 mg Tablet 650 MG PO ×2 (06:21→14:57)
--- NOTE | 2019-12-20 06:24 | PC.NURSE ---
C/O ACHEY ALL OVER D/T RAINY WEATHER, TYLENOL 650 MG PO GIVEN FOR PAIN.
--- NOTE | 2019-12-20 06:48 | PC.NURSE ---
SAYS FEELING BETTER, RESTING QUIETLY.
[2019-12-20] MEDS: thiamine 100 mg Tablet PO (08:15)
[2019-12-20] MEDS: tamsulosin 0.4 mg Capsule PO (08:15)
[2019-12-20] MEDS: famotidine 20 mg Tablet PO ×2 (08:15→16:56)
[2019-12-20] MEDS: quetiapine 25 mg Tablet 50 MG PO ×2 (08:16→17:00)
[2019-12-20] MEDS: levothyroxine 150 mcg Tablet 75 MCG PO (08:16)
[2019-12-20] MEDS: sertraline 50 mg Tablet PO (08:16)
[2019-12-20] MEDS: apixaban 5 mg Tablet PO ×2 (08:16→16:57)
[2019-12-20 11:01] LABS: Glucose Point of Care 189 mg/dL (70-110)
--- NOTE | 2019-12-20 12:55 | P.PN_ITS ---
Subjective NPU Subjective: Interval history: The patient today is in reasonably good spirits. He has not had any falls. However his memory is persistently unreliable. Mood is good and he recognizes the need to go to a home. He does not trust his sister, whom he accuses of taking his money. He would like to have an independent payee answerable to a court. This is thought to be a fixed de lusion. I will review his issues with a senior program planner. He would also like to be in home which would facilitate his attendance at AA and NA meetings, from which he anh a lot of support. Medications: Reviewed: Yes Medication Review Details: Current Medications Acetaminophen (Tylenol) 650 mg PO Q6H PRN PRN Reason: MILD PAIN Last Admin: 12/20/19 06:21 Dose: 650 mg Documented by: Apixaban (Eliquis) 5 mg PO BID [facility] Last Admin: 12/20/19 08:16 Dose: 5 mg Documented by: Benztropine Mesylate (Cogentin) 1 mg PO BID PRN PRN Reason: Mild Extrapyramidal symptoms Camphor/Menthol/Phenol (Blistex) 1 applic TOPICAL Q1H PRN PRN Reason: DRYNESS Dextrose (D50w) 25 ml IVP ONCE PRN; Protocol PRN Reason: hypoglycemia protocol Dextrose (D50w) 50 ml IVP PRN PRN; Protocol PRN Reason: hypoglycemia protocol Dextrose (D50w) 25 ml IVP ONCE PRN; Protocol PRN Reason: hypoglycemia protocol Dextrose (D50w) 50 ml IVP PRN PRN; Protocol PRN Reason: hypoglycemia protocol Dextrose (D50w) 25 ml IVP ONCE PRN; Protocol PRN Reason: hypoglycemia protocol Dextrose (D50w) 50 ml IVP PRN PRN; Protocol PRN Reason: hypoglycemia protocol Diphenhydramine HCl (Benadryl) 50 mg IM ONCE PRN PRN Reason: Severe Extrapyramidal Symptoms Diphenhydramine HCl (Benadryl) 50 mg IM Q4H PRN PRN Reason: Severe Aggression Famotidine (Pepcid Tab) 20 mg PO BID [facility] Last Admin: 12/20/19 08:15 Dose: 20 mg Documented by: Glucagon (Glucagen) 1 mg IM ONCE PRN; Protocol PRN Reason: Adult Acute Hypoglycemia Prot. Glucagon (Glucagen) 1 mg IM ONCE PRN; Protocol PRN Reason: Adult Acute Hypoglycemia Prot. Glucagon (Glucagen) 1 mg IM ONCE PRN; Protocol PRN Reason: Adult Acute Hypoglycemia Prot. Haloperidol (Haldol) 5 mg PO Q4H PRN PRN Reason: AGITATION Haloperidol Lactate (Haldol Inj) 5 mg IM Q4H PRN PRN Reason: Severe Aggression Hydroxyzine Pamoate (Vistaril) 50 mg PO Q6H PRN PRN Reason: ANXIETY Last Admin: 12/19/19 20:44 Dose: 50 mg Documented by: Dextrose (D5w) 500 mls @ 100 mls/hr IV ONCE PRN; Protocol PRN Reason: Adult Acute Hypoglycemia Prot Dextrose (D5w) 500 mls @ 100 mls/hr IV ONCE PRN; Protocol PRN Reason: Adult Acute Hypoglycemia Prot Dextrose (D5w) 500 mls @ 100 mls/hr IV ONCE PRN; Protocol PRN Reason: Adult Acute Hypoglycemia Prot Insulin Aspart (Novolog) 0 unit SUBCUT WM&BEDTIME [facility]; Protocol Last Admin: 12/20/19 11:25 Dose: 1 unit Documented by: Insulin Detemir (Levemir) 10 unit SUBCUT BID [facility] Last Admin: 12/20/19 08:16 Dose: 10 unit Documented by: Levothyroxine Sodium (Synthroid) 75 mcg PO DAILY [facility] Last Admin: 12/20/19 08:16 Dose: 75 mcg Documented by: Loperamide HCl (Imodium Capsule) 2 mg PO Q6H PRN PRN Reason: DIARRHEA Lorazepam (Ativan) 2 mg IM Q4H PRN PRN Reason: Severe Aggression Nicotine (Nicoderm 21 Mg Patch) 1 patch TRANSDERMA DAILY PRN PRN Reason: NICOTINE WITHDRAWAL Nicotine Polacrilex (Nicorette) 2 mg BUCCAL Q2H PRN PRN Reason: NICOTINE WITHDRAWAL Olanzapine (Zyprexa Zydis) 5 mg PO Q4H PRN PRN Reason: Agitation/Psychosis Last Admin: 12/08/19 22:25 Dose: 5 mg Documented by: Ondansetron HCl (Zofran) 4 mg PO Q6H PRN PRN Reason: NAUSEA AND VOMITING Last Admin: 12/08/19 06:40 Dose: 4 mg Documented by: Quetiapine Fumarate (Seroquel) 50 mg PO BID [facility] Last Admin: 12/20/19 08:16 Dose: 50 mg Documented by: Sertraline HCl (Zoloft) 50 mg PO DAILY [facility] Last Admin: 12/20/19 08:16 Dose: 50 mg Documented by: Tamsulosin HCl (Flomax) 0.4 mg PO DAILY [facility] Last Admin: 12/20/19 08:15 Dose: 0.4 mg Documented by: Thiamine Mononitrate (Vitamin B-1) 100 mg PO DAILY [facility] Last Admin: 12/20/19 08:15 Dose: 100 mg Documented by: Mental Status Exam MSE Comments: This is an underweight, older, white male, with adequate dress, grooming, and eye contact. No abnormal movements . Cooperative with exam, and in no acute distress. Speech was normal rate and volume. Mood described euthymic; affect appropriate and variegated. Thought process organized. Thought content: patient denied any suicidal or homicidal ideation, pt continues to insist that his sister is stealing his money but this is a fixed cart driver delusion, patient denied any auditory or visual hallucinations. Memory unreliable. (Could not remember my name for 3 minutes) Alert and oriented to person and place. He now since the but cannot remember what month. Insight and judgment are limited. intellectual ability appears limited. Vitals/I&O/Wt Last Vital Signs Temp 98.1 F 12/20/19 06:00 Pulse 64 12/20/19 06:00 Resp 20 H 12/20/19 06:00 BP 130/88 12/20/19 06:00 Pulse Ox 96 12/20/19 06:00 Weight last 48 hrs Weight 123 lb 6.4 oz Physical Exam 2 Urinary Catheter Management^: Mustafa: Cath Placed During This Visit: yes, but has since been removed by the nurse Reason for Continuing Indwelling Catheter: Accurate Measurement of Urinary Output in Critically Ill Patients Urinary Catheter Date of Insertion: 12/02/19 Urinary Catheter Time of Insertion: 17:00 Date Urinary Catheter Removed: 12/03/19 Time Urinary Catheter Discontinued: 12:40 Data NPU : 12/04/19 04:07 12/10/19 16:25 A&P Assessment and plan (1) Polysubstance abuse: Patient presently detoxed. He wants to attend his recovery groups, which may help him to extend his time to relapse. Status: Acute (2) Schizophrenia: The patient indicates that the medicines are well adjusted and he feels much better now that he is actually taking them. Status: Acute (3) Hypothyroidism: Patient is stable for the moment. Status: Acute (4) Diabetes mellitus type 2, insulin dependent: Ongoing monitoring and management. Status: Acute Involuntary Hold Information 96 Hour Hold: 96 Hour Involuntary Admission: No Attestations NPU Medical Necessity Statement*: Patient to remain in the hospital 2-3 more nights until placement can be found and guardianship established. Time Spent in Patient Care: Greater than 35 minutes (Review of prior notes in the chart, laboratory data, pharmacotherapy, protracted interview with patient, who has unreliable memory.) (>than 50% of time spent in counselling and/or direct pt care on unit) (Protracted discussion regarding guardianship.) . Coding Level of Care Code Acute Java Developer for Fernando Navad Diagnoses Polysubstance abuse F19.10 Schizophrenia F20.9 Hypothyroidism E03.9 Diabetes mellitus type 2, insulin dependent E11.9; Z79.4
[2019-12-20 14:00] VITALS: BP 98/64; PULSE 81; RESP 18
--- NOTE | 2019-12-20 16:05 | P.PN_ITS ---
Subjective Subjective: Interval history: Patient's blood sugars are a lot better controlled than last time. Mostly seems to be fluctuating between 1 60-2 30 with one episode of sugar more than 300 with last hypoglycemia on 15th afternoon. Last 24 hours patient has received around 18 units of NovoLog with Levemir 10 units twice daily. Medications: Reviewed: Yes Vitals/I&O/Wt Last Vital Signs Temp 98.1 F 12/20/19 06:00 Pulse 81 12/20/19 14:00 Resp 18 12/20/19 14:00 BP 98/64 12/20/19 14:00 Pulse Ox 96 12/20/19 06:00 Weight last 48 hrs Weight 55.973 kg Physical Exam Urinary Catheter Management^: Mustafa: Cath Placed During This Visit: yes, but has since been removed by the nurse Reason for Continuing Indwelling Catheter: Accurate Measurement of Urinary Output in Critically Ill Patients Urinary Catheter Date of Insertion: 12/02/19 Urinary Catheter Time of Insertion: 17:00 Date Urinary Catheter Removed: 12/03/19 Time Urinary Catheter Discontinued: 12:40 Data : 12/04/19 04:07 12/10/19 16:25 A&P Assessment and plan (1) Diabetes mellitus type 2, insulin dependent: Status: Acute Additional A&P Information Given slightly elevated blood sugars with last creatinine done on October 09 which was normal we will start patient on metformin 500 mg twice daily. If not listed in his allergies. We will continue to monitor blood sugars pre-meals. Continue with Levemir 10 units subcu twice daily, NovoLog at medium dose insulin sliding scale. Check BMP tomorrow. Please call me with any questions. For now we will sign off. Attestations Medical Necessity Statement*: As per primary team. Time Spent in Patient Care: 16 - 35 minutes Coding Level of Care Code Acute Home School Coordinator for Fernando Fwderek Diagnoses Diabetes mellitus type 2, insulin dependent E11.9; Z79.4
[2019-12-20 16:34] LABS: Glucose Point of Care 242 mg/dL (70-110)
[2019-12-20] MEDS: metformin 500 mg Tablet PO (16:56)
[2019-12-20 20:11] LABS: Glucose Point of Care 66 mg/dL (70-110)
[2019-12-20 20:20] VITALS: BP 110/74; PULSE 69; RESP 16; TEMP 36.5; O2SAT 98
[2019-12-20] MEDS: hyDROXYzine 25 mg Capsule 50 MG PO (21:05)
[2019-12-21 01:35] LABS: Glucose Point of Care 56 mg/dL (70-110)
[2019-12-21 03:27] LABS: Glucose Point of Care 148 mg/dL (70-110)
[2019-12-21 05:30] LABS: Glucose Point of Care 214 mg/dL (70-110)
[2019-12-21 06:00] VITALS: BP 123/79; PULSE 57; RESP 17; TEMP 36.7; O2SAT 97
[2019-12-21] MEDS: metformin 500 mg Tablet PO ×2 (07:26→17:47)
[2019-12-21] MEDS: apixaban 5 mg Tablet PO ×2 (08:10→17:47)
[2019-12-21] MEDS: quetiapine 25 mg Tablet 50 MG PO ×2 (08:10→17:47)
[2019-12-21] MEDS: thiamine 100 mg Tablet PO (08:10)
[2019-12-21] MEDS: tamsulosin 0.4 mg Capsule PO (08:10)
[2019-12-21] MEDS: levothyroxine 150 mcg Tablet 75 MCG PO (08:10)
[2019-12-21] MEDS: famotidine 20 mg Tablet PO ×2 (08:10→17:47)
[2019-12-21] MEDS: sertraline 50 mg Tablet PO (08:10)
[2019-12-21 08:11] LABS: Anion Gap 17.3 (5-19); Blood Urea Nitrogen 21 mg/dL (8-23); Calcium 9.3 mg/dL (8.5-10.5); Carbon Dioxide 24 mmol/L (22-29); Chloride 94 mmol/L (98-107); Glucose 309 mg/dL (65-115); Osmolality Calculated 278 mOsm/kg (285-295); Potassium 5.3 mmol/L (3.5-5.1); Sodium 130 mmol/L (136-145)
[2019-12-21] MEDS: acetaminophen 325 mg Tablet 650 MG PO ×2 (11:07→20:43)
[2019-12-21 11:18] LABS: Glucose Point of Care 359 mg/dL (70-110)
--- NOTE | 2019-12-21 13:16 | PM.NPN ---
Subjective NPU Subjective: Interval history: Giancarlo expresses significant contentment regarding his days in the inpatient unit. He cannot tell me what her diagnoses learned but he is stable even if he does have a significant memory deficit. Consultation with the treatment team yielded the notes that he will have a guardianship hearing on , which he really needs. Medications: Reviewed: Yes Medication Review Details: Current Medications Acetaminophen (Tylenol) 650 mg PO Q6H PRN PRN Reason: MILD PAIN Last Admin: 12/21/19 11:07 Dose: 650 mg Documented by: Apixaban (Eliquis) 5 mg PO BID [facility] Last Admin: 12/21/19 08:10 Dose: 5 mg Documented by: Benztropine Mesylate (Cogentin) 1 mg PO BID PRN PRN Reason: Mild Extrapyramidal symptoms Camphor/Menthol/Phenol (Blistex) 1 applic TOPICAL Q1H PRN PRN Reason: DRYNESS Dextrose (D50w) 25 ml IVP ONCE PRN; Protocol PRN Reason: hypoglycemia protocol Dextrose (D50w) 50 ml IVP PRN PRN; Protocol PRN Reason: hypoglycemia protocol Diphenhydramine HCl (Benadryl) 50 mg IM ONCE PRN PRN Reason: Severe Extrapyramidal Symptoms Diphenhydramine HCl (Benadryl) 50 mg IM Q4H PRN PRN Reason: Severe Aggression Famotidine (Pepcid Tab) 20 mg PO BID [facility] Last Admin: 12/21/19 08:10 Dose: 20 mg Documented by: Glucagon (Glucagen) 1 mg IM ONCE PRN; Protocol PRN Reason: Adult Acute Hypoglycemia Prot. Haloperidol (Haldol) 5 mg PO Q4H PRN PRN Reason: AGITATION Haloperidol Lactate (Haldol Inj) 5 mg IM Q4H PRN PRN Reason: Severe Aggression Hydroxyzine Pamoate (Vistaril) 50 mg PO Q6H PRN PRN Reason: ANXIETY Last Admin: 12/20/19 21:05 Dose: 50 mg Documented by: Dextrose (D5w) 500 mls @ 100 mls/hr IV ONCE PRN; Protocol PRN Reason: Adult Acute Hypoglycemia Prot Insulin Aspart (Novolog) 0 unit SUBCUT TIDWM [facility]; Protocol Insulin Detemir (Levemir) 10 unit SUBCUT BID [facility] Last Admin: 12/21/19 08:11 Dose: 10 unit Documented by: Levothyroxine Sodium (Synthroid) 75 mcg PO DAILY [facility] Last Admin: 12/21/19 08:10 Dose: 75 mcg Documented by: Loperamide HCl (Imodium Capsule) 2 mg PO Q6H PRN PRN Reason: DIARRHEA Lorazepam (Ativan) 2 mg IM Q4H PRN PRN Reason: Severe Aggression Metformin HCl (Glucophage) 500 mg PO BIDWM [facility] Last Admin: 12/21/19 07:26 Dose: 500 mg Documented by: Nicotine (Nicoderm 21 Mg Patch) 1 patch TRANSDERMA DAILY PRN PRN Reason: NICOTINE WITHDRAWAL Nicotine Polacrilex (Nicorette) 2 mg BUCCAL Q2H PRN PRN Reason: NICOTINE WITHDRAWAL Olanzapine (Zyprexa Zydis) 5 mg PO Q4H PRN PRN Reason: Agitation/Psychosis Last Admin: 12/08/19 22:25 Dose: 5 mg Documented by: Ondansetron HCl (Zofran) 4 mg PO Q6H PRN PRN Reason: NAUSEA AND VOMITING Last Admin: 12/08/19 06:40 Dose: 4 mg Documented by: Quetiapine Fumarate (Seroquel) 50 mg PO BID [facility] Last Admin: 12/21/19 08:10 Dose: 50 mg Documented by: Sertraline HCl (Zoloft) 50 mg PO DAILY [facility] Last Admin: 12/21/19 08:10 Dose: 50 mg Documented by: Tamsulosin HCl (Flomax) 0.4 mg PO DAILY [facility] Last Admin: 12/21/19 08:10 Dose: 0.4 mg Documented by: Thiamine Mononitrate (Vitamin B-1) 100 mg PO DAILY [facility] Last Admin: 12/21/19 08:10 Dose: 100 mg Documented by: Mental Status Exam MSE Comments: Giancarlo is his usual self. He is an underweight, older, white male, with adequate dress, grooming, and eye contact. No abnormal movements . Cooperative with exam, and in no acute distress. Speech was normal rate and volume. Mood described euthymic; affect appropriate and variegated. Thought process organized. Thought content: patient denied any suicidal or homicidal ideation, pt continues to insist that his sister is stealing his money but this is a fixed meterman delusion, patient denied any auditory or visual hallucinations. Memory unreliable. (Could not remember my name for 3 minutes) Alert and oriented to person and place. He now since the but cannot remember what month. Insight and judgment are limited. intellectual ability appears limited. Vitals/I&O/Wt Last Vital Signs Temp 98.0 F 12/21/19 06:00 Pulse 57 L 12/21/19 06:00 Resp 17 12/21/19 06:00 BP 123/79 12/21/19 06:00 Pulse Ox 97 12/21/19 06:00 Weight last 48 hrs Weight 123 lb 6.4 oz Physical Exam Urinary Catheter Management^: Mustafa: Cath Placed During This Visit: yes, but has since been removed by the nurse Reason for Continuing Indwelling Catheter: Accurate Measurement of Urinary Output in Critically Ill Patients Urinary Catheter Date of Insertion: 12/02/19 Urinary Catheter Time of Insertion: 17:00 Date Urinary Catheter Removed: 12/03/19 Time Urinary Catheter Discontinued: 12:40 Data NPU : 12/04/19 04:07 12/21/19 07:42 A&P Assessment and plan (1) Schizophrenia: Patient is stable on current regimen. Status: Acute (2) Diabetes mellitus type 2, insulin dependent: Continuing monitoring. Status: Acute (3) Hypothyroidism: Status: Acute (4) Polysubstance abuse: Currently in recovery. The likelihood of relapse outside of a controlled environment is likely high. Status: Acute Involuntary Hold Information 96 Hour Hold: 96 Hour Involuntary Admission: No Attestations NPU Medical Necessity Statement*: We are awaiting guardianship hearing on . Time Spent in Patient Care: Greater than 35 minutes (>than 50% of time spent in counselling and/or direct pt care on unit). 50 minutes spent on patient care. Coding Level of Care Code Acute Rubber Ball Finisher for Fernando Fwd Diagnoses Schizophrenia F20.9 Diabetes mellitus type 2, insulin dependent E11.9; Z79.4 Hypothyroidism E03.9 Polysubstance abuse F19.10
[2019-12-21 13:30] VITALS: BP 116/70; PULSE 75; RESP 18; TEMP 36.7; O2SAT 97
--- NOTE | 2019-12-21 13:34 | P.PN_ITS ---
Subjective NPU Subjective: Interval history: The patient is calm and content today. He really looks forward to going to his recovery meetings (AA and NA). Clearly should be part of his discharge plan. Medications: Medication Review Details: Current Medications Acetaminophen (Tylenol) 650 mg PO Q6H PRN PRN Reason: MILD PAIN Last Admin: 12/22/19 08:09 Dose: 650 mg Documented by: Apixaban (Eliquis) 5 mg PO BID [facility] Last Admin: 12/22/19 08:08 Dose: 5 mg Documented by: Benztropine Mesylate (Cogentin) 1 mg PO BID PRN PRN Reason: Mild Extrapyramidal symptoms Camphor/Menthol/Phenol (Blistex) 1 applic TOPICAL Q1H PRN PRN Reason: DRYNESS Dextrose (D50w) 25 ml IVP ONCE PRN; Protocol PRN Reason: hypoglycemia protocol Dextrose (D50w) 50 ml IVP PRN PRN; Protocol PRN Reason: hypoglycemia protocol Diphenhydramine HCl (Benadryl) 50 mg IM ONCE PRN PRN Reason: Severe Extrapyramidal Symptoms Diphenhydramine HCl (Benadryl) 50 mg IM Q4H PRN PRN Reason: Severe Aggression Famotidine (Pepcid Tab) 20 mg PO BID [facility] Last Admin: 12/22/19 08:08 Dose: 20 mg Documented by: Glucagon (Glucagen) 1 mg IM ONCE PRN; Protocol PRN Reason: Adult Acute Hypoglycemia Prot. Haloperidol (Haldol) 5 mg PO Q4H PRN PRN Reason: AGITATION Haloperidol Lactate (Haldol Inj) 5 mg IM Q4H PRN PRN Reason: Severe Aggression Hydroxyzine Pamoate (Vistaril) 50 mg PO Q6H PRN PRN Reason: ANXIETY Last Admin: 12/21/19 20:43 Dose: 50 mg Documented by: Dextrose (D5w) 500 mls @ 100 mls/hr IV ONCE PRN; Protocol PRN Reason: Adult Acute Hypoglycemia Prot Insulin Aspart (Novolog) 0 unit SUBCUT TIDWM [facility]; Protocol Last Admin: 12/22/19 11:52 Dose: Not Given Documented by: Insulin Detemir (Levemir) 10 unit SUBCUT BID [facility] Last Admin: 12/22/19 08:09 Dose: 10 unit Documented by: Levothyroxine Sodium (Synthroid) 75 mcg PO DAILY [facility] Last Admin: 12/22/19 08:08 Dose: 75 mcg Documented by: Loperamide HCl (Imodium Capsule) 2 mg PO Q6H PRN PRN Reason: DIARRHEA Metformin HCl (Glucophage) 500 mg PO BIDWM [facility] Last Admin: 12/22/19 07:34 Dose: 500 mg Documented by: Nicotine (Nicoderm 21 Mg Patch) 1 patch TRANSDERMA DAILY PRN PRN Reason: NICOTINE WITHDRAWAL Nicotine Polacrilex (Nicorette) 2 mg BUCCAL Q2H PRN PRN Reason: NICOTINE WITHDRAWAL Olanzapine (Zyprexa Zydis) 5 mg PO Q4H PRN PRN Reason: Agitation/Psychosis Last Admin: 12/21/19 20:43 Dose: 5 mg Documented by: Ondansetron HCl (Zofran) 4 mg PO Q6H PRN PRN Reason: NAUSEA AND VOMITING Last Admin: 12/08/19 06:40 Dose: 4 mg Documented by: Quetiapine Fumarate (Seroquel) 50 mg PO BID [facility] Last Admin: 12/22/19 08:08 Dose: 50 mg Documented by: Sertraline HCl (Zoloft) 50 mg PO DAILY [facility] Last Admin: 12/22/19 08:09 Dose: 50 mg Documented by: Tamsulosin HCl (Flomax) 0.4 mg PO DAILY [facility] Last Admin: 12/22/19 08:08 Dose: 0.4 mg Documented by: Thiamine Mononitrate (Vitamin B-1) 100 mg PO DAILY [facility] Last Admin: 12/22/19 08:08 Dose: 100 mg Documented by: Mental Status Exam MSE Comments: Giancarlo is his usual self. He is an underweight, older, white male, with adequate dress, grooming, and eye contact. No abnormal movements . Cooperative with exam, and in no acute distress. Speech was normal rate and volume. Mood described euthymic; affect appropriate and variegated. Thought process organized. Thought content: patient denied any suicidal or homicidal ideation, pt continues to insist that his sister is stealing his money but this is a fixed superintendent container terminal delusion, patient denied any auditory or visual hallucinations. Memory unreliable. (Could not remember my name for 3 minutes) Alert and oriented to person and place. He now since the but cannot remember what month. Insight and judgment are limited. intellectual ability appears limited. Vitals/I&O/Wt Last Vital Signs Temp 98.1 F 12/21/19 13:30 Pulse 75 12/21/19 13:30 Resp 18 12/21/19 13:30 BP 116/70 12/21/19 13:30 Pulse Ox 97 12/21/19 13:30 Weight last 48 hrs Weight 123 lb 6.4 oz Physical Exam Urinary Catheter Management^: Mustafa: Cath Placed During This Visit: yes, but has since been removed by the nurse Reason for Continuing Indwelling Catheter: Accurate Measurement of Urinary Output in Critically Ill Patients Urinary Catheter Date of Insertion: 12/02/19 Urinary Catheter Time of Insertion: 17:00 Date Urinary Catheter Removed: 12/03/19 Time Urinary Catheter Discontinued: 12:40 Data NPU : 12/04/19 04:07 12/21/19 07:42 A&P Assessment and plan (1) Schizophrenia: Status: Acute (2) Polysubstance abuse: Status: Acute Involuntary Hold Information 96 Hour Hold: 96 Hour Involuntary Admission: No Attestations NPU Medical Necessity Statement*: We are pending placement. I anticipate 4-5 midnights additional stay. Coding Level of Care Code Acute Radar Tester for Fernando Fwd Diagnoses Schizophrenia F20.9 Polysubstance abuse F19.10
[2019-12-21 14:27] LABS: Glucose Point of Care 122 mg/dL (70-110)
[2019-12-21 16:40] LABS: Glucose Point of Care 87 mg/dL (70-110)
[2019-12-21 19:53] LABS: Glucose Point of Care 321 mg/dL (70-110)
[2019-12-21] MEDS: hyDROXYzine 25 mg Capsule 50 MG PO (20:43)
[2019-12-21] MEDS: OLANZapine ODT 5 MG TABLET PO (20:43)
[2019-12-21 21:40] VITALS: BP 110/73; PULSE 61; RESP 16; TEMP 36.7; O2SAT 95
--- NOTE | 2019-12-21 23:24 | PC.NURSE ---
Per pt request, pt was given Tylenol for bilateral leg aches, Zyprexa and Visteril for anxiety.
[2019-12-22 00:57] LABS: Glucose Point of Care 195 mg/dL (70-110)
[2019-12-22 06:00] VITALS: BP 122/81; PULSE 72; RESP 17; TEMP 36.8; O2SAT 97
[2019-12-22 07:02] LABS: Glucose Point of Care 288 mg/dL (70-110)
[2019-12-22] MEDS: metformin 500 mg Tablet PO ×2 (07:34→17:01)
[2019-12-22] MEDS: apixaban 5 mg Tablet PO ×2 (08:08→17:01)
[2019-12-22] MEDS: tamsulosin 0.4 mg Capsule PO (08:08)
[2019-12-22] MEDS: thiamine 100 mg Tablet PO (08:08)
[2019-12-22] MEDS: quetiapine 25 mg Tablet 50 MG PO ×2 (08:08→17:01)
[2019-12-22] MEDS: levothyroxine 150 mcg Tablet 75 MCG PO (08:08)
[2019-12-22] MEDS: famotidine 20 mg Tablet PO ×2 (08:08→17:01)
[2019-12-22] MEDS: sertraline 50 mg Tablet PO (08:09)
[2019-12-22] MEDS: acetaminophen 325 mg Tablet 650 MG PO ×2 (08:09→20:08)
[2019-12-22 10:11] LABS: Glucose Point of Care 137 mg/dL (70-110)
[2019-12-22 11:36] LABS: Glucose Point of Care 102 mg/dL (70-110)
--- NOTE | 2019-12-22 12:18 | P.PN_ITS ---
Subjective Subjective: Interval history: Blood sugars better since yesterday evening. I had made changes to insulin sliding scale yesterday. Patient not to be getting any more bedtime insulins. Patient will be getting Levemir twice a day. Medications: Reviewed: Yes Vitals/I&O/Wt Last Vital Signs Temp 98.3 F 12/22/19 06:00 Pulse 72 12/22/19 06:00 Resp 17 12/22/19 06:00 BP 122/81 12/22/19 06:00 Pulse Ox 97 12/22/19 06:00 Physical Exam Urinary Catheter Management^: Mustafa: Cath Placed During This Visit: yes, but has since been removed by the nurse Reason for Continuing Indwelling Catheter: Accurate Measurement of Urinary Output in Critically Ill Patients Urinary Catheter Date of Insertion: 12/02/19 Urinary Catheter Time of Insertion: 17:00 Date Urinary Catheter Removed: 12/03/19 Time Urinary Catheter Discontinued: 12:40 Data : 12/04/19 04:07 12/21/19 07:42 A&P Assessment and plan (1) Diabetes mellitus type 2, insulin dependent: Status: Acute Additional A&P Information Patient has extremely labile blood sugars. Blood sugars a lot better controlled on Levemir 10 units twice daily, insulin sliding scale with meals without bedtime insulin as per them medium sliding scale along with metformin 500 mg twice daily. BMP checked on . Will need to recheck BMP in 1 week. Should not change the regimen any further as hypoglycemia will be worse then mildly elevated blood sugars. Random blood sugars ranging from 150?250 is acceptable. We will sign off. Please call for any further questions. Attestations Medical Necessity Statement*: As per primary team. Time Spent in Patient Care: 16 - 35 minutes Coding Level of Care Code Acute Office Clerk Routine for Fernando Fwd Diagnoses Diabetes mellitus type 2, insulin dependent E11.9; Z79.4
[2019-12-22 12:33] VITALS: BP 109/69; PULSE 60; RESP 18; TEMP 36.5; O2SAT 97
[2019-12-22 16:39] LABS: Glucose Point of Care 332 mg/dL (70-110)
[2019-12-22 19:37] LABS: Glucose Point of Care 115 mg/dL (70-110)
[2019-12-22 19:53] VITALS: BP 109/71; PULSE 67; RESP 17; TEMP 36.7; O2SAT 97
[2019-12-22] MEDS: OLANZapine ODT 5 MG TABLET PO (20:08)
[2019-12-22] MEDS: hyDROXYzine 25 mg Capsule 50 MG PO (20:08)
--- NOTE | 2019-12-22 23:53 | PC.NURSE ---
Pt given PRN meds Tylenol for leg aches, Zyprexa and Visteril for anxiety per pt request.
--- NOTE | 2019-12-23 01:15 | PC.NURSE ---
Pt requested blood sugar be checked so i can have a snack . result of 50 obtained. snack given of apple juice, fruit cup, crackers and peanut-butter. Will monitor pt closely and recheck pt's sugar level in the 0500 hour.
[2019-12-23 01:26] LABS: Glucose Point of Care 50 mg/dL (70-110)
[2019-12-23 05:19] LABS: Glucose Point of Care 147 mg/dL (70-110)
--- NOTE | 2019-12-23 05:21 | PC.NURSE ---
Pt's blood sugar checked at this time, result of 147 at this time.
[2019-12-23 06:00] VITALS: BP 121/64; PULSE 64; RESP 17; TEMP 36.7; O2SAT 96
[2019-12-23] MEDS: metformin 500 mg Tablet PO ×2 (08:05→18:19)
[2019-12-23] MEDS: acetaminophen 325 mg Tablet 650 MG PO ×2 (08:08→18:21)
[2019-12-23] MEDS: famotidine 20 mg Tablet PO ×2 (09:52→17:30)
[2019-12-23] MEDS: levothyroxine 150 mcg Tablet 75 MCG PO (09:52)
[2019-12-23] MEDS: sertraline 50 mg Tablet PO (09:52)
[2019-12-23] MEDS: quetiapine 25 mg Tablet 50 MG PO ×2 (09:52→17:30)
[2019-12-23] MEDS: apixaban 5 mg Tablet PO ×2 (11:06→18:19)
[2019-12-23] MEDS: tamsulosin 0.4 mg Capsule PO (11:06)
[2019-12-23] MEDS: thiamine 100 mg Tablet PO (11:07)
[2019-12-23 12:53] LABS: Glucose Point of Care 418 mg/dL (70-110)
[2019-12-23 14:00] VITALS: BP 109/74; PULSE 82; RESP 20; TEMP 36.5; O2SAT 96
--- NOTE | 2019-12-23 15:09 | PM.NPN ---
Subjective NPU Subjective: Interval history: I am having a pretty good day, the patient says. Indeed he is. He is chatty smiling and delighted to be here. I reminded him that there will be a hearing tomorrow which may change many things. Medications: Reviewed: Yes Medication Review Details: Current Medications Acetaminophen (Tylenol) 650 mg PO Q6H PRN PRN Reason: MILD PAIN Last Admin: 12/23/19 08:08 Dose: 650 mg Documented by: Apixaban (Eliquis) 5 mg PO BID [facility] Last Admin: 12/23/19 11:06 Dose: 5 mg Documented by: Benztropine Mesylate (Cogentin) 1 mg PO BID PRN PRN Reason: Mild Extrapyramidal symptoms Camphor/Menthol/Phenol (Blistex) 1 applic TOPICAL Q1H PRN PRN Reason: DRYNESS Dextrose (D50w) 25 ml IVP ONCE PRN; Protocol PRN Reason: hypoglycemia protocol Dextrose (D50w) 50 ml IVP PRN PRN; Protocol PRN Reason: hypoglycemia protocol Diphenhydramine HCl (Benadryl) 50 mg IM ONCE PRN PRN Reason: Severe Extrapyramidal Symptoms Diphenhydramine HCl (Benadryl) 50 mg IM Q4H PRN PRN Reason: Severe Aggression Famotidine (Pepcid Tab) 20 mg PO BID [facility] Last Admin: 12/23/19 09:52 Dose: 20 mg Documented by: Glucagon (Glucagen) 1 mg IM ONCE PRN; Protocol PRN Reason: Adult Acute Hypoglycemia Prot. Haloperidol (Haldol) 5 mg PO Q4H PRN PRN Reason: AGITATION Haloperidol Lactate (Haldol Inj) 5 mg IM Q4H PRN PRN Reason: Severe Aggression Hydroxyzine Pamoate (Vistaril) 50 mg PO Q6H PRN PRN Reason: ANXIETY Last Admin: 12/22/19 20:08 Dose: 50 mg Documented by: Dextrose (D5w) 500 mls @ 100 mls/hr IV ONCE PRN; Protocol PRN Reason: Adult Acute Hypoglycemia Prot Insulin Aspart (Novolog) 0 unit SUBCUT TIDWM [facility]; Protocol Last Admin: 12/23/19 12:54 Dose: 14 unit Documented by: Insulin Detemir (Levemir) 10 unit SUBCUT BID [facility] Last Admin: 12/23/19 09:53 Dose: 10 unit Documented by: Levothyroxine Sodium (Synthroid) 75 mcg PO DAILY [facility] Last Admin: 12/23/19 09:52 Dose: 75 mcg Documented by: Loperamide HCl (Imodium Capsule) 2 mg PO Q6H PRN PRN Reason: DIARRHEA Metformin HCl (Glucophage) 500 mg PO BIDWM [facility] Last Admin: 12/23/19 08:05 Dose: 500 mg Documented by: Nicotine (Nicoderm 21 Mg Patch) 1 patch TRANSDERMA DAILY PRN PRN Reason: NICOTINE WITHDRAWAL Nicotine Polacrilex (Nicorette) 2 mg BUCCAL Q2H PRN PRN Reason: NICOTINE WITHDRAWAL Olanzapine (Zyprexa Zydis) 5 mg PO Q4H PRN PRN Reason: Agitation/Psychosis Last Admin: 12/22/19 20:08 Dose: 5 mg Documented by: Ondansetron HCl (Zofran) 4 mg PO Q6H PRN PRN Reason: NAUSEA AND VOMITING Last Admin: 12/08/19 06:40 Dose: 4 mg Documented by: Quetiapine Fumarate (Seroquel) 50 mg PO BID [facility] Last Admin: 12/23/19 09:52 Dose: 50 mg Documented by: Sertraline HCl (Zoloft) 50 mg PO DAILY [facility] Last Admin: 12/23/19 09:52 Dose: 50 mg Documented by: Tamsulosin HCl (Flomax) 0.4 mg PO DAILY [facility] Last Admin: 12/23/19 11:06 Dose: 0.4 mg Documented by: Thiamine Mononitrate (Vitamin B-1) 100 mg PO DAILY [facility] Last Admin: 12/23/19 11:07 Dose: 100 mg Documented by: Mental Status Exam MSE Comments: Giancarlo is his usual self. He is an underweight, older, white male, with adequate dress, grooming, and eye contact. No abnormal movements . Cooperative with exam, and in no acute distress. Speech was normal rate and volume. Mood described euthymic; affect appropriate and variegated. Thought process organized. Thought content: patient denied any suicidal or homicidal ideation, pt continues to insist that his sister is stealing his money but this is a fixed intermediate delusion, patient denied any auditory or visual hallucinations. Memory unreliable. (Could not remember my name for 3 minutes) Alert and oriented to person and place. He now since the but cannot remember what month. Insight and judgment are limited. intellectual ability appears limited. Vitals/I&O/Wt Last Vital Signs Temp 98.0 F 12/23/19 06:00 Pulse 64 12/23/19 06:00 Resp 17 12/23/19 06:00 BP 121/64 12/23/19 06:00 Pulse Ox 96 12/23/19 06:00 Physical Exam Urinary Catheter Management^: Mustafa: Cath Placed During This Visit: yes, but has since been removed by the nurse Reason for Continuing Indwelling Catheter: Accurate Measurement of Urinary Output in Critically Ill Patients Urinary Catheter Date of Insertion: 12/02/19 Urinary Catheter Time of Insertion: 17:00 Date Urinary Catheter Removed: 12/03/19 Time Urinary Catheter Discontinued: 12:40 Data NPU : 12/04/19 04:07 12/21/19 07:42 Involuntary Hold Information 96 Hour Hold: 96 Hour Involuntary Admission: No Attestations NPU Medical Necessity Statement*: Her hearing is tomorrow. After that placement should take a few days. Coding Level of Care Code Acute Structural Engineer for Fernando Oneil
[2019-12-23 16:13] LABS: Glucose Point of Care 107 mg/dL (70-110)
[2019-12-23] MEDS: OLANZapine ODT 5 MG TABLET PO (20:08)
[2019-12-23] MEDS: hyDROXYzine 25 mg Capsule 50 MG PO (20:08)
[2019-12-23 20:23] LABS: Glucose Point of Care 141 mg/dL (70-110)
[2019-12-23 20:42] VITALS: BP 99/63; PULSE 63; RESP 16; TEMP 36.6; O2SAT 97
[2019-12-24 01:55] LABS: Glucose Point of Care 96 mg/dL (70-110)
[2019-12-24 06:00] VITALS: BP 114/74; PULSE 63; RESP 20; TEMP 37.1; O2SAT 96
[2019-12-24 06:32] LABS: Glucose Point of Care 150 mg/dL (70-110)
[2019-12-24] MEDS: metformin 500 mg Tablet PO ×2 (07:22→18:55)
[2019-12-24] MEDS: apixaban 5 mg Tablet PO ×2 (09:19→18:54)
[2019-12-24] MEDS: famotidine 20 mg Tablet PO ×2 (09:19→18:54)
[2019-12-24] MEDS: quetiapine 25 mg Tablet 50 MG PO ×2 (09:19→18:57)
[2019-12-24] MEDS: levothyroxine 150 mcg Tablet 75 MCG PO (09:19)
[2019-12-24] MEDS: thiamine 100 mg Tablet PO (09:44)
[2019-12-24] MEDS: sertraline 50 mg Tablet PO (09:44)
[2019-12-24] MEDS: tamsulosin 0.4 mg Capsule PO (09:44)
--- NOTE | 2019-12-24 11:02 | P.PN_ITS ---
Subjective NPU Subjective: Interval history: Giancarlo presents today reporting that things are going well since he last saw me. He seems to be aware of the processes going on around him as far as guardianship and he reports being hopeful for discharge sooner rather than later. Mental Status Exam MSE Comments: This is an underweight older white male with adequate dress grooming and eye contact. No abnormal movements except for mild psychomotor retardation. Cooperative with exam in no acute distress speech is more normal rate and volume with the significance of the draw mood described as pretty good I have no psychosis, affect congruent. Thought process organized. Thought content: Patient denied any suicidal or homicidal ideation, no delusions reported noted, he denied any auditory or visual hallucinations. Attention and concentration appear intact memory is mostly reliable but not formally tested. Alert and oriented ?3. Insight and judgment are improving. Vitals/I&O/Wt Last Vital Signs Temp 97.8 F 12/24/19 22:00 Pulse 69 12/24/19 22:00 Resp 20 H 12/24/19 22:00 BP 123/69 12/24/19 22:00 Pulse Ox 97 12/24/19 22:00 Physical Exam Urinary Catheter Management^: Mustafa: Cath Placed During This Visit: yes, but has since been removed by the nurse Reason for Continuing Indwelling Catheter: Accurate Measurement of Urinary Output in Critically Ill Patients Urinary Catheter Date of Insertion: 12/02/19 Urinary Catheter Time of Insertion: 17:00 Date Urinary Catheter Removed: 12/03/19 Time Urinary Catheter Discontinued: 12:40 Data NPU : 12/04/19 04:07 12/21/19 07:42 A&P Assessment and plan (1) Schizophrenia: Status: Acute Additional A&P Information This is an underweight white male who presented to the unit with inability to care for himself coming from the ICU with ongoing repeated presentations like this awaiting guardianship hearing and hopeful placement. 1. Continue current medication. 2. Continued every 15 minute checks for safety. 3. Encourage individual, group and milieu therapy. 4. Will await the results of the hearing and continue working with social work for placement. Involuntary Hold Information 96 Hour Hold: 96 Hour Involuntary Admission: No Attestations NPU Medical Necessity Statement*: Inpatient hospitalization is medically necessary and the clinically appropriate intervention at this time. We will continue to monitor medications and make adjustments as indicated. Likely length of stay 5-7 days. Coding Level of Care Code Acute Rag Willow Operator for Chg Fwd Diagnoses Schizophrenia F20.9
[2019-12-24 11:16] LABS: Glucose Point of Care 366 mg/dL (70-110)
[2019-12-24 13:31] VITALS: BP 118/76; PULSE 82; RESP 16; TEMP 36.8; O2SAT 97
[2019-12-24 16:41] LABS: Glucose Point of Care 51 mg/dL (70-110)
[2019-12-24 17:55] LABS: Glucose Point of Care 183 mg/dL (70-110)
[2019-12-24 19:45] LABS: Glucose Point of Care 275 mg/dL (70-110)
[2019-12-24] MEDS: hyDROXYzine 25 mg Capsule 50 MG PO (20:37)
--- NOTE | 2019-12-24 20:37 | PC.NURSE ---
PRN VISTARIL PT REQUESTING VISTARIL FOR ANXIETY. VISTARIL 50 MG ADMINISTERED PO. WILL MONITOR FOR MEDICATION EFFECTIVENESS.
[2019-12-24 22:00] VITALS: BP 123/69; PULSE 69; RESP 20; TEMP 36.6; O2SAT 97
[2019-12-25 06:00] VITALS: BP 147/89; PULSE 62; RESP 21; TEMP 36.6; O2SAT 96
[2019-12-25 07:32] LABS: Glucose Point of Care 73 mg/dL (70-110)
[2019-12-25 07:32] LABS: Glucose Point of Care 107 mg/dL (70-110)
[2019-12-25] MEDS: metformin 500 mg Tablet PO ×2 (07:37→16:58)
[2019-12-25] MEDS: quetiapine 25 mg Tablet 50 MG PO ×2 (09:44→16:58)
[2019-12-25] MEDS: famotidine 20 mg Tablet PO ×2 (09:44→16:58)
[2019-12-25] MEDS: tamsulosin 0.4 mg Capsule PO (09:44)
[2019-12-25] MEDS: levothyroxine 150 mcg Tablet 75 MCG PO (09:44)
[2019-12-25] MEDS: acetaminophen 325 mg Tablet 650 MG PO ×2 (09:50→20:47)
[2019-12-25] MEDS: thiamine 100 mg Tablet PO (11:33)
[2019-12-25] MEDS: apixaban 5 mg Tablet PO ×2 (11:34→16:58)
[2019-12-25] MEDS: sertraline 50 mg Tablet PO (11:34)
[2019-12-25 11:37] LABS: Glucose Point of Care 489 mg/dL (70-110)
[2019-12-25 13:58] VITALS: BP 99/67; PULSE 71; RESP 18; TEMP 36.8; O2SAT 97
--- NOTE | 2019-12-25 14:14 | PM.NPN ---
Subjective NPU Subjective: Interval history: Giancarlo presented today reporting that he is doing fine still and he is very hopeful for discharge soon. Like the last time this physician was on service he is not pushing for discharge but understanding at the very least that the process should take a step forward next week. He continues to have some difficulties with fluctuating blood sugars but he is for the most part following instructions though he does not seem to have insight that when he takes certain amounts of insulin that he needs to eat something regardless of whether or not he wants to or not after the insulin has been taken. He denied any major issues at this time. Mental Status Exam MSE Comments: This is an underweight older white male with adequate dress grooming and eye contact. No abnormal movements except for mild psychomotor retardation. Cooperative with exam in no acute distress. Speech is more normal rate and volume with the significant southern drawl mood described as pretty good, affect congruent. Thought process organized. Thought content: Patient denied any suicidal or homicidal ideation, no delusions reported noted, he denied any auditory or visual hallucinations. Attention and concentration appear intact memory is mostly reliable but not formally tested. Alert and oriented ?3. Insight and judgment are improving. Vitals/I&O/Wt Last Vital Signs Temp 98.2 F 12/25/19 13:58 Pulse 71 12/25/19 13:58 Resp 18 12/25/19 13:58 BP 99/67 12/25/19 13:58 Pulse Ox 97 12/25/19 13:58 Physical Exam Urinary Catheter Management^: Mustafa: Cath Placed During This Visit: yes, but has since been removed by the nurse Reason for Continuing Indwelling Catheter: Accurate Measurement of Urinary Output in Critically Ill Patients Urinary Catheter Date of Insertion: 12/02/19 Urinary Catheter Time of Insertion: 17:00 Date Urinary Catheter Removed: 12/03/19 Time Urinary Catheter Discontinued: 12:40 Data NPU : 12/04/19 04:07 12/21/19 07:42 A&P Additional A&P Information (1) Schizophrenia: This is an underweight white male who presented to the unit with inability to care for himself coming from the ICU with ongoing repeated presentations like this awaiting guardianship hearing and hopeful placement. 1. Continue current medication. 2. Continued every 15 minute checks for safety. 3. Encourage individual, group and milieu therapy. 4. Will await the results of the hearing and continue working with social work for placement. Involuntary Hold Information 96 Hour Hold: 96 Hour Involuntary Admission: No Attestations NPU Medical Necessity Statement*: Inpatient hospitalization is medically necessary and the clinically appropriate intervention at this time. We will continue to monitor medications and make adjustments as indicated. Likely length of stay 5-7 days. Coding Level of Care Code Acute Garage Door Hanger for Fernando Oneil
[2019-12-25 15:39] LABS: Glucose Point of Care 78 mg/dL (70-110)
[2019-12-25 17:03] LABS: Glucose Point of Care 118 mg/dL (70-110)
[2019-12-25 20:12] LABS: Glucose Point of Care 238 mg/dL (70-110)
[2019-12-25] MEDS: hyDROXYzine 25 mg Capsule 50 MG PO (20:47)
[2019-12-25 22:00] VITALS: BP 123/83; PULSE 74; RESP 22; TEMP 36.7; O2SAT 96
[2019-12-26 06:00] VITALS: BP 120/81; PULSE 67; RESP 18; TEMP 36.9; O2SAT 97
[2019-12-26 06:23] LABS: Glucose Point of Care 122 mg/dL (70-110)
[2019-12-26] MEDS: famotidine 20 mg Tablet PO ×2 (09:40→17:41)
[2019-12-26] MEDS: thiamine 100 mg Tablet PO (09:40)
[2019-12-26] MEDS: tamsulosin 0.4 mg Capsule PO (09:40)
[2019-12-26] MEDS: apixaban 5 mg Tablet PO ×2 (09:40→17:41)
[2019-12-26] MEDS: levothyroxine 150 mcg Tablet 75 MCG PO (09:40)
[2019-12-26] MEDS: quetiapine 25 mg Tablet 50 MG PO ×2 (09:40→17:41)
[2019-12-26] MEDS: metformin 500 mg Tablet PO ×2 (09:41→17:42)
[2019-12-26] MEDS: sertraline 50 mg Tablet PO (09:42)
[2019-12-26] MEDS: acetaminophen 325 mg Tablet 650 MG PO ×2 (09:46→23:19)
[2019-12-26 11:12] LABS: Glucose Point of Care 401 mg/dL (70-110)
--- NOTE | 2019-12-26 13:36 | PM.NPN ---
Subjective NPU Subjective: Interval history: Giancarlo was seeming to be doing okay today. This underwriter mortgage loan had spoken down and he was somewhat relaxed and reported that he did not feel great. Shortly after that conversation he was heard stumbling in the bathroom. Staff rushed to him to find him fairly out of it with a very low blood sugar. This was a product of him taking an appropriate level of insulin given his sliding scale followed by a lackluster calorie intake. We discussed the importance of him eating the food that is given to him due to his condition. He was given orange juice and recovered fine. Mental Status Exam MSE Comments: This is an underweight older white male with adequate dress grooming and eye contact. No abnormal movements except for mild psychomotor retardation. Cooperative with exam in no acute distress followed by the significant distress of his sugar drop. Speech is more normal rate and volume with the significant southern drawl mood described as not feeling well, affect congruent. Thought process organized. Thought content: Patient denied any suicidal or homicidal ideation, no delusions reported noted, he denied any auditory or visual hallucinations. Attention and concentration appear intact memory is mostly reliable but not formally tested. Alert and oriented ?3. Insight and judgment are improving. Vitals/I&O/Wt Last Vital Signs Temp 98.4 F 12/26/19 06:00 Pulse 67 12/26/19 06:00 Resp 18 12/26/19 06:00 BP 120/81 12/26/19 06:00 Pulse Ox 97 12/26/19 06:00 Weight last 48 hrs Weight 60.328 kg Physical Exam Urinary Catheter Management^: Mustafa: Cath Placed During This Visit: yes, but has since been removed by the nurse Reason for Continuing Indwelling Catheter: Accurate Measurement of Urinary Output in Critically Ill Patients Urinary Catheter Date of Insertion: 12/02/19 Urinary Catheter Time of Insertion: 17:00 Date Urinary Catheter Removed: 12/03/19 Time Urinary Catheter Discontinued: 12:40 Data NPU : 12/04/19 04:07 12/21/19 07:42 A&P Additional A&P Information (1) Schizophrenia: This is an underweight white male who presented to the unit with inability to care for himself coming from the ICU with ongoing repeated presentations like this awaiting guardianship hearing and hopeful placement. 1. Continue current medication. 2. Continued every 15 minute checks for safety. 3. Encourage individual, group and milieu therapy. 4. Will await the results of the hearing and continue working with social work for placement. Involuntary Hold Information 96 Hour Hold: 96 Hour Involuntary Admission: No Attestations NPU Medical Necessity Statement*: Inpatient hospitalization is medically necessary and the clinically appropriate intervention at this time. We will continue to monitor medications and make adjustments as indicated. Likely length of stay 5-7 days. Coding Level of Care Code Acute Truck Rental Manager for Fernando Oneil
[2019-12-26 14:00] VITALS: BP 106/65; PULSE 74; RESP 18; TEMP 36.8
[2019-12-26 15:16] LABS: Glucose Point of Care 33 mg/dL (70-110)
[2019-12-26 15:33] LABS: Glucose Point of Care 45 mg/dL (70-110)
[2019-12-26 16:10] LABS: Glucose Point of Care 109 mg/dL (70-110)
[2019-12-26 17:05] LABS: Glucose Point of Care 186 mg/dL (70-110)
[2019-12-26 20:46] LABS: Glucose Point of Care 270 mg/dL (70-110)
[2019-12-26 22:00] VITALS: BP 143/88; PULSE 68; RESP 18; TEMP 36.7; O2SAT 95
[2019-12-26] MEDS: hyDROXYzine 25 mg Capsule 50 MG PO (23:19)
--- NOTE | 2019-12-26 23:22 | PC.NURSE ---
PRN VISTARIL PT REQUESTING VISTARIL FOR ANXIETY. VISTARIL 50 MG ADMINISTERED PO. WILL MONITOR FOR MEDICATION EFFECTIVENESS.
[2019-12-27 04:19] LABS: Glucose Point of Care 273 mg/dL (70-110)
[2019-12-27 06:00] VITALS: BP 152/92; PULSE 73; RESP 18; TEMP 37.1; O2SAT 96
[2019-12-27 07:01] LABS: Glucose Point of Care 364 mg/dL (70-110)
[2019-12-27] MEDS: metformin 500 mg Tablet PO ×2 (07:32→16:59)
[2019-12-27] MEDS: tamsulosin 0.4 mg Capsule PO (08:53)
[2019-12-27] MEDS: sertraline 50 mg Tablet PO (08:53)
[2019-12-27] MEDS: levothyroxine 150 mcg Tablet 75 MCG PO (08:54)
[2019-12-27] MEDS: quetiapine 25 mg Tablet 50 MG PO ×2 (08:54→16:59)
[2019-12-27 09:45] LABS: Glucose Point of Care 275 mg/dL (70-110)
[2019-12-27] MEDS: thiamine 100 mg Tablet PO (10:22)
[2019-12-27] MEDS: apixaban 5 mg Tablet PO ×2 (10:22→16:59)
[2019-12-27] MEDS: famotidine 20 mg Tablet PO ×2 (10:22→16:59)
[2019-12-27 11:20] LABS: Glucose Point of Care 170 mg/dL (70-110)
--- NOTE | 2019-12-27 11:49 | PM.NPN ---
Subjective NPU Subjective: Interval history: The patient presents today reporting that he is feeling much better. He denied any problems overall. He is interacting well on the unit without difficulty. He did have a moment of elevated blood sugar up to about 590, which responded well to the sliding scale that he was given. He clearly tolerates elevated blood sugars much more than he tolerates when it gets low. Otherwise he continues to express optimism about court this week and possibly placement by the end of the week. Mental Status Exam MSE Comments: This is a slender, older appearing, white male, with adequate dress, grooming, and eye contact. No abnormal movements. Cooperative with exam in no acute distress. Speech was slightly decreased rate and volume with his characteristic southern drawl. Mood described as alright; affect congruent. Thought process, organized. Thought content: patient denied any suicidal or homicidal ideation, there were no delusions reported or noted, patient denied any auditory or visual hallucinations. Attention, concentration, and memory appeared intact but were not formally tested. Alert and oriented times three. Insight and judgment are limited but improving. Vitals/I&O/Wt Last Vital Signs Temp 97.7 F 12/27/19 21:40 Pulse 93 12/27/19 21:40 Resp 12 12/27/19 21:40 BP 134/76 12/27/19 21:40 Pulse Ox 96 12/27/19 21:40 Weight last 48 hrs Weight 60.328 kg Physical Exam Urinary Catheter Management^: Mustafa: Cath Placed During This Visit: yes, but has since been removed by the nurse Reason for Continuing Indwelling Catheter: Accurate Measurement of Urinary Output in Critically Ill Patients Urinary Catheter Date of Insertion: 12/02/19 Urinary Catheter Time of Insertion: 17:00 Date Urinary Catheter Removed: 12/03/19 Time Urinary Catheter Discontinued: 12:40 Data NPU : 12/04/19 04:07 12/21/19 07:42 A&P Additional A&P Information (1) Schizophrenia: This is an underweight white male who presented to the unit with inability to care for himself coming from the ICU with ongoing repeated presentations like this awaiting guardianship hearing and hopeful placement. 1. Continue current medication. 2. Continued every 15 minute checks for safety. 3. Encourage individual, group and milieu therapy. 4. Will await the results of the hearing and continue working with social work for placement. Involuntary Hold Information 96 Hour Hold: 96 Hour Involuntary Admission: No Attestations NPU Medical Necessity Statement*: Inpatient hospitalization is medically necessary and the clinically appropriate intervention at this time. We will continue to monitor medications and make adjustments as indicated. Likely length of stay 4-6 days. Coding Level of Care Code Acute Youth Services Specialist for Fernando Oneil
[2019-12-27 14:00] VITALS: BP 124/77; PULSE 69; RESP 18; TEMP 36.8; O2SAT 98
[2019-12-27 17:03] LABS: Glucose Point of Care > 600 mg/dL (70-110)
[2019-12-27 17:03] LABS: Glucose Point of Care 590 mg/dL (70-110)
[2019-12-27] MEDS: acetaminophen 325 mg Tablet 650 MG PO (17:04)
[2019-12-27 20:23] LABS: Glucose Point of Care 253 mg/dL (70-110)
[2019-12-27] MEDS: hyDROXYzine 25 mg Capsule 50 MG PO (21:00)
[2019-12-27 21:40] VITALS: BP 134/76; PULSE 93; RESP 12; TEMP 36.5; O2SAT 96
[2019-12-28 00:27] LABS: Glucose Point of Care 215 mg/dL (70-110)
[2019-12-28 06:00] VITALS: BP 124/73; PULSE 73; RESP 18; TEMP 36.5; O2SAT 96
[2019-12-28 06:25] LABS: Glucose Point of Care 50 mg/dL (70-110)
[2019-12-28 07:16] LABS: Glucose Point of Care 149 mg/dL (70-110)
[2019-12-28] MEDS: metformin 500 mg Tablet PO ×2 (07:28→17:46)
[2019-12-28] MEDS: levothyroxine 150 mcg Tablet 75 MCG PO (09:54)
[2019-12-28] MEDS: quetiapine 25 mg Tablet 50 MG PO ×2 (09:54→17:47)
[2019-12-28] MEDS: apixaban 5 mg Tablet PO ×2 (09:54→17:47)
[2019-12-28] MEDS: tamsulosin 0.4 mg Capsule PO (09:54)
[2019-12-28 11:20] LABS: Glucose Point of Care 390 mg/dL (70-110)
[2019-12-28] MEDS: sertraline 50 mg Tablet PO (11:40)
[2019-12-28] MEDS: famotidine 20 mg Tablet PO ×2 (11:40→17:47)
[2019-12-28] MEDS: thiamine 100 mg Tablet PO (11:40)
[2019-12-28 14:00] VITALS: BP 113/66; PULSE 88; RESP 18; TEMP 37; O2SAT 96
[2019-12-28 14:26] LABS: Glucose Point of Care 167 mg/dL (70-110)
--- NOTE | 2019-12-28 14:52 | PM.NPN ---
Subjective NPU Subjective: Interval history: Giancarlo presents today reporting that he is doing well. He continues to be pleasant and focused on his hopes that the court hearing this week will yield a good result and he will be able to leave the hospital. At this point, he just endorses a desire to be able to have greater mobility and not be stuck in a little hospital room on a little unit. Otherwise, he was very pleasant, denied any issues or concerns at this time. Mental Status Exam MSE Comments: This is a slender, older, white male, with adequate dress, grooming, and eye contact with rudimentary tattoos on his upper body, as he has no shirt on today. Cooperative with exam in no acute distress. Speech was slightly decreased rate and volume with his characteristic southern drawl. Mood described as pretty good; affect congruent. Thought process, organized. Thought content: patient denied any suicidal or homicidal ideation, there were no delusions reported or noted, patient denied any auditory or visual hallucinations. Attention, concentration, and memory appeared intact but were not formally tested. Alert and oriented times three. Insight and judgment are limited but improving. Vitals/I&O/Wt Last Vital Signs Temp 97.9 F 12/28/19 22:00 Pulse 78 12/28/19 22:00 Resp 18 12/28/19 22:00 BP 123/75 12/28/19 22:00 Pulse Ox 95 12/28/19 22:00 12/28/19 12/28/19 12/29/19 14:59 22:59 06:59 Intake Total 240 / 240 Output Total 400 / 400 Balance -160 / -160 Weight last 48 hrs Weight 60.328 kg Physical Exam Urinary Catheter Management^: Mustafa: Cath Placed During This Visit: yes, but has since been removed by the nurse Reason for Continuing Indwelling Catheter: Accurate Measurement of Urinary Output in Critically Ill Patients Urinary Catheter Date of Insertion: 12/02/19 Urinary Catheter Time of Insertion: 17:00 Date Urinary Catheter Removed: 12/03/19 Time Urinary Catheter Discontinued: 12:40 Data NPU : 12/04/19 04:07 12/21/19 07:42 A&P Additional A&P Information (1) Schizophrenia: This is an underweight white male who presented to the unit with inability to care for himself coming from the ICU with ongoing repeated presentations like this awaiting guardianship hearing and hopeful placement. 1. Continue current medication. 2. Continued every 15 minute checks for safety. 3. Encourage individual, group and milieu therapy. 4. Will await the results of the hearing and continue working with social work for placement. Involuntary Hold Information 96 Hour Hold: 96 Hour Involuntary Admission: No Attestations NPU Medical Necessity Statement*: Inpatient hospitalization is medically necessary and the clinically appropriate intervention at this time. We will continue to monitor medications and make adjustments as indicated. Likely length of stay 4-6 days. Coding Level of Care Code Acute Sports Management Intern for Fernando Oneil
[2019-12-28 16:50] LABS: Glucose Point of Care 120 mg/dL (70-110)
[2019-12-28 20:18] LABS: Glucose Point of Care 338 mg/dL (70-110)
[2019-12-28 22:00] VITALS: BP 123/75; PULSE 78; RESP 18; TEMP 36.6; O2SAT 95
[2019-12-29] MEDS: hyDROXYzine 25 mg Capsule 50 MG PO ×2 (02:28→21:25)
--- NOTE | 2019-12-29 02:29 | PC.NURSE ---
PRN VISTARIL PT REQUESTING VISTARIL FOR ANXIETY. VISTARIL 50 MG ADMINISTERED PO. WILL MONITOR FOR MEDICATION EFFECTIVENESS.
[2019-12-29 06:00] VITALS: BP 150/88; PULSE 72; RESP 18; TEMP 36.6; O2SAT 94
[2019-12-29 06:41] LABS: Glucose Point of Care 151 mg/dL (70-110)
[2019-12-29] MEDS: metformin 500 mg Tablet PO ×2 (07:30→16:45)
[2019-12-29 09:14] LABS: Glucose Point of Care 265 mg/dL (70-110)
[2019-12-29] MEDS: quetiapine 25 mg Tablet 50 MG PO ×2 (09:27→16:44)
[2019-12-29] MEDS: famotidine 20 mg Tablet PO ×2 (09:27→16:44)
[2019-12-29] MEDS: thiamine 100 mg Tablet PO (09:27)
[2019-12-29] MEDS: levothyroxine 150 mcg Tablet 75 MCG PO (09:28)
[2019-12-29 11:27] LABS: Glucose Point of Care 212 mg/dL (70-110)
[2019-12-29] MEDS: apixaban 5 mg Tablet PO ×2 (11:37→16:44)
[2019-12-29] MEDS: sertraline 50 mg Tablet PO (11:37)
[2019-12-29] MEDS: tamsulosin 0.4 mg Capsule PO (11:37)
--- NOTE | 2019-12-29 12:57 | PM.NPN ---
Subjective NPU Subjective: Interval history: Giancarlo presents today with no significant changes. He reports that he is looking forward to court date and getting care soon as possible. We discussed the fact that we will work to get him to a facility as soon as possible which he is very excited about. He reports that he is open to wherever we send him and that he is optimistic that things are going to get better with these changes. Mental Status Exam MSE Comments: This is a slender, older, white male, with adequate dress, grooming, and eye contact. Cooperative with exam in no acute distress. Speech was slightly decreased rate and volume with his characteristic southern drawl. Mood described as pretty good; affect congruent. Thought process, organized. Thought content: patient denied any suicidal or homicidal ideation, there were no delusions reported or noted, patient denied any auditory or visual hallucinations. Attention, concentration, and memory appeared intact but were not formally tested. Alert and oriented times three. Insight and judgment are limited but improving. Vitals/I&O/Wt Last Vital Signs Temp 98.3 F 12/29/19 22:00 Pulse 59 L 12/29/19 22:00 Resp 18 12/29/19 22:00 BP 116/76 12/29/19 22:00 Pulse Ox 97 12/29/19 22:00 Physical Exam Urinary Catheter Management^: Mustafa: Cath Placed During This Visit: yes, but has since been removed by the nurse Reason for Continuing Indwelling Catheter: Accurate Measurement of Urinary Output in Critically Ill Patients Urinary Catheter Date of Insertion: 12/02/19 Urinary Catheter Time of Insertion: 17:00 Date Urinary Catheter Removed: 12/03/19 Time Urinary Catheter Discontinued: 12:40 Data NPU : 12/04/19 04:07 12/21/19 07:42 A&P Additional A&P Information (1) Schizophrenia: This is an underweight white male who presented to the unit with inability to care for himself coming from the ICU with ongoing repeated presentations like this awaiting guardianship hearing and hopeful placement. 1. Continue current medication. 2. Continued every 15 minute checks for safety. 3. Encourage individual, group and milieu therapy. 4. Will await the results of the hearing and continue working with social work for placement. Involuntary Hold Information 96 Hour Hold: 96 Hour Involuntary Admission: No Attestations NPU Medical Necessity Statement*: Inpatient hospitalization is medically necessary and the clinically appropriate intervention at this time. We will continue to monitor medications and make adjustments as indicated. Likely length of stay 4-6 days. Coding Level of Care Code Acute Hairmasters Manager for Fernando Oneil
[2019-12-29 14:00] VITALS: BP 109/74; PULSE 73; RESP 20; TEMP 36.7; O2SAT 98
[2019-12-29 16:33] LABS: Glucose Point of Care 271 mg/dL (70-110)
[2019-12-29] MEDS: acetaminophen 325 mg Tablet 650 MG PO (18:06)
[2019-12-29 20:25] LABS: Glucose Point of Care 66 mg/dL (70-110)
[2019-12-29 22:00] VITALS: BP 116/76; PULSE 59; RESP 18; TEMP 36.8; O2SAT 97
[2019-12-29 22:35] LABS: Glucose Point of Care 151 mg/dL (70-110)
[2019-12-30 06:00] VITALS: BP 153/93; PULSE 61; RESP 16; TEMP 36.6; O2SAT 98
[2019-12-30 07:11] LABS: Glucose Point of Care 357 mg/dL (70-110)
[2019-12-30] MEDS: metformin 500 mg Tablet PO ×2 (07:31→17:24)
[2019-12-30] MEDS: apixaban 5 mg Tablet PO ×2 (08:28→17:24)
[2019-12-30] MEDS: famotidine 20 mg Tablet PO ×2 (08:28→17:24)
[2019-12-30] MEDS: levothyroxine 150 mcg Tablet 75 MCG PO (08:28)
[2019-12-30] MEDS: sertraline 50 mg Tablet PO (08:28)
[2019-12-30] MEDS: tamsulosin 0.4 mg Capsule PO (08:28)
[2019-12-30] MEDS: thiamine 100 mg Tablet PO (08:28)
[2019-12-30] MEDS: quetiapine 25 mg Tablet 50 MG PO ×2 (08:28→17:24)
[2019-12-30 11:12] LABS: Glucose Point of Care 119 mg/dL (70-110)
[2019-12-30 14:00] VITALS: BP 110/77; PULSE 67; RESP 18; TEMP 36.7; O2SAT 97
--- NOTE | 2019-12-30 14:42 | P.PN_ITS ---
Subjective NPU Subjective: Interval history: Giancarlo presents today again with no significant changes. He is a little anxious about his hearing tomorrow. He was asking whether he even needs to do the hearing since he is agreeable to what ever suggestions we make. He reports he is agreeable to having a guardian and payee and being at some facility he just wants get to it. He is very interested in finding out where the place is that he is going to go which we identify that we do not have certainty yet but that as soon as we know we will let him know. Mental Status Exam MSE Comments: This is a slender, older, white male, with adequate dress, grooming, and eye contact. Cooperative with exam in no acute distress. Speech was slightly decreased rate and volume with his characteristic southern drawl. Mood described as fine; affect congruent. Thought process, organized. Thought content: patient denied any suicidal or homicidal ideation, there were no delusions reported or noted, patient denied any auditory or visual hallucinations. Attention, concentration, and memory appeared intact but were not formally tested. Alert and oriented times three. Insight and judgment are limited but improving. Vitals/I&O/Wt Last Vital Signs Temp 97.9 F 12/30/19 21:39 Pulse 69 12/30/19 21:39 Resp 22 H 12/30/19 21:39 BP 123/74 12/30/19 21:39 Pulse Ox 96 12/30/19 21:39 Physical Exam Urinary Catheter Management^: Mustafa: Cath Placed During This Visit: yes, but has since been removed by the nurse Reason for Continuing Indwelling Catheter: Accurate Measurement of Urinary Output in Critically Ill Patients Urinary Catheter Date of Insertion: 12/02/19 Urinary Catheter Time of Insertion: 17:00 Date Urinary Catheter Removed: 12/03/19 Time Urinary Catheter Discontinued: 12:40 Data NPU : 12/04/19 04:07 12/21/19 07:42 A&P Additional A&P Information (1) Schizophrenia: This is an underweight white male who presented to the unit with inability to care for himself awaiting guardianship hearing tomorrow and hopeful for quick placement as soon as possible after. 1. Continue current medication. 2. Continued every 15 minute checks for safety. 3. Encourage individual, group and milieu therapy. 4. Will await the results of the hearing tomorrow and continue working with social work for placement. Involuntary Hold Information 96 Hour Hold: 96 Hour Involuntary Admission: No Attestations NPU Medical Necessity Statement*: Inpatient hospitalization is medically necessary and the clinically appropriate intervention at this time. We will continue to monitor medications and make adjustments as indicated. Likely length of stay 4- 6 days. Coding Level of Care Code Acute Raw Stock Machine Loader for Fernando Oneil
[2019-12-30 16:30] LABS: Glucose Point of Care 176 mg/dL (70-110)
[2019-12-30 19:52] LABS: Glucose Point of Care 292 mg/dL (70-110)
[2019-12-30 21:39] VITALS: BP 123/74; PULSE 69; RESP 22; TEMP 36.6; O2SAT 96
[2019-12-31 06:00] VITALS: BP 132/73; PULSE 68; RESP 20; TEMP 36.6; O2SAT 96
[2019-12-31 06:23] LABS: Glucose Point of Care 167 mg/dL (70-110)
[2019-12-31] MEDS: metformin 500 mg Tablet PO ×2 (07:44→17:05)
[2019-12-31] MEDS: sertraline 50 mg Tablet PO (07:45)
[2019-12-31] MEDS: famotidine 20 mg Tablet PO ×2 (07:46→17:04)
[2019-12-31] MEDS: quetiapine 25 mg Tablet 50 MG PO ×2 (07:46→17:05)
[2019-12-31] MEDS: thiamine 100 mg Tablet PO (07:46)
[2019-12-31] MEDS: tamsulosin 0.4 mg Capsule PO (07:46)
[2019-12-31] MEDS: levothyroxine 150 mcg Tablet 75 MCG PO (07:47)
[2019-12-31] MEDS: apixaban 5 mg Tablet PO ×2 (07:47→17:05)
[2019-12-31 08:58] LABS: Glucose Point of Care 377 mg/dL (70-110)
[2019-12-31] MEDS: acetaminophen 325 mg Tablet 650 MG PO ×2 (09:03→21:01)
--- NOTE | 2019-12-31 09:04 | PC.NURSE ---
off unit for Guardianship hearing
--- NOTE | 2019-12-31 09:47 | PC.NURSE ---
return to unit from court
[2019-12-31 11:38] LABS: Glucose Point of Care 365 mg/dL (70-110)
[2019-12-31 13:23] VITALS: BP 114/68; PULSE 75; RESP 18; TEMP 36.7; O2SAT 96
[2019-12-31 16:17] LABS: Glucose Point of Care 63 mg/dL (70-110)
--- NOTE | 2019-12-31 16:35 | PM.NPN ---
Subjective NPU Subjective: Interval history: Giancarlo presents today reporting that the hearing went fine and that he has a payee and a guardian. His attention turned very quickly to where his placement will be and at that point this typewriter assembly and parts inspector had not recall the name of the place that social work team had identified as a strong possibility. Patient was advised that we will talk tomorrow and give him some sense of what area he is going to but he made it clear that he was ready and excited about going wherever that might be. Mental Status Exam MSE Comments: This is a slender, older, white male, with adequate dress, grooming, and eye contact. Cooperative with exam in no acute distress. Speech was slightly decreased rate and volume with his characteristic southern drawl. Mood described as excited; affect congruent. Thought process, organized. Thought content: patient denied any suicidal or homicidal ideation, there were no delusions reported or noted, patient denied any auditory or visual hallucinations. Attention, concentration, and memory appeared intact but were not formally tested. Alert and oriented times three. Insight and judgment are limited but improving. Vitals/I&O/Wt Last Vital Signs Temp 98.4 F 12/31/19 21:19 Pulse 69 12/31/19 21:19 Resp 21 H 12/31/19 21:19 BP 115/79 12/31/19 21:19 Pulse Ox 96 12/31/19 21:19 Physical Exam Urinary Catheter Management^: Mustafa: Cath Placed During This Visit: yes, but has since been removed by the nurse Reason for Continuing Indwelling Catheter: Accurate Measurement of Urinary Output in Critically Ill Patients Urinary Catheter Date of Insertion: 12/02/19 Urinary Catheter Time of Insertion: 17:00 Date Urinary Catheter Removed: 12/03/19 Time Urinary Catheter Discontinued: 12:40 Data NPU : 12/04/19 04:07 12/21/19 07:42 A&P Additional A&P Information (1) Schizophrenia: This is an underweight white male who presented to the unit with inability to care for himself placed under guardianship today, hopeful for quick placement as soon as possible. 1. Continue current medication. 2. Continued every 15 minute checks for safety. 3. Encourage individual, group and milieu therapy. 4. Will continue working with social work for placement. Involuntary Hold Information 96 Hour Hold: 96 Hour Involuntary Admission: No Attestations NPU Medical Necessity Statement*: Inpatient hospitalization is medically necessary and the clinically appropriate intervention at this time. We will continue to monitor medications and make adjustments as indicated. Likely length of stay 3-5 days. Coding Level of Care Code Acute Nonprofit Director for Fernando Oneil
[2019-12-31 16:42] LABS: Glucose Point of Care 118 mg/dL (70-110)
[2019-12-31 19:59] LABS: Glucose Point of Care 349 mg/dL (70-110)
[2019-12-31] MEDS: hyDROXYzine 25 mg Capsule 50 MG PO (21:01)
[2019-12-31 21:19] VITALS: BP 115/79; PULSE 69; RESP 21; TEMP 36.9; O2SAT 96
[2020-01-01 01:41] LABS: Glucose Point of Care 267 mg/dL (70-110)
[2020-01-01 06:00] VITALS: BP 137/79; PULSE 65; RESP 18; TEMP 36.9; O2SAT 98
[2020-01-01 06:17] LABS: Glucose Point of Care 314 mg/dL (70-110)
[2020-01-01] MEDS: tamsulosin 0.4 mg Capsule PO (08:15)
[2020-01-01] MEDS: quetiapine 25 mg Tablet 50 MG PO ×2 (08:15→16:56)
[2020-01-01] MEDS: apixaban 5 mg Tablet PO ×2 (08:15→16:56)
[2020-01-01] MEDS: thiamine 100 mg Tablet PO (08:15)
[2020-01-01] MEDS: levothyroxine 150 mcg Tablet 75 MCG PO (08:15)
[2020-01-01] MEDS: sertraline 50 mg Tablet PO (08:15)
[2020-01-01] MEDS: famotidine 20 mg Tablet PO ×2 (08:15→16:56)
[2020-01-01] MEDS: metformin 500 mg Tablet PO ×2 (08:15→16:56)
[2020-01-01] MEDS: acetaminophen 325 mg Tablet 650 MG PO ×3 (08:17→20:34)
--- NOTE | 2020-01-01 09:58 | PC.SOCIAL ---
Important Medicare Message Reviewed updated Important Medicare Message. Provided updated copy to patient and placed in chart.
[2020-01-01 11:51] LABS: Glucose Point of Care 218 mg/dL (70-110)
--- NOTE | 2020-01-01 13:21 | PM.NPN ---
Subjective NPU Subjective: Interval history: Giancarlo presents today reporting that he is looking forward to likely discharge at the beginning of the week he discussed the fact that the location is [place] but identifies it is not so bad. He reports that he is feeling ready to move on to the next stage in his life and find a place that can be home and other people will help him look out for himself. He has been doing well managing his diabetes from the standpoint of identifying with staff when he feels high or low allowing adjustments to be made. He reports he is feeling a lot better. Mental Status Exam MSE Comments: This is a slender, older, white male, with adequate dress, grooming, and eye contact. Cooperative with exam in no acute distress. Speech was slightly decreased rate and volume with his characteristic southern drawl. Mood described as alright; affect congruent. Thought process, organized. Thought content: patient denied any suicidal or homicidal ideation, there were no delusions reported or noted, patient denied any auditory or visual hallucinations. Attention, concentration, and memory appeared intact but were not formally tested. Alert and oriented times three. Insight and judgment are limited but improving. Vitals/I&O/Wt Last Vital Signs Temp 98.4 F 01/01/20 06:00 Pulse 65 01/01/20 06:00 Resp 18 01/01/20 06:00 BP 137/79 01/01/20 06:00 Pulse Ox 98 01/01/20 06:00 Physical Exam Urinary Catheter Management^: Mustafa: Cath Placed During This Visit: yes, but has since been removed by the nurse Reason for Continuing Indwelling Catheter: Accurate Measurement of Urinary Output in Critically Ill Patients Urinary Catheter Date of Insertion: 12/02/19 Urinary Catheter Time of Insertion: 17:00 Date Urinary Catheter Removed: 12/03/19 Time Urinary Catheter Discontinued: 12:40 Data NPU : 12/04/19 04:07 12/21/19 07:42 A&P Additional A&P Information (1) Schizophrenia: This is an underweight white male who presented to the unit with inability to care for himself just receiving a guardianship declaration, hopeful for placement as soon as possible. 1. Continue current medication. 2. Continued every 15 minute checks for safety. 3. Encourage individual, group and milieu therapy. 4. Will continue working with social work for placement hopefully saturday. Involuntary Hold Information 96 Hour Hold: 96 Hour Involuntary Admission: No Attestations NPU Medical Necessity Statement*: Inpatient hospitalization is medically necessary and the clinically appropriate intervention at this time. We will continue to monitor medications and make adjustments as indicated. Likely length of stay 3-5 days. Coding Level of Care Code Acute Industrial Specialist for Fernando Oneil
[2020-01-01 14:00] VITALS: BP 121/79; PULSE 71; RESP 18; TEMP 36.8; O2SAT 96
[2020-01-01 16:13] LABS: Glucose Point of Care 146 mg/dL (70-110)
[2020-01-01 19:49] LABS: Glucose Point of Care 213 mg/dL (70-110)
[2020-01-01] MEDS: hyDROXYzine 25 mg Capsule 50 MG PO (20:33)
[2020-01-01 22:00] VITALS: BP 109/71; PULSE 63; RESP 18; TEMP 36.6; O2SAT 98
[2020-01-02] MEDS: acetaminophen 325 mg Tablet 650 MG PO ×3 (03:28→21:27)
--- NOTE | 2020-01-02 03:29 | PC.NURSE ---
pt states since he has been her, his left inner forearm muscle seems to be tighter and tighter, and his4th and 5th digits feel numb.
[2020-01-02 03:44] LABS: Glucose Point of Care 113 mg/dL (70-110)
[2020-01-02 06:00] VITALS: BP 124/81; PULSE 59; RESP 20; TEMP 36.8; O2SAT 96
[2020-01-02 06:23] LABS: Glucose Point of Care 218 mg/dL (70-110)
[2020-01-02] MEDS: tamsulosin 0.4 mg Capsule PO (08:42)
[2020-01-02] MEDS: metformin 500 mg Tablet PO ×2 (08:42→17:44)
[2020-01-02] MEDS: sertraline 50 mg Tablet PO (08:42)
[2020-01-02] MEDS: quetiapine 25 mg Tablet 50 MG PO ×2 (08:42→17:43)
[2020-01-02] MEDS: apixaban 5 mg Tablet PO ×2 (08:42→17:43)
[2020-01-02] MEDS: thiamine 100 mg Tablet PO (08:42)
[2020-01-02] MEDS: levothyroxine 150 mcg Tablet 75 MCG PO (08:42)
[2020-01-02] MEDS: famotidine 20 mg Tablet PO ×2 (08:43→17:44)
[2020-01-02 10:55] LABS: Glucose Point of Care 303 mg/dL (70-110)
--- NOTE | 2020-01-02 11:21 | P.PN_ITS ---
Subjective NPU Subjective: Interval history: Giancarlo presented today reporting that he is looking forward to discharge on Saturday. He accepts the fact that he is going to have to wait a few days but is glad to be leaning. He denies any significant problems and looks forward to the change. Mental Status Exam MSE Comments: This is a slender, older, white male, with adequate dress, grooming, and eye contact. Cooperative with exam in no acute distress. Speech was slightly decreased rate and volume with his characteristic southern drawl. Mood described as alright; affect congruent. Thought process, organized. Thought content: patient denied any suicidal or homicidal ideation, there were no delusions reported or noted, patient denied any auditory or visual hallucinations. Attention, concentration, and memory appeared intact but were not formally tested. Alert and oriented times three. Insight and judgment are limited but improving. Vitals/I&O/Wt Last Vital Signs Temp 98.0 F 01/02/20 22:00 Pulse 68 01/02/20 22:00 Resp 17 01/02/20 22:00 BP 116/76 01/02/20 22:00 Pulse Ox 96 01/02/20 22:00 Physical Exam Urinary Catheter Management^: Mustafa: Cath Placed During This Visit: yes, but has since been removed by the nurse Reason for Continuing Indwelling Catheter: Accurate Measurement of Urinary Output in Critically Ill Patients Urinary Catheter Date of Insertion: 12/02/19 Urinary Catheter Time of Insertion: 17:00 Date Urinary Catheter Removed: 12/03/19 Time Urinary Catheter Discontinued: 12:40 Data NPU : 12/04/19 04:07 12/21/19 07:42 A&P Additional A&P Information (1) Schizophrenia: This is an underweight white male who presented to the unit with inability to care for himself just receiving a guardianship declaration, hopeful for placement as soon as possible. 1. Continue current medication. 2. Continued every 15 minute checks for safety. 3. Encourage individual, group and milieu therapy. 4. Will continue working with social work for placement hopefully saturday. Involuntary Hold Information 96 Hour Hold: 96 Hour Involuntary Admission: No Attestations NPU Medical Necessity Statement*: Inpatient hospitalization is medically necessary and the clinically appropriate intervention at this time. We will continue to monitor medications and make adjustments as indicated. Likely length of stay 2- 4 days. 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
[2020-01-02 14:00] VITALS: BP 107/70; PULSE 86; RESP 18; TEMP 36.5
[2020-01-02 14:33] LABS: Glucose Point of Care 33 mg/dL (70-110)
[2020-01-02 16:47] LABS: Glucose Point of Care 93 mg/dL (70-110)
[2020-01-02] MEDS: hyDROXYzine 25 mg Capsule 50 MG PO (21:27)
[2020-01-02 22:00] VITALS: BP 116/76; PULSE 68; RESP 17; TEMP 36.7; O2SAT 96
[2020-01-02 22:08] LABS: Glucose Point of Care 255 mg/dL (70-110)
[2020-01-03 01:13] LABS: Glucose Point of Care 261 mg/dL (70-110)
[2020-01-03 06:00] VITALS: BP 128/87; PULSE 65; RESP 16; TEMP 36.8; O2SAT 97
[2020-01-03 06:30] LABS: Glucose Point of Care 300 mg/dL (70-110)
[2020-01-03] MEDS: sertraline 50 mg Tablet PO (08:36)
[2020-01-03] MEDS: famotidine 20 mg Tablet PO ×2 (08:36→17:32)
[2020-01-03] MEDS: tamsulosin 0.4 mg Capsule PO (08:36)
[2020-01-03] MEDS: quetiapine 25 mg Tablet 50 MG PO ×2 (08:36→17:32)
[2020-01-03] MEDS: metformin 500 mg Tablet PO ×2 (08:36→17:32)
[2020-01-03] MEDS: apixaban 5 mg Tablet PO ×2 (08:37→17:32)
[2020-01-03] MEDS: thiamine 100 mg Tablet PO (08:37)
[2020-01-03] MEDS: acetaminophen 325 mg Tablet 650 MG PO (08:37)
[2020-01-03] MEDS: levothyroxine 150 mcg Tablet 75 MCG PO (08:37)
[2020-01-03 11:31] LABS: Glucose Point of Care 356 mg/dL (70-110)
--- NOTE | 2020-01-03 11:51 | P.PN_ITS ---
Subjective NPU Subjective: Interval history: Giancarlo presented today reporting that he is looking forward to discharge on Saturday. He accepts the fact that he is going to have to wait a few days but is glad to be leaning. He denies any significant problems and looks forward to the change. Mental Status Exam MSE Comments: This is a slender, older, white male, with adequate dress, grooming, and eye contact. Cooperative with exam in no acute distress. Speech was slightly decreased rate and volume with his characteristic southern drawl. Mood described as excited and nervous; affect subdued. Thought process, organized. Thought content: patient denied any suicidal or homicidal ideation, there were no delusions reported or noted, patient denied any auditory or visual hallucinations. Attention, concentration, and memory appeared intact but were not formally tested. Alert and oriented times three. Insight and judgment are limited but improving. Vitals/I&O/Wt Last Vital Signs Temp 98.3 F 01/03/20 06:00 Pulse 65 01/03/20 06:00 Resp 16 01/03/20 06:00 BP 128/87 01/03/20 06:00 Pulse Ox 97 01/03/20 06:00 Weight last 48 hrs Weight 58.967 kg Physical Exam Urinary Catheter Management^: Mustafa: Cath Placed During This Visit: yes, but has since been removed by the nurse Reason for Continuing Indwelling Catheter: Accurate Measurement of Urinary Output in Critically Ill Patients Urinary Catheter Date of Insertion: 12/02/19 Urinary Catheter Time of Insertion: 17:00 Date Urinary Catheter Removed: 12/03/19 Time Urinary Catheter Discontinued: 12:40 Data NPU : 12/04/19 04:07 12/21/19 07:42 A&P Additional A&P Information (1) Schizophrenia: This is an underweight white male who presented to the unit with inability to care for himself just receiving a guardianship declaration, hopeful for placement as soon as possible. 1. Continue current medication. 2. Continued every 15 minute checks for safety. 3. Encourage individual, group and milieu therapy. 4. Will continue working with social work for placement hopefully saturday. Involuntary Hold Information 96 Hour Hold: 96 Hour Involuntary Admission: No Attestations NPU Medical Necessity Statement*: Inpatient hospitalization is medically necessary and the clinically appropriate intervention at this time. We will continue to monitor medications and make adjustments as indicated. Likely length of stay 1- 3 days. Coding Level of Care Code Acute Apparatus Engineering Technologist for Fernando Oneil
[2020-01-03 14:00] VITALS: BP 134/92; PULSE 96; RESP 19; TEMP 36.4
[2020-01-03 15:14] LABS: Glucose Point of Care 120 mg/dL (70-110)
[2020-01-03 17:24] LABS: Glucose Point of Care 211 mg/dL (70-110)
[2020-01-03 19:39] LABS: Glucose Point of Care 233 mg/dL (70-110)
[2020-01-03] MEDS: hyDROXYzine 25 mg Capsule 50 MG PO (20:41)
[2020-01-03 21:29] VITALS: BP 112/55; PULSE 78; RESP 20; TEMP 36.7; O2SAT 95
[2020-01-03 23:53] LABS: Glucose Point of Care 359 mg/dL (70-110)
[2020-01-04 06:00] VITALS: BP 143/85; PULSE 63; RESP 20; TEMP 36.8; O2SAT 97
[2020-01-04 06:36] LABS: Glucose Point of Care 345 mg/dL (70-110)
[2020-01-04] MEDS: quetiapine 25 mg Tablet 50 MG PO (08:08)
[2020-01-04] MEDS: metformin 500 mg Tablet PO (08:09)
[2020-01-04] MEDS: thiamine 100 mg Tablet PO (08:09)
[2020-01-04] MEDS: apixaban 5 mg Tablet PO (08:09)
[2020-01-04] MEDS: famotidine 20 mg Tablet PO (08:09)
[2020-01-04] MEDS: levothyroxine 150 mcg Tablet 75 MCG PO (08:09)
[2020-01-04] MEDS: tamsulosin 0.4 mg Capsule PO (08:09)
[2020-01-04] MEDS: sertraline 50 mg Tablet PO (08:10)
--- NOTE | 2020-01-04 11:03 | PC.SOCIAL ---
Important Medicare Message Reviewed previously signed page 2 of Important Medicare Message. Updated copy in chart and to patient.
[2020-01-04 11:34] LABS: Glucose Point of Care 116 mg/dL (70-110)
[2020-01-04 11:47] VITALS: BP 143/85; PULSE 63; RESP 20; TEMP 36.8; O2SAT 97
[2020-01-04 11:52] VITALS: BP 143/85; PULSE 63; RESP 20; TEMP 36.8; O2SAT 97
--- NOTE | 2020-01-04 13:08 | PM.PN ---
Subjective Subjective: Interval history: Blood sugars better since yesterday evening. I had made changes to insulin sliding scale yesterday. Patient not to be getting any more bedtime insulins. Patient will be getting Levemir twice a day. Medications: Reviewed: Yes Vitals/I&O/Wt Last Vital Signs Temp 98.3 F 01/04/20 11:52 Pulse 63 01/04/20 11:52 Resp 20 H 01/04/20 11:52 BP 143/85 01/04/20 11:52 Pulse Ox 97 01/04/20 11:52 Weight last 48 hrs Weight 58.967 kg Physical Exam Urinary Catheter Management^: Mustafa: Cath Placed During This Visit: yes, but has since been removed by the nurse Reason for Continuing Indwelling Catheter: Accurate Measurement of Urinary Output in Critically Ill Patients Urinary Catheter Date of Insertion: 12/02/19 Urinary Catheter Time of Insertion: 17:00 Date Urinary Catheter Removed: 12/03/19 Time Urinary Catheter Discontinued: 12:40 Data : 12/04/19 04:07 12/21/19 07:42 A&P Assessment and plan (1) Diabetes mellitus type 2, insulin dependent: Status: Acute Additional A&P Information As the patient is going back to assisted living he will be able to get his home medications which he is supposed to be getting as an outpatient. Continue Jardiance 10 mg daily, increase metformin 1000 mg extended release twice daily, continue Trulicity 0.75 subcu once a week, continue Humalog with meals at insulin sliding scale at low-dose protocol. Patient should see his primary care provider in 2 weeks for adjustment of diabetes medication. Please try to maintain sugar chart which patient can take with him when going to primary care provider. Blood sugar to be checked every day prior to the meals for 2 weeks. Attestations Medical Necessity Statement*: As per primary team. Time Spent in Patient Care: 16 - 35 minutes Coding Level of Care Code Acute Technician Telecommunication Systems for Fernando Oneil Diagnoses Diabetes mellitus type 2, insulin dependent E11.9; Z79.4
--- NOTE | 2020-01-04 13:29 | P.DS_ITS ---
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 He presents today awake, alert, conversant and had been in conversation with Dr. Giordano to consider coming to the neuro-psych unit so that we can figure out where things are with his medication, make sure that he is of sound mind to be able to confront the challenges that have been difficult for him. Per their report, he had gone to a skilled nursing, but only stayed for a week before he left without notice and was found in a building where he used to live which is abandoned and he was there licking cupcakes. His blood sugars were uncontrolled and there is some belief that the difficulty that they had with managing his blood sugars had to do with the Seroquel he was taking possibly, because he was needing very high units, maybe like 70 to maintain himself while he was on the medication, and recently doses as low as 15 were sending his blood sugars too low, so there is significant concerns about how he is going to manage his blood sugars when he leaves and where he will go to, and whether or not he will stay. Additionally, there are concerns about him taking or not taking his psychiatric medications, which him not doing that has been made to known to cause significant issues for him. He was in the NPU twice in a couple of months in 2019. He really could not answer the specific questions I had and did not have a plan for how he was going to make sure that what just happened, did not occur again or worse. We discussed the risks, benefits and alternatives of him being admitted to the neuro-psych unit and us diligently looking at how to manage his mental health issues, as well as the logistical issues of where he goes next and he understood and agreed to proceed with the plan as identified. We discussed his psychosocial circumstances which outside of the fact that he had been in the skilled nursing and left that are without substantive change he reports. Information from that past history was included to assist with his limited interest in providing some of his psychosocial background information. Per his last [facility] eval: History of Present Illness Date of Service: Mar 20, 2019 Chief Complaint: I know I was wrong with my sister. HPI: Giancarlo presented to the [facility] ED with the following presentation on 02/11/2019: History of Present Illness Date of Service: Feb 11, 2019 Chief Complaint: I need to start taking my meds every day HPI: Patient presented today reporting that his sister had wanted him to come into the hospital. He reports that he has been on medication for some time and that he needs to get them going again. He Alluding to the fact that the reason why he had stopped taking his medication was that he cannot read. And that now he has been practicing reading and so this will not happen again. He reported that he knows he needs to take his medication daily but that is reading deficiency made and so that he could not read the bottle and know what he was supposed to do so instead he did not take the medication at all. He was unable to ar ticulate what medications he is on or has been on. We discussed the fact that his reluctance to take the medication or difficulty in taking the medication secondary to C indicates that he might benefit from a long-acting injectable. He was unclear whether the current symptoms look like he has historical presentation when he is off of medication or whether there were concerns for delirium or dementia. He denied any significant symptoms at this time but again endorses an openness to get back on medication so that he can be discharged hopefully to his previous living arrangement. Per ED eval: HISTORY OF PRESENT ILLNESS Chief Complaint: BEHAVIOR CHANGE. This started today. (58 yo male presents with 96 hr hold. Pt was sent here from [facility]. Family states that pt has come off of his psychiatric medications. Family states that pt has been starving himself. Pt has been causing issues at [facility]. Pt tried to poke out his room mates eyes.). The patient has exhibited a behavior change. Has exhibited unusual behavior but been eating or sleeping or not been depressed. No anxiety, anger, paranoia, delusions or suicidal thoughts. No self-injury inflicted or hallucinations. The symptoms are described as moderate. No injury is present. Similar symptoms previously. None. Recent medical care: The patient was seen recently by a health care provider. Interim history: Giancarlo presented to the hospital this time after a significant outbursts according to the staff that his living facility. He reports that there was a troublesome interaction that was related to the fact that he tried to lie and get his check directly instead of paying the facility first. He reports that he knows that it was wrong but at the time he wanted to fix his vehicle so that he had transportation. He reports that he was upset at the time but that he's had some time to reflect a knows that the choice was wrong. He reports he feels his current medications are working and that he just had a lapse in self-control. There are some concerns that have been reported for Giancarlo having many of his dysfunctional mom as being related to issues surrounding his sister. But he denies that that is the issue from a larger scale. He reports that he will be cooperative and open to trying anything that we decide. He reports a desire to return to the facility. HISTORY OF PRESENT ILLNESS Chief Complaint: ANXIOUS and DEPRESSED and AGITATED, ANGRY, AGGRESSIVE and VIOLENT BEHAVIOR. This started yesterday. (58 yo male presents with being agitated. pt states this started yesterday. per staff and family the pt has been confused, calling a lot , having violent outbursts and stealing stuff that does not belong to him. pt denies SI or HI and denies everything they are saying. pt states he wants to stay here and not be sent away and he will not act out or talk about god any more if they leave him here. pt has been recently seen in the ED for blood sugar problems. pt denies any other symptoms. per pt sister she wants him sent away to a lock down unit and medications changed. per sister the pt is having hallucinations like before.). The patient has experienced situational problems but not exhibited a behavior change and was not found wandering and is compliant with medication. No recent drug use or alcohol consumption. Has been depressed and angry but eating or sleeping. He has had anxiety. No unusual behavior, paranoia, delusions or self-injury inflicted. The symptoms are described as moderate. No injury is present. Similar symptoms previously. Recent medical care: The patient was seen recently by a health care provider. Meds Current Medications: Current Medications Generic Name Dose Route Start Last Admin Trade Name Freq PRN Reason Stop Dose Admin Acetaminophen 650 mg 12/02/19 18:08 12/05/19 13:44 Tylenol PO 650 mg Q6H PRN Administration MILD PAIN Apixaban 5 mg 12/04/19 18:00 12/05/19 08:12 Eliquis PO 5 mg BID MELIA Administration Famotidine 20 mg 12/03/19 09:00 12/05/19 08:11 Pepcid Tab PO 20 mg BID MELIA Administration Insulin Aspart 0 unit 12/04/19 18:00 12/05/19 11:33 Novolog SUBCUT 4 unit TIDWM MELIA Administration Protocol Levothyroxine Sodi um 75 mcg 12/03/19 11:45 12/05/19 08:11 Synthroid PO 75 mcg DAILY MELIA Administration Metronidazole 500 mg 12/05/19 09:00 12/05/19 15:58 Flagyl Tab PO 500 mg TID MELIA Administration Quetiapine Fumarat e 50 mg 12/04/19 18:00 12/05/19 08:12 Seroquel PO 50 mg BID MELIA Administration Sertraline HCl 50 mg 12/03/19 09:00 12/05/19 08:12 Zoloft PO 50 mg DAILY MELIA Administration Tamsulosin HCl 0.4 mg 12/03/19 09:00 12/05/19 08:11 Flomax PO 0.4 mg DAILY MELIA Administration Thiamine Mononitra te 100 mg 12/03/19 09:00 12/05/19 08:12 Vitamin B-1 PO 100 mg DAILY MELIA Administration PFSH NPU PFSH: Medical History (Updated 12/03/19 @ 07:53 by Keegan Quiles DO) Acute encephalopathy Diabetes mellitus type 2, insulin dependent Hypothyroidism Polysubstance abuse Pulmonary embolism Schizophrenia Family History Mother Dementia Father Dementia Social History Smoking and tobacco status: never smoked Hospital Course Hospital Course Giancarlo presented to the emergency room as a known diabetic with extremely poor compliance. He had absconded from a local skilled nursing and was found at a home he identifies as a family residents but is truly an abandoned building he may have previously lived in at some point in his life in [place]. He was found with a pile of candy and many partially eaten cupcakes. His blood sugar was out of control and he had altered mental status along with Kussmaul breathing so he was admitted to the ICU for definitive care. Psychiatry was consulted and he was ultimately admitted to the neuropsychiatric unit for definitive treatment for his mental health issues and schizophrenia and his inability to care for himself. On the unit his low dose antipsychotic and an SSRI were continued and he was put on a 21-day hold and guardianship was pursued. Ultimately guardianship was granted and very quickly a placement was found. During hospitalization he had routine laboratory studies which were within normal limits except for a few outliers including his blood sugars on frequent occasions. He also had a general medical evaluation which was also within normal limits in general and revealed no new acute processes outside of his d iacheikhtes which was first followed in the ICU and then by daily visits from a hospitalist while on the neuro psych unit. Discharge Summary At the time of discharge he denied all lethality and was absent any psychosis. His mood and anxiety were well managed and he had a endorsed a plan to follow-up with outpatient recommendations and avoid all drugs or addiction. He was evaluated and deemed to be absent any credible lethality and a safe housing option was identified that was acceptable to his guardian so he was discharged. Involuntary Hold Information 96 Hour Hold: 96 Hour Involuntary Admission: No Mental Status Exam MSE Comments: This is a slender, older, white male, with adequate dress, grooming, and eye contact. Cooperative with exam in no acute distress. Speech was slightly decreased rate and volume with his characteristic southern drawl. Mood described as mostly excited; affect congruent. Thought process, organized. Thought content: patient denied any suicidal or homicidal ideation, there were no delusions reported or noted, patient denied any auditory or visual hallucinations. Attention, concentration, and memory appeared intact but were not formally tested. Alert and oriented times three. Insight and judgment are limited but improving. Physical Exam Urinary Catheter Management^: Mustafa: Cath Placed During This Visit: yes, but has since been removed by the nurse Reason for Continuing Indwelling Catheter: Accurate Measurement of Urinary Output in Critically Ill Patients Urinary Catheter Date of Insertion: 12/02/19 Urinary Catheter Time of Insertion: 17:00 Date Urinary Catheter Removed: 12/03/19 Time Urinary Catheter Discontinued: 12:40 Discharge Data Data Completed and Pending: Completed Studies During Hospitalization Category Date Time Status CT head wo con* [id number] Urgent Cat Scan 12/02/19 18:08 Completed XR chest 1V anne marie ble [id number] Routine Exams 12/04/19 09:01 Completed XR chest 1V anne marie ble [id number] Stat Exams 12/02/19 16:57 Completed Labs from last 24 hours 01/04/20 01/04/20 01/03/20 11:32 06:14 23:49 POC Glucose 116 345 359 01/03/20 01/03/20 01/03/20 19:28 17:21 15:10 POC Glucose 233 211 120 Vitals: Last Vital Signs Temp 98.3 F 01/04/20 11:52 Pulse 63 01/04/20 11:52 Resp 20 H 01/04/20 11:52 BP 143/85 01/04/20 11:52 Pulse Ox 97 01/04/20 11:52 Discharge Plan Discharge Patient Disposition: Home, Self-Care Condition: Stable Prescriptions: New quetiapine 25 mg Tablet 50 mg PO BID 30 Days Qty: 120 RF: 1 acetaminophen 325 mg Tablet 650 mg PO Q6H PRN (Reason: Mild Pain) 30 Days Qty: 240 RF: 1 famotidine 20 mg Tablet 20 mg PO BID 30 Days Qty: 60 RF: 1 tamsulosin 0.4 mg Capsule 0.4 mg PO DAILY 30 Days Qty: 30 RF: 0 levothyroxine 150 mcg Tablet 75 mcg PO DAILY 30 Days Qty: 15 RF: 1 sertraline 50 mg Tablet 50 mg PO DAILY 30 Days Qty: 30 RF: 1 hydroxyzine pamoate 25 mg Capsule 50 mg PO Q6H PRN (Reason: Anxiety) 30 Days Qty: 120 RF: 1 Eliquis 5 mg Tablet 5 mg PO BID 30 Days Qty: 60 RF: 1 metformin 1,000 mg tablet extended release 24hr 1,000 mg PO BID Qty: 60 RF: 0 metformin 500 mg Tablet 1,000 mg PO BIDWM Qty: 60 RF: 0 Novolog U-100 Insulin aspart 100 unit/mL Solution 0 unit SUBCUT TIDWM Qty: 100 RF: 0 Continued Jardiance 10 mg Tablet 10 mg PO DAILY Qty: 30 RF: 0 Trulicity 0.75 mg/0.5 mL Pen Injector 0.75 mg SUBCUT Q7D Qty: 100 RF: 0 Discontinued multivitamin Tablet 1 tab PO DAILY RF: 0 quetiapine [Seroquel] 300 mg Tablet 300 mg PO DAILY RF: 0 quetiapine 200 mg Tablet 200 mg PO BID RF: 0 acetaminophen 500 mg Tablet 1,000 mg PO Q6H PRN (Reason: Pain) RF: 0 levothyroxine 75 mcg Tablet 75 mcg PO DAILY RF: 0 diphenhydramine HCl [Allergy] 25 mg Tablet 25 mg PO Q6H PRN (Reason: Allergy Symptoms) RF: 0 furosemide [Lasix] 20 mg Tablet 20 mg PO DAILY RF: 0 mirtazapine 15 mg Tablet 15 mg PO DAILY RF: 0 Novolin N Flexpen 100 unit/mL (3 mL) Insulin Pen 10 unit SUBCUT DAILY RF: 0 potassium chloride 20 mEq Tablet Extended Release 20 meq PO BID RF: 0 divalproex [Depakote ER] 500 mg Tablet Extended Release 24 Hr 500 mg PO BID RF: 0 sertraline 50 mg Tablet 50 mg PO DAILY RF: 0 Levemir U-100 Insulin 100 unit/mL Solution 100 unit SUBCUT DAILY RF: 0 Discharge Orders: Discharge Order (Routine); Ordered 01/04/20 Ordered By: Jamaal Borjas Discharge Diet: Diabetic Discharge Activity: Resume usual activity Activity Restrictions/Additional Instructions: Discharged to [facility] [place] (P) [phone] Discharge Date/Time: 01/04/20 14:54 Discharge Attestations NPU Time Spent in Discharge Care*: less than 30 min Specific Discharge Activities: Specific discharge activities: educating patient, discussing with case management manager/social workers/dc planners, documenting/other paperwork and evaluating patient/reviewing data Status at Discharge: Cognitive status at discharge: severely impaired cognition , Behavioral status at discharge: other , Coding Level of Care Code Acute [employer] Worker 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
== END 2020-01-04 14:54 | disposition home or self-care (01) | DRG 637 ==
LOC: ER 16:51 → ICU 17:35 → NP 12-05 14:18
PROVIDERS: Family Medicine; Student in an Organized Health Care Education/Training Program; Admitting Provider Internal Medicine; Visit Provider Psychiatry & Neurology Psychiatry
DX: E11.10 Type 2 diabetes mellitus with ketoacidosis without coma (principal); I26.99 Other pulmonary embolism without acute cor pulmonale; J69.0 Pneumonitis due to inhalation of food and vomit; G93.40 Encephalopathy, unspecified; N17.9 Acute kidney failure, unspecified; Z79.4 Long term (current) use of insulin; E03.9 Hypothyroidism, unspecified; F20.9 Schizophrenia, unspecified; E87.5 Hyperkalemia; Z79.01 Long term (current) use of anticoagulants; R31.9 Hematuria, unspecified; F19.10 Other psychoactive substance abuse, uncomplicated
CPT/HCPCS: 12345; 36415; 36416; 36600; 70450; 71045; 80048; 80051; 80053; 80306; 80307; 81003; 82009; 82607; 82810; 82962; 83690; 83735; 83986; 84100; 84443; 85025; 87040; 87493; 93005; 96372; 96374; 96375; 99284; J1610; J1650; J1815; J2060; J2405; J2543; J3490; J7030; J7050; J7799; Q0162

== ENCOUNTER → 2023-09-18 09:22 | Outpatient (BNVA) | payer MEDICARE, MEDICAID, SELFPAY | PROVIDERS: Visit Provider Podiatrist Foot & Ankle Surgery | DX: L60.3 Nail dystrophy (principal); Z79.4 Long term (current) use of insulin; G62.9 Polyneuropathy, unspecified; E11.42 Type 2 diabetes mellitus with diabetic polyneuropathy; Z79.84 Long term (current) use of oral hypoglycemic drugs | CPT/HCPCS: 11721; 99203 ==

== ENCOUNTER → 2023-11-21 08:30 | Outpatient (BNVA) | payer MEDICARE, MEDICAID, SELFPAY | PROVIDERS: PCP Family Medicine; Visit Provider Podiatrist Foot & Ankle Surgery | DX: L60.3 Nail dystrophy (principal); Z79.4 Long term (current) use of insulin; G62.9 Polyneuropathy, unspecified; E11.42 Type 2 diabetes mellitus with diabetic polyneuropathy; Z79.84 Long term (current) use of oral hypoglycemic drugs | CPT/HCPCS: 11721 ==

== ENCOUNTER → 2024-03-13 07:54 | Outpatient (BNVA) | payer MEDICARE, MEDICAID, SELFPAY | PROVIDERS: PCP Family Medicine; Visit Provider Podiatrist Foot & Ankle Surgery | DX: L60.3 Nail dystrophy (principal); Z79.4 Long term (current) use of insulin; G62.9 Polyneuropathy, unspecified; E11.42 Type 2 diabetes mellitus with diabetic polyneuropathy; Z79.84 Long term (current) use of oral hypoglycemic drugs | CPT/HCPCS: 11721 ==

== ENCOUNTER 2025-02-18 07:59 | Outpatient (CLI) | payer MEDICARE, MEDICAID, SELFPAY ==
--- NOTE | 2025-02-18 08:19 | NM_ITS ---
WS: [id number] NUCLEAR MEDICINE GASTRIC STUDY CLINICAL INFORMATION: GASTROESOPHAGEAL REFLUX DISEASE, NAUSEA VOMITING TECHNIQUE: Following oral ingestion of cooked egg mixed with 1.09 mCi technetium 99m sulfur colloid, anterior images of the stomach were obtained over the course of 90 minutes. Activity curve was performed over the course of 90 minutes with linear regression analysis. FINDINGS: Oral ingestion of cooked egg mixture. Delayed T1 half emptying 265 minutes 7% emptying at 60 minutes 25% emptying at 120 minutes NM/[place] [id number] IMPRESSION: Markedly delayed T1 half emptying 265 minutes. Recommend correlation for gastro paresis *Normal median T1 half 90 minutes for solid egg meal (45-110 minutes). Delayed gastric retention is defined as 90% retained at 1 hour, 60% at 2 hour s, 30% at 3 hours, and 10% at 4 hours (normal percent gastric retention is 37-9 0% at 1 hour, 30-60% at 2 hours, and 0-10% at 4 hours).
== END 2025-02-18 08:00 | disposition home or self-care (01) ==
LOC: RAD 08:04
PROVIDERS: PCP Family Medicine; Visit Provider Family Medicine
DX: K30 Functional dyspepsia (principal); K21.9 Gastro-esophageal reflux disease without esophagitis; R11.2 Nausea with vomiting, unspecified
CPT/HCPCS: 78264; A9541

== ENCOUNTER 2025-07-15 16:57 | Emergency (ER) | payer MEDICARE, MEDICAID, SELFPAY ==
--- OUTSIDE RECORDS SUMMARY | 2025-07-12 13:55 | XMS_ITS | Encounter Summary ---
Author Organization [facility] Address [address] [place] [address] Care Team Providers Care Tissue Technician Name Role Phone Cameron Vargas MD Primary Care Provider Reason for Visit * Reason Comments Fdc Visit Encounter Details Date Type Department Care Team (Late st Contact Info) Description 07/12/2025 1:55 PM [facility] Telemedicine [facility] - Primary Care [address] [place] [address] Cameron Vargas MD [address] [facility] [place] [address] Elevated blood pressure reading without diagnosis of hypertension (Primary Dx); Type 2 diabetes mellitus with hyperglycemia, with long-term current use of insulin (HCC); Acquired hypothyroidism; Upper respiratory tract infection, unspecified type; Paroxysmal atrial fibrillation (HCC); Diabetic gastroparesis associated with type 2 diabetes mellitus (HCC) Social History Tobacco Use Types Packs/Day Years Used Date Smoking Tobacco: Unknown Tobacco Cessation:Counseling Given: Not Answered Alcohol Use Standard Drinks/Week Comments Defer 0 (1 standard drink = 0.6 oz pur e alcohol) PHQ-2 Answer Date Recorded PHQ-2 Score 0 08/24/2024 Sex and Gender Information Value Date Recorded Sex Assigned at Not on file Legal Sex Male 6:49 PM HOSEMAN Gender Identity Not on file Sexual Orientation Not on file documented as of this encounter Last Filed Vital Signs Vital Sign Reading Time Taken Comments Blood Pressure 140/96 07/12/2025 9:24 AM HOSEMAN Pulse 78 07/12/2025 9:24 AM HOSEMAN Temperature 36.6 C (97.9 F) 07/12/2025 9:24 AM HOSEMAN Respiratory Rate 16 07/12/2025 9:24 AM HOSEMAN Oxygen Saturation 92% 07/12/2025 9:24 AM HOSEMAN Inhaled Oxygen Concentration - - Weight - - Height - - Body Mass Index - - documented in this encounter Plan of Treatment Not on file documented as of this encounter Visit Diagnoses Diagnosis Elevated blood pressure reading without diagnosis of hypertension- Primary Type 2 diabetes mellitus with hyperglycemia, with long-term current use of insulin (HCC) Acquired hypothyroidism Unspecified hypothyroidism Upper respiratory tract infection, unspecified type Paroxysmal atrial fibrillation (HCC) Atrial fibrillation Diabetic gastroparesis associated with type 2 diabetes mellitus (HCC) Type II or unspecified type diabetes mellitus with neurological manifestations, not stated as uncontrolled documented in this encounter Additional Health Concerns Assessment Noted Time PHQ-9 Depression Total Score: 0 08/24/19 25 1:00 PM HOSEMAN A fall risk assessment has been complete d for the patient 07/12/2025 9:25 AM HOSEMAN documented as of this encounter Care Teams Tissue Technician Relationship Specialty Start Date End Date Cameron Vargas MD [address] [place] [address] PCP - General Family Medicine 08/11/22 documented as of this encounter
--- NOTE | 2025-07-15 17:08 | CTR_ITS ---
PROCEDURE INFORMATION: Exam: CT Head Without Contrast Exam date and time: 07/15/2025 5:14 PM Age: 65 years old Clinical indication: Visual disturbance; Additional info: Bilat blurry vision TECHNIQUE: Imaging protocol: Computed tomography of the head without contrast. Radiation optimization: All CT scans at this facility use at least one of these dose optimization techniques: automated exposure control; mA and/or kV adjustment per patient size (includes targeted exams where dose is matched to clinical indication); or iterative reconstruction. COMPARISON: CT head wo con* [id number] 12/02/2019 6:33 PM RADIATION DOSE METRICS: Total DLP (mGy-cm): 1124.98 FINDINGS: Brain: No hemorrhage. Unremarkable white matter. No mass effect. Cerebral ventricles: Prominence of ventricles and sulci consistent with mild volume loss or atrophy. Paranasal sinuses: Visualized sinuses are unremarkable. No fluid levels. Mastoid air cells: Visualized mastoid air cells are well aerated. Bones: Unremarkable. No acute fracture. Soft tissues: Slight skin thickening/focal edema in the right parietal scalp. CT/CT head wo con* [id number] IMPRESSION: No acute intracranial finding.
--- NOTE | 2025-07-15 17:09 | ED_ITS ---
HPI - Weakness 2 General: Chief complaint: General Medical Stated complaint: htn - dizziness Time Seen by Provider: 07/15/25 17:01 History of Present Illness: Patient is a 65-year-old male with history of schizophrenia, pulmonary embolism on Eliquis, DM, HTN, presents to the emergency room due to not feeling right and blurry vision x 2-3 days. Patient states his blood pressure has been up. He feels weak, and just not well. No fevers. No other systemic symptoms other than the blurry vision. No sensation changes. No gait instability. No fevers. No confusion. Associated symptoms: Denies chest pain, chills, easy bruising, fever(s), headache(s), nausea or vomiting Related Data Previous Rx's ?Medication ?Instructions ?Recorded acetaminophen 325 mg tablet 650 mg (2 x 325 mg) PO Q6H PRN 01/04/20 Mild Pain 30 days #240 tabs apixaban 5 mg tablet (Eliquis) 5 mg PO BID 30 days #60 tabs 01/04/20 dulaglutide 0.75 mg/0.5 mL 0.75 mg (0.5 mL) SUBCUT Q7D #100 mL 01/04/20 subcutaneous pen injector (Trulicity) empagliflozin 10 mg tablet 10 mg PO DAILY #30 tabs 08/24 (Jardiance) famotidine 20 mg tablet 20 mg PO BID 30 days #60 tab s 01/04/20 hydroxyzine pamoate 25 mg capsule 50 mg (2 x 25 mg) PO Q6H PRN 01/04/20 Anxiety 30 days #120 caps insulin aspart U-100 100 unit/mL 0 unit (0 mL) SUBCUT TIDWM #100 mL 01/04/20 subcutaneous solution (Novolog U-100 Insulin aspart) levothyroxine 150 mcg tablet 75 mcg (1/2 x 150 mcg) PO DAILY 30 01/04/20 days #15 tabs metformin 1,000 mg tablet,extended 1,000 mg PO BID #60 tabs 01/04/20 release 24hr (osmotic) metformin 500 mg tablet 1,000 mg (2 x 500 mg) PO BID WM #60 01/04/20 tabs quetiapine 25 mg tablet 50 mg (2 x 25 mg) PO BID 30 days 01/04/20 #120 tabs sertraline 50 mg tablet 50 mg PO DAILY 30 days #30 t abs 01/04/20 Allergies Allergy/AdvReac Type Severity Reaction Status Date / Time No Known Allergies Allergy Verified 03/13/24 07:58 Review of Systems 2 General: Reports: 10 or more systems reviewed and unremarkable except in HPI and below Const: Reports: malaise; Denies: fever(s), chills or fatigue Eyes: Reports: change in vision and blurry vision (come and go) Card: Denies: chest pain or palpitations Resp: Denies: dyspnea GI: Denies: abdominal pain, nausea, vomiting, diarrhea or constipation : Denies: flank pain Musc: Reports: extremity pain Skin/Breast: Denies: rash, pruritus or sores Neuro: Reports: difficulty walking; Denies: headache(s) or numbness in extremities Psych: Denies: suicidal ideation Curtis/Lymph: Denies: easy bruising PFSH ED 2 PFSH: Medical History (Updated 07/15/25 @ 18:00 by VIOLETTA Cordero) Pulmonary embolism Acute encephalopathy Polysubstance abuse Hypothyroidism Schizophrenia Diabetes mellitus type 2, insulin dependent Family History Mother Dementia Father Dementia Social History Smoking and tobacco/nicotine status: never used tobacco/nicotine Physical Exam 2 Const: COMMON NORMALS: no acute distress, average body habitus and patient oriented x3 HENMT: COMMON NORMALS: normocephalic and atraumatic HEAD & SCALP: n ormocephalic and atraumatic Neck/C-Spine: COMMON NORMALS: full ROM, no lymphadenopathy, supple and no meningeal signs Lymph: LYMPHATIC: no lymphadenopathy noted Chest: COMMONS NORMALS: normal inspection of the chest and normal palpation of entire chest wall Resp: COMMON NORMALS: normal respiratory effort, No retractions and clear to auscultation bilaterally AUSCULTATION: clear to auscultation bilaterally Cardio: COMMON NORMALS: regular rate and regular rhythm RATE: regular rate RHYTHM: regular rhythm GI: COMMON NORMALS: Normal to inspection, nondistended, normoactive bowel sounds present, Soft to palpation, non-tender and No hepatosplenomegaly present PALPATION: Yes Soft to palpation and Yes No hepatosplenomegaly present : COMMON NORMALS: Yes no CVA tenderness BLADDER/KIDNEY EXAM: Yes no CVA tenderness Back/Pelvis: COMMON NORMALS: no CVA tenderness Neuro: COMMON NORMALS: patient oriented x3 MENINGEAL SIGNS: Yes no meningeal signs Course 2 Vital Signs: Vital signs: Vital Signs Temperature 98.5 F 07/15/25 17:11 Pulse Rate 86 07/15/25 19:03 Respiratory Rate 16 07/15/25 19:03 Blood Pressure 143/95 07/15/25 19:03 Pulse Oximetry 95 07/15/25 19:03 Oxygen Delivery Me thod Room Air 07/15/25 17:11 MDM - Weakness Medical Decision Making 65-year-old male that feels funny, blurry vision, and blood pressure has been higher. In the ED, his blood pressure has been stable, currently 160/104. This is not something we will correct in the ED since literature shows that it will drop lower after leaving, and cause more issues, and possibly falls. Discussed with patient. Will obtain routine labs, urinalysis, CT of his head, and further decision making to follow. No additional information was found by workup today. CT of the head was negative, no leukocytosis, no UTI. will advise DASH diet and follow-up with primary care.. Medical Records I reviewed the patient's medical records. Lab Data I reviewed the patient's lab results. 07/15/25 17:45 07/15/25 17:[address] 07/15/25 17:08 IMPRESSION: No acute intracranial finding. Laboratory Results WBC 6.32 10^3/uL (3.29-11.43) 07/15/25 17:45 RBC 4.51 10^6/uL (3.85-5.65) 07/15/25 17:45 Hgb 12.70 g/dL (11.27-16.99) 07/15/25 17:45 Hct 39.8 % (37-53) 07/15/25 17:45 MCV 88.2 fl (82-101) 07/15/25 17:45 MCH 28.2 pg (27-33) 07/15/25 17:45 MCHC 31.9 g/dL (30-55) 07/15/25 17:45 RDW 13.3 % (12.1-15.1) 07/15/25 17:45 Plt Count 265 10^3/cmm (157-399) 07/15/25 17:45 MPV 11.1 fL (7.4-10.4) H 07/15/25 17:45 Neut % (Auto) 63.0 % 07/15/25 17:45 Lymph % (Auto) 25.0 % 07/15/25 17:45 [place] % (Auto) 6.8 % 07/15/25 17:45 Eos % (Auto) 4.1 % 07/15/25 17:45 Baso % (Auto) 0.5 % 07/15/25 17:45 Neut # (Auto) 3.98 10^3/uL (1.8-7.7) 07/15/25 17:45 Lymph # (Auto) 1.6 10^3/uL (0.8-4.8) 07/15/25 17:45 [place] # (Auto) 0.4 10^3/uL (0.2-0.9) 07/15/25 17:45 Eos # (Auto) 0.3 10^3/uL (0.0-0.8) 07/15/25 17:45 Baso # (Auto) 0.0 10^3/uL (0.0-0.1) 07/15/25 17:45 Nucleated RBC % (auto) 0 % 07/15/25 17:45 Nucleated RBCs # 0.0 /100WBC 07/15/25 17:45 Sodium 135 mmol/L (136-145) L 07/15/25 17:45 Potassium 4.6 mmol/L (3.5-5.1) 07/15/25 17:45 Chloride 100 mmol/L (98-107) 07/15/25 17:45 Carbon Dioxide 23 mmol/L (22-29) 07/15/25 17:45 Anion Gap 16.6 (5-19) 07/15/25 17:45 BUN 26 mg/dL (8-23) H 07/15/25 17:45 Creatinine 1.2 mg/dL (0.7-1.2) 07/15/25 17:45 GFR Calculation 60.4 mL/min (90-130) L 07/15/25 17:45 Glucose 351 mg/dL (65-115) H 07/15/25 17:45 Calculated Osmolality 299 mOsm/kg (285-295) H 07/15/25 17:45 Calcium 8.9 mg/dL (8.5-10.5) 07/15/25 17:45 Total Bilirubin 0.2 mg/dL (0.15-1.2) 07/15/25 17:45 AST 16 U/L (0-40) 07/15/25 17:45 ALT 12 U/L (0-41) 07/15/25 17:45 Alkaline Phosphatase 112 U/L (40-130) 07/15/25 17:45 Total Protein 6.7 g/dL (6.6-8.7) 07/15/25 17:45 Albumin 3.9 g/dL (3.5-5.2) 07/15/25 17:45 Globulin 2.8 g/dL (1.3-4.6) 07/15/25 17:45 Urine Color Yellow (Yellow) 07/15/25 17:15 Urine Appearance Clear (CLEAR) 07/15/25 17:15 Urine pH 7.0 (5-7) 07/15/25 17:15 Ur Specific [place] 1.027 (1.005-1.030) 07/15/25 17:15 Urine Protein Negative (Negative) 07/15/25 17:15 Urine Glucose (UA) 3+ (Normal) H 07/15/25 17:15 Urine Ketones Negative (Negative) 07/15/25 17:15 Urine Blood Negative (Negative) 07/15/25 17:15 Urine Nitrate Negative (Negative) 07/15/25 17:15 Urine Bilirubin Negative (Negative) 07/15/25 17:15 Urine Urobilinogen 0.2 mg/dL (Negative) 07/15/25 17:15 Ur Leukocyte Esterase Negative (Negative) 07/15/25 17:15 Urine RBC 0-2 /hpf (0-2) 07/15/25 17:15 Urine WBC 0-5 /hpf (0-5) 07/15/25 17:15 Ur Squamous Epith Cells 0-5 /hpf (0-5) 07/15/25 17:15 Amorphous Sediment Not Reportable 07/15/25 17:15 Urine Bacteria None seen /hpf (NONE) 07/15/25 17:15 Hyaline Casts 0-4 /lpf H 07/15/25 17:15 Influenza A (PCR) Negative (Negative) 07/15/25 17:15 Influenza Type B (PCR) Negative (Negative) 07/15/25 17:15 RSV (PCR) Negative (Negative) 07/15/25 17:15 SARS-CoV-2 (PCR) Negative (Negative) 07/15/25 17:15 XR interpretation done by ED provider, pending radiology final review EKG Data EKG 1: Interpretation: Normal sinus rhythm, left axis Discharge Plan Discharge Patient Disposition: Home Clinical Impression: Hypertension Qualifiers: Hypertension type: primary hypertension Qualified Code(s): I10 - Essential (primary) hypertension Condition: Stable Prescriptions: No Action quetiapine 25 mg Tablet 50 mg PO BID 30 Days Qty: 120 1RF acetaminophen 325 mg Tablet 650 mg PO Q6H PRN (Reason: Mild Pain) 30 Days Qty: 240 1RF famotidine 20 mg Tablet 20 mg PO BID 30 Days Qty: 60 1RF levothyroxine 150 mcg Tablet 75 mcg PO DAILY 30 Days Qty: 15 1RF sertraline 50 mg Tablet 50 mg PO DAILY 30 Days Qty: 30 1RF hydroxyzine pamoate 25 mg Capsule 50 mg PO Q6H PRN (Reason: Anxiety) 30 Days Qty: 120 1RF Eliquis 5 mg Tablet 5 mg PO BID 30 Days Qty: 60 1RF metformin 1,000 mg tablet extended release 24hr 1,000 mg PO BID Qty: 60 0RF Jardiance 10 mg Tablet 10 mg PO DAILY Qty: 30 0RF Rx Instructions: UNABLE TO VERIFY MEDS WITH PT DUE TO DKA. MED LIST OBTAINED FROM [facility] Trulicity 0.75 mg/0.5 mL Pen Injector 0.75 mg SUBCUT Q7D Qty: 100 0RF Rx Instructions: UNABLE TO VERIFY MEDS WITH PT DUE TO DKA. MED LIST OBTAINED FROM [facility] metformin 500 mg Tablet 1,000 mg PO BIDWM Qty: 60 0RF Novolog U-100 Insulin aspart 100 unit/mL Solution 0 unit SUBCUT TIDWM Qty: 100 0RF Discharge Orders: Discharge ED (Routine); Ordered 07/15/25 Ordered By: Ally Fraga Referrals: Cameron Vargas MD [Primary Care Provider, Family Practice] Discharge Diet: Low Salt Patient Instructions: Hypertension (ED), Patient Portal & Ailin Instructions Activity Restrictions/Additional Instructions: - follow a low-sodium diet only - follow-up with your primary care physician Thank you for choosing [facility] for your healthcare needs today. You have been screened and evaluated and felt safe for discharge. Health conditions do change or evolve sometimes and as such it is important that you follow up with your Primary Doctor to be re checked, 3-5 days is a general good time frame for follow up. You are always welcome to return to the ED for re assessment if your symptoms are worsening or you have new concerns Print Language: Hungarian Coding Level of Care Code ED Earthmoving Plant Operator for Fernando Oneil
[2025-07-15 17:11] VITALS: BP 179/96; PULSE 69; RESP 17; TEMP 36.9; O2SAT 98; BMI 28.1
[2025-07-15 17:24] LABS: Glucose Urine UA 3+ (Normal); Nitrate Urine Negative (Negative); Specific Gravity, Urine 1.027 (1.005-1.030)
[2025-07-15 17:26] LABS: Add Urine Microscopic? YES
[2025-07-15 17:53] LABS: Hematocrit 39.8 % (37-53); Hemoglobin 12.70 g/dL (11.27-16.99); Mean Corpuscular HGB Conc 31.9 g/dL (30-55); Mean Corpuscular Hemoglobin 28.2 pg (27-33); Mean Corpuscular Volume 88.2 fl (82-101); Nucleated Red Blood Cells % 0 %; Platelet Count 265 10^3/cmm (157-399); Red Blood Count 4.51 10^6/uL (3.85-5.65); White Blood Count 6.32 10^3/uL (3.29-11.43)
[2025-07-15 17:56] LABS: Respiratory Syncytial Virus Ce NEGATIVE (Negative); SARS-CoV-2 PCR NEGATIVE (Negative)
[2025-07-15 18:11] LABS: Alanine Aminotransferase 12 U/L (0-41); Albumin Level 3.9 g/dL (3.5-5.2); Alkaline Phosphatase 112 U/L (40-130); Anion Gap 16.6 (5-19); Aspartate Amino Transferase 16 U/L (0-40); Blood Urea Nitrogen 26 mg/dL (8-23); Calcium 8.9 mg/dL (8.5-10.5); Carbon Dioxide 23 mmol/L (22-29); Chloride 100 mmol/L (98-107); Globulin 2.8 g/dL (1.3-4.6); Glucose 351 mg/dL (65-115); Osmolality Calculated 299 mOsm/kg (285-295); Potassium 4.6 mmol/L (3.5-5.1); Sodium 135 mmol/L (136-145); Total Protein 6.7 g/dL (6.6-8.7)
--- NOTE | 2025-07-15 18:14 | PC.NURSE ---
[facility] states transport will be at facility in next few hours ; unable to give specific time. also reports pt is an elopement risk, resides in locked unit and requesting pt stays within locked unit in ER.
[2025-07-15 19:03] VITALS: BP 143/95; PULSE 86; RESP 16; O2SAT 95
--- OUTSIDE RECORDS SUMMARY | 2025-07-15 19:47 | XMS_ITS | Clinical Summary ---
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 Gender Identity Not on file Sexual Orientation Not on file Plan of Treatment Health Maintenance Due Date Last Done Comments DIABETES ANNUAL FOOT EXAM 1976 DIABETES ANNUAL RETINAL EXAM 1976 LDL CHOLESTEROL ANNUAL 1976 DTAP/TDAP/TD VACCINES (1 - Tdap) 1977 PNEUMOCOCCAL VACCINE 50+ YEA RS (1 of 2 - PCV) 1977 COLORECTAL SCREENING 2003 Colorectal Cancer Screening 2003 FIT-DNA Q 3 years 2003 FIT/FOBT Q 1 year 2003 Flex Sig/CT Colonography Q 5 years 2003 RSV VACCINE (60+ or ) (1 - Risk 50-74 years 1-dose series) 2008 ZOSTER VACCINE (1 of 2) 2008 DIABETES HBA1C Q 6 MONTHS 05/25/2020 11/24/2019, DIABETES MICROALBUMIN ANNUAL SCREEN 11/22/202011/22 INFLUENZA VACCINE (#1) 2025 Procedures Procedure Name Priority Date/Time Associated Diagnosis Comments HEMOGLOBIN A1C Routine 11/24/2019 6:34 AM CDT MICROALBUMIN/CREATIN INE RATIO, RANDOM UR Routine 11/23/2019 10:30 PM CDT from Last 3 Months or Most Recently Relevant to Health Maintenance Results * (ABNORMAL) HEMOGLOBIN A1C (11/24/2019 6:34 AM CDT) HEMOGLOBIN A1C 7.9(H) <=5.6 % 11/25/2019 2:09 PM CDT [facility] EST. AVG GLUCOSE, A1C 180 mg/dL 11/25/2019 2:09 PM CDT [facility] Blood Collection / Unknown 11/24/2019 6:34 AM CDT 11/24/2019 1:21 PM CDT Narrative [facility] - 11/25/2019 2:09 PM CDT HGB A1C INTERPRETATION NORMAL: <5.7% PRE-DIABETES: 5.7 - 6.4% DIABETES: 6.5% OR GREATER us Phillip Giordano MD CHEMISTRY ORDERABLES Ruth young Result Performing Organization Address City/State/[facility] Co de Phone Number [facility] CLIA# [id number] [facility] [place] [address] [facility] CLIA# [id number] [address] [place] [id number] * (ABNORMAL) MICROALBUMIN/CREATININE RATIO, RANDOM UR (11/23/2019 10:30 PM CDT) [facility] ALBUMIN, URINE <5.0 mg/L 11/25/2019 3:41 PM CDT [facility] Comment: ADDITIONAL INFORMATION This test has been modified from the academic hospitalist's instructions. Its performance characteristics were determined by [facility] in a manner consistent with CLIA requirements. This test has not been cleared or approved by the U.S. Food and Drug Administration. CREATININE, URINE 23 mg/dL 020 3:41 PM CDT [facility] ALBUMIN/CREATININE RATIO <22(H) <17 mg/g 11/25/2019 3:41 PM CDT [facility] Comment: This ratio may not correspond with the reference range because one or both of the values used to calculate the ratio was above or below the quantification limits. Test Performed by: [facility] [address] [place] [address] Hypnotherapist: Emre Santillan M.D. Ph.D.; CLIA# [id number] Urine URINE SPECIMEN OBTAINED BY CLEAN CATCH PROCEDURE / Unknown Collection / Unknown 11/23/2019 10:30 PM CDT 11/24/2019 5:02 PM CDT Phillip Giordano MD URINE ORDERABLES Final Re sult [facility] from Last 3 Months or Most Recently Relevant to Health Maintenance Insurance MEDICAID [place]ARE PART A AND B
--- OUTSIDE RECORDS SUMMARY | 2025-07-15 19:47 | XMS_ITS | Clinical Summary ---
Author Organization [facility] Address [address] [place] [address] Care Team Providers Care Flooring Machine Feeder Name Role Phone Cameron Vargas MD Primary Care Provider Allergies No known active allergies Medications Lactobacillus acidophilus (Acidophilus) capsule capsule Take 1 capsule by mouth in the morning and 1 capsule in the evening. Active apixaban (ELIQUIS) 5 mg tablet Take 5 mg by mouth in the morning and 5 mg in the evening. Active atorvastatin (LIPITOR) 80 MG tablet Take 80 mg by mouth in the morning. Active empagliflozin (JARDIANCE) 25 mg tablet Take 25 mg by mouth in the morning. Active gabapentin (NEURONTIN) 100 mg capsule Take 100 mg by mouth in the morning and 100 mg in the evening. Active glucagon 1 mg/mL Infuse 1 mg into a venous catheter once. Active insulin detemir U-100 (LEVEMIR) 100 unit/mL (3 mL) subcutaneous pen Inject 15 Units under the skin nightly. Active levothyroxine (SYNTHROID) 75 MCG tablet Take 75 mcg by mouth every morning before breakfast. Active melatonin 5 mg tablet Take by mouth. Active metFORMIN (GLUCOPHAGE) 1000 MG tablet Take 1,000 mg by mouth in the morning and 1,000 mg in the evening. Active insulin aspart U-100 (NovoLOG) 100 unit/mL (3 mL) subcutaneous pen Inject under the skin in the morning and at noon and in the evening. Inject with meals. Blood Sugar/Dose: <70=0 Units, 70-140=0 Units, 141-180=1 unit,181-220= 2 units, 221-260=3 units, 261-300=4 units, 301-350=5 units, 351-399=6 Units, >400=6 Units and Call Provider. Active paliperidone palmitate (INVEGA SUSTENNA) 156 mg/mL injection Inject 156 mg into the shoulder, thigh, or buttocks every 28 days. Active QUEtiapine (SEROQUEL XR) 150 mg 24 hr tablet Take 150 mg by mouth nightly. Active risperiDONE (RisperDAL) 1 MG tablet Take 1 mg by mouth in the morning and 1 mg in the evening. Active sertraline (ZOLOFT) 100 MG tablet Take 100 mg by mouth in the morning. Active tamsulosin (FLOMAX) 0.4 mg 24 hr capsule Take 0.4 mg by mouth every evening. Active Active Problems Problem Noted Date Diagnosed Date Diabetic gastroparesis assoc iated with type 2 diabetes mellitus 03/22/2025 Low back pain 05/22/2024 Insomnia 12/02/2023 Eczema 07/25/2023 Primary hypertension 09/23/2022 BPH (benign prostatic hyperplasia) 08/16/2022 Schizophrenia 08/16/2022 Hypothyroidism 08/16/2022 Atrial fibrillation 08/16/2022 Diabetes mellitus 08/16/2022 Assessment & Plan (05/17/2023 10:31 AM CDT): Encouraged adherence to diabetic diet. Discussed steroid therapy contraindicated due to persistently elevated glucose levels. GERD (gastroesophageal reflux disease) 3 Encounters Date Type Department Care Team Description 07/12/2025 1:55 PM METAL BED ASSEMBLER Telemedicine [facility] - Primary Care [address] [place] [address] [address] [place] [id number] Cameron Vargas MD Elevated blood pressure reading without diagnosis of hypertension (Primary Dx); Type 2 diabetes mellitus with hyperglycemia, with long-term current use of insulin (HCC); Acquired hypothyroidism; Upper respiratory tract infection, unspecified type; Paroxysmal atrial fibrillation (HCC); Diabetic gastroparesis associated with type 2 diabetes mellitus (HCC) 07/07/2025 12:30 PM METAL BED ASSEMBLER Telemedicine [facility] - [facility] Care [address] [facility] [address] [place] [address] Katia Salcedo Jeana, QUAL RESEARCH MANAGER Bronchitis (Primary Dx); Upper respiratory tract infection, unspecified type; Anemia, unspecified type; Acute cough 07/07/2025 Travel from Last 3 Months Social History Tobacco Use Types Packs/Day Years Used Date Smoking Tobacco: Unknown Tobacco Cessation:Counseling Given: Not Answered Alcohol Use Standard Drinks/Week Comments Defer 0 (1 standard drink = 0.6 oz pur e alcohol) PHQ-2 Answer Date Recorded PHQ-2 Score 0 08/24/2024 Sex and Gender Information Value Date Recorded Sex Assigned at Not on file Legal Sex Male 6:49 PM METAL BED ASSEMBLER Gender Identity Not on file Sexual Orientation Not on file Last Filed Vital Signs Vital Sign Reading Time Taken Comments Blood Pressure 140/96 07/12/2025 9:24 AM METAL BED ASSEMBLER Pulse 78 07/12/2025 9:24 AM METAL BED ASSEMBLER Temperature 36.6 C (97.9 F) 07/12/2025 9:24 AM METAL BED ASSEMBLER Respiratory Rate 16 07/12/2025 9:24 AM METAL BED ASSEMBLER Oxygen Saturation 92% 07/12/2025 9:24 AM METAL BED ASSEMBLER Inhaled Oxygen Concentration - - Weight 84.5 kg (186 lb 3.2 oz) 06/14/2025 8:01 A M METAL BED ASSEMBLER Height 165.1 cm (5' 5 ) 06/14/2025 8:01 AM METAL BED ASSEMBLER Body Mass Index 30.99 06/14/2025 8:01 AM METAL BED ASSEMBLER Plan of Treatment Health Maintenance Due Date Last Done Comments Foot Exam 1958 Hemoglobin A1C 1958 Ophthalmology Exam 1968 Urine Microalbumin 1968 Pneumococcal Vaccine: 50+ Years (1 of 2 - PCV) 1977 Td, Tdap Vaccines Adult 1977 Colonoscopy 2003 RSV 60+ (1 - Risk 50-74 years 1-dose series) 2008 Shingrix (ZOSTER RECOMBINANT) (1 of 2) 2008 Influenza Vaccination (#1) 2025 06/24/2023, Medicare Annual Wellness 01/08/2026 025, 01/08/2025, 10/25/2023, Additional history exists HIB Vaccines Aged Out No longer eligi ble based on patient's age to complete this topic HPV Vaccines (No Doses Required) Completed Hepatitis A Vaccines Aged Out No long er eligible based on patient's age to complete this topic Hepatitis B Vaccines Aged Out No long er eligible based on patient's age to complete this topic IPV Vaccines Aged Out No longer eligi ble based on patient's age to complete this topic Meningococcal Vaccines Aged Out No lo nger eligible based on patient's age to complete this topic RSV Mab Nirsevimab (Beyfortus) <20 months Aged Out No longer eligibl e based on patient's age to complete this topic Rotavirus Vaccines Aged Out No longer eligible based on patient's age to complete this topic Insurance [facility]ICARE [facility] Care Teams Flooring Machine Feeder Relationship Specialty Start Date End Date Cameron Vargas MD [address] [place] [address] PCP - General Family Medicine 08/11/22
--- OUTSIDE RECORDS SUMMARY | 2025-07-15 19:47 | XMS_ITS | Encounter Summary ---
Author Organization [facility] Address [address] [place] [address] Care Team Providers Care Socket Puller Name Role Phone Cameron Vargas MD Primary Care Provider Reason for Referral * MRI/CAT/PET Scan (Routine) - Receiving Facility Will Schedule Specialty Diagnoses / Procedures Referred By Contac t Referred To Contact Diagnoses Gastroesophageal reflux disease without esophagitis Procedures External Nuc Med Gastric emptying Cameron Vargas MD [address] [place] [address] Phone: tel: fax: Referral ID Status Reason Start Date Expiration Date Visits Requested Visits Authorized [id number] Receiving Facility Will Schedule Other 12/25/2024 12/25/2026 1 1 Encounter Details Date Type Department Care Team (Late st Contact Info) Description 12/25/2024 Orders Only [facility] [place] - Primary Care [address] [place] [address] Danielle Patel LPN Gastroesophageal reflux disease without esophagitis (Primary Dx) Social History Tobacco Use Types Packs/Day Years Used Date Smoking Tobacco: Unknown Alcohol Use Standard Drinks/Week Comments Defer 0 (1 standard drink = 0.6 oz pur e alcohol) PHQ-2 Answer Date Recorded PHQ-2 Score 0 08/24/2024 Sex and Gender Information Value Date Recorded Sex Assigned at Not on file 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 Gender Identity Not on file Sexual Orientation Not on file documented as of this encounter Plan of Treatment Not on file documented as of this encounter Procedures Procedure Name Priority Date/Time Associated Diagnosis Comments NM GASTRIC EMPTYING Routine 02/26/2025 10:55 AM C DT Gastroesophageal reflux disease without esophagitis documented in this encounter Results * External Nuc Med Gastric emptying (02/26/2025 10:55 AM CDT) Anatomical Region Laterality Modality Body N/A Nuclear Medicine us Cameron Vargas MD IMG NM ORDERABLES Ruth l Result documented in this encounter Visit Diagnoses Diagnosis Gastroesophageal reflux disease without esophagitis- Primary Esophageal reflux documented in this encounter Additional Health Concerns Assessment Noted Time PHQ-9 Depression Total Score: 0 08/24/19 1:00 PM FITNESS WORKER A fall risk assessment has been complete d for the patient 12/21/2024 7:08 AM CDT documented as of this encounter Care Teams Socket Puller Relationship Specialty Start Date End Date Cameron Vargas MD [address] [place] [address] PCP - General Family Medicine 08/11/22 documented as of this encounter
== END 2025-07-15 19:10 | disposition home or self-care (01) ==
PROVIDERS: Emergency Provider Physician Assistant; PCP Family Medicine
DX: I10 Essential (primary) hypertension (principal); Z79.01 Long term (current) use of anticoagulants; Z79.84 Long term (current) use of oral hypoglycemic drugs; Z79.85 Long-term (current) use of injectable non-insulin antidiabetic drugs; Z11.52 Encounter for screening for COVID-19; E11.9 Type 2 diabetes mellitus without complications; Z79.4 Long term (current) use of insulin
CPT/HCPCS: 36415; 70450; 80053; 81001; 85025; 87637; 99284